=== PATIENT | male | born 1955 | race Two or more races ===

== ENCOUNTER 2024-07-30 14:09 | Inpatient (IN) | payer OTHER ==
[~2024-07-30] VITALS: Ht 165.1 cm; Wt 106.9 kg
[2024-07-30] VITALS (8 sets, daily range): BP systolic 112–125; BP diastolic 34–103; PULSE 85–127; RESP 18–21; TEMP 98.7; O2SAT 90–100
--- NOTE | 2024-07-30 14:15 | ECG ---
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
--- NOTE | 2024-07-30 14:21 | ED.PDOC ---
SOB-HPI HPI Comments 69-year-old male brought in by EMS from home for evaluation of shortness of breath since around 4:30 a.m. and hypoxia. Per EMS, patient stated to them that he most recently moved his position from a wheeled chair to a recliner. He was unable to reach his home nebulizer after moving. He denied any chest pain or fever, however was saturating 75% on 3 L nasal cannula which he uses at home. EMS administered 2 albuterol treatments and 1 Atrovent treatment, which improved the patient's oxygen saturation to 97% on 8L nasal cannula. Time Seen by MD: 14:19 Reviewed notes: Nurses Notes, Boiler Tenders Supervisor Notes, Medications, Allergies Information Source: Emergency Med Personnel Mode of Arrival: EMS Severity: Moderate Timing: Hours Duration: Since onset Context: At Rest PE Risk Factors: None History of: COPD, CHF Prehospital treatment: None Modifying Factors: Nothing Associated Signs and Symptoms: None Past Medical History PAST MEDICAL HISTORY: CHF, COPD, DM Surgical History: Unobtainable Family History Family History: Unobtainable Social History Smoker: Non-Smoker Alcohol: Denies ETOH Use Drugs: Denies Drug Use Lives In: Home Constitutional: denies: chills, diaphoresis, fatigue, fever, malaise, sweats, weakness, others EENTM: denies: blurred vision, double vision, ear bleeding, ear discharge, ear drainage, ear pain, ear ringing, eye pain, eye redness, hearing loss, mouth pain, mouth swelling, nasal discharge, nose bleeding, nose congestion, nose pain, photophobia, tearing, throat pain, throat swelling, voice changes, others Respiratory: reports: shortness of breath; denies: cough, hemoptysis, orthopnea, SOB at rest, SOB with excertion, stridor, wheezing, others Cardiovascular: denies: chest pain, dizzy spells, diaphoresis, Dyspnea on exertion, edema, irregular heart beat, left arm pain, lightheadedness, palpitations, PND, syncope, others Gastrointestinal: denies: abdomen distended, abdominal pain, blood streaked bowels, constipated, diarrhea, dysphagia, difficulty swallowing, hematemesis, melena, nausea, poor appetite, poor fluid intake, rectal bleeding, rectal pain, vomiting, others Genitourinary: denies: burning, dysuria, flank pain, frequency, hematuria, incontinence, penile discharge, penile sore, pain, testicle pain, testicle swelling, urgency, others Neurological: denies: dizziness, fainting, headache, left sided numbness, left sided weakness, numbness, paresthesia, pre-existing deficit, right sided numbness, right sided weakness, seizure, speech problems, tingling, tremors, weakness, others Musculoskeletal: denies: back pain, gout, joint pain, joint swelling, muscle pain, muscle stiffness, neck pain, others Integumetry: denies: bruises, change in color, change in hair/nails, dryness, laceration, lesions, lumps, rash, wounds, others Allergic/Immunocompromised: denies: Difficulty Healing, Frequent Infections, Hives, Itching, others Hematologic/Lymphatic: denies: anemia, blood clots, easy bleeding, easy bruising, swollen glands, others Endocrine: denies: excessive hunger, excessive sweating, excessive thirst, excessive urination, flushing, intolerance to cold, intolerance to heat, unexplained weight gain, unexplained weight loss, others Psychiatric: denies: anxiety, bipolar disorder, depression, hopeless, panic disorder, schizophrenia, sleepless, suicidal, others Unable to Obtain due to: Medical Urgency (Comprehensive systems review unobtainable due to severity of symptoms) Physical Exam General Appearance: Moderate Distress, Obese HEENT: Other (Pupils and face symmetric. Dry mucous membranes.) Neck: Full Range of Motion, Normal Inspection Respiratory: Accessory Muscle Use, Decreased Breath Sounds, Respiratory Distress Cardiovascular: Irregular, No JVD, Tachycardia Breast Exam: Deferred Gastrointestinal: Non Tender, Soft Genitalia: Deferred Pelvic: Deferred Rectal: Deferred Extremities: Leg edema, Normal range of motion, Pedal edema Neurologic: Alert (Oriented x4), Normal Affect, Normal Mood, Other (Moves all extremities) Cerebellar Function: NOT DONE Reflexes: NOT DONE Skin: Dry, Warm, Other (Bilateral legs wrapped with compression bandages.) Lymphatic: NOT DONE EKG EKG : Comments AFib with RVR, rate 135, normal QRS interval, QTC 467, right axis deviation, normal QRS, nonspecific T change, multiple PVCs Was a procedure done? Was a procedure done?: No Differential Dx Differential Diagnosis: Asthma, Bronchitis, CHF, COPD, Dysrhythmia, Hyperventilation, Myocardial infarction, Pneumonia, Pulmonary Embolism, Respiratory Distress, URI X-Ray, Labs, Meds, VS Vital Signs Date Time Temp Pulse Resp B/P (MAP) Pulse Ox O2 Delivery O2 Flow Rate FiO2 07/30/24 20:30 104 18 97 Bi-Pap+ 40 40 07/30/24 20:00 98.0 111 15 107/64 (78) 91 98.0 07/30/24 19:31 117 125/103 95 Facial BiPAP Mask 40 07/30/24 18:12 111 125/103 90 Facial BiPAP Mask 30 07/30/24 18:00 99.3 114 19 125/103 (110) 99 99.3 07/30/24 16:43 98.7 121 21 113/34 99 30 98.7 07/30/24 16:00 121 21 113/34 (60) 100 07/30/24 16:00 122 07/30/24 15:17 24 99 Bi-Pap+ 50 50 07/30/24 15:04 130 138/72 Nasal BiPAP Mask 50 07/30/24 14:56 127 19 100 Bi-Pap+ 50 50 07/30/24 14:47 98.7 137 25 138/72 (94) 98 98.7 07/30/24 14:45 138/72 07/30/24 14:40 133 07/30/24 14:20 98.6 114 38 112/79 (90) 97 98.6 07/30/24 14:11 135 Lab Test 07/30/24 18:55 07/30/24 16:10 07/30/24 16:08 07/30/24 15:47 Range/Units Blood Gas Specimen Type Arterial Arterial Blood Gas Sample Site Right radial Left radial Blood Gas Patient Temperature 37.0 37.0 Arterial Blood Date Drawn [id number] Arterial Blood pH 7.377 7.304 L 7.350-7.450 Arterial Blood Partial Pressure CO2 92.3 *H 104.3 *H 35.0-48.0 mmHg Arterial Blood Partial Pressure O2 65.5 L 100.9 83.0-108.0 mmHg Arterial Blood HCO3 53.0 H 50.6 H 21.0-28.0 mmol/L Arterial Blood Oxygen Saturation 92.5 L 97.6 94.0-98.0 % Arterial Blood Base Excess 23.6 H 20.1 H -2.0-3.0 mmol/L Arterial Blood Oxyhemoglobin 91.3 L 96.1 94.0-98.0 % Arterial Blood Carboxyhemoglobin 0.9 1.2 0.5-1.5 % Arterial Blood Methemoglobin 0.4 0.3 0.0-1.5 % Kailash Test Yes Yes Blood Gas Total Hemoglobin 10.60 L 10.70 L 13.5-17.5 g/dL Blood Gas Set Respiration Rate 14.0 Blood Gas Modality Mask - bipap Mask - bipap FiO2 % 40.0 50.0 Blood Gas EPAP 5 6 Blood Gas IPAP 22 22 Blood Gas Critical Value Read Back yes Yes Blood Gas Notified Whom susan Daigle md, Dr. Blood Gas Notified Time [id number] Blood Gas Notified By sherif sweet, Rt b annelise Influenza Type A Antigen Negative Negative Influenza Type B Antigen Negative Negative SARS-CoV-2 Antigen (Rapid) Negative NEGATIVE Blood Gas Spontaneous Rate 26 Magnesium Level 1.9 1.6-2.6 mg/dL Troponin I High Sensitivity 18 </=54 ng/L Test 07/30/24 15:37 07/30/24 14:55 07/30/24 14:47 Range/Units Urine Color Light-yellow Yellow Urine Clarity Clear Clear Urine pH 5.0 5.0-9.0 Urine Specific [place] 1.010 1.001-1.035 Urine Protein Trace H Negative Urine Ketones Negative Negative Urine Blood Negative Negative /uL Urine Nitrite Negative Negative Urine Bilirubin Negative Negative Urine Urobilinogen Normal Negative mg/dL Urine Leukocyte Esterase Negative Negative /uL Urine RBC <1 0 - 3 /hpf Urine Microscopic WBC 4 H 0-3 /HPF Urine Squamous Epithelial Cells None seen <5 /hpf Urine Bacteria Few H None Seen /hpf Urine Hyaline Casts Few 0 - 2 /lpf Urine Mucus Few None Seen Urine Glucose 4+ H Normal mg/dL POC Glucose 338 H 70-106 mg/dl White Blood Count 12.1 H 4.4-10.8 10^3/uL Red Blood Count 3.75 L 4.5-5.90 10^6/uL Hemoglobin 10.9 L 13.5-17.5 g/dL Hematocrit 35.0 L 41.0-53.0 % Mean Corpuscular Volume 93.3 80.0-100.0 fL Mean Corpuscular Hemoglobin 29.1 28.0-32.0 pg Mean Corpuscular Hemoglobin Concent 31.2 L 32.0-36.0 g/dL Red Cell Distribution Width 15.6 H 11.8-14.3 % Platelet Count 251 140-450 10^3/uL Mean Platelet Volume 8.4 6.9-10.8 fL Neutrophils (%) (Auto) 80.6 H 37.0-80.0 % Lymphocytes (%) (Auto) 9.2 L 10.0-50.0 % Monocytes (%) (Auto) 9.3 0.0-12.0 % Eosinophils (%) (Auto) 0.6 0.0-7.0 % Basophils (%) (Auto) 0.3 0.0-2.0 % Neutrophils # (Auto) 9.7 H 1.6-8.6 10 ^3/uL Lymphocytes # (Auto) 1.1 0.4-5.4 10 ^3/uL Monocytes # (Auto) 1.1 0-1.3 10 ^3/uL Eosinophils # (Auto) 0.1 0-0.8 10 ^3/uL Basophils # (Auto) 0 0-0.2 10 ^3/uL Nucleated Red Blood Cells 0.1 % Sodium Level 136 136-145 mmol/L Potassium Level 4.9 3.5-5.1 mmol/L Chloride Level 88 L 98-107 mmol/L Carbon Dioxide Level > 40 *H 20-31 mmol/L Anion Gap 7.24228 5-15 Blood Urea Nitrogen 41 H 9-23 mg/dL Creatinine 0.89 0.700-1.30 mg/dL Glomerular Filtration Rate Calc 92 >90 mL/min BUN/Creatinine Ratio 46.1 H 10.0-20.0 Serum Glucose 382 H 74-106 mg/dL Hemoglobin A1c 9.2 H <5.7 % A1C Lactic Acid Level 1.3 0.4-2.0 mmol/L Calcium Level 10.5 H 8.7-10.4 mg/dL Total Bilirubin 0.3 0.2-1.0 mg/dL Aspartate Amino Transferase (AST) 22 13-40 U/L Alanine Aminotransferase (ALT) 26 7-40 U/L Alkaline Phosphatase 126 H 46-116 U/L Troponin I High Sensitivity 16 </=54 ng/L B-Type Natriuretic Peptide 228.44 0-100 pg/mL Total Protein 7.5 5.7-8.2 g/dL Albumin 4.0 3.2-4.8 g/dL Current Medications Medications (Trade) Dose Ordered Sig/Artie Route Start Time Stop Time Status Last Admin Albuterol (Ventolin Medneb) 5 mg ONCE ONCE NEB 07/30/24 14:30 07/30/24 14:31 DC 07/30/24 15:17 Ipratropium [place] (Atrovent Medneb) 0.5 mg ONCE ONCE NEB 07/30/24 14:30 07/30/24 14:31 DC 07/30/24 15:17 Furosemide (Lasix Injection) 40 mg ONCE ONCE IV 07/30/24 14:30 07/30/24 14:31 DC 07/30/24 14:45 Dexamethasone Sodium Phosphate (Decadron Injection) 10 mg ONCE ONCE IV 07/30/24 14:45 07/30/24 14:47 DC 07/30/24 14:45 Insulin Human Regular (InsuLIN R) 6 units ONCE ONCE IV 07/30/24 15:00 07/30/24 15:03 DC 07/30/24 15:01 Amiodarone HCl 100 ml @ 600 mls/hr ONCE ONCE IV 07/30/24 15:00 07/30/24 15:09 DC 07/30/24 15:11 [place] [address] Ph: [phone] DIAGNOSTIC IMAGING Diagnostic Imaging Report : [id number] Signed PATIENT: Bryan Reynolds ACCT: [id number] UNIT: [id number] : 1955 LOC: ER ROOM / BED: / AGE / SEX: 69 / M ADM STATUS: REG ER SERVICE 1419 ORDERING PHYSICIAN: DAPHNEY DAIGLE MD PROCEDURE(s): CXRP - CHEST PORTABLE REASON: sob ORDER NUMBER(s): [id number], ACCESSION NUMBER(s): [id number] EXAM: XY CHEST PORTABLE Indication: sob Technique: Single frontal view of the chest was obtained Comparison: None FINDINGS: Lines and Tubes: None Lungs: No focal consolidation. Pleura: No effusion. No pneumothorax. Cardiomediastinal contours: Cardiomegaly. Bones: No acute osseous abnormality. IMPRESSION: Cardiomegaly. No acute cardiopulmonary disease. ATED BY: MARIA VICTORIA GOMEZ MD DICTATED DATE/TIME: 07/30/241454 SIGNED BY: MARIA VICTORIA GOMEZ MD SIGNED DATE/TIME: 07/30/241454 CC: X-Ray, Labs, Meds, VS Comment 69-year-old male with a history of COPD, diabetes and CHF brought in by EMS from home for evaluation of shortness of breath and hypoxia on baseline home oxygen. Initial vitals remarkable for heart rate 137 Exam remarkable for diminished breath sounds, accessory muscle use, severe respiratory distress Rhythm strip independently interpreted by me: AFib with RVR, rate 135, multiple PVCs EKG: AFib with RVR, rate 135, normal QRS interval, QTC 467, right axis deviation, multiple PVCs, nonspecific T change. Chest x-ray IMPRESSION: Cardiomegaly. No acute cardiopulmonary disease. CBC remarkable for WBC 12.1, CMP remarkable for chloride 80, CO2 greater than 40, glucose 382, BNP 228.44, troponin negative, lactic normal, influenza and COVID pending Patient treated with the following in the ED: Placed on BiPAP. Albuterol 5 mg/Atrovent 0.5 mg nebulized, dexamethasone 10 mg IV, amiodarone 150 mg IV bolus followed by amiodarone infusion, regular insulin 6 units IV On re-evaluation, heart rate was 118-130, AFib. Patient was alert and appeared more comfortable on BiPAP. Plan is to admit the patient for heart rate control, respiratory support, pulmonology and Cardiology evaluation. Time of 1ST Reevaluation: 14:49 Reevaluation 1ST: Unchanged Patient Education/Counseling: Diagnosis, Treatment Family Education/Counseling: No Family Present Departure 1 Departure Time of Disposition: 16:31 Impression: Primary Impression: Acute on chronic respiratory failure with hypoxia and hypercapnia Additional Impressions: COPD with exacerbation CHF exacerbation Qualified Codes: I50.9 - Heart failure, unspecified New onset a-fib Atrial fibrillation with RVR Hyperglycemia Disposition: ADMITTED INPATIENT Admit to: [facility] Condition: Guarded Critical Care Note Critical Care Time?: Yes (55 min-critical care time only) Critical care comment: Critical care time including multiple bedside re-evaluations, review of lab and imaging studies, and discussion of the case with the admitting provider. Patient is high risk for hemodynamic and/or respiratory decompensation. Stability Stability form required: No Heart Score Heart Score: Heart Score Response (Comments) Value History N/A 0 EKG N/A 0 Age N/A 0 Risk Factors N/A 0 Troponin N/A 0 Total 0 I personally scribed for DAPHNEY DAIGLE MD ([email or web address]) on 07/30/24 at 14:21. Electronically submitted by Makayla Murillo ([email or web address]). I personally scribed for DAPHNEY DAIGLE MD ([email or web address]) on 07/30/24 at 14:22. Electronically submitted by Makayla Murillo ([employer]). I personally scribed for DAPHNEY DAIGLE MD ([email or web address]) on 07/30/24 at 15:05. Electronically submitted by Makayla Murillo ([employer]). DAPHNEY DAIGLE MD Jul 30, 2024 14:21
[2024-07-30] MEDS ORDERED: methylPREDNISolone SOD SUCC 125 MG/2 ML VL IV ONE (14:30)
[2024-07-30] MEDS: FUROSEMIDE 40 MG/4 ML VIAL IV ONE (14:45)
[2024-07-30] MEDS ORDERED: AMIODARONE HCL 150 MG in D5W 5% 100 ML IV PRN (14:45)
[2024-07-30] MEDS: DexAMETHasone SOD PHOS 10MG/1ML VIAL INJ IV ONE (14:45)
--- NOTE | 2024-07-30 14:57 | DVH ---
EXAM: XY CHEST PORTABLE Indication: sob Technique: Single frontal view of the chest was obtained Comparison: None FINDINGS: Lines and Tubes: None Lungs: No focal consolidation. Pleura: No effusion. No pneumothorax. Cardiomediastinal contours: Cardiomegaly. Bones: No acute osseous abnormality. IMPRESSION: Cardiomegaly. No acute cardiopulmonary disease.
[2024-07-30] MEDS: InsuLIN REG 1unit/0.01ml Soln (100units/ml) IV ONE (15:01)
[2024-07-30] MEDS: AMIODARONE BOLUS KIT 100 ML IV ONE (15:11)
[2024-07-30 15:12] LABS: Basophils # (auto) 0 10 ^3/uL (0-0.2); Basophils % (auto) 0.3 % (0.0-2.0); Eosinophils # (auto) 0.1 10 ^3/uL (0-0.8); Eosinophils % (auto) 0.6 % (0.0-7.0); Hemoglobin 10.9 g/dL (13.5-17.5); Lymphocytes # (auto) 1.1 10 ^3/uL (0.4-5.4); Lymphocytes % (auto) 9.2 % (10.0-50.0); Mean Corpuscular Hemoglobin 29.1 pg (28.0-32.0); Mean Corpuscular Hgb Conc. 31.2 g/dL (32.0-36.0); Mean Corpuscular Volume 93.3 fL (80.0-100.0); Monocytes # (auto) 1.1 10 ^3/uL (0-1.3); Monocytes % (auto) 9.3 % (0.0-12.0); Neutrophils # (auto) 9.7 10 ^3/uL (1.6-8.6); Neutrophils % (auto) 80.6 % (37.0-80.0); Nucleated Red Blood Cells % 0.1 %; Platelet Count (auto) 251 10^3/uL (140-450); Red Blood Cells 3.75 10^6/uL (4.5-5.90); Red Cell Distribution Width 15.6 % (11.8-14.3); White Blood Cell 12.1 10^3/uL (4.4-10.8)
[2024-07-30] MEDS: IPRATROPIUM BROM 0.5 MG/2.5ML INH SOL NEB ONE (15:17)
[2024-07-30] MEDS: ALBUTEROL SULF 2.5 MG/0.5ML(0.5%) NEB SOLN NEB ONE (15:17)
[2024-07-30 15:29] LABS: Alanine Aminotransferase 26 U/L (7-40); Aspartate Aminotransferase 22 U/L (13-40); BUN/Creatinine Ratio 46.1 (10.0-20.0); Potassium 4.9 mmol/L (3.5-5.1); Total Protein 7.5 g/dL (5.7-8.2)
[2024-07-30 15:30] LABS: Bilirubin, Total 0.3 mg/dL (0.2-1.0)
[2024-07-30 15:32] LABS: Alkaline Phosphatase 126 U/L (46-116); Anion Gap 7.99999 (5-15); Blood Urea Nitrogen 41 mg/dL (9-23); Calcium 10.5 mg/dL (8.7-10.4); Chloride 88 mmol/L (98-107); Glucose 382 mg/dL (74-106); Sodium 136 mmol/L (136-145)
[2024-07-30 15:34] LABS: Carbon Dioxide > 40 mmol/L (20-31)
[2024-07-30 16:01] LABS: Urine Bacteria FEW /hpf (None Seen); Urine Blood Negative /uL (Negative); Urine Clarity Clear (Clear); Urine Color Light-Yellow (Yellow); Urine Hyaline Cast FEW /lpf (0 - 2); Urine Mucus FEW (None Seen); Urine Protein, UAD TRACE (Negative); Urine Squamous Epithelial Cell None Seen /hpf (<5); Urine Urobilinogen Normal (Negative); Urine WBC 4 /HPF (0-3)
[2024-07-30 16:18] LABS: Base Excess 20.1 mmol/L (-2.0-3.0)
[2024-07-30] MEDS: AMIODARONE 360mg/200mL PREMIX 200 ML IV ONE (17:04)
[2024-07-30 18:11] LABS: Rapid Influenza A Negative (Negative); Rapid Influenza B Negative (Negative)
[2024-07-30 18:12] LABS: COVID19 ANTIGEN SOFIA FIA NEGATIVE (NEGATIVE)
[2024-07-30 19:20] LABS: Base Excess 23.6 mmol/L (-2.0-3.0)
--- NOTE | 2024-07-30 21:42 | DVHHPRES ---
History of Present Illness Resident Creating Document: TANNER SALGADO RESIDENT History of Present Illness Patient is a 69-year-old male with past medical history of CHF, COPD, type 2 diabetes, atrial fibrillation, who comes in due to respiratory distress. Per patient's brother who is also his caregiver, patient's home wound care nurse checked his vitals and his SpO2 was noted to be 68% with a pulse of 130, he also appeared disoriented and had labored breathing. According to the brother, patient's mobility has been progressively decreasing over the last 3 months and he has been limited to a recliner/office chair for the last 1 month and refuses to lie flat in his bed. Patient has been having increasing leg swelling during this time with the appearance of fluid-filled blisters which eventually started draining an ulcerated. Brother says he has been using antibiotic dressing on open sores with the help of wound nurse however the dressings continued to get drenched in the discharge and this is what prompted this visit to the hospital. Arrival to the ED patient was noted to be tachycardic and tachypneic and was placed on BiPAP. Note, patient is on home oxygen 2-3 L. Past Medical History CHF, COPD, type 2 diabetes, atrial fibrillation Past Surgical History Left heart catheterization 8 years ago, brother unsure of results. Past Social History Smoking: Quit, prior to that was smoking 1 pack per day for 10 years Alcohol: Denies Drugs: Denies Allergy: Shellfish Home medications: Unable to obtain Review of Systems Review of Systems Unable to complete review of systems as patient confused and on BiPAP. Allergies: Coded Allergies: NO KNOWN ALLERGIES (Unverified , 07/30/24) Medications Current Medications Medications Dose Ordered Sig/Artie Route Start Time Stop Time Status Last Admin Dose Admin Acetaminophen 325 mg Q4HP PRN PO 07/30/24 21:45 UNV Vancomycin HCl 0 ml @ 0 mls/hr UD IV 07/30/24 21:45 UNV Cefepime HCl 50 ml @ 12.5 mls/hr Q8HR IV 07/30/24 22:00 UNV Enoxaparin Sodium 140 mg Q12HR SC 07/30/24 22:00 UNV Ipratropium [place] 0.5 mg Q4HR NEB 07/30/24 22:00 UNV Levalbuterol HCl 1.25 mg Q4HR NEB 07/30/24 22:00 UNV Insulin Glargine 20 units HS SC 07/30/24 22:00 UNV Diagnostic Test (Pha) 1 strip IQ4HR 07/31/24 00:00 UNV Insulin Human Regular IQ4HR SC 07/31/24 00:00 UNV Dextrose 50 ml UD PRN IV 07/30/24 21:45 UNV Exam Vital Signs Vital Signs Date Time Temp Pulse Resp B/P (MAP) Pulse Ox O2 Delivery O2 Flow Rate FiO2 07/30/24 20:30 104 18 97 Bi-Pap+ 40 40 07/30/24 20:00 98.0 107/64 (78) 98.0 General Appearance: Alert, Cooperative, moderate distress HEENT: Atraumatic, PERRLA, EOMI, Other (Dry mucous membranes) Respiratory: Normal air movement Cardiovascular: Other (Tachycardic) Abdominal: Normal bowel sounds, Soft, No tenderness Extremities: Other (Bilateral lower extremity erythema and swelling, wounds covered with dressing.) Neuro: Normal speech, Sensation intact Psych/Mental Status: Mood NL Labs/Xrays Labs Test 07/30/24 18:55 07/30/24 16:10 07/30/24 16:08 07/30/24 15:47 Range/Units Blood Gas Specimen Type Arterial Blood Gas Sample Site Right radial Blood Gas Patient Temperature 37.0 Arterial Blood Date Drawn [id number] Arterial Blood pH 7.377 7.350-7.450 Arterial Blood Partial Pressure CO2 92.3 *H 35.0-48.0 mmHg Arterial Blood Partial Pressure O2 65.5 L 83.0-108.0 mmHg Arterial Blood HCO3 53.0 H 21.0-28.0 mmol/L Arterial Blood Oxygen Saturation 92.5 L 94.0-98.0 % Arterial Blood Base Excess 23.6 H -2.0-3.0 mmol/L Arterial Blood Oxyhemoglobin 91.3 L 94.0-98.0 % Arterial Blood Carboxyhemoglobin 0.9 0.5-1.5 % Arterial Blood Methemoglobin 0.4 0.0-1.5 % Kailash Test Yes Blood Gas Total Hemoglobin 10.60 L 13.5-17.5 g/dL Blood Gas Set Respiration Rate 14.0 Blood Gas Modality Mask - bipap FiO2 % 40.0 Blood Gas EPAP 5 Blood Gas IPAP 22 Blood Gas Critical Value Read Back yes Blood Gas Notified Whom susan Daigle md Blood Gas Notified Time [id number] Blood Gas Notified By rt byron Influenza Type A Antigen Negative Negative Influenza Type B Antigen Negative Negative SARS-CoV-2 Antigen (Rapid) Negative NEGATIVE Blood Gas Spontaneous Rate 26 Troponin I High Sensitivity 18 </=54 ng/L Test 07/30/24 15:37 07/30/24 14:55 07/30/24 14:47 Range/Units Urine Color Light-yellow Yellow Urine Clarity Clear Clear Urine pH 5.0 5.0-9.0 Urine Specific [place] 1.010 1.001-1.035 Urine Protein Trace H Negative Urine Ketones Negative Negative Urine Blood Negative Negative /uL Urine Nitrite Negative Negative Urine Bilirubin Negative Negative Urine Urobilinogen Normal Negative mg/dL Urine Leukocyte Esterase Negative Negative /uL Urine RBC <1 0 - 3 /hpf Urine Microscopic WBC 4 H 0-3 /HPF Urine Squamous Epithelial Cells None seen <5 /hpf Urine Bacteria Few H None Seen /hpf Urine Hyaline Casts Few 0 - 2 /lpf Urine Mucus Few None Seen Urine Glucose 4+ H Normal mg/dL POC Glucose 338 H 70-106 mg/dl White Blood Count 12.1 H 4.4-10.8 10^3/uL Red Blood Count 3.75 L 4.5-5.90 10^6/uL Hemoglobin 10.9 L 13.5-17.5 g/dL Hematocrit 35.0 L 41.0-53.0 % Mean Corpuscular Volume 93.3 80.0-100.0 fL Mean Corpuscular Hemoglobin 29.1 28.0-32.0 pg Mean Corpuscular Hemoglobin Concent 31.2 L 32.0-36.0 g/dL Red Cell Distribution Width 15.6 H 11.8-14.3 % Platelet Count 251 140-450 10^3/uL Mean Platelet Volume 8.4 6.9-10.8 fL Neutrophils (%) (Auto) 80.6 H 37.0-80.0 % Lymphocytes (%) (Auto) 9.2 L 10.0-50.0 % Monocytes (%) (Auto) 9.3 0.0-12.0 % Eosinophils (%) (Auto) 0.6 0.0-7.0 % Basophils (%) (Auto) 0.3 0.0-2.0 % Neutrophils # (Auto) 9.7 H 1.6-8.6 10 ^3/uL Lymphocytes # (Auto) 1.1 0.4-5.4 10 ^3/uL Monocytes # (Auto) 1.1 0-1.3 10 ^3/uL Eosinophils # (Auto) 0.1 0-0.8 10 ^3/uL Basophils # (Auto) 0 0-0.2 10 ^3/uL Nucleated Red Blood Cells 0.1 % Sodium Level 136 136-145 mmol/L Potassium Level 4.9 3.5-5.1 mmol/L Chloride Level 88 L 98-107 mmol/L Carbon Dioxide Level > 40 *H 20-31 mmol/L Anion Gap 7.18463 5-15 Blood Urea Nitrogen 41 H 9-23 mg/dL Creatinine 0.89 0.700-1.30 mg/dL Glomerular Filtration Rate Calc 92 >90 mL/min BUN/Creatinine Ratio 46.1 H 10.0-20.0 Serum Glucose 382 H 74-106 mg/dL Lactic Acid Level 1.3 0.4-2.0 mmol/L Calcium Level 10.5 H 8.7-10.4 mg/dL Total Bilirubin 0.3 0.2-1.0 mg/dL Aspartate Amino Transferase (AST) 22 13-40 U/L Alanine Aminotransferase (ALT) 26 7-40 U/L Alkaline Phosphatase 126 H 46-116 U/L B-Type Natriuretic Peptide 228.44 0-100 pg/mL Total Protein 7.5 5.7-8.2 g/dL Albumin 4.0 3.2-4.8 g/dL Assessment/Plan Assessment/Plan Acute on chronic hypoxic/hypercarbic respiratory failure, on 4 L O2 via NC Acute metabolic encephalopathy possibly due to above, improving COPD exacerbation Rule out pulmonary embolism - CXR: Cardiomegaly. No acute cardiopulmonary disease - ordered CT pulmonary angiography - IV vancomycin per pharmacy, IV cefepime - IV methylprednisolone - therapeutic Lovenox - ipratropium and levalbuterol med nebs Bilateral lower extremity cellulitis Possible sepsis due to above - IV vancomycin, IV cefepime - wound consult - wound culture, blood culture, respiratory culture - IV ketorolac as needed for pain Acute on chronic CHF exacerbation, systolic versus diastolic History of atrial fibrillation Hypercoagulable state secondary to above - aspirin 81 mg - IV furosemide 40 mg b.i.d. - ordered echocardiogram Type 2 diabetes, uncontrolled, A1c 9.2 - insulin Lantus 20 units q.p.m. - aggressive sliding scale insulin Obesity, class 3 - unable to deputy general counsel as patient in distress PUD prophylaxis: protonix 40mg Goals of care: Full code, discussed for >16 minutes on 07/30/24 Plan discussed with patient Plan discussed with Dr. Polk Plan discussed with: Patient, Other (Brother MARLYS Carey) My Orders Orders - TANNER SALGADO RESIDENT Procedure Category Date Status Time Admit ADMIT 07/30/24 Transmitted 21:31 Allergies BRENT 07/30/24 In Process 21:31 Code Status CODE 07/30/24 Transmitted 21:31 Acetaminophen Tablet PHA 07/30/24 Logged (Tylenol Tablet) 21:45 Complete Blood Count LAB 07/31/24 Verified 04:00 Comprehensive LAB 07/31/24 Verified Metabolic Panel 04:00 Npo (Nothing By DIET 07/31/24 Transmitted Mouth) Diet Breakfast Echo 2d Mode Cardiac US 07/30/24 Logged DOP 21:31 Condition: Unstable BRENT 07/30/24 In Process 21:31 Notify Md Of Changes BRENT 07/30/24 In Process From Base 21:31 Vancomycin Per PHA 07/30/24 Logged Pharmacy 21:45 Cefepime 2gm/50ml Ns PHA 07/30/24 Logged (Maxipime 2gm/50ml) 22:00 Enoxaparin Sodium PHA 07/30/24 Logged (Lovenox) 22:[address] 07/30/24 Logged Contrast 21:31 Communication Order ORDERS 07/30/24 Transmitted 21:31 Ipratropium Medneb PHA 07/30/24 Logged (Atrovent Medneb) 22:00 Levalbuterol Hcl PHA 07/30/24 Logged (Xopenex Medneb) 22:00 Blood Culture KALEN 07/30/24 Logged 21:31 Respiratory Culture KALEN 07/30/24 Logged W/ Gs 21:31 Insulin Lantus PHA 07/30/24 Logged (Glargine) (Lantus) 22:00 Glucose Blood PHA 07/31/24 Logged (Accu-Chek Comfort 00:00 Insulin R (Human) PHA 07/31/24 Logged (Insulin R) 00:00 Dextrose 50% Syringe PHA 07/30/24 Logged 21:45 Rapid Influenza A&B LAB 07/30/24 Logged 21:31 Magnesium LAB 07/30/24 Logged 21:41 Hemoglobin A1c LAB 07/30/24 Verified 21:41 Date of Service: Jul 30, 2024 Billing Provider: NARENDRA POLK MD Common Visit Codes: [id number] INP/OBS CARE (HIGH) TANNER SALGADO RESIDENT Jul 30, 2024 21:42
[2024-07-30] MEDS: IOHEXOL 350 MG/ML 100ML IJ ONE (21:43)
[2024-07-30] MEDS ORDERED: VANCOMYCIN PER PHARMACY 0 MG IV SCH (21:45)
[2024-07-30] MEDS ORDERED: ACETAMINOPHEN 325 MG TAB PO PRN (21:45)
[2024-07-30] MEDS ORDERED: DEXTROSE (50%) 50ML SYRG IV PRN (21:45)
[2024-07-30] MEDS: IPRATROPIUM BROM 0.5 MG/2.5ML INH SOL NEB SCH (22:20)
[2024-07-30] MEDS: LEVALBUTEROL HCL 1.25 MG/3 ML NEB NEB SCH (22:20)
[2024-07-30] MEDS: INSULIN LANTUS (GLARGINE) 1 /0.01ml (100units/ml) SC SCH (22:28)
[2024-07-30] MEDS: ENOXAPARIN SOD 100 MG/1 ML SYRINGE SC SCH (22:28)
[2024-07-30] MEDS: CEFEPIME 2GM/50ML NS 50 ML IV SCH (22:28)
[2024-07-30] MEDS ORDERED: VANCOMYCIN 1GM/200ML PM 200 ML IV SCH (22:30)
[2024-07-30] MEDS: AMIODARONE 360mg/200mL PREMIX 200 ML IV SCH (23:14)
[2024-07-30] MEDS: InsuLIN REG 1unit/0.01ml Soln (100units/ml) SC SCH (23:59)
[2024-07-31] VITALS (23 sets, daily range): BP systolic 96–121; BP diastolic 50–55; PULSE 64–126; RESP 15–22; TEMP 97.7–98.9; O2SAT 93–100
[2024-07-31] MEDS: ACCU-CHEK COMFORT CURVE STRIP VI SCH (00:02)
[2024-07-31] MEDS ORDERED: METF-370 PO (00:03)
[2024-07-31] MEDS ORDERED: FURO40TA4 PO (00:15)
[2024-07-31] MEDS ORDERED: ALBU108A5 INH (00:15)
[2024-07-31] MEDS ORDERED: ASPI-543 PO (00:15)
[2024-07-31] MEDS ORDERED: POM (00:26)
[2024-07-31] MEDS: VANCOMYCIN 1GM/200ML PM 200 ML IV SCH (00:50)
[2024-07-31] MEDS: PANTOPRAZOLE 40 MG/10 ML VIAL INJ IV ONE (02:00)
[2024-07-31 02:09] LABS: Base Excess 22.3 mmol/L (-2.0-3.0)
[2024-07-31] MEDS: FUROSEMIDE 40 MG/4 ML VIAL IV SCH (06:00)
[2024-07-31 07:09] LABS: Base Excess 22.1 mmol/L (-2.0-3.0)
[2024-07-31 07:41] LABS: Basophils # (auto) 0 10 ^3/uL (0-0.2); Eosinophils # (auto) 0 10 ^3/uL (0-0.8); Hemoglobin 9.4 g/dL (13.5-17.5); Lymphocytes # (auto) 0.4 10 ^3/uL (0.4-5.4); Lymphocytes % (auto) 5.2 % (10.0-50.0); Mean Corpuscular Hemoglobin 29.5 pg (28.0-32.0); Mean Corpuscular Hgb Conc. 32.6 g/dL (32.0-36.0); Mean Corpuscular Volume 90.5 fL (80.0-100.0); Monocytes # (auto) 0.6 10 ^3/uL (0-1.3); Neutrophils % (auto) 86.8 % (37.0-80.0); Platelet Count (auto) 205 10^3/uL (140-450); Red Cell Distribution Width 15.1 % (11.8-14.3); White Blood Cell 8.1 10^3/uL (4.4-10.8)
[2024-07-31 07:46] LABS: Alanine Aminotransferase 24 U/L (7-40); Albumin 3.7 g/dL (3.2-4.8); Alkaline Phosphatase 107 U/L (46-116); Aspartate Aminotransferase 18 U/L (13-40); BUN/Creatinine Ratio 50.6 (10.0-20.0); Potassium 4.6 mmol/L (3.5-5.1); Sodium 142 mmol/L (136-145); Total Protein 6.9 g/dL (5.7-8.2)
[2024-07-31 07:52] LABS: Chloride 90 mmol/L (98-107)
[2024-07-31 07:53] LABS: Anion Gap 11.99999 (5-15); Bilirubin, Total 0.2 mg/dL (0.2-1.0); Blood Urea Nitrogen 40 mg/dL (9-23); Calcium 10.8 mg/dL (8.7-10.4); Glucose 72 mg/dL (74-106)
[2024-07-31 07:54] LABS: Carbon Dioxide > 40 mmol/L (20-31)
[2024-07-31 08:28] LABS: Folate (Folic Acid) 32.36 ng/mL (>5.38)
[2024-07-31 08:56] LABS: Base Excess 22.6 mmol/L (-2.0-3.0)
[2024-07-31] MEDS: ASPirin-EC 81 mg tab PO SCH (10:00)
[2024-07-31] MEDS: methylPREDNISolone SOD SUCC 40 MG/ML VL IV SCH (11:33)
[2024-07-31] MEDS: diphenhdrAMINE HCL 50 MG/1 ML VL IV ONE (11:38)
[2024-07-31] MEDS: KETOROLAC TROMETH 30 MG/ML 1ML VIAL IV PRN (12:28)
[2024-07-31] MEDS: AMIODARONE 360mg/200mL PREMIX 200 ML IV SCH (12:33)
--- NOTE | 2024-07-31 12:40 | DVH ---
Procedure: CT CT ANGIO CHEST CONTRAST Reason for study/Clinical History: r/o PE Comparison Study: None available at time of dictation. Exam Date: 07/31/2024 12:02 PM Radiation Dose Information: CT Dose: CTDI volume is 28.85 mGy. Dose-length product is 1073.19 mGy*cm TECHNIQUE: After the uneventful administration of intravenous contrast intravenously, CT imaging was performed through the chest. Coronal and sagittal reformations were performed by the technologist. FINDINGS: Lower Neck: Visualized portions of the thyroid gland are unremarkable. Aorta and Vasculature: Normal caliber of thoracic aorta. Lymph Nodes: No enlarged intrathoracic lymph nodes. Mediastinum: Heart size is normal. There is no pericardial effusion. The esophagus is unremarkable. Lungs: 2cm Nodular opacities right lung apex. Follow-up CT in 6 weeks to see if there is resolution. Musculoskeletal: No acute osseous abnormality. Upper abdomen: Limited portions of the upper abdomen are unremarkable. IMPRESSION: No evidence of acute intrathoracic abnormality identified. 2cm Nodular opacities right lung apex. Follow-up CT in 6 weeks to see if there is resolution. All CT scans at this medical facility are performed using dose modulation techniques as appropriate t o a performed exam including the following: Automated exposure control was utilized; adjustment of th e MA and/or KV according to patient size; and use of iterative reconstruction technique.
[2024-07-31] MEDS ORDERED: HYDROcodone-ACET 10/325MG TAB PO PRN (15:15)
--- NOTE | 2024-07-31 15:43 | DVH ---
CLINICAL INDICATION: right hip pain TECHNIQUE: 1 radiographic views of the right hip were obtained. Comparison: None FINDINGS/IMPRESSION: There is no evidence of acute fracture or dislocation. Suboptimal study since the omental Alcira is superimposed over the right hip. This is not improved wi th altering study windows. The visualized joint space is well maintained. The alignment is anatomical. There is no radiopaque foreign body.
--- NOTE | 2024-07-31 15:54 | DVHPNRES ---
Progress Note Date Seen: Jul 31, 2024 Resident Creating Document: GINETTE TRIVEDI RESIDENT Medical Necessity Reason Pt with a Central, PICC or Fol: No Subjective Review of Systems Patient is a 69-year-old male with past medical history of CHF, COPD, type 2 diabetes, atrial fibrillation, who comes in due to respiratory distress. Per patient's brother who is also his caregiver, patient's home wound care nurse checked his vitals and his SpO2 was noted to be 68% with a pulse of 130, he also appeared disoriented and had labored breathing. According to the brother, patient's mobility has been progressively decreasing over the last 3 months and he has been limited to a recliner/office chair for the last 1 month and refuses to lie flat in his bed. Patient has been having increasing leg swelling during this time with the appearance of fluid-filled blisters which eventually started draining an ulcerated. Brother says he has been using antibiotic dressing on open sores with the help of wound nurse however the dressings continued to get drenched in the discharge and this is what prompted this visit to the hospital. Arrival to the ED patient was noted to be tachycardic and tachypneic and was placed on BiPAP. Note, patient is on home oxygen 2-3 L. Patient was seen and examined on the bedside. He is alert oriented x3. Complaint of shortness of breath, hip pain and bilateral leg pain. No other active complaint this time. Constitutional: No: Fever, Chills, Sweats, Weakness, Malaise, Other Eyes: No: Pain, Vision change, Conjunctivae inflammation, Eyelid inflammation, Other, Redness ENT: No: Ear pain, Ear discharge, Nose pain, Nose discharge, Nose congestion, Mouth pain, Mouth swelling, Throat pain, Throat swelling, Other Respiratory: Shortness of breath, improving No: Cough, Dry,Wheezing, Hemoptysis, Pleuritic Pain, Sputum, Wheezing, Other Cardiovascular: Chest Pain, Palpitations, No Orthopnea, Paroxysmal Noc. Dyspnea, Edema, Lt Headedness, Other Gastrointestinal: No: Nausea, Vomiting, Abdominal Pain, Diarrhea, Constipation, Melena, Hematochezia, Other Musculoskeletal: Hip pain and leg pain No: other, neck pain, shoulder pain, arm pain, back pain, hand pain, foot pain Neurological:; No: Weakness, Numbness, Incoordination, Change in speech, Confusion, Seizures Objective vital signs Vital Sign Date Time Temp Pulse Resp B/P (MAP) Pulse Ox O2 Delivery O2 Flow Rate FiO2 07/31/24 14:42 110 20 97 07/31/24 14:35 Nasal Cannula* 3 32 07/31/24 13:26 98.5 121/54 (76) 98.5 Total Intake and Output 07/30/24 07/30/24 07/31/24 15:00 23:00 07:00 Intake Total 600 ml 50 ml Output Total 1100 ml Balance 600 ml -1050 ml medications Current Medications Medications Dose Ordered Sig/Artie Route Start Time Stop Time Status Last Admin Dose Admin Acetaminophen 325 mg Q4HP PRN PO 07/30/24 21:45 Vancomycin HCl 0 ml @ 0 mls/hr UD IV 07/30/24 21:45 Cefepime HCl 50 ml @ 12.5 mls/hr Q8HR IV 07/30/24 22:00 07/31/24 15:02 12.5 MLS/HR Enoxaparin Sodium 140 mg Q12HR SC 07/30/24 22:00 07/31/24 11:33 140 MG Ipratropium [place] 0.5 mg Q4HR NEB 07/30/24 22:00 07/31/24 14:32 0.5 MG Levalbuterol HCl 1.25 mg Q4HR NEB 07/30/24 22:00 07/31/24 14:32 1.25 MG Insulin Glargine 20 units HS SC 07/30/24 22:00 07/30/24 22:28 20 UNITS Diagnostic Test (Pha) 1 strip IQ4HR 07/31/24 00:00 07/31/24 12:00 1 STRIP Insulin Human Regular IQ4HR SC 07/31/24 00:00 07/31/24 03:46 4 UNITS Dextrose 50 ml UD PRN IV 07/30/24 21:45 Methylprednisolone Sodium Succinate 40 mg DAILY IV 07/31/24 10:00 07/31/24 11:33 40 MG Aspirin 81 mg DAILY PO 07/31/24 10:00 Pantoprazole Sodium 40 mg DAILY IV 08/01/24 10:00 Furosemide 40 mg BIDD IV 07/31/24 06:00 Acetaminophen/ Hydrocodone Bitart 1 tab Q6HP PRN PO 07/31/24 15:15 Morphine Sulfate 2 mg Q4HPRN PRN IV 07/31/24 15:15 Examination Physical examination: General Appearance: Alert, Oriented X3, Cooperative, mild distress; morbidly obese HEENT: Atraumatic, PERRLA, EOMI, Mucous membrane moist/pink Respiratory: Bilateral wheezing and crackles. Cardiovascular: Irregular rhythm with rate from 90 to 110, Normal S1, Normal S2, No murmurs, no chest wall tenderness Abdominal: Normal bowel sounds, Soft, No tenderness, No hepatospenomegaly, No masses Extremities: No clubbing, No cyanosis, No edema, Normal pulses, No tenderness/swelling Skin: Bilateral macerated wounds in legs, No rashes, No significant lesion Neuro: Normal speech, Strength at 5/5 X4 ext, Normal tone, Sensation intact, Cranial nerves 3-12 NL, Reflexes 2+ Psych/Mental Status: Mental status NL, Mood NL laboratory and microbiology Laboratory Tests 07/31/24 06:53 Test 07/31/24 06:53 Range/Units Serum Glucose 72 #L 74-106 mg/dL Microbiology Date/Time Source Procedure Growth Status 07/30/24 14:47 Blood Blood Culture - Preliminary NO GROWTH AFTER 24 HOURS OF INCUBATION. Resulted Labs and/or images reviewed: Labs reviewed by me, Image(s) reviewed by me Problem List/Assessment/Plan Problem List/Assessment/Plan Assessment/Plan: # Acute on chronic hypoxic/hypercarbic respiratory failure, on 4 L O2 via NC # Acute metabolic encephalopathy possibly due to above, improving # Acute exacerbation of chronic COPD # Ruled out pulmonary embolism # Pulmonary nodule, rule out malignancy- # Possible pulmonary hypertension - CXR: Cardiomegaly. No acute cardiopulmonary disease - CT angiography demonstrated 2 cm nodular opacities right lung apex, ruled out PE and follow up CT scan in 6 weeks to see if there is resolution. - Med neb with levalbuterol and ipratropium q.4 hours - IV vancomycin per pharmacy, IV cefepime 2gm Q 8 hours - IV methylprednisolone 40 mg daily - BiPAP at night time # Bilateral lower extremity cellulitis # Possible sepsis due to above - IV vancomycin, IV cefepime - wound consult - Pending wound culture, blood culture, respiratory culture - IV morphine 2 mg q.4 PRN - [place] 10/325 mg q.6 p.r.n. # Acute on chronic CHF exacerbation, systolic versus diastolic # paroxysmal atrial fibrillation with RVR # Hypercoagulable state secondary to above - EKG showed irregular rhythm, borderline T abnormalities and troponins were unremarkable - IV amiodarone as per protocol 12 hourly - Therapeutic Lovenox 1 milligram/kg b.i.d. - Aspirin 81 mg daily and atorvastatin 20 mg at HS - IV furosemide 40 mg b.i.d. - Pending echo - Consulted Cardiology # Type 2 diabetes, uncontrolled, A1c 9.2 - insulin Lantus 20 units q.p.m. - aggressive sliding scale insulin # Obesity, class 3 , BMI 50.1 kg/m2 - counseled patient regarding weight loss, diet, moderate intensity physical exercise at least 35 minutes for 5 times a week and lifestyle modification # PUD prophylaxis - Protonix 40mg daily # DVT prophylaxis - patient is on Lovenox Goal of care discussed with the patient and his sisters for 20 minutes full code Plan discussed with Dr. Dobson Plan discussed with: Patient, Other (Sisters; nurse) My Orders My Orders Orders - GINETTE TRIVEDI RESIDENT Procedure Category Date Status Time Amiodarone PHA 07/31/24 In Process 360mg/200ml Premix 11:46 Wound Culture W/ Gs KALEN 07/31/24 In Process 11:42 Wound Culture W/ Gs KALEN 07/31/24 In Process 11:42 Cleanse Wound With BRENT 07/31/24 In Process Wound Clean 10:34 * Dietary Consult CONS 07/31/24 Transmitted 13:39 Cleanse Wound With BRENT 07/31/24 In Process Mild Soap A 10:34 Cardiac DIET 07/31/24 Transmitted Diet-2gna,Lofat,Lochol Dinner BIPAP RT 07/31/24 Logged 15:40 Addendum Addendum Addendum I was physically present for the galeas portions of the service provided to patient by THE RESIDENT. I have reviewed the documentation, discussed the case with resident and agree with the resident's documentation except as noted. Also the patient's clinical case was discussed with the patient's nurse. This medical document was created using an electronic medical record system with computerized dictation system. Although this document has been carefully reviewed, there might still be some phonetic and typographical errors. These areas are purely typographical due to imperfections of the software programs, and do not reflect any compromise in the patient's medical care. Late signature. Date of Service: Jul 31, 2024 Billing Provider: MARISOL DOBSON MD Common Visit Codes: 59023-[id number] INP/OBS CARE(HIGH) Secondary Visit Codes: 35302-[id number] CARE PLAN 30 MINUTES (20 minutes) GINETTE TRIVEDI RESIDENT Jul 31, 2024 15:54 MARISOL DOBSON MD August 01, 2024 07:04
[2024-07-31] MEDS: MORPHINE SULFATE INJ 2 MG/ml SYRG IV PRN (18:53)
[2024-07-31] MEDS: SODIUM CHLORIDE 0.9% 250 ML IV ONE (20:44)
[2024-07-31] MEDS: ATORVASTATIN 20 MG TAB PO SCH (21:36)
[2024-07-31 22:52] LABS: Base Excess 19.7 mmol/L (-2.0-3.0)
[2024-07-31] MEDS: ETOMIDATE (2MG/ML) 20ML VIAL IV ONE ×2 (23:39→23:41)
[2024-07-31] MEDS: MIDAZOLAM DRIP 50 mg/50mL 50 ML IV ONE (23:41)
[2024-07-31] MEDS: fentaNYL Drip 2500mCg/250mlNS 250 ML IV ONE (23:41)
[2024-07-31] MEDS: ROCURONIUM 10MG/ML 10ML VIAL IV ONE (23:42)
--- NOTE | 2024-07-31 23:58 | ED.PDOC ---
Was a procedure done? Was a procedure done?: Yes Sedation Sedation?: No Intubation Indication: Respiratory Insufficiency, Altered Mental Status Prep: Preoxygenation Pretreated with: Other (Etomidate) Medicated with: Other (Rocuronium) Intubation Approach: Orotracheal Intubation size: cm (8) Informed consent obtained: No Risks/benefits/alt described: No Notes I was assisted by residents Dr. Dai and MISHA Casper MD Jul 31, 2024 23:58
[2024-08-01] VITALS (105 sets, daily range): BP systolic 78–154; BP diastolic 45–82; PULSE 83–132; RESP 14–23; TEMP 97.1–99.2; O2SAT 86–100
[2024-08-01] MEDS: NOREPINEPHRINE 8 MG/250ML KIT 250 ML IV ONE (00:46)
[2024-08-01] MEDS: IOHEXOL 350 MG/ML 100ML IJ ONE (00:55)
[2024-08-01] MEDS: MIDAZOLAM DRIP 50 mg/50mL 50 ML IV SCH (01:15)
[2024-08-01] MEDS: fentaNYL Drip 2500mCg/250mlNS 250 ML IV SCH (01:15)
[2024-08-01] MEDS: ROCURONIUM 10MG/ML 10ML VIAL IV ONE (02:33)
[2024-08-01] MEDS: ETOMIDATE (2MG/ML) 20ML VIAL IV ONE (02:33)
[2024-08-01 02:50] LABS: Base Excess 22.6 mmol/L (-2.0-3.0)
[2024-08-01] MEDS: NOREPINEPHRINE 8 MG/250ML KIT 250 ML IV SCH (03:15)
--- NOTE | 2024-08-01 03:20 | ED.PDOC ---
Was a procedure done? 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 Dr Wright) Indication: Hypotension Room prepared for procedure: Yes Design Supervisor performed hand hygien: Yes Maximal sterile barrier precau: Mask/Eye shield, Sterile gown, Cap, Sterlie gloves, Large sterlie drape Skin Preparation: Chlorhexidine gluconate Skin preparation completely dr: Yes Insertion site: Right, Internal jugular Central line catheter type: [id number] dialysis Number of lumens: 3 Central line exchanged over a: Yes Antiseptic ointment applied to: Yes Post Assessment: Chest X-Ray, Proper placement, No Pneumothorax Informed consent obtained: No Risks/benefits/alt described: No MISHA SALDANA MD August 01, 2024 03:20
[2024-08-01 04:25] LABS: Basophils # (auto) 0 10 ^3/uL (0-0.2); Basophils % (auto) 0.3 % (0.0-2.0); Eosinophils # (auto) 0 10 ^3/uL (0-0.8); Hematocrit 29.5 % (41.0-53.0); Hemoglobin 9.4 g/dL (13.5-17.5); Lymphocytes # (auto) 0.5 10 ^3/uL (0.4-5.4); Lymphocytes % (auto) 9.4 % (10.0-50.0); Mean Corpuscular Hemoglobin 29.1 pg (28.0-32.0); Mean Corpuscular Hgb Conc. 31.8 g/dL (32.0-36.0); Mean Corpuscular Volume 91.3 fL (80.0-100.0); Monocytes # (auto) 0.7 10 ^3/uL (0-1.3); Monocytes % (auto) 11.9 % (0.0-12.0); Neutrophils # (auto) 4.3 10 ^3/uL (1.6-8.6); Neutrophils % (auto) 78.4 % (37.0-80.0); Nucleated Red Blood Cells % 0.2 %; Platelet Count (auto) 183 10^3/uL (140-450); Red Blood Cells 3.23 10^6/uL (4.5-5.90); White Blood Cell 5.5 10^3/uL (4.4-10.8)
[2024-08-01 04:28] LABS: Calcium 10.2 mg/dL (8.7-10.4); Potassium 4.3 mmol/L (3.5-5.1); Sodium 139 mmol/L (136-145)
[2024-08-01 04:51] LABS: Anion Gap 7.99999 (5-15); Blood Urea Nitrogen 50 mg/dL (9-23); Chloride 91 mmol/L (98-107); Glucose 198 mg/dL (74-106)
[2024-08-01 04:52] LABS: Carbon Dioxide > 40 mmol/L (20-31)
--- NOTE | 2024-08-01 05:30 | DVH ---
EXAM: XR Chest, 1 View CLINICAL INDICATION: central line/ et tube placement/ ogt placement TECHNIQUE: Frontal view of the chest. COMPARISON: XY CHEST PORTABLE on DOS: 07/30/24 FINDINGS: LUNGS AND PLEURAL SPACES: See below. HEART: Cardiomegaly with mild congestion. MEDIASTINUM: Unremarkable. Normal mediastinal contour. BONES/JOINTS: Unremarkable. No acute fracture. TUBES, LINES AND DEVICES: Right internal jugular central venous catheter tip in the superior vena c gustavo. The endotracheal tube (ETT) is in satisfactory position. Enteric tube tip in the stomach. OTHER FINDINGS: . . . IMPRESSION: Cardiomegaly with mild congestion.
[2024-08-01 06:48] LABS: Base Excess 24.1 mmol/L (-2.0-3.0)
[2024-08-01] MEDS: PANTOPRAZOLE 40 MG/10 ML VIAL INJ IV SCH (09:27)
[2024-08-01] MEDS: VANCOMYCIN 1GM/200ML PM 200 ML IV SCH (09:27)
--- NOTE | 2024-08-01 09:31 | DVHINCON2 ---
Date Seen: August 01, 2024 Referring Physician MD Cheri Reason for Consultation CHF, AFIB History of Present Illness This is a 69-year-old male patient who presents to emergency room with chief complaint of ALOC and worsening shortness of breath. At the time of assessment, the patient is chemically sedated and mechanically ventilated. No family at bedside. Called patients brother, Aurelio, who was able to provide patients history. According to the patient's brother Aurelio, the patient was at home being evaluated with his wound care nurses. The patient was noticeably confused at that time. The wound care nurses decided to check the patient's oxygen level and found his SpO2 level to be at 68% with a heart rate in the 130s. The patient's brother decided to call EMS and the patient was brought to the emergency room for further evaluation. The patient was initially admitted to the telemetry floor and was subsequently intubated due to respiratory decline. Initial twelve lead electrocardiogram reveals atrial fibrillation with PVCs. Initial troponin level of 16ng/L. Initial BNP level of 228.44pg/mL. Significant past medical history includes congestive heart failure, atrial fibrillation (not on NOAC), COPD with home O2, asthma, type 2 diabetes mellitus, and obesity. The patient's brother reports that the patient sees postdoctoral fellow in the outpatient setting. He also mentions that the patient underwent a coronary angiogram approximately 10 years ago in which no catheter based intervention was necessary. Past Medical History Past medical history reviewed. No other significant than mentioned above. Past Surgical History Denies all previous surgeries Family History: Patient reports no known family medical history. Family History Family history reviewed. Social History Patient has a 10 pack-year history, quit smoking approximately 50 years ago No illicit drug use No alcohol use Allergies: Coded Allergies: Shellfish Allergy (Verified Allergy, Unknown, 07/31/24) Home Meds Reported Medications Patients Own Medication (PATIENTS OWN MEDICATION) . PTS OWN MED-OBTAIN FROM PT AND SEND TO RX DRUG: FREQ: RX# EXP: DATE DISP: TECH: RPH: 07/31/24 Patients Own Medication (PATIENTS OWN MEDICATION) . PTS OWN MED-OBTAIN FROM PT AND SEND TO RX DRUG: FREQ: RX# EXP: DATE DISP: TECH: RPH: 07/31/24 Aspirin (Aspir-Low) 81 Mg Tab, 81 MG PO DAILY for 30 Days, MG 07/31/24 Furosemide (Furosemide) 40 Mg Tab, 1 TAB PO DAILY 07/31/24 Albuterol Sulfate (Albuterol Sulfate Hfa) 108 Mcg/Act Aer, INH 07/31/24 Metformin Hydrochloride (Metformin Hcl) 500 Mg Tab, 1 TAB PO DAILY 07/31/24 Home Meds Home medications reviewed. Current Medications Current Medications Medications (Trade) Dose Ordered Sig/Artie Route PRN Reason Start Time Stop Time Status Last Admin Methylprednisolone Sodium Succinate (Solu Medrol) 40 mg DAILY IV 07/31/24 10:00 07/31/24 11:33 Aspirin (Ecotrin Enteric Coated Tablet) 81 mg DAILY PO 07/31/24 10:00 Pantoprazole Sodium (Protonix) 40 mg DAILY IV 08/01/24 10:00 Acetaminophen/ Hydrocodone Bitart ([place] 10/325MG Tab) 1 tab Q6HP PRN PO MODERATE PAIN (4-6 PAIN SCALE) 07/31/24 15:15 Morphine Sulfate 2 mg Q4HPRN PRN IV SEVERE PAIN (7-10 PAIN SCALE) 07/31/24 15:15 Hold 07/31/24 18:53 Atorvastatin Calcium (Lipitor) 20 mg HS PO 07/31/24 22:00 Midazolam HCl 50 ml @ 1 mls/hr Q24H IV 08/01/24 01:15 08/01/24 08:51 Fentanyl Citrate 250 ml @ 2.5 mls/hr Q24H IV 08/01/24 01:15 Norepinephrine Bitartrate 250 ml @ 3.75 mls/hr Q24H IV 08/01/24 03:15 08/01/24 08:05 Review of Systems Constitutional: No symptom reported Ears, Nose, & Throat: No symptom reported Eyes: No symptom reported Neurological: Altered level of consciousness Pulmonary/Respiratory: Shortness of breath Cardiovascular: No symptom reported Gastrointestinal: No symptom reported Genitourinary: No symptom reported Musculoskeletal: No symptom reported Skin: No symptom reported Psychiatric: No symptom reported Endocrine: No symptom reported Hematologic/Lymphatic: No symptom reported Vital Signs Vital Signs Date Time Temp Pulse Resp B/P (MAP) Pulse Ox O2 Delivery O2 Flow Rate FiO2 08/01/24 08:32 86 18 110/71 (84) 92 28 08/01/24 08:00 97.1 97.1 08/01/24 06:00 Mechanical Ventilator+ 07/31/24 22:20 3.0 Physical Exam General Appearance: Morbidly obese. Calm, relaxed Pulmonary/Respiratory: Clear, bilateral breaths sounds. Cardiovascular/Chest: Regular rate and rhythm. Peripheral Pulses: 2+ Radial (R). 2+ Radial (L). 2+ Pedal (R). 2+ Pedal (L) Abdominal Exam: Normal bowel sounds. Ankle Exam: 2+ pitting edema Lower extremities: 2+ pitting edema Neuro/Mental Status: Chemically sedated Thoughts/Psych: Deferred Appearance: No acute distress. Skin Exam: Bilateral lower extremity wounds, wrapped. Labs/Diagnostic Data Labs Test 08/01/24 07:35 08/01/24 06:39 08/01/24 03:52 07/31/24 22:45 Range/Units POC Glucose 127 H 70-106 mg/dl Blood Gas Specimen Type Arterial Blood Gas Sample Site Right radial Blood Gas Patient Temperature 37.0 Arterial Blood Date Drawn [id number] Arterial Blood pH 7.567 *H 7.350-7.450 Arterial Blood Partial Pressure CO2 55.0 H 35.0-48.0 mmHg Arterial Blood Partial Pressure O2 65.6 L 83.0-108.0 mmHg Arterial Blood HCO3 48.9 H 21.0-28.0 mmol/L Arterial Blood Oxygen Saturation 94.2 94.0-98.0 % Arterial Blood Base Excess 24.1 H -2.0-3.0 mmol/L Arterial Blood Oxyhemoglobin 93.4 L 94.0-98.0 % Arterial Blood Carboxyhemoglobin 0.5 0.5-1.5 % Arterial Blood Methemoglobin 0.3 0.0-1.5 % Kailash Test Modified Blood Gas Total Hemoglobin 9.10 L 13.5-17.5 g/dL Blood Gas Set Respiration Rate 18.0 Blood Gas Modality Vent - ac FiO2 % 40.0 Blood Gas Tidal Volume 450.0 Blood Gas PEEP or CPAP 5.0 Blood Gas Critical Value Read Back Yes Blood Gas Notified Whom Blood Gas Notified Time [id number] Blood Gas Notified By Feli bliss rt White Blood Count 5.5 # 4.4-10.8 10^3/uL Red Blood Count 3.23 L 4.5-5.90 10^6/uL Hemoglobin 9.4 L 13.5-17.5 g/dL Hematocrit 29.5 L 41.0-53.0 % Mean Corpuscular Volume 91.3 80.0-100.0 fL Mean Corpuscular Hemoglobin 29.1 28.0-32.0 pg Mean Corpuscular Hemoglobin Concent 31.8 L 32.0-36.0 g/dL Red Cell Distribution Width 15.0 H 11.8-14.3 % Platelet Count 183 140-450 10^3/uL Mean Platelet Volume 8.2 6.9-10.8 fL Neutrophils (%) (Auto) 78.4 37.0-80.0 % Lymphocytes (%) (Auto) 9.4 L 10.0-50.0 % Monocytes (%) (Auto) 11.9 0.0-12.0 % Eosinophils (%) (Auto) 0.0 0.0-7.0 % Basophils (%) (Auto) 0.3 0.0-2.0 % Neutrophils # (Auto) 4.3 1.6-8.6 10 ^3/uL Lymphocytes # (Auto) 0.5 0.4-5.4 10 ^3/uL Monocytes # (Auto) 0.7 0-1.3 10 ^3/uL Eosinophils # (Auto) 0 0-0.8 10 ^3/uL Basophils # (Auto) 0 0-0.2 10 ^3/uL Nucleated Red Blood Cells 0.2 % Sodium Level 139 136-145 mmol/L Potassium Level 4.3 3.5-5.1 mmol/L Chloride Level 91 L 98-107 mmol/L Carbon Dioxide Level > 40 *H 20-31 mmol/L Anion Gap 7.83448 5-15 Blood Urea Nitrogen 50 #H 9-23 mg/dL Creatinine 0.98 0.700-1.30 mg/dL Glomerular Filtration Rate Calc 83 >90 mL/min BUN/Creatinine Ratio 51.0 H 10.0-20.0 Serum Glucose 198 #H 74-106 mg/dL Calcium Level 10.2 8.7-10.4 mg/dL Random Vancomycin Level 7.3 5-10 ug/mL Blood Gas Liter Flow 3.00 Test 07/31/24 07:02 07/31/24 06:53 07/31/24 01:59 07/30/24 16:10 Range/Units Blood Gas Spontaneous Rate 16 Total Bilirubin 0.2 0.2-1.0 mg/dL Aspartate Amino Transferase (AST) 18 13-40 U/L Alanine Aminotransferase (ALT) 24 7-40 U/L Alkaline Phosphatase 107 46-116 U/L Total Protein 6.9 5.7-8.2 g/dL Albumin 3.7 3.2-4.8 g/dL Vitamin B12 Level 1350 H 211-911 pg/mL Vitamin D 25-Hydroxy 32.3 30.0-100 ng/mL Folic Acid 32.36 >5.38 ng/mL Thyroid Stimulating Hormone (TSH) 0.60 0.55-4.78 uIU/mL Blood Gas EPAP 5 Blood Gas IPAP 22 Influenza Type A Antigen Negative Negative Influenza Type B Antigen Negative Negative SARS-CoV-2 Antigen (Rapid) Negative NEGATIVE Test 07/30/24 15:47 07/30/24 15:37 07/30/24 14:47 Range/Units Magnesium Level 1.9 1.6-2.6 mg/dL Troponin I High Sensitivity 18 </=54 ng/L Urine Color Light-yellow Yellow Urine Clarity Clear Clear Urine pH 5.0 5.0-9.0 Urine Specific [place] 1.010 1.001-1.035 Urine Protein Trace H Negative Urine Ketones Negative Negative Urine Blood Negative Negative /uL Urine Nitrite Negative Negative Urine Bilirubin Negative Negative Urine Urobilinogen Normal Negative mg/dL Urine Leukocyte Esterase Negative Negative /uL Urine RBC <1 0 - 3 /hpf Urine Microscopic WBC 4 H 0-3 /HPF Urine Squamous Epithelial Cells None seen <5 /hpf Urine Bacteria Few H None Seen /hpf Urine Hyaline Casts Few 0 - 2 /lpf Urine Mucus Few None Seen Urine Glucose 4+ H Normal mg/dL Hemoglobin A1c 9.2 H <5.7 % A1C Lactic Acid Level 1.3 0.4-2.0 mmol/L B-Type Natriuretic Peptide 228.44 0-100 pg/mL Microbiology Date/Time Source Procedure Growth Status 07/31/24 12:23 Leg Right Gram Stain Pending Resulted 07/31/24 12:23 Leg Right Wound Culture - Preliminary Resulted 07/30/24 14:47 Blood Blood Culture - Preliminary NO GROWTH AFTER 24 HOURS OF INCUBATION. Resulted Assessment Unspecified congestive heart failure Atrial fibrillation, likely persistent (not on NOAC) Acute hypoxic respiratory failure COPD with home O2 Pulmonary hypertension Asthma Type 2 diabetes mellitus, uncontrolled (Hgb A1c 9.2%) Morbid obesity Plan/Recommendation We will continue with the following plan/recommendations (): * Transthoracic echocardiogram to evaluate cardiac function * Strict intake and output, daily weights, maintain fluid restriction * Continue vasopressor therapy for hemodynamic support * [id number] score: 3 points, HAS-BLED: 2 points * Therapeutic Lovenox while inpatient, transition to NOAC prior to discharge * Hold beta-blockers given vasopressor therapy. Rate is currently controlled * Hold antiarrhythmic agents given unknown duration of AFib * Monitor and replete electrolytes as needed. Keep potassium greater than 4 and magnesium greater than 2 * Close Cardiac surveillance Thank you for allowing us to care for this patient. Please call with any questions or concerns. Critical care time spent: 44 minutes This medical document was created using an electronic medical record system with voice recognition software and computerized dictation system. Although this document has been carefully reviewed, there might still be some phonetic and typographical errors. Occasional wrong-word or ``sound-alike substitutions may have occurred due to the inherent limitations of voice recognition software. These areas are purely typographical due to imperfections of the software programs and do not reflect any compromise in the patient's medical care. Please read the chart carefully and recognize, using context, where these substitutions have occurred. Plan discussed with: Other (Patient's brother, Aurelio) NYHA Physical activity limitations: Class3(Marked) ordinary (activity causes symtoms) Date of Service: August 01, 2024 Billing Provider: BENITEZ ROWAN Cardiology Common Codes: 76889-[id number] INP/OBS CARE (High) Cardiology Consultation Codes: 56056-[id number] CONSULT <45MIN BENITEZ ROWAN August 01, 2024 09:31
[2024-08-01 12:07] LABS: Base Excess 20.8 mmol/L (-2.0-3.0)
[2024-08-01 15:51] LABS: Base Excess 17.5 mmol/L (-2.0-3.0)
--- NOTE | 2024-08-01 16:21 | DVHSR ---
APPROVED REPORT EXAM: Two-dimensional and M-mode echocardiogram with Doppler and color Doppler. Blood Pressure: 113/54 mmHg INDICATION PE RISK FACTORS Obesity: Height: 5'5", Weight: 301 DIMENSIONS LVDd5.9 (3.8-5.7cm)LA (2D)5.9 (1.9-4.0cm)Aortic Root3.5 (2.0-3.7cm) LVDs4.3 (2.5-4.0cm)LA (MM) (1.9-4.0cm)Aortic Cusp Exc0.8 (1.5-2.0cm) EF (%) 52.0 (55-70%)Rt. Atrium5.7 (1.9-4.0cm)Asc. Aorta cm IVSd0.9 (0.7-1.1cm)RV (D) (1.8-2.4cm) PWd0.9 (0.7-1.1cm) Mitral Valve MitralMitral Stenosis E wave1.17m/sMV Mean GR.mmHg E/A ratio0.02D MVAcm2 Aortic Valve Aortic ValveAortic Stenosis V10.95m/[place] Mean GR.15mmHg V22.44m/[place] Peak GR.24mmHg LVOT Diameter2.5 (1.8-2.4cm)Doppler AVA1.91cm2 Tricuspid Valve TR Velocity3.42m/s [id number] Other Information Quality : Technically LimitedRhythm : Technically limited study due to body habitus. Conclusion Technically good study. Atrial fibrillation. Biatrial enlargement. Mild LV enlargement. Aortic root enlargement. Moderate mitral annular calcification with the patient of the posterior mitral leaflet. Moderate aor tic sclerosis with diminished excursion of the right coronary cusp. Calcification of the non and lef t coronary cusps as well. There appears to be a certain degree of aortic sclerosis present. Mild gr adient of15 mmHg suggestive aortic sclerosis without stenosis. The tricuspid appears to be structura lly normal. Left ventricular function is diminished. EF is approximately 40% with global hypokinesis. Irregular contractility. Moderate tricuspid regurgitation. Mild mitral insufficiency. No pericardial effusion masses or vegetations.
[2024-08-01] MEDS: DIGOXIN (250MCG/ML) 2 ML AMPULE IV ONE ×2 (16:35→22:57)
--- NOTE | 2024-08-01 18:08 | DVHPNRES ---
Progress Note Date Seen: August 01, 2024 Resident Creating Document: GINETTE TRIVEDI RESIDENT Medical Necessity Reason Pt with a Central, PICC or Fol: No Subjective Review of Systems Patient was seen and examined on the bedside. He is on mechanical ventilation with tidal volume 450 mL, FiO2 30%, PEEP 5, respiratory rate 16. Recent ABGs revealed compensated metabolic alkalosis with respiratory acidosis. Objective vital signs Vital Sign Date Time Temp Pulse Resp B/P (MAP) Pulse Ox O2 Delivery O2 Flow Rate FiO2 08/01/24 17:48 105/54 08/01/24 17:30 105 16 92 08/01/24 16:14 30 08/01/24 16:00 Mechanical Ventilator+ 08/01/24 12:00 98.7 98.7 07/31/24 22:20 3.0 Total Intake and Output 07/31/24 07/31/24 08/01/24 15:00 23:00 07:00 Intake Total 216.58 ml 150 ml 212.5 ml Output Total 900 ml 650 ml Balance 216.58 ml -750 ml -437.5 ml medications Current Medications Medications Dose Ordered Sig/Artie Route Start Time Stop Time Status Last Admin Dose Admin Acetaminophen 325 mg Q4HP PRN PO 07/30/24 21:45 Vancomycin HCl 0 ml @ 0 mls/hr UD IV 07/30/24 21:45 Cefepime HCl 50 ml @ 12.5 mls/hr Q8HR IV 07/30/24 22:00 08/01/24 13:55 12.5 MLS/HR Ipratropium [place] 0.5 mg Q4HR NEB 07/30/24 22:00 08/01/24 13:46 0.5 MG Levalbuterol HCl 1.25 mg Q4HR NEB 07/30/24 22:00 08/01/24 13:46 1.25 MG Insulin Glargine 20 units HS SC 07/30/24 22:00 07/30/24 22:28 20 UNITS Diagnostic Test (Pha) 1 strip IQ4HR 07/31/24 00:00 08/01/24 16:24 1 STRIP Insulin Human Regular IQ4HR SC 07/31/24 00:00 08/01/24 16:35 12 UNITS Dextrose 50 ml UD PRN IV 07/30/24 21:45 Methylprednisolone Sodium Succinate 40 mg DAILY IV 07/31/24 10:00 5/1/25 09:28 40 MG Aspirin 81 mg DAILY PO 07/31/24 10:00 08/01/24 09:28 81 MG Pantoprazole Sodium 40 mg DAILY IV 08/01/24 10:00 08/01/24 09:27 40 MG Furosemide 40 mg BIDD IV 07/31/24 06:00 08/01/24 17:48 40 MG Acetaminophen/ Hydrocodone Bitart 1 tab Q6HP PRN PO 07/31/24 15:15 Morphine Sulfate 2 mg Q4HPRN PRN IV 07/31/24 15:15 Hold 07/31/24 18:53 2 MG Atorvastatin Calcium 20 mg HS PO 07/31/24 22:00 Midazolam HCl 50 ml @ 1 mls/hr Q24H IV 08/01/24 01:15 08/01/24 12:51 9 MLS/HR Fentanyl Citrate 250 ml @ 2.5 mls/hr Q24H IV 08/01/24 01:15 08/01/24 15:15 15 MLS/HR Norepinephrine Bitartrate 250 ml @ 3.75 mls/hr Q24H IV 08/01/24 03:15 08/01/24 08:05 3.75 MLS/HR Vancomycin HCl 200 ml @ 200 mls/hr Q12H IV 08/01/24 09:00 08/01/24 09:27 200 MLS/HR Enoxaparin Sodium 120 mg Q12HR SC 08/01/24 22:00 Examination Physical examination: General Appearance: On mechanical ventilation; morbidly obese HEENT: Atraumatic, PERRLA, EOMI, Mucous membrane moist/pink Respiratory: Bilateral disease wheezing and crackles Cardiovascular: Regular rate, Normal S1, Normal S2, No murmurs, no chest wall tenderness Abdominal: Normal bowel sounds, Soft, No tenderness, No hepatosplenomegaly, No masses Extremities: Bilateral macerated wound below-knee on both limbs, No clubbing, No cyanosis, No edema, Normal pulses. Skin: No rashes, No breakdown, No significant lesion laboratory and microbiology Laboratory Tests 08/01/24 03:52 Test 08/01/24 03:52 Range/Units Serum Glucose 198 #H 74-106 mg/dL Microbiology Date/Time Source Procedure Growth Status 08/01/24 00:30 Nose MRSA Screen - Final Complete 07/30/24 14:47 Blood Blood Culture - Preliminary NO GROWTH AFTER 48 HOURS OF INCUBATION. Resulted Labs and/or images reviewed: Labs reviewed by me, Image(s) reviewed by me Problem List/Assessment/Plan Problem List/Assessment/Plan Assessment/Plan: # Acute on chronic hypoxic/hypercarbic respiratory failure, on mechanical ventilation # Acute metabolic encephalopathy possibly due to above # Acute exacerbation of chronic COPD # Ruled out pulmonary embolism # Pulmonary nodule, rule out malignancy- # Possible pulmonary hypertension - CXR: Cardiomegaly. No acute cardiopulmonary disease - CT angiography demonstrated 2 cm nodular opacities right lung apex, ruled out PE and follow up CT scan in 6 weeks to see if there is resolution. - Med neb with levalbuterol and ipratropium q.4 hours - IV vancomycin per pharmacy, IV cefepime 2gm Q 8 hours - IV methylprednisolone 40 mg daily - patient is on mechanical ventilation with tidal volume 450 mL, FiO2 30%, PEEP 5, RR 16 - Patient is on IV Versed, fentanyl and Levophed drip - ICU level of care - Telemetry - Continue close monitoring # Bilateral lower extremity cellulitis # Possible sepsis due to above - IV vancomycin, IV cefepime - wound consult - Pending wound culture, blood culture, respiratory culture - IV morphine 2 mg q.4 PRN - Walker 10/325 mg q.6 p.r.n. # Acute on chronic CHF exacerbation, systolic versus diastolic # paroxysmal atrial fibrillation with RVR # Hypercoagulable state secondary to above - EKG showed irregular rhythm, borderline T abnormalities and troponins were unremarkable - IV amiodarone as per protocol 12 hourly - Therapeutic Lovenox 1 milligram/kg b.i.d. - Aspirin 81 mg daily and atorvastatin 20 mg at HS - IV furosemide 40 mg b.i.d. - Reviewed echo: Technically good study. Atrial fibrillation. Biatrial enlargement. Mild LV enlargement. Aortic root enlargement. Moderate mitral annular calcification with the patient of the posterior mitral leaflet. Moderate aortic sclerosis with diminished excursion of the right coronary cusp. Calcification of the non and left coronary cusps as well. There appears to be a certain degree of aortic sclerosis present. Mild gradient of15 mmHg suggestive aortic sclerosis without stenosis. The tricuspid appears to be structurally normal. Left ventricular function is diminished. EF is approximately 40% with global hypokinesis. Irregular contractility. Moderate tricuspid regurgitation. Mild mitral insufficiency. No pericardial effusion masses or vegetations. - Cardiology is following # Type 2 diabetes, uncontrolled, A1c 9.2 - insulin Lantus 20 units q.p.m. - aggressive sliding scale insulin # Obesity, class 3 , BMI 50.1 kg/m2 - counseled patient regarding weight loss, diet, moderate intensity physical exercise at least 35 minutes for 5 times a week and lifestyle modification # PUD prophylaxis - Protonix 40mg daily # DVT prophylaxis - patient is on Lovenox Goal of care discussed with the patient's sisters for 20 minutes; full code 120 minutes of critical care time Plan discussed with Dr. Dobson Plan discussed with: Other (Sisters; nurse) My Orders My Orders Orders - GINETTE TRIVEDI RESIDENT Procedure Category Date Status Time Abg W/ Co-Ox RT 08/01/24 Logged 04:00 Ok To Use Central Line ORDERS 08/01/24 Transmitted 06:43 Abg W/ Co-Ox RT 08/01/24 Logged 11:00 Abg W/ Co-Ox RT 08/01/24 Logged 12:00 Electrocardigram EKG 08/01/24 Logged 15:17 Abg W/ Co-Ox RT 08/01/24 Logged 15:18 Ventilator Orders RT 08/01/24 Transmitted 16:55 Dietary Evaluation Review Comments: 1. Suggest TF w/ formula Pivot 1.5 @ 40 ml/hr (GOAL). Begin @ 10 ml/hr; advance by 10 ml Q4 hrs or as tolerated to 40 ml/hr x 24 hrs 2. Provide free water flushes of 30 ml Q6 hrs (120 ml total); adjust PRN 3. Monitor BMP/lytes and replete to WNL/PRN 4. Lantus, ss insulin for correction; adjust PRN to maintain BG <180 mg/dl TF Provision: TF at goal to provide 960 ml total volume, 1440 kcal, 90 gm pro, 7 gm fiber, 165 gm CHO, 729 ml H20 (meets 100% est. kcal needs, 100% est. pro needs) Expected Outcomes/Goals: Improved nutritional status, TF initiation within 24-48 hrs of intubation. Critical Care Time (mins): 120 Addendum Addendum Addendum I was physically present for the [place]aleas portions of the service provided to patient by THE RESIDENT. I have reviewed the documentation, discussed the case with resident and agree with the resident's documentation except as noted. Also the patient's clinical case was discussed with the patient's nurse. This medical document was created using an electronic medical record system with computerized dictation system. Although this document has been carefully reviewed, there might still be some phonetic and typographical errors. These areas are purely typographical due to imperfections of the software programs, and do not reflect any compromise in the patient's medical care. Late signature. Date of Service: August 01, 2024 Billing Provider: MARISOL DOBSON MD Common Visit Codes: 05908-SJRVHIVS CARE 30-74 MIN (120 minutes), 98705-[id number] CARE-EACH +30MIN Secondary Visit Codes: 44895-MEUBGSSS CARE PLAN 30 MINUTES (20 minutes) GINETTE TRIVEDI RESIDENT August 01, 2024 18:08 MARISOL DOBSON MD August 02, 2024 10:04
[2024-08-01] MEDS: ENOXAPARIN SOD 120 MG/0.8 ML SYRINGE SC SCH (22:23)
[2024-08-02] VITALS (109 sets, daily range): BP systolic 79–141; BP diastolic 33–66; PULSE 79–117; RESP 13–23; TEMP 97.1–99.1; O2SAT 90–100
[2024-08-02 05:13] LABS: Basophils # (auto) 0 10 ^3/uL (0-0.2); Basophils % (auto) 0.1 % (0.0-2.0); Eosinophils # (auto) 0 10 ^3/uL (0-0.8); Hematocrit 29.5 % (41.0-53.0); Hemoglobin 9.3 g/dL (13.5-17.5); Lymphocytes # (auto) 0.3 10 ^3/uL (0.4-5.4); Lymphocytes % (auto) 6.7 % (10.0-50.0); Mean Corpuscular Hemoglobin 28.7 pg (28.0-32.0); Mean Corpuscular Hgb Conc. 31.7 g/dL (32.0-36.0); Mean Corpuscular Volume 90.6 fL (80.0-100.0); Monocytes # (auto) 0.5 10 ^3/uL (0-1.3); Monocytes % (auto) 10.6 % (0.0-12.0); Neutrophils # (auto) 4.3 10 ^3/uL (1.6-8.6); Neutrophils % (auto) 82.6 % (37.0-80.0); Platelet Count (auto) 190 10^3/uL (140-450); Red Blood Cells 3.25 10^6/uL (4.5-5.90); Red Cell Distribution Width 15.9 % (11.8-14.3); White Blood Cell 5.1 10^3/uL (4.4-10.8)
--- NOTE | 2024-08-02 05:13 | DVH ---
EXAM: XR Chest, 1 View CLINICAL INDICATION: mechanical ventilation TECHNIQUE: Frontal view of the chest. COMPARISON: XY CHEST PORTABLE on DOS: 08/01/24, XY CHEST PORTABLE on DOS: 07/30/24 FINDINGS: LUNGS AND PLEURAL SPACES: See below. HEART: Cardiomegaly with mild congestion. MEDIASTINUM: Unremarkable. Normal mediastinal contour. BONES/JOINTS: Unremarkable. No acute fracture. TUBES, LINES AND DEVICES: Right internal jugular central venous catheter tip in the superior vena c gustavo. The endotracheal tube (ETT) is in satisfactory position. Enteric tube tip in the stomach. OTHER FINDINGS: . . . . IMPRESSION: Cardiomegaly with mild congestion.
[2024-08-02 05:33] LABS: Potassium 3.8 mmol/L (3.5-5.1); Sodium 142 mmol/L (136-145)
[2024-08-02 05:42] LABS: Anion Gap 7.99999 (5-15); Blood Urea Nitrogen 39 mg/dL (9-23); Chloride 94 mmol/L (98-107); Glucose 165 mg/dL (74-106)
[2024-08-02 05:44] LABS: Carbon Dioxide > 40 mmol/L (20-31)
[2024-08-02 06:56] LABS: Base Excess 22.7 mmol/L (-2.0-3.0)
[2024-08-02] MEDS ORDERED: POTASSIUM CHL 20MEQ/100ML 100 ML IV ONE (08:45)
[2024-08-02] MEDS: DIGOXIN (250MCG/ML) 2 ML AMPULE IV SCH (09:49)
[2024-08-02] MEDS: MAGNESIUM SULFATE 1GM/100ML 100 ML IV ONE (09:50)
--- NOTE | 2024-08-02 09:50 | ECG ---
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
[2024-08-02] MEDS: POTASSIUM CHL 20MEQ/50ML 50 ML IV ONE (10:43)
--- NOTE | 2024-08-02 13:02 | DVHPN2 ---
Consult Progress Note Date Seen: August 02, 2024 Subjective Other Systems: Notified of intermittent RVR Objective vital signs Vital Sign Date Time Temp Pulse Resp B/P (MAP) Pulse Ox O2 Delivery O2 Flow Rate FiO2 08/02/24 12:15 96 16 84/44 (57) 92 08/02/24 12:00 98.8 98.8 08/02/24 11:53 30 08/02/24 11:47 Mechanical Ventilator+ 07/31/24 22:20 3.0 Total Intake and Output 08/01/24 08/01/24 08/02/24 15:00 23:00 07:00 Intake Total 475.75 ml 513.5 ml 141.75 ml Output Total 1300 ml 1300 ml Balance 475.75 ml -786.5 ml -1158.25 ml medications Current Medications Medications Dose Ordered Sig/Artie Route Start Time Stop Time Status Last Admin Dose Admin Acetaminophen 325 mg Q4HP PRN PO 07/30/24 21:45 Vancomycin HCl 0 ml @ 0 mls/hr UD IV 07/30/24 21:45 Cefepime HCl 50 ml @ 12.5 mls/hr Q8HR IV 07/30/24 22:00 08/02/24 05:34 12.5 MLS/HR Ipratropium [place] 0.5 mg Q4HR NEB 07/30/24 22:00 08/02/24 10:24 0.5 MG Levalbuterol HCl 1.25 mg Q4HR NEB 07/30/24 22:00 08/02/24 10:24 1.25 MG Insulin Glargine 20 units HS SC 07/30/24 22:00 08/01/24 22:00 20 UNITS Diagnostic Test (Pha) 1 strip IQ4HR 07/31/24 00:00 08/02/24 11:44 1 STRIP Insulin Human Regular IQ4HR SC 07/31/24 00:00 08/02/24 12:07 4 UNITS Dextrose 50 ml UD PRN IV 07/30/24 21:45 Methylprednisolone Sodium Succinate 40 mg DAILY IV 07/31/24 10:00 08/02/24 08:31 40 MG Aspirin 81 mg DAILY PO 07/31/24 10:00 08/02/24 08:31 81 MG Pantoprazole Sodium 40 mg DAILY IV 08/01/24 10:00 08/02/24 08:31 40 MG Furosemide 40 mg BIDD IV 07/31/24 06:00 08/02/24 05:35 40 MG Acetaminophen/ Hydrocodone Bitart 1 tab Q6HP PRN PO 07/31/24 15:15 Morphine Sulfate 2 mg Q4HPRN PRN IV 07/31/24 15:15 Hold 07/31/24 18:53 2 MG Atorvastatin Calcium 20 mg HS PO 07/31/24 22:00 08/01/24 22:25 20 MG Midazolam HCl 50 ml @ 1 mls/hr Q24H IV 08/01/24 01:15 08/02/24 12:02 9 MLS/HR Fentanyl Citrate 250 ml @ 2.5 mls/hr Q24H IV 08/01/24 01:15 08/02/24 04:54 17.5 MLS/HR Norepinephrine Bitartrate 250 ml @ 3.75 mls/hr Q24H IV 08/01/24 03:15 08/01/24 08:05 3.75 MLS/HR Vancomycin HCl 200 ml @ 200 mls/hr Q12H IV 08/01/24 09:00 08/02/24 10:43 200 MLS/HR Enoxaparin Sodium 120 mg Q12HR SC 08/01/24 22:00 08/02/24 08:34 120 MG Digoxin 125 mcg EOD IV 08/02/24 10:00 08/02/24 09:49 125 MCG Examination: GENERAL:Abnormal, LUNGS:Abnormal, CVS:Abnormal, NEURO:Abnormal laboratory and microbiology Laboratory Tests 08/02/24 04:42 Test 08/02/24 04:42 Range/Units Serum Glucose 165 H 74-106 mg/dL Problem List/Assessment/Plan Problem List/Assessment/Plan Unspecified congestive heart failure Atrial fibrillation, likely persistent (not on NOAC) Acute hypoxic respiratory failure COPD with home O2 Pulmonary hypertension Asthma Type 2 diabetes mellitus, uncontrolled (Hgb A1c 9.2%) Morbid obesity Plan/Recommendation () * Transthoracic echocardiogram revealed LVEF 40% with global hypokinesis * Moderate mitral annular calcification with the patient of the posterior mitral leaflet. Moderate aortic sclerosis with diminished excursion of the right coronary cusp. Calcification of the non and left coronary cusps as well. There appears to be a certain degree of aortic sclerosis present. Mild gradient of15 mmHg suggestive aortic sclerosis without stenosis. * Strict intake and output, daily weights, maintain fluid restriction * Continue vasopressor therapy for hemodynamic support to maintain a MAP of 65 or above * Rate control, digoxin therapy EOD. Hold BB currently on vasopressor * Therapeutic Lovenox while inpatient, transition to NOAC prior to discharge * [id number] score: 3 points, HAS-BLED: 2 points * Monitor H&H closely * Antiarrhythmic agents, hold given unknown duration of AFib * Monitor and replete electrolytes as needed. Keep potassium greater than 4 and magnesium greater than 2 * Close Cardiac surveillance Thank you for allowing us to care for this patient. Please call with any questions or concerns. Critical care time spent: 44 minutes Critical care time: 30 min. This medical document was created using an electronic medical record system with voice recognition software and computerized dictation system. Although this document has been carefully reviewed, there might still be some phonetic and typographical errors. Occasional wrong-word or ``sound-alike substitutions may have occurred due to the inherent limitations of voice recognition software. These areas are purely typographical due to imperfections of the software programs and do not reflect any compromise in the patient's medical care. Please read the chart carefully and recognize, using context, where these substitutions have occurred. Plan discussed with: Other Dietary Evaluation Review Comments: 1. Suggest TF w/ formula Pivot 1.5 @ 40 ml/hr (GOAL). Begin @ 10 ml/hr; advance by 10 ml Q4 hrs or as tolerated to 40 ml/hr x 24 hrs 2. Provide free water flushes of 30 ml Q6 hrs (120 ml total); adjust PRN 3. Monitor BMP/lytes and replete to WNL/PRN 4. Lantus, ss insulin for correction; adjust PRN to maintain BG <180 mg/dl TF Provision: TF at goal to provide 960 ml total volume, 1440 kcal, 90 gm pro, 7 gm fiber, 165 gm CHO, 729 ml H20 (meets 100% est. kcal needs, 100% est. pro needs) Expected Outcomes/Goals: Improved nutritional status, TF initiation within 24-48 hrs of intubation. Date of Service: August 02, 2024 Billing Provider: ANGIE CORTES Cardiology Common Codes: 71814-[id number] CARE 30-74 MIN ANGIE CORTES August 02, 2024 13:02
--- NOTE | 2024-08-02 13:52 | ECG ---
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
--- NOTE | 2024-08-02 13:52 | ECG ---
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
[2024-08-02] MEDS: NOREPINEPHRINE 8 MG/250ML KIT 250 ML IV SCH (16:15)
[2024-08-02 16:51] LABS: Base Excess 18.3 mmol/L (-2.0-3.0)
--- NOTE | 2024-08-02 17:08 | DVHPNRES ---
Progress Note Date Seen: August 02, 2024 Resident Creating Document: GINETTE TRIVEDI RESIDENT Medical Necessity Reason Pt with a Central, PICC or Fol: Yes The following are medically ne: Central Line, [place] Catheter Reason for [place] catheter: Strict I&O Subjective Review of Systems Patient was seen and examined on the bedside. He is on mechanical ventilation with tidal volume 450 mL, PEEP 5, respiratory rate 16, FiO2 30%. Had an episode of AFib with RVR yesterday and Cardiology started digoxin 125 mcg IV daily and continued therapeutic Lovenox for prevention of hypercoagulable state. Objective vital signs Vital Sign Date Time Temp Pulse Resp B/P (MAP) Pulse Ox O2 Delivery O2 Flow Rate FiO2 08/02/24 16:05 91 22 133/60 (84) 91 30 08/02/24 15:37 Mechanical Ventilator+ 08/02/24 12:00 98.8 98.8 07/31/24 22:20 3.0 Total Intake and Output 08/01/24 08/01/24 08/02/24 15:00 23:00 07:00 Intake Total 475.75 ml 513.5 ml 141.75 ml Output Total 1300 ml 1300 ml Balance 475.75 ml -786.5 ml -1158.25 ml medications Current Medications Medications Dose Ordered Sig/Artie Route Start Time Stop Time Status Last Admin Dose Admin Acetaminophen 325 mg Q4HP PRN PO 07/30/24 21:45 Vancomycin HCl 0 ml @ 0 mls/hr UD IV 07/30/24 21:45 Cefepime HCl 50 ml @ 12.5 mls/hr Q8HR IV 07/30/24 22:00 08/02/24 13:51 12.5 MLS/HR Ipratropium [place] 0.5 mg Q4HR NEB 07/30/24 22:00 08/02/24 14:08 0.5 MG Levalbuterol HCl 1.25 mg Q4HR NEB 07/30/24 22:00 08/02/24 14:08 1.25 MG Insulin Glargine 20 units HS SC 07/30/24 22:00 08/01/24 22:00 20 UNITS Diagnostic Test (Pha) 1 strip IQ4HR 07/31/24 00:00 08/02/24 16:55 1 STRIP Insulin Human Regular IQ4HR SC 07/31/24 00:00 08/02/24 17:03 8 UNITS Dextrose 50 ml UD PRN IV 07/30/24 21:45 Methylprednisolone Sodium Succinate 40 mg DAILY IV 07/31/24 10:00 08/02/24 08:31 40 MG Aspirin 81 mg DAILY PO 07/31/24 10:00 08/02/24 08:31 81 MG Pantoprazole Sodium 40 mg DAILY IV 08/01/24 10:00 08/02/24 08:31 40 MG Furosemide 40 mg BIDD IV 07/31/24 06:00 08/02/24 05:35 40 MG Acetaminophen/ Hydrocodone Bitart 1 tab Q6HP PRN PO 07/31/24 15:15 Morphine Sulfate 2 mg Q4HPRN PRN IV 07/31/24 15:15 Hold 07/31/24 18:53 2 MG Atorvastatin Calcium 20 mg HS PO 07/31/24 22:00 08/01/24 22:25 20 MG Midazolam HCl 50 ml @ 1 mls/hr Q24H IV 08/01/24 01:15 08/02/24 12:02 9 MLS/HR Fentanyl Citrate 250 ml @ 2.5 mls/hr Q24H IV 08/01/24 01:15 08/02/24 04:54 17.5 MLS/HR Norepinephrine Bitartrate 250 ml @ 3.75 mls/hr Q24H IV 08/01/24 03:15 08/01/24 08:05 3.75 MLS/HR Vancomycin HCl 200 ml @ 200 mls/hr Q12H IV 08/01/24 09:00 08/02/24 10:43 200 MLS/HR Enoxaparin Sodium 120 mg Q12HR SC 08/01/24 22:00 08/02/24 08:34 120 MG Digoxin 125 mcg EOD IV 08/02/24 10:00 08/02/24 09:49 125 MCG Examination Physical examination: General Appearance: on mechanical ventilation. Morbidly obese HEENT: Atraumatic, PERRLA, EOMI, Mucous membrane moist/pink Respiratory: Decreased breath sound bilaterally. Cardiovascular: Irregular rate, Normal S1, Normal S2, No murmurs, no chest wall tenderness Abdominal: Normal bowel sounds, Soft, No tenderness, No hepatosplenomegaly, No masses Extremities: Bilateral macerated wound below the knee in limbs, edema +, No clubbing, No cyanosis, Normal pulses, No tenderness/swelling Skin: Macerated wouds in the legs, No rashes, No significant lesion laboratory and microbiology Laboratory Tests 08/02/24 04:42 Test 08/02/24 04:42 Range/Units Serum Glucose 165 H 74-106 mg/dL Microbiology Date/Time Source Procedure Growth Status 08/01/24 00:30 Nose MRSA Screen - Final Complete 08/01/24 00:00 Sputum Gram Stain - Final Resulted 08/01/24 00:00 Sputum Respiratory Culture - Preliminary Resulted 07/30/24 14:47 Blood Blood Culture - Preliminary NO GROWTH AFTER 72 HOURS OF INCUBATION. Resulted Labs and/or images reviewed: Labs reviewed by me, Image(s) reviewed by me Problem List/Assessment/Plan Problem List/Assessment/Plan Assessment/Plan: # Acute on chronic hypoxic/hypercarbic respiratory failure, on mechanical ventilation # Acute metabolic encephalopathy possibly due to above # Acute exacerbation of chronic COPD # Ruled out pulmonary embolism # Pulmonary nodule, rule out malignancy- # Possible pulmonary hypertension # Septic shock due to suspected Gram-negative pneumonia - CXR: Cardiomegaly. No acute cardiopulmonary disease - CT angiography demonstrated 2 cm nodular opacities right lung apex, ruled out PE and follow up CT scan in 6 weeks to see if there is resolution. - Med neb with levalbuterol and ipratropium q.4 hours - IV vancomycin per pharmacy, IV cefepime 2gm Q 8 hours - IV methylprednisolone 40 mg daily - patient is on mechanical ventilation with tidal volume 450 mL, FiO2 30%, PEEP 5, RR 16 - Patient is on IV Versed, fentanyl and Levophed drip # Bilateral lower extremity cellulitis # Possible sepsis due to above - IV vancomycin, IV cefepime - wound consult - Pending wound culture, blood culture, respiratory culture - IV morphine 2 mg q.4 PRN - [place] 10/325 mg q.6 p.r.n. # Acute on chronic systolic CHF exacerbation, EF 40% # paroxysmal atrial fibrillation with RVR # Hypercoagulable state secondary to above - EKG showed irregular rhythm, borderline T abnormalities and troponins were unremarkable - IV amiodarone as per protocol 12 hourly - Therapeutic Lovenox 1 milligram/kg b.i.d. - Aspirin 81 mg daily and atorvastatin 20 mg at HS - IV furosemide 40 mg b.i.d. - Echo showed EF is approximately 40% with global hypokinesis and Irregular contractility. - Cardiology on board - IV digoxin 125 mcg daily # Type 2 diabetes, uncontrolled, A1c 9.2 - insulin Lantus 20 units q.p.m. - aggressive sliding scale insulin # Obesity, class 3 , BMI 50.1 kg/m2 - counseled patient regarding weight loss, diet, moderate intensity physical exercise at least 35 minutes for 5 times a week and lifestyle modification # PUD prophylaxis - Protonix 40mg daily # DVT prophylaxis - patient is on therapeutic Lovenox Goal of care and plan of treatment discussed with the brother and the sisters for 22 minutes; continues to be full code. Critical care time of 60 minutes Plan discussed with Dr. Dobson Plan discussed with: Other (RN; brother and sisters) My Orders My Orders Orders - GINETTE TRIVEDI RESIDENT Procedure Category Date Status Time Chest Xray 1 View XY 08/02/24 Resulted 04:00 Abg W/ Co-Ox RT 08/02/24 Logged 04:00 Abg W/ Co-Ox RT 08/02/24 Logged 15:02 Dietary Evaluation Review Comments: 1. Suggest TF w/ formula Pivot 1.5 @ 40 ml/hr (GOAL). Begin @ 10 ml/hr; advance by 10 ml Q4 hrs or as tolerated to 40 ml/hr x 24 hrs 2. Provide free water flushes of 30 ml Q6 hrs (120 ml total); adjust PRN 3. Monitor BMP/lytes and replete to WNL/PRN 4. Lantus, ss insulin for correction; adjust PRN to maintain BG <180 mg/dl TF Provision: TF at goal to provide 960 ml total volume, 1440 kcal, 90 gm pro, 7 gm fiber, 165 gm CHO, 729 ml H20 (meets 100% est. kcal needs, 100% est. pro needs) Expected Outcomes/Goals: Improved nutritional status, TF initiation within 24-48 hrs of intubation. Critical Care Time (mins): 60 Addendum Addendum Addendum I was physically present for the [place] portions of the service provided to patient by THE RESIDENT. I have reviewed the documentation, discussed the case with resident and agree with the resident's documentation except as noted. Also the patient's clinical case was discussed with the patient's nurse. This medical document was created using an electronic medical record system with computerized dictation system. Although this document has been carefully reviewed, there might still be some phonetic and typographical errors. These areas are purely typographical due to imperfections of the software programs, and do not reflect any compromise in the patient's medical care. Late signature. Date of Service: August 02, 2024 Billing Provider: MARISOL DOBSON MD Common Visit Codes: [id number] CARE 30-74 MIN (60 minutes) Secondary Visit Codes: [id number] CARE PLAN 30 MINUTES (22 minutes) GINETTE TRIVEDI RESIDENT August 02, 2024 17:08 MARISOL DOBSON MD August 03, 2024 05:32
[2024-08-03] VITALS (112 sets, daily range): BP systolic 81–136; BP diastolic 44–75; PULSE 65–109; RESP 13–25; TEMP 97–99.1; O2SAT 93–100
[2024-08-03 03:25] LABS: Basophils # (auto) 0 10 ^3/uL (0-0.2); Basophils % (auto) 0.4 % (0.0-2.0); Eosinophils # (auto) 0 10 ^3/uL (0-0.8); Hematocrit 32.4 % (41.0-53.0); Hemoglobin 10.5 g/dL (13.5-17.5); Lymphocytes # (auto) 0.4 10 ^3/uL (0.4-5.4); Lymphocytes % (auto) 3.7 % (10.0-50.0); Mean Corpuscular Hgb Conc. 32.3 g/dL (32.0-36.0); Mean Corpuscular Volume 89.9 fL (80.0-100.0); Monocytes # (auto) 0.9 10 ^3/uL (0-1.3); Monocytes % (auto) 8.3 % (0.0-12.0); Neutrophils # (auto) 9.5 10 ^3/uL (1.6-8.6); Neutrophils % (auto) 87.6 % (37.0-80.0); Platelet Count (auto) 259 10^3/uL (140-450); Red Blood Cells 3.61 10^6/uL (4.5-5.90); Red Cell Distribution Width 15.4 % (11.8-14.3); White Blood Cell 10.8 10^3/uL (4.4-10.8)
[2024-08-03 04:09] LABS: Potassium 3.7 mmol/L (3.5-5.1); Sodium 142 mmol/L (136-145)
[2024-08-03 04:10] LABS: Calcium 9.8 mg/dL (8.7-10.4)
[2024-08-03 04:15] LABS: BUN/Creatinine Ratio 41.7 (10.0-20.0)
[2024-08-03 04:16] LABS: Anion Gap 5.99999 (5-15); Blood Urea Nitrogen 35 mg/dL (9-23); Chloride 96 mmol/L (98-107); Glucose 145 mg/dL (74-106)
[2024-08-03 04:18] LABS: Carbon Dioxide > 40 mmol/L (20-31)
[2024-08-03] MEDS: MAGNESIUM SULFATE 1GM/100ML 100 ML IV ONE (05:35)
[2024-08-03 06:15] LABS: Amphetamine Screen, Urine Neg (NEGATIVE); Barbiturate Scree,Urine Neg (NEGATIVE); Benzodiazephine Screen, Urine Pos (NEGATIVE); Cannabinoid Screen, Urine Neg (NEGATIVE); Cocaine Screen, Urine Neg (NEGATIVE); Opiate Scree,Urine Neg (NEGATIVE); Phencyclidine Screen, Urine Neg (NEGATIVE)
--- NOTE | 2024-08-03 06:20 | DVH ---
CHEST RADIOGRAPH Indication: The patient is on mechanical ventilation Technique: Single frontal view of the chest was obtained COMPARISON: XY CHEST XRAY 1 VIEW on DOS: 08/02/24, XY CHEST PORTABLE on DOS: 08/01/24, XY CHEST PORTABLE on DOS: 07/30/24 FINDINGS: Lines and Tubes: Endotracheal tube, enteric catheter and right central venous catheter in satisfactor y position. Lungs: Congestion Pleura: No effusion. No pneumothorax. Cardiomediastinal contours: Cardiomegaly Bones: Unremarkable IMPRESSION: Lines and tubes in satisfactory position. No significant interval change.
[2024-08-03 07:03] LABS: Base Excess 19.1 mmol/L (-2.0-3.0)
[2024-08-03] MEDS: DEXMEDETOMIDINE HCL IN D5W 100 ML IV SCH (11:38)
[2024-08-03] MEDS: acetaZOLAMIDE SODIUM 500 MG VL IV SCH (11:57)
--- NOTE | 2024-08-03 13:50 | DVHPN2 ---
Progress Note - Dictate Date Seen: August 03, 2024 Medical Necessity Reason Pt with a Central, PICC or Fol: Yes The following are medically ne: Central Line, [place] Catheter Reason for [place] catheter: Strict I&O vital signs Vital Sign Date Time Temp Pulse Resp B/P (MAP) Pulse Ox O2 Delivery O2 Flow Rate FiO2 08/03/24 12:15 97.5 94 14 91/44 (60) 96 207.5 08/03/24 12:00 30 08/03/24 12:00 Mechanical Ventilator+ Total Intake and Output 08/02/24 08/02/24 08/03/24 15:00 23:00 07:00 Intake Total 609.75 ml 332.188 ml 482.440 ml Output Total 1050 ml 1200 ml Balance 609.75 ml -717.812 ml -717.560 ml medications Current Medications Medications Dose Ordered Sig/Artie Route Start Time Stop Time Status Last Admin Dose Admin Acetaminophen 325 mg Q4HP PRN PO 07/30/24 21:45 Vancomycin HCl 0 ml @ 0 mls/hr UD IV 07/30/24 21:45 Cefepime HCl 50 ml @ 12.5 mls/hr Q8HR IV 07/30/24 22:00 08/03/24 05:15 12.5 MLS/HR Ipratropium [place] 0.5 mg Q4HR NEB 07/30/24 22:00 08/03/24 10:10 0.5 MG Levalbuterol HCl 1.25 mg Q4HR NEB 07/30/24 22:00 08/03/24 10:10 1.25 MG Insulin Glargine 20 units HS SC 07/30/24 22:00 08/02/24 21:18 20 UNITS Diagnostic Test (Pha) 1 strip IQ4HR 07/31/24 00:00 08/03/24 11:43 1 STRIP Insulin Human Regular IQ4HR SC 07/31/24 00:00 08/03/24 11:49 4 UNITS Dextrose 50 ml UD PRN IV 07/30/24 21:45 Methylprednisolone Sodium Succinate 40 mg DAILY IV 07/31/24 10:00 08/03/24 08:36 40 MG Aspirin 81 mg DAILY PO 07/31/24 10:00 08/03/24 08:36 81 MG Pantoprazole Sodium 40 mg DAILY IV 08/01/24 10:00 08/03/24 08:36 40 MG Acetaminophen/ Hydrocodone Bitart 1 tab Q6HP PRN PO 07/31/24 15:15 Morphine Sulfate 2 mg Q4HPRN PRN IV 07/31/24 15:15 Hold 07/31/24 18:53 2 MG Atorvastatin Calcium 20 mg HS PO 07/31/24 22:00 08/02/24 21:16 20 MG Midazolam HCl 50 ml @ 1 mls/hr Q24H IV 08/01/24 01:15 08/03/24 10:25 10 MLS/HR Fentanyl Citrate 250 ml @ 2.5 mls/hr Q24H IV 08/01/24 01:15 08/03/24 03:21 20 MLS/HR Vancomycin HCl 200 ml @ 200 mls/hr Q12H IV 08/01/24 09:00 Hold 08/02/24 10:43 200 MLS/HR Enoxaparin Sodium 120 mg Q12HR SC 08/01/24 22:00 08/03/24 08:37 120 MG Digoxin 125 mcg EOD IV 08/02/24 10:00 08/02/24 09:49 125 MCG Norepinephrine Bitartrate 250 ml @ 3.75 mls/hr Q24H IV 08/02/24 17:15 08/03/24 03:22 2.813 MLS/HR Furosemide 40 mg DAILY IV 08/04/24 06:00 Acetazolamide Sodium 250 mg BID IV 08/03/24 10:15 08/03/24 11:57 250 MG laboratory and microbiology Laboratory Tests 08/03/24 03:04 Test 08/03/24 03:04 Range/Units Serum Glucose 145 H 74-106 mg/dL Assessment/Plan Distance Education Director rounds Impression Acute hypoxemic respiratory failure Pulmonary edema COPD CHF Patient seen and examined in ICU Events On mechanical ventilation S/p intubation PEEP 5, FiO2 30% Labs and imaging reviewed Chest x-ray unchanged ABG reviewed Consistent with metabolic alkalosis Management Vent support Titrate to maintain sats 90% or above Sedation holiday If patient follows commands, proceed to weaning trial Pressure support 10/05, extubate when ready Antibiotics Bronchodilators Monitor renal function Monitor electrolytes Supplement as needed Pressors as needed for hemodynamic support To maintain a mean arterial pressure of 65 mmHg Add Diamox 250mg IV BID DVT prophylaxis Critical care time 35 minutes Dietary Evaluation Review Comments: 1. Suggest TF w/ formula Pivot 1.5 @ 40 ml/hr (GOAL). Begin @ 10 ml/hr; advance by 10 ml Q4 hrs or as tolerated to 40 ml/hr x 24 hrs 2. Provide free water flushes of 30 ml Q6 hrs (120 ml total); adjust PRN 3. Monitor BMP/lytes and replete to WNL/PRN 4. Lantus, ss insulin for correction; adjust PRN to maintain BG <180 mg/dl TF Provision: TF at goal to provide 960 ml total volume, 1440 kcal, 90 gm pro, 7 gm fiber, 165 gm CHO, 729 ml H20 (meets 100% est. kcal needs, 100% est. pro needs) Expected Outcomes/Goals: Improved nutritional status, TF initiation within 24-48 hrs of intubation. Plan discussed with: Other (Rn) AKIKO CABRERA MD August 03, 2024 13:50
--- NOTE | 2024-08-03 15:30 | DVHPN2 ---
Subjective The patient is seen and examined at bedside. Remained intubated Reviewed: Care Plan, H&P, Labs, Medications, Previous Orders, Radiology Changes from previous H/P or p: No Changes Objective Vitals Vital Signs Date Time Temp Pulse Resp B/P (MAP) Pulse Ox O2 Delivery O2 Flow Rate FiO2 08/03/24 14:14 76 14 132/74 (93) 97 30 08/03/24 12:15 97.5 207.5 08/03/24 12:00 Mechanical Ventilator+ Intake/Output Intake and Output 08/03/24 07:00 Intake Total 1424.378 ml Output Total 2250 ml Balance -825.622 ml Intake Oral 100 ml IV Total 1324.378 ml Output Urine Total 2250 ml General Appearance: Other (Intubated, on vent, unable to exam) HEENT: Atraumatic, Mucous membr. moist/pink Neck: Supple Lungs: Clear to auscultation, Normal air movement Cardiovascular: Regular rate, Normal S1, Normal S2, No murmurs, Gallops, Rubs Abdomen: Normal bowel sounds, Soft, No tenderness Medications Current Medications Medications Dose Ordered Sig/Artie Route Start Time Stop Time Status Last Admin Dose Admin Acetaminophen 325 mg Q4HP PRN PO 07/30/24 21:45 Vancomycin HCl 0 ml @ 0 mls/hr UD IV 07/30/24 21:45 Cefepime HCl 50 ml @ 12.5 mls/hr Q8HR IV 07/30/24 22:00 08/03/24 14:50 12.5 MLS/HR Ipratropium [place] 0.5 mg Q4HR NEB 07/30/24 22:00 08/03/24 14:14 0.5 MG Levalbuterol HCl 1.25 mg Q4HR NEB 07/30/24 22:00 08/03/24 14:14 1.25 MG Insulin Glargine 20 units HS SC 07/30/24 22:00 08/02/24 21:18 20 UNITS Diagnostic Test (Pha) 1 strip IQ4HR 07/31/24 00:00 08/03/24 11:43 1 STRIP Insulin Human Regular IQ4HR SC 07/31/24 00:00 08/03/24 11:49 4 UNITS Dextrose 50 ml UD PRN IV 07/30/24 21:45 Methylprednisolone Sodium Succinate 40 mg DAILY IV 07/31/24 10:00 08/03/24 08:36 40 MG Aspirin 81 mg DAILY PO 07/31/24 10:00 08/03/24 08:36 81 MG Pantoprazole Sodium 40 mg DAILY IV 08/01/24 10:00 08/03/24 08:36 40 MG Acetaminophen/ Hydrocodone Bitart 1 tab Q6HP PRN PO 07/31/24 15:15 Morphine Sulfate 2 mg Q4HPRN PRN IV 07/31/24 15:15 Hold 07/31/24 18:53 2 MG Atorvastatin Calcium 20 mg HS PO 07/31/24 22:00 08/02/24 21:16 20 MG Midazolam HCl 50 ml @ 1 mls/hr Q24H IV 08/01/24 01:15 08/03/24 10:25 10 MLS/HR Fentanyl Citrate 250 ml @ 2.5 mls/hr Q24H IV 08/01/24 01:15 08/03/24 03:21 20 MLS/HR Enoxaparin Sodium 120 mg Q12HR SC 08/01/24 22:00 08/03/24 08:37 120 MG Digoxin 125 mcg EOD IV 08/02/24 10:00 08/02/24 09:49 125 MCG Norepinephrine Bitartrate 250 ml @ 3.75 mls/hr Q24H IV 08/02/24 17:15 08/03/24 03:22 2.813 MLS/HR Furosemide 40 mg DAILY IV 08/04/24 06:00 Acetazolamide Sodium 250 mg BID IV 08/03/24 10:15 08/03/24 11:57 250 MG Vancomycin HCl 100 ml @ 100 mls/hr Q12H IV 08/03/24 17:00 Laboratory Results Laboratory Tests 08/03/24 03:04 Chemistry Test 08/03/24 03:04 Calcium Level 9.8 mg/dL (8.7-10.4) Magnesium Level 1.9 mg/dL (1.6-2.6) Urinalysis Test 07/30/24 15:37 Urine Color Light-yellow (Yellow) Urine Clarity Clear (Clear) Urine pH 5.0 (5.0-9.0) Urine Specific [place] 1.010 (1.001-1.035) Urine Protein Trace (Negative) H Urine Ketones Negative (Negative) Urine Blood Negative /uL (Negative) Urine Nitrite Negative (Negative) Urine Bilirubin Negative (Negative) Urine Urobilinogen Normal mg/dL (Negative) Urine Leukocyte Esterase Negative /uL (Negative) Urine RBC <1 /hpf (0 - 3) Urine Microscopic WBC 4 /HPF (0-3) H Urine Squamous Epithelial Cells None seen /hpf (<5) Urine Bacteria Few /hpf (None Seen) H Urine Hyaline Casts Few /lpf (0 - 2) Urine Mucus Few (None Seen) Urine Glucose 4+ mg/dL (Normal) H Blood Gas Results Test 08/02/24 16:02 08/03/24 06:56 Arterial Blood pH 7.557 (7.350-7.450) 7.610 (7.350-7.450) FiO2 % 30.0 30.0 Microbiology Microbiology Date/Time Source Procedure Growth Status 08/01/24 00:30 Nose MRSA Screen - Final Complete 08/01/24 00:00 Sputum Gram Stain - Final Complete 08/01/24 00:00 Sputum Respiratory Culture - Final Complete 07/30/24 14:47 Blood Blood Culture - Preliminary NO GROWTH AFTER 72 HOURS OF INCUBATION. Resulted Labs and/or images reviewed: Labs reviewed by me Assessment/Plan Assessment/Plan # Acute on chronic hypoxic/hypercarbic respiratory failure, on mechanical ventilation # Acute metabolic encephalopathy possibly due to above # Acute exacerbation of chronic COPD # Ruled out pulmonary embolism # Pulmonary nodule, rule out malignancy- # Possible pulmonary hypertension # Septic shock due to suspected Gram-negative pneumonia - CXR: Cardiomegaly. No acute cardiopulmonary disease - CT angiography demonstrated 2 cm nodular opacities right lung apex, ruled out PE and follow up CT scan in 6 weeks to see if there is resolution. - Med neb with levalbuterol and ipratropium q.4 hours - IV vancomycin per pharmacy, IV cefepime 2gm Q 8 hours - IV methylprednisolone 40 mg daily - patient is on mechanical ventilation with tidal volume 450 mL, FiO2 30%, PEEP 5, RR 16 - Patient is on IV Versed, fentanyl and Levophed drip # Bilateral lower extremity cellulitis # Possible sepsis due to above - IV vancomycin, IV cefepime - wound consult - Pending wound culture, blood culture, respiratory culture - IV morphine 2 mg q.4 PRN - [place] 10/325 mg q.6 p.r.n. # Acute on chronic systolic CHF exacerbation, EF 40% # paroxysmal atrial fibrillation with RVR # Hypercoagulable state secondary to above - EKG showed irregular rhythm, borderline T abnormalities and troponins were unremarkable - IV amiodarone as per protocol 12 hourly - Therapeutic Lovenox 1 milligram/kg b.i.d. - Aspirin 81 mg daily and atorvastatin 20 mg at HS - IV furosemide 40 mg b.i.d. - Echo showed EF is approximately 40% with global hypokinesis and Irregular contractility. - Cardiology on board - IV digoxin 125 mcg daily # Type 2 diabetes, uncontrolled, A1c 9.2 - insulin Lantus 20 units q.p.m. - aggressive sliding scale insulin # Obesity, class 3 , BMI 50.1 kg/m2 - counseled patient regarding weight loss, diet, moderate intensity physical exercise at least 35 minutes for 5 times a week and lifestyle modification # PUD prophylaxis - Protonix 40mg daily # DVT prophylaxis - patient is on therapeutic Lovenox Plan discussed with: Other (RN) Date of Service: August 03, 2024 Billing Provider: LORNA HANDLEY MD Common Visit Codes: [id number] INP/OBS CARE(HIGH) LORNA HANDLEY MD August 03, 2024 15:30
[2024-08-03] MEDS: VANCOMYCIN 750MG KIT 100 ML IV SCH (16:49)
[2024-08-04] VITALS (111 sets, daily range): BP systolic 92–141; BP diastolic 48–88; PULSE 63–119; RESP 13–22; TEMP 96.6–99.5; O2SAT 93–100
[2024-08-04 05:52] LABS: Basophils # (auto) 0.1 10 ^3/uL (0-0.2); Basophils % (auto) 0.4 % (0.0-2.0); Eosinophils # (auto) 0 10 ^3/uL (0-0.8); Hematocrit 32.9 % (41.0-53.0); Hemoglobin 10.6 g/dL (13.5-17.5); Lymphocytes # (auto) 0.5 10 ^3/uL (0.4-5.4); Mean Corpuscular Hgb Conc. 32.1 g/dL (32.0-36.0); Mean Corpuscular Volume 90.4 fL (80.0-100.0); Monocytes % (auto) 8.4 % (0.0-12.0); Neutrophils # (auto) 10.8 10 ^3/uL (1.6-8.6); Neutrophils % (auto) 87.2 % (37.0-80.0); Platelet Count (auto) 284 10^3/uL (140-450); Red Blood Cells 3.64 10^6/uL (4.5-5.90); Red Cell Distribution Width 15.8 % (11.8-14.3); White Blood Cell 12.3 10^3/uL (4.4-10.8)
[2024-08-04] MEDS: FUROSEMIDE 40 MG/4 ML VIAL IV SCH (06:00)
[2024-08-04 06:10] LABS: Alanine Aminotransferase 16 U/L (7-40); Albumin 3.2 g/dL (3.2-4.8); Alkaline Phosphatase 90 U/L (46-116); Aspartate Aminotransferase 27 U/L (13-40); BUN/Creatinine Ratio 42.3 (10.0-20.0); Bilirubin, Total 0.4 mg/dL (0.2-1.0); Calcium 10.3 mg/dL (8.7-10.4); Potassium 3.8 mmol/L (3.5-5.1); Sodium 142 mmol/L (136-145); Total Protein 6.1 g/dL (5.7-8.2)
[2024-08-04 06:12] LABS: INR 1.11 (0.9-1.15); Partial Thromboplastin Time 32.2 SEC (24.5-34.5); Prothrombin Time 11.6 sec (9.3-11.8)
[2024-08-04 06:21] LABS: Anion Gap 4.99999 (5-15); Blood Urea Nitrogen 33 mg/dL (9-23); Carbon Dioxide > 40 mmol/L (20-31); Chloride 97 mmol/L (98-107); Glucose 157 mg/dL (74-106)
[2024-08-04 07:27] LABS: Base Excess 13.5 mmol/L (-2.0-3.0)
--- NOTE | 2024-08-04 14:11 | DVHPN2 ---
Progress Note - Dictate Date Seen: August 04, 2024 Medical Necessity Reason Pt with a Central, PICC or Fol: Yes The following are medically ne: Central Line, [place] Catheter Reason for [place] catheter: Strict I&O vital signs Vital Sign Date Time Temp Pulse Resp B/P (MAP) Pulse Ox O2 Delivery O2 Flow Rate FiO2 08/04/24 12:45 98.2 75 15 109/54 (72) 95 208.8 08/04/24 12:00 30 08/04/24 12:00 Mechanical Ventilator+ Total Intake and Output 08/03/24 08/03/24 08/04/24 15:00 23:00 07:00 Intake Total 204.338 ml 297.191 ml 294.704 ml Output Total 2125 ml 550 ml Balance 204.338 ml -1827.809 ml -255.296 ml medications Current Medications Medications Dose Ordered Sig/Artie Route Start Time Stop Time Status Last Admin Dose Admin Acetaminophen 325 mg Q4HP PRN PO 07/30/24 21:45 Vancomycin HCl 0 ml @ 0 mls/hr UD IV 07/30/24 21:45 Cefepime HCl 50 ml @ 12.5 mls/hr Q8HR IV 07/30/24 22:00 08/04/24 13:17 12.5 MLS/HR Ipratropium [place] 0.5 mg Q4HR NEB 07/30/24 22:00 08/04/24 09:54 0.5 MG Levalbuterol HCl 1.25 mg Q4HR NEB 07/30/24 22:00 08/04/24 09:53 1.25 MG Insulin Glargine 20 units HS SC 07/30/24 22:00 08/03/24 21:52 20 UNITS Diagnostic Test (Pha) 1 strip IQ4HR 07/31/24 00:00 08/04/24 11:38 1 STRIP Insulin Human Regular IQ4HR SC 07/31/24 00:00 08/04/24 04:00 4 UNITS Dextrose 50 ml UD PRN IV 07/30/24 21:45 Methylprednisolone Sodium Succinate 40 mg DAILY IV 07/31/24 10:00 08/04/24 09:25 40 MG Aspirin 81 mg DAILY PO 07/31/24 10:00 08/04/24 09:25 81 MG Pantoprazole Sodium 40 mg DAILY IV 08/01/24 10:00 08/04/24 09:23 40 MG Acetaminophen/ Hydrocodone Bitart 1 tab Q6HP PRN PO 07/31/24 15:15 Morphine Sulfate 2 mg Q4HPRN PRN IV 07/31/24 15:15 Hold 07/31/24 18:53 2 MG Atorvastatin Calcium 20 mg HS PO 07/31/24 22:00 08/03/24 22:00 20 MG Midazolam HCl 50 ml @ 1 mls/hr Q24H IV 08/01/24 01:15 08/04/24 06:41 3 MLS/HR Fentanyl Citrate 250 ml @ 2.5 mls/hr Q24H IV 08/01/24 01:15 08/04/24 06:36 15 MLS/HR Enoxaparin Sodium 120 mg Q12HR SC 08/01/24 22:00 08/04/24 09:24 120 MG Digoxin 125 mcg EOD IV 08/02/24 10:00 08/04/24 09:24 125 MCG Norepinephrine Bitartrate 250 ml @ 3.75 mls/hr Q24H IV 08/02/24 17:15 08/03/24 03:22 2.813 MLS/HR Furosemide 40 mg DAILY IV 08/04/24 06:00 08/04/24 09:25 40 MG Acetazolamide Sodium 250 mg BID IV 08/03/24 10:15 08/04/24 11:12 250 MG Vancomycin HCl 100 ml @ 100 mls/hr Q12H IV 08/03/24 17:00 08/04/24 04:51 100 MLS/HR laboratory and microbiology Laboratory Tests 08/04/24 05:30 Test 08/04/24 05:30 Range/Units Serum Glucose 157 H 74-106 mg/dL Assessment/Plan Snack Stewardess rounds Impression Acute hypoxemic respiratory failure Pulmonary edema COPD CHF Patient seen and examined in ICU Events On mechanical ventilation S/p intubation PEEP 5, FiO2 30% Labs and imaging reviewed ABG reviewed pH 7.40, pCO2 97, pO2 77 Management Vent support Titrate to maintain sats 90% or above Sedation holiday If patient follows commands, proceed to weaning trial Pressure support 10/05, extubate when ready Antibiotics Bronchodilators Monitor renal function Monitor electrolytes Supplement as needed Pressors as needed for hemodynamic support To maintain a mean arterial pressure of 65 mmHg Diamox 250mg IV BID DVT prophylaxis Critical care time 35 minutes Dietary Evaluation Review Comments: 1. Suggest TF w/ formula Pivot 1.5 @ 40 ml/hr (GOAL). Begin @ 10 ml/hr; advance by 10 ml Q4 hrs or as tolerated to 40 ml/hr x 24 hrs 2. Provide free water flushes of 30 ml Q6 hrs (120 ml total); adjust PRN 3. Monitor BMP/lytes and replete to WNL/PRN 4. Lantus, ss insulin for correction; adjust PRN to maintain BG <180 mg/dl TF Provision: TF at goal to provide 960 ml total volume, 1440 kcal, 90 gm pro, 7 gm fiber, 165 gm CHO, 729 ml H20 (meets 100% est. kcal needs, 100% est. pro needs) Expected Outcomes/Goals: Improved nutritional status, TF initiation within 24-48 hrs of intubation. Plan discussed with: Other (Rn) AKIKO CABRERA MD August 04, 2024 14:11
--- NOTE | 2024-08-04 22:20 | DVHPN2 ---
Subjective The patient is seen and examined at bedside. No change overnight. The patient remained intubated on vent. Reviewed: Care Plan, H&P, Labs, Medications, Previous Orders, Radiology Changes from previous H/P or p: No Changes Objective Vitals Vital Signs Date Time Temp Pulse Resp B/P (MAP) Pulse Ox O2 Delivery O2 Flow Rate FiO2 08/04/24 22:12 109/56 08/04/24 21:52 92 14 96 30 08/04/24 20:00 98.8 209.8 08/04/24 18:00 Mechanical Ventilator+ Intake/Output Intake and Output 08/04/24 07:00 Intake Total 796.233 ml Output Total 2675 ml Balance -1878.767 ml Intake Oral 150 ml IV Total 646.233 ml Output Urine Total 2675 ml General Appearance: Other (Intubated, on vent, unable to exam) HEENT: Atraumatic, PERRLA, EOMI, Mucous membr. moist/pink Neck: Supple Lungs: Clear to auscultation, Normal air movement Cardiovascular: Regular rate, Normal S1, Normal S2, No murmurs, Gallops, Rubs Abdomen: Normal bowel sounds, Soft, No tenderness Neuro: Cranial nerves 3-12 NL Psych/Mental Status: Mental status NL Medications Current Medications Medications Dose Ordered Sig/Artie Route Start Time Stop Time Status Last Admin Dose Admin Acetaminophen 325 mg Q4HP PRN PO 07/30/24 21:45 Vancomycin HCl 0 ml @ 0 mls/hr UD IV 07/30/24 21:45 Cefepime HCl 50 ml @ 12.5 mls/hr Q8HR IV 07/30/24 22:00 08/04/24 21:48 12.5 MLS/HR Ipratropium [place] 0.5 mg Q4HR NEB 07/30/24 22:00 08/04/24 21:52 0.5 MG Levalbuterol HCl 1.25 mg Q4HR NEB 07/30/24 22:00 08/04/24 21:52 1.25 MG Insulin Glargine 20 units HS SC 07/30/24 22:00 08/04/24 22:05 20 UNITS Diagnostic Test (Pha) 1 strip IQ4HR 07/31/24 00:00 08/04/24 20:01 1 STRIP Insulin Human Regular IQ4HR SC 07/31/24 00:00 08/04/24 20:02 198 UNITS Dextrose 50 ml UD PRN IV 07/30/24 21:45 Methylprednisolone Sodium Succinate 40 mg DAILY IV 07/31/24 10:00 08/04/24 09:25 40 MG Aspirin 81 mg DAILY PO 07/31/24 10:00 08/04/24 09:25 81 MG Pantoprazole Sodium 40 mg DAILY IV 08/01/24 10:00 08/04/24 09:23 40 MG Acetaminophen/ Hydrocodone Bitart 1 tab Q6HP PRN PO 07/31/24 15:15 Morphine Sulfate 2 mg Q4HPRN PRN IV 07/31/24 15:15 Hold 07/31/24 18:53 2 MG Atorvastatin Calcium 20 mg HS PO 07/31/24 22:00 08/04/24 21:48 20 MG Midazolam HCl 50 ml @ 1 mls/hr Q24H IV 08/01/24 01:15 08/04/24 21:46 6 MLS/HR Fentanyl Citrate 250 ml @ 2.5 mls/hr Q24H IV 08/01/24 01:15 08/04/24 06:36 15 MLS/HR Enoxaparin Sodium 120 mg Q12HR SC 08/01/24 22:00 08/04/24 21:48 120 MG Digoxin 125 mcg EOD IV 08/02/24 10:00 08/04/24 09:24 125 MCG Norepinephrine Bitartrate 250 ml @ 3.75 mls/hr Q24H IV 08/02/24 17:15 08/03/24 03:22 2.813 MLS/HR Furosemide 40 mg DAILY IV 08/04/24 06:00 08/04/24 09:25 40 MG Acetazolamide Sodium 250 mg BID IV 08/03/24 10:15 08/04/24 22:12 250 MG Vancomycin HCl 100 ml @ 100 mls/hr Q12H IV 08/03/24 17:00 08/04/24 16:51 100 MLS/HR Laboratory Results Laboratory Tests 08/04/24 05:30 Chemistry Test 08/04/24 05:30 Albumin 3.2 g/dL (3.2-4.8) Calcium Level 10.3 mg/dL (8.7-10.4) Magnesium Level 2.0 mg/dL (1.6-2.6) Total Protein 6.1 g/dL (5.7-8.2) Coagulation Test 08/04/24 05:30 Prothrombin Time 11.6 sec (9.3-11.8) Prothrombin Time INR 1.11 (0.9-1.15) Activated Partial Thromboplast Time 32.2 SEC (24.5-34.5) LFT Test 08/04/24 05:30 Alanine Aminotransferase (ALT) 16 U/L (7-40) Alkaline Phosphatase 90 U/L (46-116) Aspartate Amino Transferase (AST) 27 U/L (13-40) Total Bilirubin 0.4 mg/dL (0.2-1.0) Urinalysis Test 07/30/24 15:37 Urine Color Light-yellow (Yellow) Urine Clarity Clear (Clear) Urine pH 5.0 (5.0-9.0) Urine Specific [place] 1.010 (1.001-1.035) Urine Protein Trace (Negative) H Urine Ketones Negative (Negative) Urine Blood Negative /uL (Negative) Urine Nitrite Negative (Negative) Urine Bilirubin Negative (Negative) Urine Urobilinogen Normal mg/dL (Negative) Urine Leukocyte Esterase Negative /uL (Negative) Urine RBC <1 /hpf (0 - 3) Urine Microscopic WBC 4 /HPF (0-3) H Urine Squamous Epithelial Cells None seen /hpf (<5) Urine Bacteria Few /hpf (None Seen) H Urine Hyaline Casts Few /lpf (0 - 2) Urine Mucus Few (None Seen) Urine Glucose 4+ mg/dL (Normal) H Blood Gas Results Test 08/04/24 07:16 Arterial Blood pH 7.408 (7.350-7.450) FiO2 % 30.0 Microbiology Microbiology Date/Time Source Procedure Growth Status 08/01/24 00:30 Nose MRSA Screen - Final Complete 08/01/24 00:00 Sputum Gram Stain - Final Complete 08/01/24 00:00 Sputum Respiratory Culture - Final Complete 07/30/24 14:47 Blood Blood Culture - Final NO GROWTH AFTER 5 DAYS OF INCUBATION. Complete Labs and/or images reviewed: Labs reviewed by me Assessment/Plan Assessment/Plan # Acute on chronic hypoxic/hypercarbic respiratory failure, on mechanical ventilation # Acute metabolic encephalopathy possibly due to above # Acute exacerbation of chronic COPD # Ruled out pulmonary embolism # Pulmonary nodule, rule out malignancy- # Possible pulmonary hypertension # Septic shock due to suspected Gram-negative pneumonia - CXR: Cardiomegaly. No acute cardiopulmonary disease - CT angiography demonstrated 2 cm nodular opacities right lung apex, ruled out PE and follow up CT scan in 6 weeks to see if there is resolution. - Med neb with levalbuterol and ipratropium q.4 hours - IV vancomycin per pharmacy, IV cefepime 2gm Q 8 hours - IV methylprednisolone 40 mg daily - patient is on mechanical ventilation with tidal volume 450 mL, FiO2 30%, PEEP 5, RR 16 - Patient is on IV Versed, fentanyl and Levophed drip # Bilateral lower extremity cellulitis # Possible sepsis due to above - IV vancomycin, IV cefepime - wound consult - Pending wound culture, blood culture, respiratory culture - IV morphine 2 mg q.4 PRN - [place] 10/325 mg q.6 p.r.n. # Acute on chronic systolic CHF exacerbation, EF 40% # paroxysmal atrial fibrillation with RVR # Hypercoagulable state secondary to above - EKG showed irregular rhythm, borderline T abnormalities and troponins were unremarkable - IV amiodarone as per protocol 12 hourly - Therapeutic Lovenox 1 milligram/kg b.i.d. - Aspirin 81 mg daily and atorvastatin 20 mg at HS - IV furosemide 40 mg b.i.d. - Echo showed EF is approximately 40% with global hypokinesis and Irregular contractility. - Cardiology on board - IV digoxin 125 mcg daily # Type 2 diabetes, uncontrolled, A1c 9.2 - insulin Lantus 20 units q.p.m. - aggressive sliding scale insulin # Obesity, class 3 , BMI 50.1 kg/m2 # PUD prophylaxis - Protonix 40mg daily # DVT prophylaxis - patient is on therapeutic Lovenox Continuing current management. We will order lab in a.m. and chest x-ray. This medical document was created using an electronic medical record system with [employer] direct computerized dictation system. Although this document has been carefully reviewed, there may still be some phonetic and typographical errors. These areas are purely typographical due to imperfections of the software programs, and do not reflect any compromise in the patient's medical care. Plan discussed with: Other (RN) My Orders Orders - LORNA HANDLEY MD Procedure Category Date Status Time Comprehensive LAB 5/5/25 Verified Metabolic Panel 04:00 Chest Portable XY 08/05/24 Logged 04:00 Date of Service: August 04, 2024 Billing Provider: LORNA HANDLEY MD Common Visit Codes: [id number] INP/OBS CARE(HIGH) LORNA HANDLEY MD August 04, 2024 22:20
[2024-08-05] VITALS (94 sets, daily range): BP systolic 79–146; BP diastolic 42–86; PULSE 72–139; RESP 11–26; TEMP 97.7–100.2; O2SAT 94–100
--- NOTE | 2024-08-05 05:26 | DVH ---
EXAM: XR Chest, 1 View CLINICAL INDICATION: RESPIRATORY FAILURE TECHNIQUE: Frontal view of the chest. COMPARISON: XY CHEST XRAY 1 VIEW on DOS: 08/03/24, XY CHEST XRAY 1 VIEW on DOS: 08/02/24, XY CHEST PORT ABLE on DOS: 08/01/24, XY CHEST PORTABLE on DOS: 07/30/24 FINDINGS: LUNGS AND PLEURAL SPACES: Mild congestive heart failure. No consolidation. No pneumothorax. HEART: Unremarkable. No cardiomegaly. MEDIASTINUM: Unremarkable. Normal mediastinal contour. BONES/JOINTS: Unremarkable. No acute fracture. TUBES, LINES AND DEVICES: Right internal jugular central venous catheter tip in the superior vena c gustavo. The endotracheal tube (ETT) is in satisfactory position. Enteric tube tip cannot be seen but i s below the diaphragm. OTHER FINDINGS: . IMPRESSION: Mild congestive heart failure.
[2024-08-05 05:36] LABS: Basophils # (auto) 0 10 ^3/uL (0-0.2); Eosinophils # (auto) 0 10 ^3/uL (0-0.8); Eosinophils % (auto) 0.1 % (0.0-7.0); Hematocrit 34.5 % (41.0-53.0); Lymphocytes # (auto) 0.9 10 ^3/uL (0.4-5.4); Lymphocytes % (auto) 7.4 % (10.0-50.0); Mean Corpuscular Hemoglobin 28.9 pg (28.0-32.0); Mean Corpuscular Hgb Conc. 31.9 g/dL (32.0-36.0); Mean Corpuscular Volume 90.5 fL (80.0-100.0); Monocytes % (auto) 8.5 % (0.0-12.0); Platelet Count (auto) 277 10^3/uL (140-450); Red Blood Cells 3.81 10^6/uL (4.5-5.90); Red Cell Distribution Width 15.7 % (11.8-14.3); White Blood Cell 11.9 10^3/uL (4.4-10.8)
[2024-08-05 05:54] LABS: Alanine Aminotransferase 23 U/L (7-40); Albumin 3.2 g/dL (3.2-4.8); Alkaline Phosphatase 85 U/L (46-116); Anion Gap 4 (5-15); Aspartate Aminotransferase 27 U/L (13-40); BUN/Creatinine Ratio 41.7 (10.0-20.0); Calcium 10.1 mg/dL (8.7-10.4); Chloride 100 mmol/L (98-107); Potassium 3.7 mmol/L (3.5-5.1); Sodium 141 mmol/L (136-145); Total Protein 6.1 g/dL (5.7-8.2)
[2024-08-05 05:55] LABS: Bilirubin, Total 0.4 mg/dL (0.2-1.0)
[2024-08-05 06:02] LABS: Blood Urea Nitrogen 35 mg/dL (9-23); Carbon Dioxide 37 mmol/L (20-31); Glucose 144 mg/dL (74-106)
--- NOTE | 2024-08-05 08:33 | DVHPN2 ---
Consult Progress Note Date Seen: August 05, 2024 Subjective Other Systems: No overnight cardiac events reported Objective vital signs Vital Sign Date Time Temp Pulse Resp B/P (MAP) Pulse Ox O2 Delivery O2 Flow Rate FiO2 08/05/24 08:00 86 14 146/71 (96) 100 30 08/05/24 05:47 Mechanical Ventilator+ 08/05/24 04:15 97.7 207.9 Total Intake and Output 08/04/24 08/04/24 08/05/24 15:00 23:00 07:00 Intake Total 285.164 ml 343.879 ml 211.485 ml Output Total 1975 ml 750 ml Balance 285.164 ml -1631.121 ml -538.515 ml medications Current Medications Medications Dose Ordered Sig/Artie Route Start Time Stop Time Status Last Admin Dose Admin Acetaminophen 325 mg Q4HP PRN PO 07/30/24 21:45 Vancomycin HCl 0 ml @ 0 mls/hr UD IV 07/30/24 21:45 Cefepime HCl 50 ml @ 12.5 mls/hr Q8HR IV 07/30/24 22:00 08/05/24 05:34 12.5 MLS/HR Ipratropium [place] 0.5 mg Q4HR NEB 07/30/24 22:00 08/05/24 05:58 0.5 MG Levalbuterol HCl 1.25 mg Q4HR NEB 07/30/24 22:00 08/05/24 05:58 1.25 MG Insulin Glargine 20 units HS SC 07/30/24 22:00 08/04/24 22:05 20 UNITS Diagnostic Test (Pha) 1 strip IQ4HR 07/31/24 00:00 08/05/24 08:09 1 STRIP Insulin Human Regular IQ4HR SC 07/31/24 00:00 08/05/24 04:19 2 UNITS Dextrose 50 ml UD PRN IV 07/30/24 21:45 Methylprednisolone Sodium Succinate 40 mg DAILY IV 07/31/24 10:00 08/04/24 09:25 40 MG Aspirin 81 mg DAILY PO 07/31/24 10:00 08/04/24 09:25 81 MG Pantoprazole Sodium 40 mg DAILY IV 08/01/24 10:00 08/04/24 09:23 40 MG Acetaminophen/ Hydrocodone Bitart 1 tab Q6HP PRN PO 07/31/24 15:15 Morphine Sulfate 2 mg Q4HPRN PRN IV 07/31/24 15:15 Hold 07/31/24 18:53 2 MG Atorvastatin Calcium 20 mg HS PO 07/31/24 22:00 08/04/24 21:48 20 MG Midazolam HCl 50 ml @ 1 mls/hr Q24H IV 08/01/24 01:15 08/04/24 21:46 6 MLS/HR Fentanyl Citrate 250 ml @ 2.5 mls/hr Q24H IV 08/01/24 01:15 08/05/24 00:11 20 MLS/HR Enoxaparin Sodium 120 mg Q12HR SC 08/01/24 22:00 08/04/24 21:48 120 MG Digoxin 125 mcg EOD IV 08/02/24 10:00 08/04/24 09:24 125 MCG Norepinephrine Bitartrate 250 ml @ 3.75 mls/hr Q24H IV 08/02/24 17:15 08/03/24 03:22 2.813 MLS/HR Furosemide 40 mg DAILY IV 08/04/24 06:00 08/04/24 09:25 40 MG Acetazolamide Sodium 250 mg BID IV 08/03/24 10:15 08/04/24 22:12 250 MG Vancomycin HCl 100 ml @ 100 mls/hr Q12H IV 08/03/24 17:00 08/04/24 16:51 100 MLS/HR Examination: GENERAL:Abnormal, LUNGS:Abnormal (Mechanically ventilated 30% FiO2), CVS:Abnormal (A-fib with intermittent RVR when stimulated), NEURO:Normal laboratory and microbiology Laboratory Tests 08/05/24 05:00 Test 08/05/24 05:00 Range/Units Serum Glucose 144 H 74-106 mg/dL Problem List/Assessment/Plan Problem List/Assessment/Plan Acute on chronic decompensated HFrEF Atrial fibrillation, likely persistent (not on NOAC) Acute hypoxic respiratory failure COPD with home O2 Pulmonary hypertension Asthma Type 2 diabetes mellitus, uncontrolled (Hgb A1c 9.2%) Morbid obesity Plan/Recommendation (Dr. Vanegas) * Transthoracic echocardiogram revealed LVEF 40% with global hypokinesis * Moderate mitral annular calcification with the patient of the posterior mitral leaflet. Moderate aortic sclerosis with diminished excursion of the right coronary cusp. Calcification of the non and left coronary cusps as well. There appears to be a certain degree of aortic sclerosis present. Mild gradient of15 mmHg suggestive aortic sclerosis without stenosis. * Preload reduction. Strict intake and output, daily weights, maintain fluid restriction * Continue vasopressor therapy for hemodynamic support to maintain a MAP of 65 or above * Rate control, digoxin therapy EOD. Hold BB currently on vasopressor * Therapeutic Lovenox while inpatient, transition to NOAC prior to discharge * [id number] score: 3 points, HAS-BLED: 2 points * Antiarrhythmic agents, hold given unknown duration of AFib * Monitor and replete electrolytes as needed. Keep potassium greater than 4 and magnesium greater than 2 * Close Cardiac surveillance Thank you for allowing us to care for this patient. Please call with any questions or concerns. Critical care time 30 min Critical care time: 30 min. This medical document was created using an electronic medical record system with voice recognition software and computerized dictation system. Although this document has been carefully reviewed, there might still be some phonetic and typographical errors. Occasional wrong-word or ``sound-alike substitutions may have occurred due to the inherent limitations of voice recognition software. These areas are purely typographical due to imperfections of the software programs and do not reflect any compromise in the patient's medical care. Please read the chart carefully and recognize, using context, where these substitutions have occurred. Plan discussed with: Other Dietary Evaluation Review Comments: 1. Suggest TF w/ formula Pivot 1.5 @ 40 ml/hr (GOAL). Begin @ 10 ml/hr; advance by 10 ml Q4 hrs or as tolerated to 40 ml/hr x 24 hrs 2. Provide free water flushes of 30 ml Q6 hrs (120 ml total); adjust PRN 3. Monitor BMP/lytes and replete to WNL/PRN 4. Lantus, ss insulin for correction; adjust PRN to maintain BG <180 mg/dl TF Provision: TF at goal to provide 960 ml total volume, 1440 kcal, 90 gm pro, 7 gm fiber, 165 gm CHO, 729 ml H20 (meets 100% est. kcal needs, 100% est. pro needs) Expected Outcomes/Goals: Improved nutritional status, TF initiation within 24-48 hrs of intubation. Date of Service: August 05, 2024 Billing Provider: ANGIE CORTES Cardiology Common Codes: [id number] CARE 30-[address] [facility] August 05, 2024 08:33
[2024-08-05 08:37] LABS: Base Excess 11.9 mmol/L (-2.0-3.0)
[2024-08-05] MEDS: POTASSIUM CHL 20MEQ/50ML 50 ML IV ONE (08:44)
[2024-08-05] MEDS: methylPREDNISolone SOD SUCC 40 MG/ML VL IV SCH (17:02)
[2024-08-05] MEDS ORDERED: DEXTROSE (50%) 50ML SYRG IV PRN (17:15)
--- NOTE | 2024-08-05 17:41 | DVHPNRES ---
Progress Note Date Seen: August 05, 2024 Resident Creating Document: GINETTE TRIVEDI RESIDENT Medical Necessity Reason Pt with a Central, PICC or Fol: Yes The following are medically ne: Central Line, [place] Catheter Reason for [place] catheter: Strict I&O Subjective Review of Systems Patient is a 69-year-old male with past medical history of CHF, COPD, type 2 diabetes, atrial fibrillation, who comes in due to respiratory distress. Per patient's brother who is also his caregiver, patient's home wound care nurse checked his vitals and his SpO2 was noted to be 68% with a pulse of 130, he also appeared disoriented and had labored breathing. According to the brother, patient's mobility has been progressively decreasing over the last 3 months and he has been limited to a recliner/office chair for the last 1 month and refuses to lie flat in his bed. Patient has been having increasing leg swelling during this time with the appearance of fluid-filled blisters which eventually started draining an ulcerated. Brother says he has been using antibiotic dressing on open sores with the help of wound nurse however the dressings continued to get drenched in the discharge and this is what prompted this visit to the hospital. Arrival to the ED patient was noted to be tachycardic and tachypneic and was placed on BiPAP. Note, patient is on home oxygen 2-3 L. Patient Underwent intubation with mechanical ventilation on 08/01/2024 due to acute metabolic encephalopathy likely due to acute hypoxic / hypercapnic respiratory failure. Patient was seen and examined on the bedside. Patient is intubated and on mechanical ventilation with FiO2 30%, Tidal volume 450 ml, PEEP 5 . Objective vital signs Vital Sign Date Time Temp Pulse Resp B/P (MAP) Pulse Ox O2 Delivery O2 Flow Rate FiO2 08/05/24 16:00 30 08/05/24 16:00 14 99 Mechanical Ventilator+ 08/05/24 16:00 78 08/05/24 15:50 87/58 (68) 08/05/24 12:00 99.0 210.2 Total Intake and Output 08/04/24 08/04/24 08/05/24 15:00 23:00 07:00 Intake Total 285.164 ml 343.879 ml 211.485 ml Output Total 1975 ml 750 ml Balance 285.164 ml -1631.121 ml -538.515 ml medications Current Medications Medications Dose Ordered Sig/Artie Route Start Time Stop Time Status Last Admin Dose Admin Acetaminophen 325 mg Q4HP PRN PO 07/30/24 21:45 Vancomycin HCl 0 ml @ 0 mls/hr UD IV 07/30/24 21:45 Cefepime HCl 50 ml @ 12.5 mls/hr Q8HR IV 07/30/24 22:00 08/05/24 14:24 12.5 MLS/HR Ipratropium [place] 0.5 mg Q4HR NEB 07/30/24 22:00 08/05/24 14:03 0.5 MG Levalbuterol HCl 1.25 mg Q4HR NEB 07/30/24 22:00 08/05/24 14:03 1.25 MG Insulin Glargine 20 units HS SC 07/30/24 22:00 08/04/24 22:05 20 UNITS Aspirin 81 mg DAILY PO 07/31/24 10:00 08/05/24 09:27 81 MG Pantoprazole Sodium 40 mg DAILY IV 08/01/24 10:00 08/05/24 11:45 40 MG Acetaminophen/ Hydrocodone Bitart 1 tab Q6HP PRN PO 07/31/24 15:15 Atorvastatin Calcium 20 mg HS PO 07/31/24 22:00 08/04/24 21:48 20 MG Midazolam HCl 50 ml @ 1 mls/hr Q24H IV 08/01/24 01:15 08/05/24 17:00 4 MLS/HR Fentanyl Citrate 250 ml @ 2.5 mls/hr Q24H IV 08/01/24 01:15 08/05/24 00:11 20 MLS/HR Enoxaparin Sodium 120 mg Q12HR SC 08/01/24 22:00 08/05/24 09:26 120 MG Digoxin 125 mcg EOD IV 08/02/24 10:00 08/04/24 09:24 125 MCG Norepinephrine Bitartrate 250 ml @ 3.75 mls/hr Q24H IV 08/02/24 17:15 08/03/24 03:22 2.813 MLS/HR Methylprednisolone Sodium Succinate 40 mg BIDAC IV 08/05/24 17:00 08/05/24 17:02 40 MG Enteral Nutritional Formula 1,000 ml 50ML/HR GT 08/05/24 17:15 Diagnostic Test (Pha) 1 strip Q6HR 08/06/24 00:00 Insulin Human Regular Q6HR SC 08/06/24 00:00 Dextrose 50 ml UD PRN IV 08/05/24 17:15 Furosemide 40 mg BID IV 08/05/24 17:30 Examination Physical exam: General: RASS -3, febrile (100), mucosae are moist Cardiovascular: Normal S1 and S2. No murmurs, gallops or rubs Respiratory: Mechanically assisted ventilation, equal bilateral airway entree. Bilateral crackles on auscultation Abdomen: Soft, nontender, no organomegaly, normal bowel sounds. MSK/skin: Mobilization of limbs cannot be evaluated. Skin is dry and warm. Bilateral macerated wound [id number] covered with dressing which is dry, bilateral pedal edema +. Neurological: Orientation cannot be assessed. No apparent motor no sensitive deficits. Pupils are isocoric and reactive. laboratory and microbiology Laboratory Tests 08/05/24 05:00 Test 08/05/24 05:00 Range/Units Serum Glucose 144 H 74-106 mg/dL Microbiology Date/Time Source Procedure Growth Status 08/01/24 00:30 Nose MRSA Screen - Final Complete 08/01/24 00:00 Sputum Gram Stain - Final Complete 08/01/24 00:00 Sputum Respiratory Culture - Final Complete 07/30/24 14:47 Blood Blood Culture - Final NO GROWTH AFTER 5 DAYS OF INCUBATION. Complete Labs and/or images reviewed: Labs reviewed by me, Image(s) reviewed by me Problem List/Assessment/Plan Problem List/Assessment/Plan Assessment and plan: NEURO: Acute metabolic encephalopathy secondary to hypoxic/ hypercarbic respiratory failure RASS score: -3 - On mechanical ventilation CARDIOVASCULAR: Acute on chronic exacerbation of decompensated systolic heart failure, NYHA class 3 Chronic permanent atrial fibrillation with secondary hypercoagulable state Severe pulmonary hypertension likely due to COPD /FAWN - [id number] score 3 and HAS BLED score 2 - CXR showed cardiomegaly with mild pulmonary vascular congestion - Echo on 07/31/2024 demonstrated EF 40% with global hypokinesis, irregular contractility, moderate tricuspid regurgitation, moderate aortic sclerosis with diminished excursion of the right coronary cusp and RVSP 56 mm hg - IV Lasix 40 mg b.i.d. - IV digoxin 125 mcg daily - Therapeutic Lovenox 120 mg b.i.d. - Maintain strict I&O - Cardiology on board - Aspirin 81 mg daily and atorvastatin 20 mg at HS PULMONARY: Acute on chronic hypoxic / hypercarbic respiratory failure Acute on chronic exacerbation of COPD Ruled out pulmonary embolism - CT angiography demonstrated 2 cm nodular opacities right lung apex, ruled out PE and follow up CT scan in 6 weeks to see if there is resolution. - Med neb with levalbuterol and ipratropium q.4 hours - IV vancomycin per pharmacy, IV cefepime 2gm Q 8 hours ( Started on 07/30/24) - IV methylprednisolone 40 mg BID - Respiratory culture showed normal oropharyngeal rc ENDOCRINE: Uncontrolled type 2 diabetes mellitus, hemoglobin A1c 9.2 Obesity class 3, BMI 50.1 kg/meter2 - Lantus 20 units at q.p.m. and aggressive sliding scale q.6 hour HEME: Chronic normocytic normochromic anemia likely due to anemia of chronic disease INFECTIOUS DISEASE: Bilateral lower extremity cellulitis - Wound culture on 07/31/24 demonstrated Enterobacter intermedius, Enterococcus faecalis, MRSA which is sensitive to vancomycin and cefepime - IV vancomycin per pharmacy, IV cefepime 2gm Q 8 hours ( Started on 07/30/24) - Blood culture showed no growth after 5 days of incubation DIET: Enteral feeding with Glucerna DVT prophylax: Patient is on therapeutic Lovenox GI prophylaxis: Protonix 40 mg IV daily Bowel regimen: Code status: full code LINES/DRAINS/ACCESS: ETT: Intubated on 08/01/24 IV access: Triple lumen Rt internal jugular line placed on 08/01/24 Drips: on norepinephrine, fentanyl and Precedex drip [place] catheter: on 07/30/24 DISPOSITION: JERRICA Patient's status discussed with Dr. Hernandez, aged or disabled carer time spent more than 81 minutes, including patient care, chart review, and updating the family. Excluding any procedures. Case discussed with Dr. Hernandez Plan discussed with: Patient, Other (Plan discussed with Brother and RN) My Orders My Orders Orders - GINETTE TRIVEDI RESIDENT Procedure Category Date Status Time Furosemide Injection PHA 08/05/24 In Process (Lasix Injection) 17:30 Dietary Evaluation Review Comments: 1. Suggest TF w/ formula Pivot 1.5 @ 40 ml/hr (GOAL). Begin @ 10 ml/hr; advance by 10 ml Q4 hrs or as tolerated to 40 ml/hr x 24 hrs 2. Provide free water flushes of 30 ml Q6 hrs (120 ml total); adjust PRN 3. Monitor BMP/lytes and replete to WNL/PRN 4. Lantus, ss insulin for correction; adjust PRN to maintain BG <180 mg/dl TF Provision: TF at goal to provide 960 ml total volume, 1440 kcal, 90 gm pro, 7 gm fiber, 165 gm CHO, 729 ml H20 (meets 100% est. kcal needs, 100% est. pro needs) Expected Outcomes/Goals: Improved nutritional status, TF initiation within 24-48 hrs of intubation. Date of Service: August 05, 2024 Billing Provider: GERMAN HERNANDEZ MD Common Visit Codes: [id number] CARE 30-74 MIN, [id number] CARE-EACH +30MIN GINETTE TRIVEDI RESIDENT August 05, 2024 17:41 GERMAN HERNANDEZ MD August 06, 2024 15:10
[2024-08-05] MEDS: FUROSEMIDE 40 MG/4 ML VIAL IV SCH (18:37)
--- NOTE | 2024-08-05 21:38 | DVH ---
CHEST RADIOGRAPH Indication: mechanical ventilation Technique: Single frontal view of the chest was obtained Comparison: XY CHEST PORTABLE on DOS: 08/05/24, XY CHEST XRAY 1 VIEW on DOS: 08/03/24, XY CHEST XRAY 1 EW on DOS: 08/02/24 FINDINGS: Lines and Tubes: Endotracheal tube in place 5.6 cm above the mane. Right internal jugular catheter in place at the cavoatrial junction. Distal portion of the enteric tube not well seen Lungs: No focal consolidation. Pleura: No effusion. No pneumothorax. Cardiomediastinal contours: Unremarkable Bones: No acute osseous abnormality. IMPRESSION: 1. Endotracheal tube in place 5.6 cm above the mane. 2. Right and internal jugular catheter in place at the cavoatrial junction. 3. Tip of the enteric tube not well seen.
[2024-08-06] VITALS (108 sets, daily range): BP systolic 84–153; BP diastolic 43–100; PULSE 69–136; RESP 13–20; TEMP 97.2–99; O2SAT 93–100
[2024-08-06] MEDS: ACCU-CHEK COMFORT CURVE STRIP VI SCH (00:07)
[2024-08-06] MEDS: InsuLIN REG 1unit/0.01ml Soln (100units/ml) SC SCH (00:08)
[2024-08-06] MEDS: Glucerna 1.2 Cal 1Liter BOTTLE GT SCH (00:14)
[2024-08-06 05:35] LABS: Basophils # (auto) 0 10 ^3/uL (0-0.2); Basophils % (auto) 0.1 % (0.0-2.0); Eosinophils # (auto) 0 10 ^3/uL (0-0.8); Hematocrit 32.8 % (41.0-53.0); Hemoglobin 10.5 g/dL (13.5-17.5); Lymphocytes # (auto) 0.5 10 ^3/uL (0.4-5.4); Lymphocytes % (auto) 3.7 % (10.0-50.0); Mean Corpuscular Hemoglobin 28.6 pg (28.0-32.0); Mean Corpuscular Volume 89.5 fL (80.0-100.0); Monocytes # (auto) 0.9 10 ^3/uL (0-1.3); Monocytes % (auto) 6.4 % (0.0-12.0); Neutrophils # (auto) 12.4 10 ^3/uL (1.6-8.6); Neutrophils % (auto) 89.8 % (37.0-80.0); Nucleated Red Blood Cells % 0.1 %; Platelet Count (auto) 306 10^3/uL (140-450); Red Blood Cells 3.66 10^6/uL (4.5-5.90); Red Cell Distribution Width 15.1 % (11.8-14.3); White Blood Cell 13.8 10^3/uL (4.4-10.8)
--- NOTE | 2024-08-06 05:35 | DVH ---
EXAM: XR Chest, 1 View CLINICAL INDICATION: RESPIRATORY FAILURE TECHNIQUE: Frontal view of the chest. COMPARISON: None FINDINGS: LUNGS AND PLEURAL SPACES: Pulmonary venous congestion. No consolidation. No pneumothorax. HEART: Unremarkable. No cardiomegaly. MEDIASTINUM: Unremarkable. Normal mediastinal contour. BONES/JOINTS: Unremarkable. No acute fracture. TUBES, LINES AND DEVICES: The endotracheal tube (ETT) is in satisfactory position. Right internal jugular central venous catheter tip in the superior vena cava. Enteric tube tip cannot be seen but i s below the diaphragm. OTHER FINDINGS: . . IMPRESSION: Pulmonary venous congestion.
[2024-08-06 05:53] LABS: Alanine Aminotransferase 25 U/L (7-40); Alkaline Phosphatase 86 U/L (46-116); Anion Gap 6 (5-15); BUN/Creatinine Ratio 45.7 (10.0-20.0); Calcium 10.3 mg/dL (8.7-10.4); Chloride 99 mmol/L (98-107); Potassium 3.7 mmol/L (3.5-5.1); Sodium 141 mmol/L (136-145); Total Protein 6.1 g/dL (5.7-8.2)
[2024-08-06 05:55] LABS: Aspartate Aminotransferase 21 U/L (13-40); Bilirubin, Total 0.4 mg/dL (0.2-1.0)
[2024-08-06 06:05] LABS: Albumin 3.2 g/dL (3.2-4.8); Blood Urea Nitrogen 42 mg/dL (9-23); Carbon Dioxide 36 mmol/L (20-31); Glucose 189 mg/dL (74-106)
[2024-08-06 06:45] LABS: Base Excess 10.3 mmol/L (-2.0-3.0)
[2024-08-06] MEDS: POTASSIUM CHL 20MEQ/50ML 50 ML IV ONE (07:45)
--- NOTE | 2024-08-06 08:27 | DVHPN2 ---
Consult Progress Note Date Seen: August 06, 2024 Subjective Other Systems: No overnight cardiac events reported Objective vital signs Vital Sign Date Time Temp Pulse Resp B/P (MAP) Pulse Ox O2 Delivery O2 Flow Rate FiO2 08/06/24 08:00 99 14 99 Mechanical Ventilator+ 30 30 08/06/24 07:32 148/46 (80) 08/06/24 07:30 98.4 209.1 Total Intake and Output 08/05/24 08/05/24 08/06/24 15:00 23:00 07:00 Intake Total 215.854 ml 174.105 ml 209.252 ml Output Total 1400 ml 1250 ml Balance 215.854 ml -1225.895 ml -1040.748 ml medications Current Medications Medications Dose Ordered Sig/Artie Route Start Time Stop Time Status Last Admin Dose Admin Acetaminophen 325 mg Q4HP PRN PO 07/30/24 21:45 Vancomycin HCl 0 ml @ 0 mls/hr UD IV 07/30/24 21:45 Cefepime HCl 50 ml @ 12.5 mls/hr Q8HR IV 07/30/24 22:00 08/06/24 05:31 12.5 MLS/HR Ipratropium [place] 0.5 mg Q4HR NEB 07/30/24 22:00 08/06/24 05:50 0.5 MG Levalbuterol HCl 1.25 mg Q4HR NEB 07/30/24 22:00 08/06/24 05:50 1.25 MG Insulin Glargine 20 units HS SC 07/30/24 22:00 08/05/24 22:31 20 UNITS Aspirin 81 mg DAILY PO 07/31/24 10:00 08/05/24 09:27 81 MG Pantoprazole Sodium 40 mg DAILY IV 08/01/24 10:00 08/05/24 11:45 40 MG Acetaminophen/ Hydrocodone Bitart 1 tab Q6HP PRN PO 07/31/24 15:15 Atorvastatin Calcium 20 mg HS PO 07/31/24 22:00 08/05/24 22:27 20 MG Midazolam HCl 50 ml @ 1 mls/hr Q24H IV 08/01/24 01:15 08/06/24 08:02 7 MLS/HR Fentanyl Citrate 250 ml @ 2.5 mls/hr Q24H IV 08/01/24 01:15 08/05/24 23:07 15 MLS/HR Enoxaparin Sodium 120 mg Q12HR SC 08/01/24 22:00 08/05/24 09:26 120 MG Digoxin 125 mcg EOD IV 08/02/24 10:00 08/04/24 09:24 125 MCG Norepinephrine Bitartrate 250 ml @ 3.75 mls/hr Q24H IV 08/02/24 17:15 08/05/24 19:33 3.75 MLS/HR Methylprednisolone Sodium Succinate 40 mg BIDAC IV 08/05/24 17:00 08/06/24 07:52 40 MG Enteral Nutritional Formula 1,000 ml 50ML/HR GT 08/05/24 17:15 08/06/24 00:14 1,000 ML Diagnostic Test (Pha) 1 strip Q6HR 08/06/24 00:00 08/06/24 06:26 1 STRIP Insulin Human Regular Q6HR SC 08/06/24 00:00 08/06/24 06:27 8 UNITS Dextrose 50 ml UD PRN IV 08/05/24 17:15 Furosemide 40 mg BID IV 08/05/24 17:30 08/05/24 22:27 40 MG Examination: GENERAL:Abnormal, LUNGS:Abnormal (Mechanically ventilated 30% FiO2), CVS:Abnormal (A-fib controlled rate. On single vasopressor), NEURO:Abnormal (Chemically sedated) laboratory and microbiology Laboratory Tests 08/06/24 04:57 Test 08/06/24 04:57 Range/Units Serum Glucose 189 H 74-106 mg/dL Problem List/Assessment/Plan Problem List/Assessment/Plan Acute on chronic decompensated HFrEF Atrial fibrillation, likely persistent (not on NOAC) Acute hypoxic respiratory failure COPD with home O2 Pulmonary hypertension Asthma Type 2 diabetes mellitus, uncontrolled (Hgb A1c 9.2%) Morbid obesity Plan/Recommendation (Dr. Vanegas) * Transthoracic echocardiogram revealed LVEF 40% with global hypokinesis * Moderate mitral annular calcification with the patient of the posterior mitral leaflet. Moderate aortic sclerosis with diminished excursion of the right coronary cusp. Calcification of the non and left coronary cusps as well. There appears to be a certain degree of aortic sclerosis present. Mild gradient of15 mmHg suggestive aortic sclerosis without stenosis. * Preload reduction. Strict intake and output, daily weights, maintain fluid restriction * Continue vasopressor therapy for hemodynamic support * Rate control, digoxin therapy EOD. Hold BB currently on vasopressor * Therapeutic Lovenox, transition to NOAC prior to discharge * [id number] score: 3 points, HAS-BLED: 2 points * Antiarrhythmic agents, hold given unknown duration of AFib * Monitor and replete electrolytes as needed. Keep potassium greater than 4 and magnesium greater than 2 * Close Cardiac surveillance Thank you for allowing us to care for this patient. Please call with any questions or concerns. Critical care time: 30 min. This medical document was created using an electronic medical record system with voice recognition software and computerized dictation system. Although this document has been carefully reviewed, there might still be some phonetic and typographical errors. Occasional wrong-word or ``sound-alike substitutions may have occurred due to the inherent limitations of voice recognition software. These areas are purely typographical due to imperfections of the software programs and do not reflect any compromise in the patient's medical care. Please read the chart carefully and recognize, using context, where these substitutions have occurred. Plan discussed with: Other Dietary Evaluation Review Comments: 1. Suggest TF w/ formula Pivot 1.5 @ 40 ml/hr (GOAL). Begin @ 10 ml/hr; advance by 10 ml Q4 hrs or as tolerated to 40 ml/hr x 24 hrs 2. Provide free water flushes of 30 ml Q6 hrs (120 ml total); adjust PRN 3. Monitor BMP/lytes and replete to WNL/PRN 4. Lantus, ss insulin for correction; adjust PRN to maintain BG <180 mg/dl TF Provision: TF at goal to provide 960 ml total volume, 1440 kcal, 90 gm pro, 7 gm fiber, 165 gm CHO, 729 ml H20 (meets 100% est. kcal needs, 100% est. pro needs) Expected Outcomes/Goals: Improved nutritional status, TF initiation within 24-48 hrs of intubation. Date of Service: August 06, 2024 Billing Provider: ANGIE CORTES Cardiology Common Codes: [id number] CARE 30-74 MIN ANGIE CORTES August 06, 2024 08:27
--- NOTE | 2024-08-06 16:18 | DVHPNRES ---
Progress Note Date Seen: August 06, 2024 Resident Creating Document: GINETTE TRIVEDI RESIDENT Medical Necessity Reason Pt with a Central, PICC or Fol: Yes The following are medically ne: Central Line, [place] Catheter Reason for [place] catheter: Strict I&O Subjective Review of Systems Patient is a 69-year-old male with past medical history of CHF, COPD, type 2 diabetes, atrial fibrillation, who comes in due to respiratory distress. Per patient's brother who is also his caregiver, patient's home wound care nurse checked his vitals and his SpO2 was noted to be 68% with a pulse of 130, he also appeared disoriented and had labored breathing. Arrival to the ED patient was noted to be tachycardic and tachypneic and was placed on BiPAP. Note, patient is on home oxygen 2-3 L. Patient Underwent intubation with mechanical ventilation on 08/01/2024 due to acute metabolic encephalopathy likely due to acute hypoxic / hypercapnic respiratory failure. Patient was seen and examined on the bedside. Patient is intubated and on mechanical ventilation with FiO2 30%, Tidal volume 450 ml, PEEP 5 . CPAP trial tomorrow Objective vital signs Vital Sign Date Time Temp Pulse Resp B/P (MAP) Pulse Ox O2 Delivery O2 Flow Rate FiO2 08/06/24 16:05 79 14 129/62 (84) 96 30 08/06/24 15:45 98.4 98.4 08/06/24 14:00 Mechanical Ventilator+ Total Intake and Output 08/05/24 08/05/24 08/06/24 15:00 23:00 07:00 Intake Total 215.854 ml 174.105 ml 209.252 ml Output Total 1400 ml 1250 ml Balance 215.854 ml -1225.895 ml -1040.748 ml medications Current Medications Medications Dose Ordered Sig/Artie Route Start Time Stop Time Status Last Admin Dose Admin Acetaminophen 325 mg Q4HP PRN PO 07/30/24 21:45 Vancomycin HCl 0 ml @ 0 mls/hr UD IV 07/30/24 21:45 Cefepime HCl 50 ml @ 12.5 mls/hr Q8HR IV 07/30/24 22:00 08/06/24 13:52 12.5 MLS/HR Ipratropium [place] 0.5 mg Q4HR NEB 07/30/24 22:00 08/06/24 14:20 0.5 MG Levalbuterol HCl 1.25 mg Q4HR NEB 07/30/24 22:00 08/06/24 14:20 1.25 MG Insulin Glargine 20 units HS SC 07/30/24 22:00 08/05/24 22:31 20 UNITS Pantoprazole Sodium 40 mg DAILY IV 08/01/24 10:00 08/06/24 09:37 40 MG Acetaminophen/ Hydrocodone Bitart 1 tab Q6HP PRN PO 07/31/24 15:15 Atorvastatin Calcium 20 mg HS PO 07/31/24 22:00 08/05/24 22:27 20 MG Midazolam HCl 50 ml @ 1 mls/hr Q24H IV 08/01/24 01:15 08/06/24 13:49 11 MLS/HR Fentanyl Citrate 250 ml @ 2.5 mls/hr Q24H IV 08/01/24 01:15 08/06/24 12:08 25 MLS/HR Enoxaparin Sodium 120 mg Q12HR SC 08/01/24 22:00 08/06/24 09:39 120 MG Digoxin 125 mcg EOD IV 08/02/24 10:00 08/06/24 09:43 125 MCG Norepinephrine Bitartrate 250 ml @ 3.75 mls/hr Q24H IV 08/02/24 17:15 08/05/24 19:33 3.75 MLS/HR Methylprednisolone Sodium Succinate 40 mg BIDAC IV 08/05/24 17:00 08/06/24 07:52 40 MG Enteral Nutritional Formula 1,000 ml 50ML/HR GT 08/05/24 17:15 08/06/24 00:14 1,000 ML Diagnostic Test (Pha) 1 strip Q6HR 08/06/24 00:00 08/06/24 12:24 1 STRIP Insulin Human Regular Q6HR SC 08/06/24 00:00 08/06/24 12:24 4 UNITS Dextrose 50 ml UD PRN IV 08/05/24 17:15 Furosemide 40 mg BID IV 08/05/24 17:30 08/06/24 09:38 40 MG Examination Physical exam: General: RASS -3, febrile (100), mucosae are moist Cardiovascular: Normal S1 and S2. No murmurs, gallops or rubs Respiratory: Mechanically assisted ventilation, equal bilateral airway entree. Bilateral crackles on auscultation Abdomen: Soft, nontender, no organomegaly, normal bowel sounds. MSK/skin: Mobilization of limbs cannot be evaluated. Skin is dry and warm. Bilateral macerated wound [id number] covered with dressing which is dry, bilateral pedal edema +. Neurological: Orientation cannot be assessed. No apparent motor no sensitive deficits. Pupils are isocoric and reactive. laboratory and microbiology Laboratory Tests 08/06/24 04:57 Test 08/06/24 04:57 Range/Units Serum Glucose 189 H 74-106 mg/dL Microbiology Date/Time Source Procedure Growth Status 08/01/24 00:30 Nose MRSA Screen - Final Complete 08/01/24 00:00 Sputum Gram Stain - Final Complete 08/01/24 00:00 Sputum Respiratory Culture - Final Complete 07/30/24 14:47 Blood Blood Culture - Final NO GROWTH AFTER 5 DAYS OF INCUBATION. Complete Labs and/or images reviewed: Labs reviewed by me, Image(s) reviewed by me Problem List/Assessment/Plan Problem List/Assessment/Plan Assessment and plan: NEURO: Acute metabolic encephalopathy secondary to hypoxic/ hypercarbic respiratory failure RASS score: -3 - On mechanical ventilation CARDIOVASCULAR: Acute on chronic exacerbation of decompensated systolic heart failure, NYHA class 3 Chronic permanent atrial fibrillation with secondary hypercoagulable state Severe pulmonary hypertension likely due to COPD /FAWN - [id number] score 3 and HAS BLED score 2 - CXR showed cardiomegaly with mild pulmonary vascular congestion - Echo on 07/31/2024 demonstrated EF 40% with global hypokinesis, irregular contractility, moderate tricuspid regurgitation, moderate aortic sclerosis with diminished excursion of the right coronary cusp and RVSP 56 mm hg - IV Lasix 40 mg b.i.d. - IV digoxin 125 mcg daily - Therapeutic Lovenox 120 mg b.i.d. - Maintain strict I&O - Cardiology on board - Atorvastatin 20 mg at HS - Discontinued aspirin due to superficial oozing from the skin PULMONARY: Acute on chronic hypoxic / hypercarbic respiratory failure Acute on chronic exacerbation of COPD Ruled out pulmonary embolism Ruled out gram negative pneumonia - CT angiography demonstrated 2 cm nodular opacities right lung apex, ruled out PE and follow up CT scan in 6 weeks to see if there is resolution. - Med neb with levalbuterol and ipratropium q.4 hours - IV vancomycin per pharmacy, IV cefepime 2gm Q 8 hours ( Started on 07/30/24) - IV methylprednisolone 40 mg BID - Respiratory culture showed normal oropharyngeal rc ENDOCRINE: Uncontrolled type 2 diabetes mellitus, hemoglobin A1c 9.2 Obesity class 3, BMI 50.1 kg/meter2 - Lantus 20 units at q.p.m. and aggressive sliding scale q.6 hour HEME: Chronic normocytic normochromic anemia likely due to anemia of chronic disease INFECTIOUS DISEASE: Bilateral lower extremity cellulitis - Wound culture on 07/31/24 demonstrated Enterobacter intermedius, Enterococcus faecalis, MRSA which is sensitive to vancomycin and cefepime - IV vancomycin per pharmacy, IV cefepime 2gm Q 8 hours ( Started on 07/30/24) - Blood culture showed no growth after 5 days of incubation DIET: Enteral feeding with Glucerna DVT prophylax: Patient is on therapeutic Lovenox GI prophylaxis: Protonix 40 mg IV daily Bowel regimen: Lactulose 30 ml bid Code status: full code LINES/DRAINS/ACCESS: ETT: Intubated on 08/01/24 IV access: Triple lumen Rt internal jugular line placed on 08/01/24 Drips: on norepinephrine, fentanyl and Precedex drip [place] catheter: on 07/30/24 DISPOSITION: JERRICA Patient's status discussed with Sister and RN Mariangel Critical care time spent more than 73 minutes, including patient care, chart review, and updating the family. Excluding any procedures. Case discussed with Dr. Hernandez Plan discussed with: Patient, Other My Orders My Orders Orders - GINETTE TRIVEDI RESIDENT Procedure Category Date Status Time Furosemide Injection PHA 08/05/24 In Process (Lasix Injection) 17:30 Chest Two Views XY 08/06/24 Resulted Routine 04:00 Chest Xray 1 View XY 08/05/24 Resulted 20:08 Abg W/ Co-Ox RT 08/06/24 Logged 04:00 Dietary Evaluation Review Comments: 1. Suggest TF w/ formula Pivot 1.5 @ 40 ml/hr (GOAL). Begin @ 10 ml/hr; advance by 10 ml Q4 hrs or as tolerated to 40 ml/hr x 24 hrs 2. Provide free water flushes of 30 ml Q6 hrs (120 ml total); adjust PRN 3. Monitor BMP/lytes and replete to WNL/PRN 4. Lantus, ss insulin for correction; adjust PRN to maintain BG <180 mg/dl TF Provision: TF at goal to provide 960 ml total volume, 1440 kcal, 90 gm pro, 7 gm fiber, 165 gm CHO, 729 ml H20 (meets 100% est. kcal needs, 100% est. pro needs) Expected Outcomes/Goals: Improved nutritional status, TF initiation within 24-48 hrs of intubation. Date of Service: August 06, 2024 Billing Provider: GERMAN HERNANDEZ MD Common Visit Codes: [id number] CARE 30-74 MIN GINETTE TRIVEDI RESIDENT August 06, 2024 16:18 GERMAN HERNANDEZ MD August 07, 2024 16:21
[2024-08-06] MEDS: VANCOMYCIN 1.75GM/350ML 350 ML IV SCH (20:00)
[2024-08-07] VITALS (111 sets, daily range): BP systolic 68–252; BP diastolic 41–231; PULSE 54–145; RESP 11–26; TEMP 97.7–98.8; O2SAT 95–100
[2024-08-07 05:04] LABS: Basophils # (auto) 0 10 ^3/uL (0-0.2); Basophils % (auto) 0.1 % (0.0-2.0); Eosinophils # (auto) 0 10 ^3/uL (0-0.8); Hematocrit 31.4 % (41.0-53.0); Hemoglobin 10.4 g/dL (13.5-17.5); Lymphocytes # (auto) 0.4 10 ^3/uL (0.4-5.4); Lymphocytes % (auto) 3.3 % (10.0-50.0); Mean Corpuscular Hemoglobin 29.7 pg (28.0-32.0); Mean Corpuscular Hgb Conc. 33.2 g/dL (32.0-36.0); Mean Corpuscular Volume 89.5 fL (80.0-100.0); Monocytes # (auto) 0.6 10 ^3/uL (0-1.3); Monocytes % (auto) 5.9 % (0.0-12.0); Neutrophils # (auto) 9.9 10 ^3/uL (1.6-8.6); Neutrophils % (auto) 90.7 % (37.0-80.0); Platelet Count (auto) 261 10^3/uL (140-450); Red Blood Cells 3.51 10^6/uL (4.5-5.90); Red Cell Distribution Width 15.1 % (11.8-14.3); White Blood Cell 10.9 10^3/uL (4.4-10.8)
--- NOTE | 2024-08-07 05:10 | DVH ---
EXAM: XY CHEST PORTABLE HISTORY: intubation COMPARISON: XY CHEST XRAY 1 VIEW on DOS: 08/05/24, XY CHEST PORTABLE on DOS: 08/05/24, XY CHEST XRAY 1 EW on DOS: 08/03/24, XY CHEST XRAY 1 VIEW on DOS: 08/02/24, XY CHEST PORTABLE on DOS: 08/01/24 TECHNIQUE: Portable upright AP view of the chest was performed. FINDINGS: Endotracheal tube is re-identified with its tip 5.1 cm above the mane. OG tube and right IJ central line are re-identified. No pneumothorax, new infiltrates, or pulmonary edema. The heart is enlarged . IMPRESSION: 1. Mechanical ventilation with tubes and lines as above. 2. Cardiomegaly and clear lungs.
[2024-08-07 05:21] LABS: Alanine Aminotransferase 24 U/L (7-40); Alkaline Phosphatase 78 U/L (46-116); Anion Gap 6 (5-15); Aspartate Aminotransferase 15 U/L (13-40); BUN/Creatinine Ratio 49.5 (10.0-20.0); Calcium 10.2 mg/dL (8.7-10.4); Chloride 100 mmol/L (98-107); Potassium 4.1 mmol/L (3.5-5.1); Sodium 142 mmol/L (136-145); Total Protein 5.9 g/dL (5.7-8.2)
[2024-08-07 05:22] LABS: Bilirubin, Total 0.4 mg/dL (0.2-1.0)
[2024-08-07 05:40] LABS: Albumin 3.1 g/dL (3.2-4.8); Blood Urea Nitrogen 47 mg/dL (9-23); Carbon Dioxide 36 mmol/L (20-31); Glucose 204 mg/dL (74-106)
[2024-08-07 05:58] LABS: Base Excess 10.9 mmol/L (-2.0-3.0)
[2024-08-07] MEDS: LACTULOSE 20Gm/30ML SOLN PO SCH (09:41)
--- NOTE | 2024-08-07 09:59 | DVHPNRES ---
Progress Note Date Seen: August 07, 2024 Resident Creating Document: GINETTE TRIVEDI RESIDENT Medical Necessity Reason Pt with a Central, PICC or Fol: Yes The following are medically ne: Central Line, [place] Catheter Reason for [place] catheter: Strict I&O Subjective Review of Systems Patient is a 69-year-old male with past medical history of CHF, COPD, type 2 diabetes, atrial fibrillation, who comes in due to respiratory distress. Per patient's brother who is also his caregiver, patient's home wound care nurse checked his vitals and his SpO2 was noted to be 68% with a pulse of 130, he also appeared disoriented and had labored breathing. Arrival to the ED patient was noted to be tachycardic and tachypneic and was placed on BiPAP. Note, patient is on home oxygen 2-3 L. Patient Underwent intubation with mechanical ventilation on 08/01/2024 due to acute metabolic encephalopathy likely due to acute hypoxic / hypercapnic respiratory failure. Patient was seen and examined on the bedside. Patient is intubated and on mechanical ventilation with FiO2 30%, Tidal volume 450 ml, PEEP 5 . Patient failed CPAP trial today within 3 minute due to low Tidal volume and scheduled again for tomorrow. Objective vital signs Vital Sign Date Time Temp Pulse Resp B/P (MAP) Pulse Ox O2 Delivery O2 Flow Rate FiO2 08/07/24 09:40 99/51 08/07/24 08:15 97.7 84 14 97 207.9 08/07/24 08:00 Mechanical Ventilator+ 30 30 Total Intake and Output 08/06/24 08/06/24 08/07/24 15:00 23:00 07:00 Intake Total 299.750 ml 474.875 ml 413.835 ml Output Total 1000 ml 1100 ml Balance 299.750 ml -525.125 ml -686.165 ml medications Current Medications Medications Dose Ordered Sig/Artie Route Start Time Stop Time Status Last Admin Dose Admin Acetaminophen 325 mg Q4HP PRN PO 07/30/24 21:45 Vancomycin HCl 0 ml @ 0 mls/hr UD IV 07/30/24 21:45 Cefepime HCl 50 ml @ 12.5 mls/hr Q8HR IV 07/30/24 22:00 08/07/24 05:35 12.5 MLS/HR Ipratropium [place] 0.5 mg Q4HR NEB 07/30/24 22:00 08/07/24 06:22 0.5 MG Levalbuterol HCl 1.25 mg Q4HR NEB 07/30/24 22:00 08/07/24 06:22 1.25 MG Insulin Glargine 20 units HS SC 07/30/24 22:00 08/06/24 22:20 20 UNITS Pantoprazole Sodium 40 mg DAILY IV 08/01/24 10:00 08/07/24 09:41 40 MG Acetaminophen/ Hydrocodone Bitart 1 tab Q6HP PRN PO 07/31/24 15:15 Atorvastatin Calcium 20 mg HS PO 07/31/24 22:00 08/06/24 22:09 20 MG Midazolam HCl 50 ml @ 1 mls/hr Q24H IV 08/01/24 01:15 08/07/24 03:23 6 MLS/HR Fentanyl Citrate 250 ml @ 2.5 mls/hr Q24H IV 08/01/24 01:15 08/06/24 22:18 25 MLS/HR Enoxaparin Sodium 120 mg Q12HR SC 08/01/24 22:00 08/07/24 09:42 120 MG Digoxin 125 mcg EOD IV 08/02/24 10:00 08/06/24 09:43 125 MCG Norepinephrine Bitartrate 250 ml @ 3.75 mls/hr Q24H IV 08/02/24 17:15 08/05/24 19:33 3.75 MLS/HR Methylprednisolone Sodium Succinate 40 mg BIDAC IV 08/05/24 17:00 08/07/24 08:01 40 MG Enteral Nutritional Formula 1,000 ml 50ML/HR GT 08/05/24 17:15 08/06/24 00:14 1,000 ML Diagnostic Test (Pha) 1 strip Q6HR 08/06/24 00:00 08/07/24 05:35 1 STRIP Insulin Human Regular Q6HR SC 08/06/24 00:00 08/07/24 05:37 4 UNITS Dextrose 50 ml UD PRN IV 08/05/24 17:15 Furosemide 40 mg BID IV 08/05/24 17:30 08/06/24 22:10 40 MG Vancomycin HCl 350 ml @ 233.333 mls/hr Q16H IV 08/06/24 20:00 08/06/24 20:00 233.333 MLS/HR Lactulose 30 ml BID PO 08/07/24 10:00 08/07/24 09:41 30 ML Examination Physical exam: General: RASS -3, febrile (100), mucosae are moist Cardiovascular: Normal S1 and S2. No murmurs, gallops or rubs Respiratory: Mechanically assisted ventilation, equal bilateral airway entree. Bilateral crackles on auscultation Abdomen: Soft, nontender, no organomegaly, normal bowel sounds. MSK/skin: Mobilization of limbs cannot be evaluated. Skin is dry and warm. Bilateral macerated wound [id number] covered with dressing which is dry, bilateral pedal edema +. Neurological: Orientation cannot be assessed. No apparent motor no sensitive deficits. Pupils are isocoric and reactive. laboratory and microbiology Laboratory Tests 08/07/24 04:46 Test 08/07/24 04:46 Range/Units Serum Glucose 204 H 74-106 mg/dL Microbiology Date/Time Source Procedure Growth Status 08/01/24 00:30 Nose MRSA Screen - Final Complete 08/01/24 00:00 Sputum Gram Stain - Final Complete 08/01/24 00:00 Sputum Respiratory Culture - Final Complete 07/30/24 14:47 Blood Blood Culture - Final NO GROWTH AFTER 5 DAYS OF INCUBATION. Complete Labs and/or images reviewed: Labs reviewed by me, Image(s) reviewed by me Problem List/Assessment/Plan Problem List/Assessment/Plan Assessment and plan: NEURO: Acute metabolic encephalopathy secondary to hypoxic/ hypercarbic respiratory failure RASS score: -3 - On mechanical ventilation CARDIOVASCULAR: Acute on chronic exacerbation of decompensated systolic heart failure, NYHA class 3 Chronic permanent atrial fibrillation with secondary hypercoagulable state Severe pulmonary hypertension likely due to COPD /FAWN - [id number] score 3 and HAS BLED score 2 - CXR showed cardiomegaly with mild pulmonary vascular congestion - Echo on 07/31/2024 demonstrated EF 40% with global hypokinesis, irregular contractility, moderate tricuspid regurgitation, moderate aortic sclerosis with diminished excursion of the right coronary cusp and RVSP 56 mm hg - IV Lasix 40 mg b.i.d. - IV digoxin 125 mcg daily - Therapeutic Lovenox 120 mg b.i.d. - Maintain strict I&O - Cardiology on board - Atorvastatin 20 mg at HS - Discontinued aspirin due to superficial oozing from the skin PULMONARY: Acute on chronic hypoxic / hypercarbic respiratory failure Acute on chronic exacerbation of COPD Ruled out pulmonary embolism - CT angiography demonstrated 2 cm nodular opacities right lung apex, ruled out PE and follow up CT scan in 6 weeks to see if there is resolution. - Med neb with levalbuterol and ipratropium q.4 hours - IV vancomycin per pharmacy, IV cefepime 2gm Q 8 hours ( Started on 07/30/24) - IV methylprednisolone 40 mg BID - Respiratory culture showed normal oropharyngeal rc ENDOCRINE: Uncontrolled type 2 diabetes mellitus, hemoglobin A1c 9.2 Obesity class 3, BMI 50.1 kg/meter2 - Lantus 25 units at q.p.m. and aggressive sliding scale q.6 hour HEME: Chronic normocytic normochromic anemia likely due to anemia of chronic disease INFECTIOUS DISEASE: Bilateral lower extremity cellulitis - Wound culture on 07/31/24 demonstrated Enterobacter intermedius, Enterococcus faecalis, MRSA which is sensitive to vancomycin and cefepime - IV vancomycin per pharmacy, IV cefepime 2gm Q 8 hours ( Started on 07/30/24) - Blood culture showed no growth after 5 days of incubation DIET: Enteral feeding with Glucerna DVT prophylax: Patient is on therapeutic Lovenox GI prophylaxis: Protonix 40 mg IV daily Bowel regimen: Code status: full code LINES/DRAINS/ACCESS: ETT: Intubated on 08/01/24 IV access: Triple lumen Rt internal jugular line placed on 08/01/24 Drips: on norepinephrine 0.5, fentanyl 50 mg and Precedex 0.3 drips [place] catheter: on 07/30/24 DISPOSITION: JERRICA Patient's status discussed with healthcare administration intern time spent more than 84 minutes, including patient care, chart review, and CPAP trial . Excluding any procedures. Case discussed with Dr. Hernandez Plan discussed with: Other (RN) My Orders My Orders Orders - GINETTE TRIVEDI RESIDENT Procedure Category Date Status Time Abg W/ Co-Ox RT 08/07/24 Verified 04:00 Lactulose Oral PHA 08/07/24 In Process 10:00 Dietary Evaluation Review Comments: 1. Suggest TF w/ formula Pivot 1.5 @ 40 ml/hr (GOAL). Begin @ 10 ml/hr; advance by 10 ml Q4 hrs or as tolerated to 40 ml/hr x 24 hrs 2. Provide free water flushes of 30 ml Q6 hrs (120 ml total); adjust PRN 3. Monitor BMP/lytes and replete to WNL/PRN 4. Lantus, ss insulin for correction; adjust PRN to maintain BG <180 mg/dl TF Provision: TF at goal to provide 960 ml total volume, 1440 kcal, 90 gm pro, 7 gm fiber, 165 gm CHO, 729 ml H20 (meets 100% est. kcal needs, 100% est. pro needs) Expected Outcomes/Goals: Improved nutritional status, TF initiation within 24-48 hrs of intubation. Date of Service: August 07, 2024 Billing Provider: GERMAN HRENANDEZ MD Common Visit Codes: [id number] CARE 30-74 MIN, [id number] CARE-EACH +30MIN GINETTE TRIVEDI RESIDENT August 07, 2024 09:59 GERMAN HERNANDEZ MD August 08, 2024 12:01
--- NOTE | 2024-08-07 10:36 | MEDREC ---
[facility] ASP Intervention Section I [facility] ASP Intervention: Deescalate AB based on CS (9 DAYS ON CEFEPIME - PLEASE CONSIDER DE-ESCALATION ACCORDING CULTURE RESULTS) [place]O KOO PHARMACIST August 07, 2024 10:36
--- NOTE | 2024-08-07 11:17 | DVHPN2 ---
Consult Progress Note Date Seen: August 07, 2024 Subjective Other Systems: No overnight cardiac events Objective vital signs Vital Sign Date Time Temp Pulse Resp B/P (MAP) Pulse Ox O2 Delivery O2 Flow Rate FiO2 08/07/24 10:00 65 08/07/24 10:00 14 98 Mechanical Ventilator+ 30 30 08/07/24 10:00 97.9 108/55 (72) 208.2 Total Intake and Output 08/06/24 08/06/24 08/07/24 15:00 23:00 07:00 Intake Total 299.750 ml 474.875 ml 413.835 ml Output Total 1000 ml 1100 ml Balance 299.750 ml -525.125 ml -686.165 ml medications Current Medications Medications Dose Ordered Sig/Artie Route Start Time Stop Time Status Last Admin Dose Admin Acetaminophen 325 mg Q4HP PRN PO 07/30/24 21:45 Vancomycin HCl 0 ml @ 0 mls/hr UD IV 07/30/24 21:45 Cefepime HCl 50 ml @ 12.5 mls/hr Q8HR IV 07/30/24 22:00 08/07/24 05:35 12.5 MLS/HR Ipratropium [place] 0.5 mg Q4HR NEB 07/30/24 22:00 08/07/24 10:54 0.5 MG Levalbuterol HCl 1.25 mg Q4HR NEB 07/30/24 22:00 08/07/24 10:54 1.25 MG Insulin Glargine 20 units HS SC 07/30/24 22:00 08/06/24 22:20 20 UNITS Pantoprazole Sodium 40 mg DAILY IV 08/01/24 10:00 08/07/24 09:41 40 MG Acetaminophen/ Hydrocodone Bitart 1 tab Q6HP PRN PO 07/31/24 15:15 Atorvastatin Calcium 20 mg HS PO 07/31/24 22:00 08/06/24 22:09 20 MG Midazolam HCl 50 ml @ 1 mls/hr Q24H IV 08/01/24 01:15 08/07/24 03:23 6 MLS/HR Fentanyl Citrate 250 ml @ 2.5 mls/hr Q24H IV 08/01/24 01:15 08/06/24 22:18 25 MLS/HR Enoxaparin Sodium 120 mg Q12HR SC 08/01/24 22:00 08/07/24 09:42 120 MG Digoxin 125 mcg EOD IV 08/02/24 10:00 08/06/24 09:43 125 MCG Norepinephrine Bitartrate 250 ml @ 3.75 mls/hr Q24H IV 08/02/24 17:15 08/05/24 19:33 3.75 MLS/HR Methylprednisolone Sodium Succinate 40 mg BIDAC IV 08/05/24 17:00 08/07/24 08:01 40 MG Enteral Nutritional Formula 1,000 ml 50ML/HR GT 08/05/24 17:15 08/06/24 00:14 1,000 ML Diagnostic Test (Pha) 1 strip Q6HR 08/06/24 00:00 08/07/24 05:35 1 STRIP Insulin Human Regular Q6HR SC 08/06/24 00:00 08/07/24 05:37 4 UNITS Dextrose 50 ml UD PRN IV 08/05/24 17:15 Furosemide 40 mg BID IV 08/05/24 17:30 08/06/24 22:10 40 MG Vancomycin HCl 350 ml @ 233.333 mls/hr Q16H IV 08/06/24 20:00 08/06/24 20:00 233.333 MLS/HR Lactulose 30 ml BID PO 08/07/24 10:00 08/07/24 09:41 30 ML Examination: GENERAL:Abnormal, LUNGS:Abnormal (Mechanically ventilated 30% FiO2), CVS:Abnormal (A-fib with intermittent bradycardia. On low-dose vasopressor. Euvolemic), NEURO:Abnormal (Chemically sedated) laboratory and microbiology Laboratory Tests 08/07/24 04:46 Test 08/07/24 04:46 Range/Units Serum Glucose 204 H 74-106 mg/dL Problem List/Assessment/Plan Problem List/Assessment/Plan Acute on chronic decompensated HFrEF Atrial fibrillation, likely persistent (not on NOAC) Acute hypoxic respiratory failure COPD with home O2 Pulmonary hypertension Asthma Type 2 diabetes mellitus, uncontrolled (Hgb A1c 9.2%) Morbid obesity Plan/Recommendation (Dr. Vanegas) * Transthoracic echocardiogram revealed LVEF 40% with global hypokinesis * Moderate mitral annular calcification with the patient of the posterior mitral leaflet. Moderate aortic sclerosis with diminished excursion of the right coronary cusp. Calcification of the non and left coronary cusps as well. There appears to be a certain degree of aortic sclerosis present. Mild gradient of15 mmHg suggestive aortic sclerosis without stenosis. * Titrate off vasopressor as tolerated * Rate control: discontinue digoxin therapy EOD, now with intermittent bradycardia * Initiate oral beta-estefania when appropriate * Therapeutic Lovenox, transition to NOAC prior to discharge * [id number] score: 3 points, HAS-BLED: 2 points * Antiarrhythmic agents, hold given unknown duration of AFib * Monitor and replete electrolytes as needed. K>4 and Mg>2 * Close Cardiac surveillance Cardiac stable, euvolemic. Kindly call if in need to continue following up. Thank you for allowing us to care for this patient. Critical care time: 30 min. This medical document was created using an electronic medical record system with voice recognition software and computerized dictation system. Although this document has been carefully reviewed, there might still be some phonetic and typographical errors. Occasional wrong-word or ``sound-alike substitutions may have occurred due to the inherent limitations of voice recognition software. These areas are purely typographical due to imperfections of the software programs and do not reflect any compromise in the patient's medical care. Please read the chart carefully and recognize, using context, where these substitutions have occurred. Plan discussed with: Other Dietary Evaluation Review Comments: 1. Suggest TF w/ formula Pivot 1.5 @ 40 ml/hr (GOAL). Begin @ 10 ml/hr; advance by 10 ml Q4 hrs or as tolerated to 40 ml/hr x 24 hrs 2. Provide free water flushes of 30 ml Q6 hrs (120 ml total); adjust PRN 3. Monitor BMP/lytes and replete to WNL/PRN 4. Lantus, ss insulin for correction; adjust PRN to maintain BG <180 mg/dl TF Provision: TF at goal to provide 960 ml total volume, 1440 kcal, 90 gm pro, 7 gm fiber, 165 gm CHO, 729 ml H20 (meets 100% est. kcal needs, 100% est. pro needs) Expected Outcomes/Goals: Improved nutritional status, TF initiation within 24-48 hrs of intubation. Date of Service: August 07, 2024 Billing Provider: ANGIE CORTES Cardiology Common Codes: 85552-[id number] CARE 30-74 MIN ANGIE CORTES August 07, 2024 11:17
[2024-08-07] MEDS: FUROSEMIDE 40 MG/4 ML VIAL IV SCH (16:54)
[2024-08-07] MEDS: INSULIN LANTUS (GLARGINE) 1 /0.01ml (100units/ml) SC SCH (23:29)
[2024-08-07] MEDS: PROPOFOL 100 ML IV SCH (23:33)
[2024-08-08] VITALS (107 sets, daily range): BP systolic 88–164; BP diastolic 25–131; PULSE 59–141; RESP 12–16; TEMP 97.9–98.6; O2SAT 79–100
[2024-08-08 04:06] LABS: Basophils # (auto) 0.1 10 ^3/uL (0-0.2); Basophils % (auto) 0.3 % (0.0-2.0); Eosinophils # (auto) 0 10 ^3/uL (0-0.8); Hematocrit 32.6 % (41.0-53.0); Hemoglobin 10.7 g/dL (13.5-17.5); Lymphocytes # (auto) 0.4 10 ^3/uL (0.4-5.4); Lymphocytes % (auto) 2.4 % (10.0-50.0); Monocytes # (auto) 1.2 10 ^3/uL (0-1.3); Monocytes % (auto) 6.8 % (0.0-12.0); Neutrophils # (auto) 15.5 10 ^3/uL (1.6-8.6); Neutrophils % (auto) 90.5 % (37.0-80.0); Platelet Count (auto) 339 10^3/uL (140-450); Red Blood Cells 3.71 10^6/uL (4.5-5.90); Red Cell Distribution Width 15.2 % (11.8-14.3); White Blood Cell 17.1 10^3/uL (4.4-10.8)
[2024-08-08 04:13] LABS: Chloride 102 mmol/L (98-107); Potassium 3.9 mmol/L (3.5-5.1); Sodium 143 mmol/L (136-145)
[2024-08-08 04:14] LABS: Anion Gap 5 (5-15)
[2024-08-08 04:19] LABS: BUN/Creatinine Ratio 58.2 (10.0-20.0)
[2024-08-08 04:41] LABS: Blood Urea Nitrogen 46 mg/dL (9-23); Calcium 10.7 mg/dL (8.7-10.4); Carbon Dioxide 36 mmol/L (20-31); Glucose 188 mg/dL (74-106)
--- NOTE | 2024-08-08 05:50 | DVH ---
EXAM: XR Chest, 1 View CLINICAL INDICATION: Ventilation TECHNIQUE: Frontal view of the chest. COMPARISON: XY CHEST PORTABLE on DOS: 08/07/24, XY CHEST XRAY 1 VIEW on DOS: 08/05/24, XY CHEST PORTABL E on DOS: 08/05/24, XY CHEST XRAY 1 VIEW on DOS: 08/03/24, XY CHEST XRAY 1 VIEW on DOS: 08/02/24 FINDINGS: LUNGS AND PLEURAL SPACES: See below. HEART: Cardiomegaly with mild congestion. MEDIASTINUM: Unremarkable. Normal mediastinal contour. BONES/JOINTS: Unremarkable. No acute fracture. TUBES, LINES AND DEVICES: Right internal jugular central venous catheter tip in the superior vena c gustavo. The endotracheal tube (ETT) is in satisfactory position. Enteric tube tip cannot be seen but i s below the diaphragm. OTHER FINDINGS: . . . IMPRESSION: Cardiomegaly with mild congestion.
[2024-08-08 06:26] LABS: Base Excess 8.4 mmol/L (-2.0-3.0)
[2024-08-08 09:18] LABS: INR 1.14 (0.9-1.15); Prothrombin Time 11.9 sec (9.3-11.8)
[2024-08-08] MEDS ORDERED: FUROSEMIDE 20 MG/2 ML VIAL IV SCH (10:00)
--- NOTE | 2024-08-08 17:58 | DVHPNRES ---
Progress Note Date Seen: August 08, 2024 Resident Creating Document: GINETTE TRIVEDI RESIDENT Medical Necessity Reason Pt with a Central, PICC or Fol: Yes The following are medically ne: Central Line, [place] Catheter Reason for [place] catheter: Strict I&O Subjective Review of Systems Patient is a 69-year-old male with past medical history of CHF, COPD, type 2 diabetes, atrial fibrillation, who comes in due to respiratory distress. Per patient's brother who is also his caregiver, patient's home wound care nurse checked his vitals and his SpO2 was noted to be 68% with a pulse of 130, he also appeared disoriented and had labored breathing. Arrival to the ED patient was noted to be tachycardic and tachypneic and was placed on BiPAP. Note, patient is on home oxygen 2-3 L. Patient Underwent intubation with mechanical ventilation on 08/01/2024 due to acute metabolic encephalopathy likely due to acute hypoxic / hypercapnic respiratory failure. Patient was seen and examined on the bedside. Patient is intubated and on mechanical ventilation with FiO2 30%, Tidal volume 450 ml, PEEP 5 . Patient was not able to weaned off sedation and no CPAP trial today and scheduled CPAP trial tomorrow. Objective vital signs Vital Sign Date Time Temp Pulse Resp B/P (MAP) Pulse Ox O2 Delivery O2 Flow Rate FiO2 08/08/24 17:45 98.6 91 14 99 209.5 08/08/24 16:10 30 08/08/24 16:00 Mechanical Ventilator+ Total Intake and Output 08/07/24 08/07/24 08/08/24 15:00 23:00 07:00 Intake Total 478.980 ml 252.064 ml 753.520 ml Output Total 750 ml 900 ml Balance 478.980 ml -497.936 ml -146.480 ml medications Current Medications Medications Dose Ordered Sig/Artie Route Start Time Stop Time Status Last Admin Dose Admin Acetaminophen 325 mg Q4HP PRN PO 07/30/24 21:45 Vancomycin HCl 0 ml @ 0 mls/hr UD IV 07/30/24 21:45 Cefepime HCl 50 ml @ 12.5 mls/hr Q8HR IV 07/30/24 22:00 08/08/24 14:00 12.5 MLS/HR Ipratropium [place] 0.5 mg Q4HR NEB 07/30/24 22:00 08/08/24 14:04 0.5 MG Levalbuterol HCl 1.25 mg Q4HR NEB 07/30/24 22:00 08/08/24 14:04 1.25 MG Pantoprazole Sodium 40 mg DAILY IV 08/01/24 10:00 08/08/24 09:53 40 MG Atorvastatin Calcium 20 mg HS PO 07/31/24 22:00 08/07/24 23:19 20 MG Midazolam HCl 50 ml @ 1 mls/hr Q24H IV 08/01/24 01:15 08/07/24 03:23 6 MLS/HR Fentanyl Citrate 250 ml @ 2.5 mls/hr Q24H IV 08/01/24 01:15 08/07/24 20:42 7.5 MLS/HR Norepinephrine Bitartrate 250 ml @ 3.75 mls/hr Q24H IV 08/02/24 17:15 08/07/24 17:45 1.875 MLS/HR Methylprednisolone Sodium Succinate 40 mg BIDAC IV 08/05/24 17:00 08/08/24 05:38 40 MG Enteral Nutritional Formula 1,000 ml 50ML/HR GT 08/05/24 17:15 08/08/24 00:02 1,000 ML Diagnostic Test (Pha) 1 strip Q6HR 08/06/24 00:00 08/08/24 12:00 1 STRIP Insulin Human Regular Q6HR SC 08/06/24 00:00 08/08/24 12:00 12 UNITS Dextrose 50 ml UD PRN IV 08/05/24 17:15 Vancomycin HCl 350 ml @ 233.333 mls/hr Q16H IV 08/06/24 20:00 08/08/24 03:54 233.333 MLS/HR Lactulose 30 ml BID PO 08/07/24 10:00 08/08/24 09:52 30 ML Insulin Glargine 25 units HS SC 08/07/24 22:00 08/07/24 23:29 25 UNITS Furosemide 40 mg BIDD IV 08/07/24 16:44 08/08/24 05:54 40 MG Propofol 100 ml @ 3.459 mls/ hr Q24H IV 08/07/24 23:00 08/07/24 23:33 3.459 MLS/HR Enoxaparin Sodium 110 mg Q12HR SC 08/08/24 22:00 Examination Physical exam: General: RASS -3, febrile (100), mucosae are moist Cardiovascular: Normal S1 and S2. No murmurs, gallops or rubs Respiratory: Mechanically assisted ventilation, equal bilateral airway entree. Bilateral crackles on auscultation Abdomen: Soft, nontender, no organomegaly, normal bowel sounds. MSK/skin: Mobilization of limbs cannot be evaluated. Skin is dry and warm. Bilateral macerated wound [id number] covered with dressing which is dry, bilateral pedal edema +. Neurological: Orientation cannot be assessed. No apparent motor no sensitive deficits. Pupils are isocoric and reactive laboratory and microbiology Laboratory Tests 08/08/24 03:35 Test 08/08/24 03:35 Range/Units Serum Glucose 188 H 74-106 mg/dL Microbiology Date/Time Source Procedure Growth Status 08/01/24 00:30 Nose MRSA Screen - Final Complete 08/01/24 00:00 Sputum Gram Stain - Final Complete 08/01/24 00:00 Sputum Respiratory Culture - Final Complete 07/30/24 14:47 Blood Blood Culture - Final NO GROWTH AFTER 5 DAYS OF INCUBATION. Complete Labs and/or images reviewed: Labs reviewed by me, Image(s) reviewed by me Problem List/Assessment/Plan Problem List/Assessment/Plan Assessment and plan: NEURO: Acute metabolic encephalopathy secondary to hypoxic/ hypercarbic respiratory failure RASS score: -3 - On mechanical ventilation CARDIOVASCULAR: Acute on chronic exacerbation of decompensated systolic heart failure, NYHA class 3 Chronic permanent atrial fibrillation with secondary hypercoagulable state Severe pulmonary hypertension likely due to COPD /FAWN - [id number] score 3 and HAS BLED score 2 - CXR showed cardiomegaly with mild pulmonary vascular congestion - Echo on 07/31/2024 demonstrated EF 40% with global hypokinesis, irregular contractility, moderate tricuspid regurgitation, moderate aortic sclerosis with diminished excursion of the right coronary cusp and RVSP 56 mm hg - IV Lasix 20 mg b.i.d. - Therapeutic Lovenox 110 mg b.i.d. - Maintain strict I&O - Cardiology on board - Atorvastatin 20 mg at HS - Discontinued aspirin due to superficial oozing from the skin PULMONARY: Acute on chronic hypoxic / hypercarbic respiratory failure Acute on chronic exacerbation of COPD Ruled out pulmonary embolism - CT angiography demonstrated 2 cm nodular opacities right lung apex, ruled out PE and follow up CT scan in 6 weeks to see if there is resolution. - Med neb with levalbuterol and ipratropium q.4 hours - IV vancomycin per pharmacy, IV cefepime 2gm Q 8 hours ( Started on 07/30/24) - IV methylprednisolone 20 mg BID - Respiratory culture showed normal oropharyngeal rc ENDOCRINE: Uncontrolled type 2 diabetes mellitus, hemoglobin A1c 9.2 Obesity class 3, BMI 50.1 kg/meter2 - Lantus 25 units at q.p.m. and aggressive sliding scale q.6 hour HEME: Chronic normocytic normochromic anemia likely due to anemia of chronic disease INFECTIOUS DISEASE: Bilateral lower extremity cellulitis - Wound culture on 07/31/24 demonstrated Enterobacter intermedius, Enterococcus faecalis, MRSA which is sensitive to vancomycin and cefepime - IV vancomycin per pharmacy, IV cefepime 2gm Q 8 hours ( Started on 07/30/24) - Blood culture showed no growth after 5 days of incubation DIET: Enteral feeding with Glucerna DVT prophylax: Patient is on therapeutic Lovenox GI prophylaxis: Protonix 40 mg IV daily Bowel regimen: Code status: full code LINES/DRAINS/ACCESS: ETT: Intubated on 08/01/24 IV access: Triple lumen Rt internal jugular line placed on 08/01/24 Drips: on norepinephrine 0.5, fentanyl 50 mg and Precedex 0.3 drips [place] catheter: on 07/30/24 DISPOSITION: JERRICA Patient's status discussed with managed care manager time spent more than 84 minutes, including patient care, chart review, and CPAP trial . Excluding any procedures. Case discussed with Dr. Hernandez Plan discussed with: Other (Sister, RN) My Orders My Orders Orders - GINETTE TRIVEDI RESIDENT Procedure Category Date Status Time Chest Portable XY 08/08/24 Resulted 04:00 Abg W/ Co-Ox RT 08/08/24 Logged 04:34 Dietary Evaluation Review Comments: 1. Suggest TF w/ formula Pivot 1.5 @ 40 ml/hr (GOAL). Begin @ 10 ml/hr; advance by 10 ml Q4 hrs or as tolerated to 40 ml/hr x 24 hrs 2. Provide free water flushes of 30 ml Q6 hrs (120 ml total); adjust PRN 3. Monitor BMP/lytes and replete to WNL/PRN 4. Lantus, ss insulin for correction; adjust PRN to maintain BG <180 mg/dl TF Provision: TF at goal to provide 960 ml total volume, 1440 kcal, 90 gm pro, 7 gm fiber, 165 gm CHO, 729 ml H20 (meets 100% est. kcal needs, 100% est. pro needs) Expected Outcomes/Goals: Improved nutritional status, TF initiation within 24-48 hrs of intubation. Date of Service: August 08, 2024 Billing Provider: GERMAN HERNANDEZ MD Common Visit Codes: [id number] CARE 30-74 MIN, [id number] CARE-EACH +30MIN GINETTE TRIVEDI RESIDENT August 08, 2024 17:58 GERMAN HERNANDEZ MD August 10, 2024 22:11
[2024-08-08] MEDS: LIDOCAINE 1% (LOCAL ANESTH.) PF 5ml SDV ID ONE (19:18)
--- NOTE | 2024-08-08 20:33 | DVH ---
CHEST RADIOGRAPH Indication: PICC LINE PLACEMENT. TO BE ORDERED BY PICC LINE NURSE Technique: Single frontal view of the chest was obtained Comparison: XY CHEST PORTABLE on DOS: 08/08/24, XY CHEST PORTABLE on DOS: 08/07/24, XY CHEST XRAY 1 VIEW on DOS: 08/05/24 FINDINGS: Lines and Tubes: Endotracheal tube 5.9 cm above the mane. Right internal jugular catheter in place at the cavoatrial atrial junction. Enteric NEW noted to the level of the diaphragms. Lungs: Lower lobe airspace disease. Pleura: No effusion. No pneumothorax. Cardiomediastinal contours: Unremarkable Bones: No acute osseous abnormality. IMPRESSION: 1. Endotracheal tube in place 5.9 cm above the mane. 2. Enteric tube noted to the diaphragm. There is no imaging below the diaphragms. 3. PICC line in place in the right arm with the tip in the cavoatrial junction. 4. Airspace disease left lower lobe. HS:Y
[2024-08-08] MEDS: SODIUM CHLOR 0.9% PF (SALINE LOCK) 10ML VIAL/SYR IV SCH (22:02)
[2024-08-08] MEDS: ENOXAPARIN SOD 120 MG/0.8 ML SYRINGE SC SCH (22:04)
[2024-08-09] VITALS (106 sets, daily range): BP systolic 10–187; BP diastolic 38–133; PULSE 83–158; RESP 12–22; TEMP 97.7–99.5; O2SAT 93–100
[2024-08-09 05:03] LABS: Basophils # (auto) 0 10 ^3/uL (0-0.2); Basophils % (auto) 0.1 % (0.0-2.0); Eosinophils # (auto) 0 10 ^3/uL (0-0.8); Hematocrit 34.4 % (41.0-53.0); Hemoglobin 11.2 g/dL (13.5-17.5); Lymphocytes # (auto) 0.4 10 ^3/uL (0.4-5.4); Lymphocytes % (auto) 2.5 % (10.0-50.0); Mean Corpuscular Hemoglobin 28.9 pg (28.0-32.0); Mean Corpuscular Hgb Conc. 32.5 g/dL (32.0-36.0); Mean Corpuscular Volume 88.9 fL (80.0-100.0); Monocytes # (auto) 1.3 10 ^3/uL (0-1.3); Monocytes % (auto) 8.6 % (0.0-12.0); Neutrophils % (auto) 88.8 % (37.0-80.0); Platelet Count (auto) 379 10^3/uL (140-450); Red Blood Cells 3.87 10^6/uL (4.5-5.90); Red Cell Distribution Width 15.1 % (11.8-14.3); White Blood Cell 14.7 10^3/uL (4.4-10.8)
[2024-08-09 05:21] LABS: Alanine Aminotransferase 22 U/L (7-40); Albumin 3.5 g/dL (3.2-4.8); Alkaline Phosphatase 111 U/L (46-116); Anion Gap 6 (5-15); Aspartate Aminotransferase 22 U/L (13-40); BUN/Creatinine Ratio 47.5 (10.0-20.0); Calcium 10.3 mg/dL (8.7-10.4); Chloride 101 mmol/L (98-107); Sodium 142 mmol/L (136-145); Total Protein 6.4 g/dL (5.7-8.2)
[2024-08-09 05:22] LABS: Bilirubin, Total 0.4 mg/dL (0.2-1.0)
[2024-08-09 05:31] LABS: Magnesium 2.1 mg/dL (1.6-2.6)
[2024-08-09 05:51] LABS: Blood Urea Nitrogen 56 mg/dL (9-23); Carbon Dioxide 35 mmol/L (20-31); Glucose 236 mg/dL (74-106)
--- NOTE | 2024-08-09 05:59 | DVH ---
EXAM: XR Chest, 1 View CLINICAL INDICATION: OGT and ET placement verification TECHNIQUE: Frontal view of the chest. COMPARISON: XY CHEST PORTABLE on DOS: 08/08/24, XY CHEST PORTABLE on DOS: 08/08/24, XY CHEST PORTABLE o n DOS: 08/07/24, XY CHEST XRAY 1 VIEW on DOS: 08/05/24, XY CHEST PORTABLE on DOS: 08/05/24 FINDINGS: LUNGS AND PLEURAL SPACES: See below. HEART: Cardiomegaly with mild congestion. MEDIASTINUM: Unremarkable. Normal mediastinal contour. BONES/JOINTS: Unremarkable. No acute fracture. TUBES, LINES AND DEVICES: Right internal jugular central venous catheter tip in the superior vena c gustavo. The endotracheal tube (ETT) is in satisfactory position. Enteric tube tip in the stomach. Rig ht peripherally inserted central catheter (PICC) tip in the superior vena cava. OTHER FINDINGS: . . . IMPRESSION: Cardiomegaly with mild congestion.
[2024-08-09] MEDS: FUROSEMIDE 40 MG/4 ML VIAL IV SCH (06:20)
[2024-08-09] MEDS: methylPREDNISolone SOD SUCC 40 MG/ML VL IV SCH (06:34)
[2024-08-09 06:37] LABS: Base Excess 7.6 mmol/L (-2.0-3.0)
--- NOTE | 2024-08-09 08:54 | DVH ---
Date: 08/09/2024 07:52 AM Examination: XY KUB ABDOMEN SINGLE VIEW History: to rule out ileus Comparison: None TECHNIQUE: Frontal views of the abdomen was obtained. FINDINGS: Prominent small bowel loops measuring up 5 cm . Findings could represent small-bowel obstruction vers us ileus The lung bases are unremarkable. No acute osseous abnormality identified. IMPRESSION: Prominent small bowel loops measuring up 5 cm . Findings could represent small-bowel obstruction vers us ileus
[2024-08-09] MEDS: METOPROLOL TARTRATE 25 MG TAB PO ONE (10:15)
--- NOTE | 2024-08-09 11:17 | ECG ---
[facility] Test Date: 2024-08-09 Test Time: 00:28:54 Pat Name: BRIGHT YOUNG Department: Respiratoy Room: 0262 A Gender: M Porter [place]: : 1955 Requested By: ANGIE CORTES Order Number: [id number] Reading MD: Donte Vanegas Measurements Intervals [place] Rate: 113 P: 0 SC: 0 QRS: 59 QRSD: 88 T: -39 QT: 357 QTc: 490 Interpretive Statements Atrial fibrillation Ventricular bigeminy Low voltage, extremity leads Electronically Signed On 08-14-2024 11:56:22 PDT by Donte Vanegas Please click the below link to view image of tracing.
--- NOTE | 2024-08-09 11:18 | ECG ---
[facility] Test Date: 2024-08-09 Test Time: 00:30:02 Pat Name: BRIGHT YOUNG Department: Respiratoy Room: 0262 A Gender: M [employer]: : 1955 Requested By: ANGIE CORTES Order Number: [id number] Reading MD: Donte Vanegsa Measurements Intervals [place] Rate: 96 P: 0 CT: 0 QRS: 71 QRSD: 90 T: -16 QT: 328 QTc: 415 Interpretive Statements Atrial fibrillation Ventricular bigeminy Borderline low voltage, extremity leads Electronically Signed On 08-14-2024 11:56:27 PDT by Donte Vanegas Please click the below link to view image of tracing.
--- NOTE | 2024-08-09 15:18 | DVHPNRES ---
Progress Note Date Seen: August 09, 2024 Resident Creating Document: GINETTE TRIVEDI RESIDENT Medical Necessity Reason Pt with a Central, PICC or Fol: Yes The following are medically ne: Central Line, [place] Catheter Reason for [place] catheter: Strict I&O Subjective Review of Systems Patient is a 69-year-old male with past medical history of CHF, COPD, type 2 diabetes, atrial fibrillation, who comes in due to respiratory distress. Per patient's brother who is also his caregiver, patient's home wound care nurse checked his vitals and his SpO2 was noted to be 68% with a pulse of 130, he also appeared disoriented and had labored breathing. Arrival to the ED patient was noted to be tachycardic and tachypneic and was placed on BiPAP. Note, patient is on home oxygen 2-3 L. Patient Underwent intubation with mechanical ventilation on 08/01/2024 due to acute metabolic encephalopathy likely due to acute hypoxic / hypercapnic respiratory failure. Patient was seen and examined on the bedside. Patient is intubated and on mechanical ventilation with FiO2 30%, Tidal volume 450 ml, PEEP 5 . Patient failed CPAP trial today because he was extremely tachycardic, hypertensive and scheduled CPAP trial tomorrow. Recommendation as per Dr. Lucio for successful extubation decrease the dose of deprivan, IV Verseed push rather than continous drip and no sedation after 2 to 3 AM in the morning. Objective vital signs Vital Sign Date Time Temp Pulse Resp B/P (MAP) Pulse Ox O2 Delivery O2 Flow Rate FiO2 08/09/24 15:00 113/46 08/09/24 13:39 30 08/09/24 13:39 15 100 Mechanical Ventilator+ 08/09/24 13:39 104 08/09/24 13:30 98.8 209.8 Total Intake and Output 08/08/24 08/08/24 08/09/24 15:00 23:00 07:00 Intake Total 343.098 ml 384.367 ml 528.354 ml Output Total 1250 ml 600 ml Balance 343.098 ml -865.633 ml -71.646 ml medications Current Medications Medications Dose Ordered Sig/Artie Route Start Time Stop Time Status Last Admin Dose Admin Acetaminophen 325 mg Q4HP PRN PO 07/30/24 21:45 Vancomycin HCl 0 ml @ 0 mls/hr UD IV 07/30/24 21:45 Cefepime HCl 50 ml @ 12.5 mls/hr Q8HR IV 07/30/24 22:00 08/09/24 13:41 12.5 MLS/HR Ipratropium [place] 0.5 mg Q4HR NEB 07/30/24 22:00 08/09/24 13:25 0.5 MG Levalbuterol HCl 1.25 mg Q4HR NEB 07/30/24 22:00 08/09/24 13:26 1.25 MG Pantoprazole Sodium 40 mg DAILY IV 08/01/24 10:00 08/09/24 08:08 40 MG Atorvastatin Calcium 20 mg HS PO 07/31/24 22:00 08/08/24 22:03 20 MG Midazolam HCl 50 ml @ 1 mls/hr Q24H IV 08/01/24 01:15 08/07/24 03:23 6 MLS/HR Fentanyl Citrate 250 ml @ 2.5 mls/hr Q24H IV 08/01/24 01:15 08/09/24 02:18 10 MLS/HR Norepinephrine Bitartrate 250 ml @ 3.75 mls/hr Q24H IV 08/02/24 17:15 08/07/24 17:45 1.875 MLS/HR Enteral Nutritional Formula 1,000 ml 50ML/HR GT 08/05/24 17:15 08/08/24 00:02 1,000 ML Diagnostic Test (Pha) 1 strip Q6HR 08/06/24 00:00 08/09/24 11:51 1 STRIP Insulin Human Regular Q6HR SC 08/06/24 00:00 08/09/24 12:04 8 UNITS Dextrose 50 ml UD PRN IV 08/05/24 17:15 Lactulose 30 ml BID PO 08/07/24 10:00 08/09/24 08:07 30 ML Insulin Glargine 25 units HS SC 08/07/24 22:00 08/08/24 22:04 25 UNITS Propofol 100 ml @ 3.459 mls/ hr Q24H IV 08/07/24 23:00 08/09/24 08:08 17.295 MLS/HR Methylprednisolone Sodium Succinate 20 mg BIDAC IV 08/09/24 07:00 08/09/24 06:34 20 MG Furosemide 20 mg BIDD IV 08/09/24 06:00 08/09/24 06:20 20 MG Sodium Chloride 10 ml QSHIFT@10,22 IV 08/08/24 22:00 08/09/24 08:08 10 ML Metoprolol Tartrate 25 mg BID PO 08/09/24 22:00 Examination Physical exam: General: RASS -2, febrile (100), mucosae are moist Cardiovascular: Normal S1 and S2. No murmurs, gallops or rubs Respiratory: Mechanically assisted ventilation, equal bilateral airway entree. Bilateral crackles on auscultation Abdomen: Soft, nontender, no organomegaly, normal bowel sounds. MSK/skin: Mobilization of limbs cannot be evaluated. Skin is dry and warm. Bilateral macerated wound [id number] covered with dressing which is dry, bilateral pedal edema +. Neurological: Orientation cannot be assessed. No apparent motor no sensitive deficits. Pupils are isocoric and reactive laboratory and microbiology Laboratory Tests 08/09/24 04:28 Test 08/09/24 04:28 Range/Units Serum Glucose 236 H 74-106 mg/dL Microbiology Date/Time Source Procedure Growth Status 08/01/24 00:30 Nose MRSA Screen - Final Complete 08/01/24 00:00 Sputum Gram Stain - Final Complete 08/01/24 00:00 Sputum Respiratory Culture - Final Complete 07/30/24 14:47 Blood Blood Culture - Final NO GROWTH AFTER 5 DAYS OF INCUBATION. Complete Labs and/or images reviewed: Labs reviewed by me, Image(s) reviewed by me Problem List/Assessment/Plan Problem List/Assessment/Plan Assessment and plan: NEURO: Acute metabolic encephalopathy secondary to hypoxic/ hypercarbic respiratory failure RASS score: -2 - On mechanical ventilation CARDIOVASCULAR: Acute on chronic exacerbation of decompensated systolic heart failure, NYHA class 3 Chronic permanent atrial fibrillation with secondary hypercoagulable state Severe pulmonary hypertension likely due to COPD /FAWN - [id number] score 3 and HAS BLED score 2 - CXR showed cardiomegaly with mild pulmonary vascular congestion - Echo on 07/31/2024 demonstrated EF 40% with global hypokinesis, irregular contractility, moderate tricuspid regurgitation, moderate aortic sclerosis with diminished excursion of the right coronary cusp and RVSP 56 mm hg - IV Lasix 20 mg b.i.d. - Metoprolol tartrate 25 mg bid - Hold Therapeutic Lovenox because of the superficial skin bleeding. - Maintain strict I&O - Atorvastatin 20 mg at HS - Discontinued aspirin due to superficial oozing from the skin PULMONARY: Acute on chronic hypoxic / hypercarbic respiratory failure Acute on chronic exacerbation of COPD Ruled out pulmonary embolism Gram negative pneumonia ruled out - CT angiography demonstrated 2 cm nodular opacities right lung apex, ruled out PE and follow up CT scan in 6 weeks to see if there is resolution. - Med neb with levalbuterol and ipratropium q.4 hours - IV vancomycin per pharmacy, IV cefepime 2gm Q 8 hours ( Started on 07/30/24) - IV methylprednisolone 20 mg BID - Respiratory culture showed normal oropharyngeal rc ENDOCRINE: Uncontrolled type 2 diabetes mellitus, hemoglobin A1c 9.2 Obesity class 3, BMI 50.1 kg/meter2 - Lantus 25 units at q.p.m. and aggressive sliding scale q.6 hour HEME: Chronic normocytic normochromic anemia likely due to anemia of chronic disease INFECTIOUS DISEASE: Bilateral lower extremity cellulitis Sepsis due to above - Wound culture on 07/31/24 demonstrated Enterobacter intermedius, Enterococcus faecalis, MRSA which is sensitive to vancomycin and cefepime - IV vancomycin per pharmacy, IV cefepime 2gm Q 8 hours ( Started on 07/30/24) - Blood culture showed no growth after 5 days of incubation DIET: Enteral feeding with Glucerna DVT prophylax: Hold due to superficial skin bleeding GI prophylaxis: Protonix 40 mg IV daily Bowel regimen: Lactulose 30 ml bid Code status: full code LINES/DRAINS/ACCESS: ETT: Intubated on 08/01/24 IV access: PICC line placed on 08/08/24 Drips: on norepinephrine, fentanyl and Precedex [place] catheter: on 07/30/24 DISPOSITION: JERRICA Patient's status discussed with prompt care rn time spent more than 84 minutes, including patient care, chart review, and CPAP trial . Excluding any procedures. Case discussed with Dr. Lucio Plan discussed with: Other (Brother, sister, RN) My Orders My Orders Orders - GINETTE TRIVEDI RESIDENT Procedure Category Date Status Time Nursing Protocol Picc BRENT 08/08/24 In Process 19:10 Change Dressing Prn BRENT 08/08/24 In Process 19:10 Sodium Chloride Lock PHA 08/08/24 In Process (Saline Lock Ns) 22:00 Do Not Use Picc For BRENT 08/08/24 In Process Blood Cult 19:10 May Draw Blood From BRENT 08/08/24 In Process Picc 19:10 Ok To Use Picc BRENT 08/08/24 In Process 19:10 Change Picc Dressing BRENT 08/08/24 In Process Q7 Days 19:10 Furosemide Injection PHA 08/09/24 In Process (Lasix Injection) 06:00 Methylprednisolone PHA 08/09/24 In Process Sod Succ (Solu Medrol 07:00 Chest Portable XY 08/08/24 Resulted 19:40 Abg W/ Co-Ox RT 08/09/24 Logged 04:00 Kub Abdomen Single XY 08/09/24 Resulted View 06:51 Cpap Trial For Am ORDERS 08/09/24 Transmitted 09:23 Metoprolol Tartrate PHA 08/09/24 In Process Tablet (Lopressor Ta 22:00 Cpap Trial For Am ORDERS 08/09/24 Transmitted 15:08 Dietary Evaluation Review Comments: 1. Suggest TF w/ formula Pivot 1.5 @ 40 ml/hr (GOAL). Begin @ 10 ml/hr; advance by 10 ml Q4 hrs or as tolerated to 40 ml/hr x 24 hrs 2. Provide free water flushes of 30 ml Q6 hrs (120 ml total); adjust PRN 3. Monitor BMP/lytes and replete to WNL/PRN 4. Lantus, ss insulin for correction; adjust PRN to maintain BG <180 mg/dl TF Provision: TF at goal to provide 960 ml total volume, 1440 kcal, 90 gm pro, 7 gm fiber, 165 gm CHO, 729 ml H20 (meets 100% est. kcal needs, 100% est. pro needs) Expected Outcomes/Goals: Improved nutritional status, TF initiation within 24-48 hrs of intubation. GINETTE TRIVEDI RESIDENT August 09, 2024 15:18
[2024-08-09] MEDS: METOPROLOL TARTRATE 25 MG TAB PO SCH (21:39)
[2024-08-10] VITALS (110 sets, daily range): BP systolic 73–164; BP diastolic 43–107; PULSE 93–159; RESP 10–21; TEMP 98.6–100.4; O2SAT 78–100
[2024-08-10] MEDS: fentaNYL Drip 2500mCg/250mlNS 250 ML IV SCH (04:00)
[2024-08-10 05:25] LABS: Basophils # (auto) 0.1 10 ^3/uL (0-0.2); Basophils % (auto) 0.3 % (0.0-2.0); Eosinophils # (auto) 0 10 ^3/uL (0-0.8); Hematocrit 30.1 % (41.0-53.0); Hemoglobin 9.9 g/dL (13.5-17.5); Lymphocytes # (auto) 0.7 10 ^3/uL (0.4-5.4); Mean Corpuscular Hemoglobin 28.9 pg (28.0-32.0); Mean Corpuscular Hgb Conc. 32.7 g/dL (32.0-36.0); Mean Corpuscular Volume 88.5 fL (80.0-100.0); Monocytes # (auto) 1.7 10 ^3/uL (0-1.3); Neutrophils # (auto) 14.3 10 ^3/uL (1.6-8.6); Neutrophils % (auto) 85.7 % (37.0-80.0); Platelet Count (auto) 283 10^3/uL (140-450); Red Blood Cells 3.41 10^6/uL (4.5-5.90); Red Cell Distribution Width 15.4 % (11.8-14.3); White Blood Cell 16.7 10^3/uL (4.4-10.8)
[2024-08-10 05:41] LABS: Chloride 99 mmol/L (98-107); Potassium 3.8 mmol/L (3.5-5.1); Sodium 141 mmol/L (136-145)
[2024-08-10 05:42] LABS: Anion Gap 8 (5-15); Calcium 9.8 mg/dL (8.7-10.4)
[2024-08-10 05:45] LABS: Carbon Dioxide 34 mmol/L (20-31)
[2024-08-10 05:47] LABS: BUN/Creatinine Ratio 49.7 (10.0-20.0)
[2024-08-10 05:51] LABS: Blood Urea Nitrogen 78 mg/dL (9-23); Glucose 224 mg/dL (74-106)
--- NOTE | 2024-08-10 06:22 | DVH ---
CHEST RADIOGRAPH Indication: Mechanical ventilation Technique: Single frontal view of the chest was obtained COMPARISON: XY CHEST PORTABLE on DOS: 08/09/24, XY CHEST PORTABLE on DOS: 08/08/24, XY CHEST PORTABLE on DOS: 08/08/24, XY CHEST PORTABLE on DOS: 08/07/24, XY CHEST XRAY 1 VIEW on DOS: 08/05/24 FINDINGS: Lines and Tubes: Interval removal of right internal jugular central venous catheter. Remaining lines and tubes unchanged. Lungs: Clear Pleura: No effusion. No pneumothorax. Cardiomediastinal contours: Unremarkable Bones: Unremarkable IMPRESSION: 1. No acute disease. 2. Interval removal of right IJ central catheter. Remaining lines and tubes unchanged.
--- NOTE | 2024-08-10 07:07 | DVH ---
Exam: US US GUIDED VASCULAR ACCESS Date: 08/08/2024 06:29 PM Clinical History: PICC Placement Comparison: None Findings: Targeted sonographic evaluation of the upper arm vein was obtained utilizing grayscale and color Dopp ler imaging. IMPRESSION: Sonographic assistance for central line placement. Please refer to procedural report for detailed fin dings.
[2024-08-10 07:30] LABS: Base Excess 1.9 mmol/L (-2.0-3.0)
[2024-08-10] MEDS: METOPROLOL TARTRATE 25 MG TAB PO ONE (09:45)
[2024-08-10] MEDS: METOPROLOL TARTRATE 1MG/1ML-5ML VIAL IV ONE (10:43)
--- NOTE | 2024-08-10 10:43 | DVHPN2 ---
Subjective Patient is a 69-year-old male with past medical history of CHF, COPD, type 2 diabetes, atrial fibrillation, who comes in due to respiratory distress. Per patient's brother who is also his caregiver, patient's home wound care nurse checked his vitals and his SpO2 was noted to be 68% with a pulse of 130, he also appeared disoriented and had labored breathing. Arrival to the ED patient was noted to be tachycardic and tachypneic and was placed on BiPAP. Note, patient is on home oxygen 2-3 L. Patient Underwent intubation with mechanical ventilation on 08/01/2024 due to acute metabolic encephalopathy likely due to acute hypoxic / hypercapnic respiratory failure. Patient was seen and examined on the bedside. 08/10 weeknd coverage. patient on cpap trial passing parameters with pulm notified. becomes afib rvr with sed vac done. noting cr increase. will stop lasix, give small bolus fluids, give 1x toprol iv 5mg and increase metoprolol. sedatives off (propofol and fent) but we do have some precedex too. plan to extubate today. Reviewed: Care Plan, H&P, Labs, Medications, Previous Orders, Radiology Changes from previous H/P or p: No Changes General: Per HPI Objective Vitals Vital Signs Date Time Temp Pulse Resp B/P (MAP) Pulse Ox O2 Delivery O2 Flow Rate FiO2 08/10/24 09:32 16 100 Mechanical Ventilator+ 30 30 08/10/24 09:32 118 08/10/24 09:30 147/51 08/10/24 09:30 99.1 210.4 Intake/Output Intake and Output 08/10/24 07:00 Intake Total 1203.128 ml Output Total 1250 ml Balance -46.872 ml Intake Oral 120 ml IV Total 945.128 ml Tube Feeding 138 ml Output Urine Total 1250 ml Exam General: RASS 0, , mucosae are moist Cardiovascular: Normal S1 and S2. No murmurs, gallops or rubs Respiratory: Mechanically assisted ventilation, equal bilateral airway entree. Bilateral crackles on auscultation Abdomen: Soft, nontender, no organomegaly, normal bowel sounds. MSK/skin: Mobilization of limbs cannot be evaluated. Skin is dry and warm. Bilateral macerated wound [id number] covered with dressing which is dry, bilateral pedal edema +. Neurological: Orientation cannot be assessed. No apparent motor no sensitive deficits. Pupils are isocoric and reactive General Appearance: Other (Intubated, on vent, unable to exam) HEENT: Atraumatic, PERRLA, EOMI, Mucous membr. moist/pink Neck: Supple Lungs: Clear to auscultation, Normal air movement Cardiovascular: Regular rate, Normal S1, Normal S2, No murmurs, Gallops, Rubs Abdomen: Normal bowel sounds, Soft, No tenderness Neuro: Cranial nerves 3-12 NL Psych/Mental Status: Mental status NL Medications Current Medications Medications Dose Ordered Sig/Artie Route Start Time Stop Time Status Last Admin Dose Admin Acetaminophen 325 mg Q4HP PRN PO 07/30/24 21:45 Vancomycin HCl 0 ml @ 0 mls/hr UD IV 07/30/24 21:45 Ipratropium [place] 0.5 mg Q4HR NEB 07/30/24 22:00 08/10/24 07:04 0.5 MG Levalbuterol HCl 1.25 mg Q4HR NEB 07/30/24 22:00 08/10/24 07:04 1.25 MG Pantoprazole Sodium 40 mg DAILY IV 08/01/24 10:00 08/10/24 08:19 40 MG Atorvastatin Calcium 20 mg HS PO 07/31/24 22:00 08/09/24 21:39 20 MG Midazolam HCl 50 ml @ 1 mls/hr Q24H IV 08/01/24 01:15 08/07/24 03:23 6 MLS/HR Norepinephrine Bitartrate 250 ml @ 3.75 mls/hr Q24H IV 08/02/24 17:15 08/07/24 17:45 1.875 MLS/HR Enteral Nutritional Formula 1,000 ml 50ML/HR GT 08/05/24 17:15 08/09/24 19:44 1,000 ML Diagnostic Test (Pha) 1 strip Q6HR 08/06/24 00:00 08/10/24 05:57 1 STRIP Insulin Human Regular Q6HR SC 08/06/24 00:00 08/10/24 05:58 8 UNITS Dextrose 50 ml UD PRN IV 08/05/24 17:15 Lactulose 30 ml BID PO 08/07/24 10:00 08/10/24 08:19 30 ML Insulin Glargine 25 units HS SC 08/07/24 22:00 08/09/24 21:40 25 UNITS Propofol 100 ml @ 3.459 mls/ hr Q24H IV 08/07/24 23:00 08/10/24 02:31 13.836 MLS/HR Methylprednisolone Sodium Succinate 20 mg BIDAC IV 08/09/24 07:00 08/10/24 06:32 20 MG Sodium Chloride 10 ml QSHIFT@10,22 IV 08/08/24 22:00 08/10/24 08:19 10 ML Fentanyl Citrate 250 ml @ 2.5 mls/hr Q24H IV 08/10/24 04:00 Metoprolol Tartrate 50 mg BID PO 08/10/24 22:00 Cefepime HCl 50 ml @ 12.5 mls/hr Q12H IV 08/10/24 18:00 Laboratory Results Laboratory Tests 08/10/24 04:57 Chemistry Test 08/10/24 04:57 Calcium Level 9.8 mg/dL (8.7-10.4) Magnesium Level 2.0 mg/dL (1.6-2.6) Urinalysis Test 07/30/24 15:37 Urine Color Light-yellow (Yellow) Urine Clarity Clear (Clear) Urine pH 5.0 (5.0-9.0) Urine Specific [place] 1.010 (1.001-1.035) Urine Protein Trace (Negative) H Urine Ketones Negative (Negative) Urine Blood Negative /uL (Negative) Urine Nitrite Negative (Negative) Urine Bilirubin Negative (Negative) Urine Urobilinogen Normal mg/dL (Negative) Urine Leukocyte Esterase Negative /uL (Negative) Urine RBC <1 /hpf (0 - 3) Urine Microscopic WBC 4 /HPF (0-3) H Urine Squamous Epithelial Cells None seen /hpf (<5) Urine Bacteria Few /hpf (None Seen) H Urine Hyaline Casts Few /lpf (0 - 2) Urine Mucus Few (None Seen) Urine Glucose 4+ mg/dL (Normal) H Blood Gas Results Test 08/10/24 07:20 Arterial Blood pH 7.376 (7.350-7.450) FiO2 % 30.0 Microbiology Microbiology Date/Time Source Procedure Growth Status 08/01/24 00:30 Nose MRSA Screen - Final Complete 08/01/24 00:00 Sputum Gram Stain - Final Complete 08/01/24 00:00 Sputum Respiratory Culture - Final Complete 07/30/24 14:47 Blood Blood Culture - Final NO GROWTH AFTER 5 DAYS OF INCUBATION. Complete Labs and/or images reviewed: Labs reviewed by me, Image(s) reviewed by me Assessment/Plan Assessment/Plan 08/10 weeknd coverage. patient on cpap trial passing parameters with pulm notified. becomes afib rvr with sed vac done. noting cr increase. will stop lasix, give small bolus fluids, give 1x toprol iv 5mg and increase metoprolol. sedatives off (propofol and fent) but we do have some precedex too. plan to extubate today. NEURO: Acute metabolic encephalopathy secondary to hypoxic/ hypercarbic respiratory failure RASS score: 0 - On mechanical ventilation intubated - cpap trial CARDIOVASCULAR: Acute on chronic exacerbation of decompensated systolic heart failure, NYHA class 3 Chronic permanent atrial fibrillation with secondary hypercoagulable state Severe pulmonary hypertension likely due to COPD /FAWN - [id number] score 3 and HAS BLED score 2 - CXR showed cardiomegaly with mild pulmonary vascular congestion - Echo on 07/31/2024 demonstrated EF 40% with global hypokinesis, irregular contractility, moderate tricuspid regurgitation, moderate aortic sclerosis with diminished excursion of the right coronary cusp and RVSP 56 mm hg - IV Lasix 20 mg b.i.d. - Metoprolol tartrate 25 mg bid - Hold Therapeutic Lovenox because of the superficial skin bleeding. - Maintain strict I&O - Atorvastatin 20 mg at HS - Discontinued aspirin due to superficial oozing from the skin PULMONARY: Acute on chronic hypoxic / hypercarbic respiratory failure Acute on chronic exacerbation of COPD Ruled out pulmonary embolism - CT angiography demonstrated 2 cm nodular opacities right lung apex, ruled out PE and follow up CT scan in 6 weeks to see if there is resolution. - Med neb with levalbuterol and ipratropium q.4 hours - IV vancomycin per pharmacy, IV cefepime 2gm Q 8 hours ( Started on 07/30/24) - IV methylprednisolone 20 mg BID - Respiratory culture showed normal oropharyngeal rc ENDOCRINE: Uncontrolled type 2 diabetes mellitus, hemoglobin A1c 9.2 Obesity class 3, BMI 50.1 kg/meter2 - Lantus 25 units at q.p.m. and aggressive sliding scale q.6 hour HEME: Chronic normocytic normochromic anemia likely due to anemia of chronic disease INFECTIOUS DISEASE: Bilateral lower extremity cellulitis - Wound culture on 07/31/24 demonstrated Enterobacter intermedius, Enterococcus faecalis, MRSA which is sensitive to vancomycin and cefepime - IV vancomycin per pharmacy, IV cefepime 2gm Q 8 hours ( Started on 07/30/24) - Blood culture showed no growth after 5 days of incubation DIET: Enteral feeding with Glucerna DVT prophylax: Hold due to superficial skin bleeding GI prophylaxis: Protonix 40 mg IV daily Bowel regimen: Lactulose 30 ml bid Code status: full code LINES/DRAINS/ACCESS: ETT: Intubated on 08/01/24 IV access: PICC line placed on 08/08/24 Drips: on norepinephrine, fentanyl and Precedex [place] catheter: on 07/30/24 DISPOSITION: JERRICA Plan discussed with: Patient My Orders Orders - NAOMI MONTILLA MD Procedure Category Date Status Time Lactated Ringer's PHA 08/10/24 Logged 10:45 Date of Service: August 10, 2024 Billing Provider: NAOMI MONTILLA MD Common Visit Codes: [id number] CARE 30-74 MIN NAOMI MONTILLA MD August 10, 2024 10:43
[2024-08-10] MEDS: LACTATED RINGER'S 250 ML IV ONE (10:45)
[2024-08-10] MEDS: CEFEPIME 2GM/50ML NS 50 ML IV SCH (16:30)
[2024-08-10 17:10] LABS: Base Excess 8.7 mmol/L (-2.0-3.0)
[2024-08-10] MEDS: METOPROLOL TARTRATE 25 MG TAB PO SCH (22:38)
--- NOTE | 2024-08-10 22:44 | DVHPN2 ---
Progress Note - Dictate Date Seen: August 10, 2024 Medical Necessity Reason Pt with a Central, PICC or Fol: Yes The following are medically ne: Central Line, [place] Catheter Reason for [place] catheter: Strict I&O Subjective Patient seen and examined in the ICU Intubated and sedated, on mechanical ventilation Overnight events reviewed vital signs Vital Sign Date Time Temp Pulse Resp B/P (MAP) Pulse Ox O2 Delivery O2 Flow Rate FiO2 08/10/24 22:27 105 18 148/79 (102) 98 30 08/10/24 20:00 Mechanical Ventilator+ 08/10/24 20:00 100.2 100.2 Total Intake and Output 08/09/24 08/09/24 08/10/24 15:00 23:00 07:00 Intake Total 315.631 ml 360.092 ml 527.405 ml Output Total 350 ml 900 ml Balance 315.631 ml 10.092 ml -372.595 ml medications Current Medications Medications Dose Ordered Sig/Artie Route Start Time Stop Time Status Last Admin Dose Admin Acetaminophen 325 mg Q4HP PRN PO 07/30/24 21:45 Vancomycin HCl 0 ml @ 0 mls/hr UD IV 07/30/24 21:45 Ipratropium [place] 0.5 mg Q4HR NEB 07/30/24 22:00 08/10/24 22:27 0.5 MG Levalbuterol HCl 1.25 mg Q4HR NEB 07/30/24 22:00 08/10/24 22:27 1.25 MG Pantoprazole Sodium 40 mg DAILY IV 08/01/24 10:00 08/10/24 08:19 40 MG Atorvastatin Calcium 20 mg HS PO 07/31/24 22:00 08/09/24 21:39 20 MG Midazolam HCl 50 ml @ 1 mls/hr Q24H IV 08/01/24 01:15 08/07/24 03:23 6 MLS/HR Norepinephrine Bitartrate 250 ml @ 3.75 mls/hr Q24H IV 08/02/24 17:15 08/07/24 17:45 1.875 MLS/HR Enteral Nutritional Formula 1,000 ml 50ML/HR GT 08/05/24 17:15 08/09/24 19:44 1,000 ML Diagnostic Test (Pha) 1 strip Q6HR 08/06/24 00:00 08/10/24 17:07 1 STRIP Insulin Human Regular Q6HR SC 08/06/24 00:00 08/10/24 17:07 4 UNITS Dextrose 50 ml UD PRN IV 08/05/24 17:15 Lactulose 30 ml BID PO 08/07/24 10:00 08/10/24 08:19 30 ML Insulin Glargine 25 units HS SC 08/07/24 22:00 08/09/24 21:40 25 UNITS Propofol 100 ml @ 3.459 mls/ hr Q24H IV 08/07/24 23:00 08/10/24 02:31 13.836 MLS/HR Methylprednisolone Sodium Succinate 20 mg BIDAC IV 08/09/24 07:00 08/10/24 16:30 20 MG Sodium Chloride 10 ml QSHIFT@10,22 IV 08/08/24 22:00 08/10/24 08:19 10 ML Fentanyl Citrate 250 ml @ 2.5 mls/hr Q24H IV 08/10/24 04:00 Metoprolol Tartrate 50 mg BID PO 08/10/24 22:00 Cefepime HCl 50 ml @ 12.5 mls/hr Q12H IV 08/10/24 18:00 08/10/24 16:30 12.5 MLS/HR objective Gen.: Patient lying in bed in medical ICU. Sedated, intubated on mechanical ventilator. Head: Normocephalic, atraumatic. Eyes: PERRLA. Ears: Normal external anatomy. Throat: Endotracheal tube and orogastric tube in place. Neck: Supple, trachea midline. Chest: Transmitted breath sounds bilaterally. Decreased air entry bilaterally. No wheezing. Bibasilar crackles. Cardiovascular: Positive S1, positive S2. Regular rate and rhythm. Abdomen: Positive bowel sounds in all 4 quadrants. Soft, nontender, nondistended. : [place] in place. Normal external genitalia. Rectal: Deferred. Skin: Warm, dry. Intact. Extremities: 2+ radial pulses bilaterally. No lower extremity edema. Neuro: Sedated. laboratory and microbiology Laboratory Tests 08/10/24 04:57 Test 08/10/24 04:57 Range/Units Serum Glucose 224 H 74-106 mg/dL Assessment/Plan Impression Acute hypoxemic respiratory failure On mechanical ventilator Severe pulmonary hypertension Pulmonary edema Chronic obstructive pulmonary disease exacerbation Congestive heart failure Atrial fibrillation Events: Patient seen and examined in ICU Remains on vent support On AC mode with RR 14, VT 450, PEEP 5, FiO2 30% Sedated on Propofol, Fentanyl On Precedex drip Off Levophed, hemodynamically stable. Continue bronchodilators. IV steroids Continue antibiotics. Tube feeds for nutritional support Accu-Cheks, ISS Diurese w/ Lasix Monitor renal function Monitor electrolytes; supplement as needed Labs and imaging reviewed ABG reviewed Plan s/p intubation on mechanical ventilator. Vent support Titrate to maintain sats 90% or above Sedation holiday If patient follows commands, proceed to weaning trial Pressure support 10/05, extubate when ready Antibiotics Bronchodilators Monitor renal function Monitor electrolytes Supplement as needed Pressors as needed for hemodynamic support To maintain a mean arterial pressure of 65 mmHg DVT prophylaxis Prognosis: Poor given multiple comorbidities Condition: Critical Rest of plan per hospitalist and other consultants A total of 35 minutes of critical care time was spent reviewing the patient's record, examining the patient, making a diagnostic and therapeutic plan, discussing this plan with the medical personnel, following up on diagnostic studies and following the patient for clinical stability excluding any and all procedures. At least 50% of this time was spent in the direct, [id number] contact. Thank you for allowing me to participate in this patient's care. Further recommendations will depend on the patient's clinical course. Please do not hesitate to contact me if you have any questions or concerns. This medical document was created using an electronic medical record system with [employer] dictation system. Although this document has been carefully reviewed, there may still be some phonetic and typographical errors. These areas are purely typographical due to imperfections of the software programs and do not reflect any compromise in the patient's medical care. Dietary Evaluation Review Comments: 1. Suggest TF w/ formula Pivot 1.5 @ 40 ml/hr (GOAL). Begin @ 10 ml/hr; advance by 10 ml Q4 hrs or as tolerated to 40 ml/hr x 24 hrs 2. Provide free water flushes of 30 ml Q6 hrs (120 ml total); adjust PRN 3. Monitor BMP/lytes and replete to WNL/PRN 4. Lantus, ss insulin for correction; adjust PRN to maintain BG <180 mg/dl TF Provision: TF at goal to provide 960 ml total volume, 1440 kcal, 90 gm pro, 7 gm fiber, 165 gm CHO, 729 ml H20 (meets 100% est. kcal needs, 100% est. pro needs) Expected Outcomes/Goals: Improved nutritional status, TF initiation within 24-48 hrs of intubation. Plan discussed with: Other (MARLYS Up) Critical Care Time(min): 35 WANG HASSAN MD August 10, 2024 22:44
[2024-08-11] VITALS (101 sets, daily range): BP systolic 100–180; BP diastolic 66–103; PULSE 81–131; RESP 10–24; TEMP 99.5–100.2; O2SAT 81–100
[2024-08-11 05:27] LABS: Basophils # (auto) 0 10 ^3/uL (0-0.2); Basophils % (auto) 0.1 % (0.0-2.0); Eosinophils # (auto) 0 10 ^3/uL (0-0.8); Hematocrit 32.2 % (41.0-53.0); Hemoglobin 10.5 g/dL (13.5-17.5); Lymphocytes # (auto) 0.5 10 ^3/uL (0.4-5.4); Lymphocytes % (auto) 3.3 % (10.0-50.0); Mean Corpuscular Hemoglobin 28.9 pg (28.0-32.0); Mean Corpuscular Hgb Conc. 32.6 g/dL (32.0-36.0); Mean Corpuscular Volume 88.7 fL (80.0-100.0); Monocytes # (auto) 1.5 10 ^3/uL (0-1.3); Monocytes % (auto) 9.1 % (0.0-12.0); Neutrophils # (auto) 14.2 10 ^3/uL (1.6-8.6); Neutrophils % (auto) 87.5 % (37.0-80.0); Nucleated Red Blood Cells % 0.1 %; Platelet Count (auto) 296 10^3/uL (140-450); Red Blood Cells 3.63 10^6/uL (4.5-5.90); Red Cell Distribution Width 15.4 % (11.8-14.3); White Blood Cell 16.3 10^3/uL (4.4-10.8)
[2024-08-11 05:54] LABS: Anion Gap 10 (5-15)
[2024-08-11 05:58] LABS: Calcium 10.8 mg/dL (8.7-10.4); Carbon Dioxide 31 mmol/L (20-31); Chloride 101 mmol/L (98-107); Potassium 3.5 mmol/L (3.5-5.1); Sodium 142 mmol/L (136-145)
[2024-08-11 06:00] LABS: Blood Urea Nitrogen 77 mg/dL (9-23); Glucose 205 mg/dL (74-106)
--- NOTE | 2024-08-11 06:52 | DVH ---
INDICATION: intubated TECHNIQUE: Single frontal view of the chest was obtained COMPARISON: XY CHEST PORTABLE on DOS: 08/10/24, XY CHEST PORTABLE on DOS: 08/09/24, XY CHEST PORTABLE on DOS: 08/08/24, XY CHEST PORTABLE on DOS: 08/08/24, XY CHEST PORTABLE on DOS: 08/07/24, XY CHEST PORTABLE o n DOS: 08/10/24 FINDINGS: Lines and Tubes: Remaining lines and tubes unchanged. Lungs: Clear Pleura: No effusion. No pneumothorax. Cardiomediastinal contours: Unremarkable Bones: Unremarkable IMPRESSION: 1. No acute disease.
[2024-08-11 07:23] LABS: Base Excess 4.1 mmol/L (-2.0-3.0)
--- NOTE | 2024-08-11 12:10 | DVHPN2 ---
Subjective Patient is a 69-year-old male with past medical history of CHF, COPD, type 2 diabetes, atrial fibrillation, who comes in due to respiratory distress. Per patient's brother who is also his caregiver, patient's home wound care nurse checked his vitals and his SpO2 was noted to be 68% with a pulse of 130, he also appeared disoriented and had labored breathing. Arrival to the ED patient was noted to be tachycardic and tachypneic and was placed on BiPAP. Note, patient is on home oxygen 2-3 L. Patient Underwent intubation with mechanical ventilation on 08/01/2024 due to acute metabolic encephalopathy likely due to acute hypoxic / hypercapnic respiratory failure. Patient was seen and examined on the bedside. 08/10 weeknd coverage. patient on cpap trial passing parameters with pulm notified. becomes afib rvr with sed vac done. noting cr increase. will stop lasix, give small bolus fluids, give 1x toprol iv 5mg and increase metoprolol. sedatives off (propofol and fent) but we do have some precedex too. plan to extubate today. 08/11-yesterday patient was unable to be extubated due to tachycardia. Three tachycardia AFib RVR much more controlled between 100-110. Following commands, and CPAP trial yesterday. Waiting for prominence. Likely extubation today. Rest of treatment is unchanged. Reviewed: Care Plan, H&P, Labs, Medications, Previous Orders, Radiology Changes from previous H/P or p: No Changes General: Per HPI Objective Vitals Vital Signs Date Time Temp Pulse Resp B/P (MAP) Pulse Ox O2 Delivery O2 Flow Rate FiO2 08/11/24 11:32 21 99 Bi-Pap+ 0 40 Mechanical Ventilator+ 40 08/11/24 11:32 118 08/11/24 11:15 100.2 104/77 (86) 212.4 Intake/Output Intake and Output 08/11/24 07:00 Intake Total 1203.899 ml Output Total 2300 ml Balance -1096.101 ml Intake Oral 100 ml IV Total 903.899 ml Tube Feeding 140 ml Other 60 ml Output Urine Total 2300 ml Exam General: RASS 0, , mucosae are moist Cardiovascular: Normal S1 and S2. No murmurs, gallops or rubs Respiratory: Mechanically assisted ventilation, equal bilateral airway entree. Bilateral crackles on auscultation Abdomen: Soft, nontender, no organomegaly, normal bowel sounds. MSK/skin: Mobilization of limbs cannot be evaluated. Skin is dry and warm. Bilateral macerated wound [id number] covered with dressing which is dry, bilateral pedal edema +. Neurological: Orientation cannot be assessed. No apparent motor no sensitive deficits. Pupils are isocoric and reactive General Appearance: Other (Intubated, on vent, unable to exam) HEENT: Atraumatic, PERRLA, EOMI, Mucous membr. moist/pink Neck: Supple Lungs: Clear to auscultation, Normal air movement Cardiovascular: Regular rate, Normal S1, Normal S2, No murmurs, Gallops, Rubs Abdomen: Normal bowel sounds, Soft, No tenderness Neuro: Cranial nerves 3-12 NL Psych/Mental Status: Mental status NL Medications Current Medications Medications Dose Ordered Sig/Artie Route Start Time Stop Time Status Last Admin Dose Admin Acetaminophen 325 mg Q4HP PRN PO 07/30/24 21:45 Ipratropium [place] 0.5 mg Q4HR NEB 07/30/24 22:00 08/11/24 10:39 0.5 MG Levalbuterol HCl 1.25 mg Q4HR NEB 07/30/24 22:00 08/11/24 10:39 1.25 MG Pantoprazole Sodium 40 mg DAILY IV 08/01/24 10:00 08/11/24 07:20 40 MG Atorvastatin Calcium 20 mg HS PO 07/31/24 22:00 08/10/24 22:37 20 MG Midazolam HCl 50 ml @ 1 mls/hr Q24H IV 08/01/24 01:15 08/07/24 03:23 6 MLS/HR Norepinephrine Bitartrate 250 ml @ 3.75 mls/hr Q24H IV 08/02/24 17:08/07/24 17:45 1.875 MLS/HR Enteral Nutritional Formula 1,000 ml 50ML/HR GT 08/05/24 17:15 08/11/24 03:43 1,000 ML Diagnostic Test (Pha) 1 strip Q6HR 08/06/24 00:00 08/11/24 11:02 1 STRIP Insulin Human Regular Q6HR SC 08/06/24 00:00 08/11/24 11:22 2 UNITS Dextrose 50 ml UD PRN IV 08/05/24 17:15 Lactulose 30 ml BID PO 08/07/24 10:00 08/11/24 07:20 30 ML Insulin Glargine 25 units HS SC 08/07/24 22:00 08/10/24 22:41 25 UNITS Propofol 100 ml @ 3.459 mls/ hr Q24H IV 08/07/24 23:00 08/10/24 22:38 3.459 MLS/HR Methylprednisolone Sodium Succinate 20 mg BIDAC IV 08/09/24 07:00 08/11/24 06:20 20 MG Sodium Chloride 10 ml QSHIFT@10,22 IV 08/08/24 22:00 08/11/24 07:20 10 ML Fentanyl Citrate 250 ml @ 2.5 mls/hr Q24H IV 08/10/24 04:00 08/10/24 22:41 2.5 MLS/HR Metoprolol Tartrate 50 mg BID PO 08/10/24 22:00 08/11/24 07:20 50 MG Cefepime HCl 50 ml @ 12.5 mls/hr Q12H IV 08/10/24 18:00 08/11/24 06:20 12.5 MLS/HR Laboratory Results Laboratory Tests 08/11/24 04:51 Chemistry Test 08/11/24 04:51 Calcium Level 10.8 mg/dL (8.7-10.4) H Magnesium Level 2.0 mg/dL (1.6-2.6) Urinalysis Test 07/30/24 15:37 Urine Color Light-yellow (Yellow) Urine Clarity Clear (Clear) Urine pH 5.0 (5.0-9.0) Urine Specific [place] 1.010 (1.001-1.035) Urine Protein Trace (Negative) H Urine Ketones Negative (Negative) Urine Blood Negative /uL (Negative) Urine Nitrite Negative (Negative) Urine Bilirubin Negative (Negative) Urine Urobilinogen Normal mg/dL (Negative) Urine Leukocyte Esterase Negative /uL (Negative) Urine RBC <1 /hpf (0 - 3) Urine Microscopic WBC 4 /HPF (0-3) H Urine Squamous Epithelial Cells None seen /hpf (<5) Urine Bacteria Few /hpf (None Seen) H Urine Hyaline Casts Few /lpf (0 - 2) Urine Mucus Few (None Seen) Urine Glucose 4+ mg/dL (Normal) H Blood Gas Results Test 08/11/24 06:40 Arterial Blood pH 7.485 (7.350-7.450) FiO2 % 30.0 Microbiology Microbiology Date/Time Source Procedure Growth Status 08/09/24 13:35 Other Aerobic Culture - Preliminary Resulted 08/01/24 00:00 Sputum Gram Stain - Final Complete 08/01/24 00:00 Sputum Respiratory Culture - Final Complete 07/30/24 14:47 Blood Blood Culture - Final NO GROWTH AFTER 5 DAYS OF INCUBATION. Complete Labs and/or images reviewed: Labs reviewed by me, Image(s) reviewed by me Assessment/Plan Assessment/Plan 08/10 weeknd coverage. patient on cpap trial passing parameters with pulm notified. becomes afib rvr with sed vac done. noting cr increase. will stop lasix, give small bolus fluids, give 1x toprol iv 5mg and increase metoprolol. sedatives off (propofol and fent) but we do have some precedex too. plan to extubate today. 08/11-yesterday patient was unable to be extubated due to tachycardia. Three tachycardia AFib RVR much more controlled between 100-110. Following commands, and CPAP trial yesterday. Waiting for prominence. Likely extubation today. Rest of treatment is unchanged. NEURO: Acute metabolic encephalopathy secondary to hypoxic/ hypercarbic respiratory failure RASS score: 0 - On mechanical ventilation intubated - cpap trial CARDIOVASCULAR: Acute on chronic exacerbation of decompensated systolic heart failure, NYHA class 3 Chronic permanent atrial fibrillation with secondary hypercoagulable state Severe pulmonary hypertension likely due to COPD /FAWN - [id number] score 3 and HAS BLED score 2 - CXR showed cardiomegaly with mild pulmonary vascular congestion - Echo on 07/31/2024 demonstrated EF 40% with global hypokinesis, irregular contractility, moderate tricuspid regurgitation, moderate aortic sclerosis with diminished excursion of the right coronary cusp and RVSP 56 mm hg - IV Lasix 20 mg b.i.d. - Metoprolol tartrate 25 mg bid - Hold Therapeutic Lovenox because of the superficial skin bleeding. - Maintain strict I&O - Atorvastatin 20 mg at HS - Discontinued aspirin due to superficial oozing from the skin PULMONARY: Acute on chronic hypoxic / hypercarbic respiratory failure Acute on chronic exacerbation of COPD Ruled out pulmonary embolism - CT angiography demonstrated 2 cm nodular opacities right lung apex, ruled out PE and follow up CT scan in 6 weeks to see if there is resolution. - Med neb with levalbuterol and ipratropium q.4 hours - IV vancomycin per pharmacy, IV cefepime 2gm Q 8 hours ( Started on 07/30/24) - IV methylprednisolone 20 mg BID - Respiratory culture showed normal oropharyngeal rc ENDOCRINE: Uncontrolled type 2 diabetes mellitus, hemoglobin A1c 9.2 Obesity class 3, BMI 50.1 kg/meter2 - Lantus 25 units at q.p.m. and aggressive sliding scale q.6 hour HEME: Chronic normocytic normochromic anemia likely due to anemia of chronic disease INFECTIOUS DISEASE: Bilateral lower extremity cellulitis - Wound culture on 07/31/24 demonstrated Enterobacter intermedius, Enterococcus faecalis, MRSA which is sensitive to vancomycin and cefepime - IV vancomycin per pharmacy, IV cefepime 2gm Q 8 hours ( Started on 07/30/24) - Blood culture showed no growth after 5 days of incubation DIET: Enteral feeding with Glucerna DVT prophylax: Hold due to superficial skin bleeding GI prophylaxis: Protonix 40 mg IV daily Bowel regimen: Lactulose 30 ml bid Code status: full code LINES/DRAINS/ACCESS: ETT: Intubated on 08/01/24 IV access: PICC line placed on 08/08/24 Drips: on norepinephrine, fentanyl and Precedex [place] catheter: on 07/30/24 DISPOSITION: JERRICA Plan discussed with: Other My Orders Orders - NAOMI MONTILLA MD Procedure Category Date Status Time Chest Portable XY 08/11/24 Resulted 04:00 Date of Service: August 11, 2024 Billing Provider: NAOMI MONTILLA MD Common Visit Codes: [id number] CARE 30-74 MIN NAOMI MONTILLA MD August 11, 2024 12:10
[2024-08-11 14:36] LABS: Base Excess 2.8 mmol/L (-2.0-3.0)
[2024-08-11] MEDS ORDERED: VANCOMYCIN PER PHARMACY 0 MG IV SCH (14:45)
[2024-08-11] MEDS: METOPROLOL TARTRATE 1MG/1ML-5ML VIAL IV ONE ×2 (17:35→22:07)
--- NOTE | 2024-08-11 23:06 | DVHPN2 ---
Progress Note - Dictate Date Seen: August 11, 2024 Medical Necessity Reason Pt with a Central, PICC or Fol: Yes The following are medically ne: Central Line, [place] Catheter Reason for [place] catheter: Strict I&O Subjective Patient seen and examined at bedside. S/p extubation, on supplemental oxygen Overnight events reviewed. vital signs Vital Sign Date Time Temp Pulse Resp B/P (MAP) Pulse Ox O2 Delivery O2 Flow Rate FiO2 08/11/24 22:45 100.2 107 19 127/79 (95) 95 212.4 08/11/24 22:04 Nasal Cannula 4.0 08/11/24 22:04 36 Total Intake and Output 08/10/24 08/10/24 08/11/24 15:00 23:00 07:00 Intake Total 454.004 ml 335.632 ml 414.263 ml Output Total 1300 ml 1000 ml Balance 454.004 ml -964.368 ml -585.737 ml medications Current Medications Medications Dose Ordered Sig/Artie Route Start Time Stop Time Status Last Admin Dose Admin Acetaminophen 325 mg Q4HP PRN PO 07/30/24 21:45 Ipratropium [place] 0.5 mg Q4HR NEB 07/30/24 22:00 08/11/24 22:04 0.5 MG Levalbuterol HCl 1.25 mg Q4HR NEB 07/30/24 22:00 08/11/24 22:04 1.25 MG Pantoprazole Sodium 40 mg DAILY IV 08/01/24 10:00 08/11/24 07:20 40 MG Atorvastatin Calcium 20 mg HS PO 07/31/24 22:00 08/10/24 22:37 20 MG Midazolam HCl 50 ml @ 1 mls/hr Q24H IV 08/01/24 01:15 08/07/24 03:23 6 MLS/HR Norepinephrine Bitartrate 250 ml @ 3.75 mls/hr Q24H IV 08/02/24 17:15 08/07/24 17:45 1.875 MLS/HR Enteral Nutritional Formula 1,000 ml 50ML/HR GT 08/05/24 17:15 08/11/24 03:43 1,000 ML Diagnostic Test (Pha) 1 strip Q6HR 08/06/24 00:00 08/11/24 16:32 1 STRIP Insulin Human Regular Q6HR SC 08/06/24 00:00 08/11/24 16:43 2 UNITS Dextrose 50 ml UD PRN IV 08/05/24 17:15 Lactulose 30 ml BID PO 08/07/24 10:00 08/11/24 07:20 30 ML Insulin Glargine 25 units HS SC 08/07/24 22:00 08/11/24 22:07 25 UNITS Propofol 100 ml @ 3.459 mls/ hr Q24H IV 08/07/24 23:00 08/10/24 22:38 3.459 MLS/HR Methylprednisolone Sodium Succinate 20 mg BIDAC IV 08/09/24 07:00 08/11/24 16:32 20 MG Sodium Chloride 10 ml QSHIFT@10,22 IV 08/08/24 22:00 08/11/24 22:07 10 ML Fentanyl Citrate 250 ml @ 2.5 mls/hr Q24H IV 08/10/24 04:00 08/10/24 22:41 2.5 MLS/HR Metoprolol Tartrate 50 mg BID PO 08/10/24 22:00 08/11/24 07:20 50 MG Cefepime HCl 50 ml @ 12.5 mls/hr Q12H IV 08/10/24 18:00 08/11/24 16:32 12.5 MLS/HR Vancomycin HCl 0 ml @ 0 mls/hr UD IV 08/11/24 14:45 objective Gen.: Patient lying in bed in no apparent distress. On supplemental oxygen. Head: Normocephalic, atraumatic. Eyes: EOMI/PERRLA. Ears: Normal hearing. Normal anatomy. Neck/trachea: Trachea midline, supple. Nose: Normal external anatomy. Mouth: Moist mucous membranes. Chest: Decreased air entry bilaterally. No wheezing or rhonchi. Cardiovascular: Positive S1, positive S2. Regular rate and rhythm. Abdomen: Positive bowel sounds in all 4 quadrants. Soft, non-tender, non- distended. : Deferred. Rectal: Deferred. Skin: Warm, dry. Intact. Extremities: 2+ radial pulses bilaterally. No lower extremity edema. Neuro: Awake, alert, oriented x3. No gross motor or sensory deficits. Cranial nerves II through XII intact. Gait not assessed. laboratory and microbiology Laboratory Tests 08/11/24 04:51 Test 08/11/24 04:51 Range/Units Serum Glucose 205 H 74-106 mg/dL Assessment/Plan Impression Acute hypoxemic respiratory failure Mechanical ventilation, s/p extubation Severe pulmonary hypertension Pulmonary edema Chronic obstructive pulmonary disease exacerbation Congestive heart failure Atrial fibrillation Events: Patient seen and examined in ICU Patient tolerated CPAP this AM and was extubated uneventfully Placed on supplemental oxygen Currently on 3 LPM NC No distress Taper O2 as tolerated Continue bronchodilators. IV steroids Continue antibiotics. Tube feeds for nutritional support Accu-Cheks, ISS Diurese w/ Lasix Monitor renal function Monitor electrolytes; supplement as needed Maintain euvolemia Labs and imaging reviewed Plan S/p extubation On supplemental oxygen Titrate to keep O2 sats above 90% Antibiotics Bronchodilators IV steroids Monitor renal function Monitor electrolytes Supplement as needed Pressors as needed for hemodynamic support To maintain a mean arterial pressure of 65 mmHg DVT prophylaxis Prognosis: Poor given multiple comorbidities Condition: Critical Rest of plan per hospitalist and other consultants A total of 35 minutes of critical care time was spent reviewing the patient's record, examining the patient, making a diagnostic and therapeutic plan, discussing this plan with the medical personnel, following up on diagnostic studies and following the patient for clinical stability excluding any and all procedures. At least 50% of this time was spent in the direct, [id number] contact. Thank you for allowing me to participate in this patient's care. Further recommendations will depend on the patient's clinical course. Please do not hesitate to contact me if you have any questions or concerns. This medical document was created using an electronic medical record system with [employer] dictation system. Although this document has been carefully reviewed, there may still be some phonetic and typographical errors. These areas are purely typographical due to imperfections of the software programs and do not reflect any compromise in the patient's medical care. Dietary Evaluation Review Comments: 1. Suggest TF w/ formula Pivot 1.5 @ 40 ml/hr (GOAL). Begin @ 10 ml/hr; advance by 10 ml Q4 hrs or as tolerated to 40 ml/hr x 24 hrs 2. Provide free water flushes of 30 ml Q6 hrs (120 ml total); adjust PRN 3. Monitor BMP/lytes and replete to WNL/PRN 4. Lantus, ss insulin for correction; adjust PRN to maintain BG <180 mg/dl TF Provision: TF at goal to provide 960 ml total volume, 1440 kcal, 90 gm pro, 7 gm fiber, 165 gm CHO, 729 ml H20 (meets 100% est. kcal needs, 100% est. pro needs) Expected Outcomes/Goals: Improved nutritional status, TF initiation within 24-48 hrs of intubation. Plan discussed with: Other (MARLYS Up) Critical Care Time(min): 35 WANG HASSAN MD August 11, 2024 23:06
[2024-08-12] VITALS (104 sets, daily range): BP systolic 96–203; BP diastolic 32–173; PULSE 82–143; RESP 14–24; TEMP 98.1–100.2; O2SAT 76–100
[2024-08-12 07:01] LABS: Base Excess 2.5 mmol/L (-2.0-3.0)
[2024-08-12 07:25] LABS: Urine Bacteria FEW /hpf (None Seen); Urine Blood 2+ /uL (Negative); Urine Clarity Turbid (Clear); Urine Color Light-Yellow (Yellow); Urine Protein, UAD 1+ (Negative); Urine Specific Gravity 1.013 (1.001-1.035); Urine Squamous Epithelial Cell FEW /hpf (<5); Urine Urobilinogen Normal (Negative); Urine WBC 9 /HPF (0-3); Urine pH 5.5 (5.0-9.0)
[2024-08-12 07:27] LABS: Basophils # (auto) 0 10 ^3/uL (0-0.2); Basophils % (auto) 0.1 % (0.0-2.0); Chloride 104 mmol/L (98-107); Eosinophils # (auto) 0 10 ^3/uL (0-0.8); Hematocrit 31.8 % (41.0-53.0); Hemoglobin 10.1 g/dL (13.5-17.5); Lymphocytes # (auto) 0.6 10 ^3/uL (0.4-5.4); Lymphocytes % (auto) 3.5 % (10.0-50.0); Mean Corpuscular Hemoglobin 28.9 pg (28.0-32.0); Mean Corpuscular Hgb Conc. 31.8 g/dL (32.0-36.0); Monocytes # (auto) 1.2 10 ^3/uL (0-1.3); Monocytes % (auto) 7.2 % (0.0-12.0); Neutrophils # (auto) 15.3 10 ^3/uL (1.6-8.6); Neutrophils % (auto) 89.2 % (37.0-80.0); Platelet Count (auto) 323 10^3/uL (140-450); Red Blood Cells 3.49 10^6/uL (4.5-5.90); White Blood Cell 17.2 10^3/uL (4.4-10.8)
[2024-08-12 07:28] LABS: Anion Gap 13 (5-15); Carbon Dioxide 28 mmol/L (20-31)
[2024-08-12 07:29] LABS: Calcium 10.9 mg/dL (8.7-10.4); Potassium 3.4 mmol/L (3.5-5.1); Sodium 145 mmol/L (136-145)
[2024-08-12 07:33] LABS: BUN/Creatinine Ratio 40.5 (10.0-20.0)
[2024-08-12 07:41] LABS: Blood Urea Nitrogen 77 mg/dL (9-23); Glucose 145 mg/dL (74-106)
[2024-08-12] MEDS ORDERED: POTASSIUM CHL 20MEQ/100ML 100 ML IV ONE (08:15)
[2024-08-12] MEDS: POTASSIUM CHL 20MEQ/50ML 50 ML IV ONE (09:35)
--- NOTE | 2024-08-12 10:16 | DVH ---
INDICATION: Hypoxia TECHNIQUE: Single frontal view of the chest was obtained COMPARISON: XY CHEST PORTABLE on DOS: 08/11/24, XY CHEST PORTABLE on DOS: 08/10/24, XY CHEST PORTABLE o n DOS: 08/09/24, XY CHEST PORTABLE on DOS: 08/08/24, XY CHEST PORTABLE on DOS: 08/08/24, XY CHEST PORTABLE on DOS: 08/11/24 FINDINGS: Lines and Tubes: ET and NG removed. Right PICC tip in SVC Lungs: Clear Pleura: No effusion. No pneumothorax. Cardiomediastinal contours: Unremarkable Bones: Unremarkable IMPRESSION: 1. No acute disease.
[2024-08-12] MEDS ORDERED: METOPROLOL TARTRATE 1MG/1ML-5ML VIAL IV PRN (10:30)
--- NOTE | 2024-08-12 16:08 | DVHPNRES ---
Progress Note Date Seen: August 12, 2024 Resident Creating Document: GINETTE TRIVEDI RESIDENT Medical Necessity Reason Pt with a Central, PICC or Fol: Yes The following are medically ne: Central Line, [place] Catheter Reason for [place] catheter: Strict I&O Subjective Review of Systems Patient is a 69-year-old male with past medical history of CHF, COPD, type 2 diabetes, atrial fibrillation, who comes in due to respiratory distress. Per patient's brother who is also his caregiver, patient's home wound care nurse checked his vitals and his SpO2 was noted to be 68% with a pulse of 130, he also appeared disoriented and had labored breathing. Arrival to the ED patient was noted to be tachycardic and tachypneic and was placed on BiPAP. Note, patient is on home oxygen 2-3 L. Patient Underwent intubation with mechanical ventilation on 08/01/2024 due to acute metabolic encephalopathy likely due to acute hypoxic / hypercapnic respiratory failure. Patient was seen and examined on the bedside. Alert and awake, status post extubation and currently on 4 L oxygen through nasal cannula and saturating 97%. Failed swallow evaluation today and started NG tube feeding. No sign of superficial bleeding or bleeding in [place] catheter and started again therapeutic Lovenox 110 mg sc daily for secondary hypercoagulable state. Objective vital signs Vital Sign Date Time Temp Pulse Resp B/P (MAP) Pulse Ox O2 Delivery O2 Flow Rate FiO2 08/12/24 15:36 126 08/12/24 15:36 22 99 Nasal Cannula* 4 N/A Mechanical Ventilator+ 08/12/24 15:00 203/173 (183) 08/12/24 14:30 99.1 210.4 Total Intake and Output 08/11/24 08/11/24 08/12/24 15:00 23:00 07:00 Intake Total 65.74 ml 150 ml 0 ml Output Total 900 ml 700 ml Balance 65.74 ml -750 ml -700 ml medications Current Medications Medications Dose Ordered Sig/Artie Route Start Time Stop Time Status Last Admin Dose Admin Acetaminophen 325 mg Q4HP PRN PO 07/30/24 21:45 Ipratropium [place] 0.5 mg Q4HR NEB 07/30/24 22:00 08/12/24 13:21 0.5 MG Levalbuterol HCl 1.25 mg Q4HR NEB 07/30/24 22:00 08/12/24 13:21 1.25 MG Pantoprazole Sodium 40 mg DAILY IV 08/01/24 10:00 08/12/24 07:24 40 MG Atorvastatin Calcium 20 mg HS PO 07/31/24 22:00 08/10/24 22:37 20 MG Enteral Nutritional Formula 1,000 ml 50ML/HR GT 08/05/24 17:15 08/11/24 03:43 1,000 ML Diagnostic Test (Pha) 1 strip Q6HR 08/06/24 00:00 08/12/24 11:33 1 STRIP Insulin Human Regular Q6HR SC 08/06/24 00:00 08/12/24 11:35 4 UNITS Dextrose 50 ml UD PRN IV 08/05/24 17:15 Lactulose 30 ml BID PO 08/07/24 10:00 08/11/24 07:20 30 ML Methylprednisolone Sodium Succinate 20 mg BIDAC IV 08/09/24 07:00 08/12/24 06:00 20 MG Sodium Chloride 10 ml QSHIFT@10,22 IV 08/08/24 22:00 08/12/24 07:24 10 ML Fentanyl Citrate 250 ml @ 2.5 mls/hr Q24H IV 08/10/24 04:00 08/10/24 22:41 2.5 MLS/HR Metoprolol Tartrate 50 mg BID PO 08/10/24 22:00 08/11/24 07:20 50 MG Cefepime HCl 50 ml @ 12.5 mls/hr Q12H IV 08/10/24 18:00 08/12/24 05:58 12.5 MLS/HR Vancomycin HCl 0 ml @ 0 mls/hr UD IV 08/11/24 14:45 Metoprolol Tartrate 1.25 mg Q6HPRN PRN IV 08/12/24 10:30 Enoxaparin Sodium 110 mg DAILY SC 08/13/24 10:00 UNV Potassium Chloride 100 ml @ 50 mls/hr Q2H IV 08/12/24 16:15 08/12/24 20:14 UNV Examination Physical examination: General Appearance: Alert and awake, Cooperative, s/p extubation HEENT: Atraumatic, PERRLA, EOMI, Mucous membrane moist/pink Respiratory: Clear to auscultation, Normal air movement Cardiovascular: Irregular rate, Normal S1, Normal S2, No murmurs, no chest wall tenderness Abdominal: Normal bowel sounds, Soft, No tenderness, No hepatospenomegaly, No masses Extremities: No clubbing, No cyanosis, No edema. Normal pulses, bilateral wounds in both legs covered with dressing. Skin: No rashes, No breakdown, No significant lesion Neuro: Strength at 4/5 X4 ext, Normal tone, Sensation intact, grossly intact cranial nerves. Psych/Mental Status: could not be assessed. laboratory and microbiology Laboratory Tests 08/12/24 05:10 Test 08/12/24 05:10 Range/Units Serum Glucose 145 H 74-106 mg/dL Microbiology Date/Time Source Procedure Growth Status 08/09/24 13:35 Other Aerobic Culture - Preliminary Resulted 08/01/24 00:00 Sputum Gram Stain - Final Complete 08/01/24 00:00 Sputum Respiratory Culture - Final Complete 07/30/24 14:47 Blood Blood Culture - Final NO GROWTH AFTER 5 DAYS OF INCUBATION. Complete Labs and/or images reviewed: Labs reviewed by me, Image(s) reviewed by me Problem List/Assessment/Plan Problem List/Assessment/Plan Assessment and plan: NEURO: Acute metabolic encephalopathy secondary to hypoxic/ hypercarbic respiratory failure - s/p extubation and on 4 L oxygen through nasal cannula CARDIOVASCULAR: Acute on chronic exacerbation of decompensated systolic heart failure, NYHA class 3 Chronic permanent atrial fibrillation with secondary hypercoagulable state Severe pulmonary hypertension likely due to COPD /FAWN - [id number] score 3 and HAS BLED score 2 - CXR showed cardiomegaly with mild pulmonary vascular congestion - Echo on 07/31/2024 demonstrated EF 40% with global hypokinesis, irregular contractility, moderate tricuspid regurgitation, moderate aortic sclerosis with diminished excursion of the right coronary cusp and RVSP 56 mm hg - Metoprolol tartrate 50 mg bid - Therapeutic Lovenox 110 mg sc daily - Maintain strict I&O - Atorvastatin 20 mg at HS Renal: DAVE likely hemodynamically mediated/VMN Possible Vancomycin toxicity Microscopic hematuria and possible acute cystitis - Patient is on IV cefepime - Monitor BMP PULMONARY: Acute on chronic hypoxic / hypercarbic respiratory failure Acute on chronic exacerbation of COPD Ruled out pulmonary embolism Ruled out gram negative pneumonia - CT angiography demonstrated 2 cm nodular opacities right lung apex, ruled out PE and follow up CT scan in 6 weeks to see if there is resolution. - Med neb with levalbuterol and ipratropium q.4 hours - IV vancomycin per pharmacy, IV cefepime 2gm Q 8 hours ( Started on 07/30/24) - IV methylprednisolone 20 mg BID - Respiratory culture showed normal oropharyngeal rc ENDOCRINE: Uncontrolled type 2 diabetes mellitus, hemoglobin A1c 9.2 Obesity class 3, BMI 50.1 kg/meter2 - Lantus 25 units at q.p.m. and aggressive sliding scale q.6 hour HEME: Chronic normocytic normochromic anemia likely due to anemia of chronic disease INFECTIOUS DISEASE: Bilateral lower extremity cellulitis Sepsis due to above - Wound culture on 07/31/24 demonstrated Enterobacter intermedius, Enterococcus faecalis, MRSA which is sensitive to vancomycin and cefepime - IV vancomycin per pharmacy, IV cefepime 2gm Q 8 hours ( Started on 07/30/24) - Blood culture showed no growth after 5 days of incubation DIET: Enteral feeding with Glucerna DVT prophylax: Lovenox GI prophylaxis: Protonix 40 mg IV daily Bowel regimen: Lactulose 30 ml bid Code status: full code LINES/DRAINS/ACCESS: Extubated on 08/11/24 IV access: PICC line placed on 08/08/24 [place] catheter: on 07/30/24 DISPOSITION: JERRICA Patient's status discussed with RN , Brother and Sister Critical care time spent more than 48 minutes, including patient care, chart review. Excluding any procedures. Case discussed with Dr. Hernandez Plan discussed with: Other (RN, Brother , Sister) My Orders My Orders Orders - GINETTE TRIVEDI RESIDENT Procedure Category Date Status Time Chest Portable XY 08/12/24 Resulted 06:43 Abg W/ Co-Ox RT 08/12/24 Logged 06:43 Blood Culture KALEN 08/12/24 In Process 06:43 Communication Order ORDERS 08/12/24 Transmitted 06:49 Potassium Chl PHA 08/12/24 In Process 20meq/50ml (Potassium 09:45 * Swallow Request ST 08/12/24 Transmitted 10:25 Metoprolol Inj PHA 08/12/24 In Process (Lopressor) 10:30 Chest Portable XY 08/12/24 Taken 15:42 Potassium Chl PHA 08/12/24 Logged 20meq/100ml 16:15 Dietary Evaluation Review Comments: 1. Suggest TF w/ formula Pivot 1.5 @ 40 ml/hr (GOAL). Begin @ 10 ml/hr; advance by 10 ml Q4 hrs or as tolerated to 40 ml/hr x 24 hrs 2. Provide free water flushes of 30 ml Q6 hrs (120 ml total); adjust PRN 3. Monitor BMP/lytes and replete to WNL/PRN 4. Lantus, ss insulin for correction; adjust PRN to maintain BG <180 mg/dl TF Provision: TF at goal to provide 960 ml total volume, 1440 kcal, 90 gm pro, 7 gm fiber, 165 gm CHO, 729 ml H20 (meets 100% est. kcal needs, 100% est. pro needs) Expected Outcomes/Goals: Improved nutritional status, TF initiation within 24-48 hrs of intubation. Date of Service: August 12, 2024 Billing Provider: GERMAN HERNANDEZ MD Common Visit Codes: [id number] CARE 30-74 MIN GINETTE TRIVEDI RESIDENT August 12, 2024 16:08 GERMAN HERNANDEZ MD August 13, 2024 16:25
--- NOTE | 2024-08-12 16:13 | DVH ---
CHEST RADIOGRAPH Indication: s/p NG tube placement Technique: Single frontal view of the chest was obtained Comparison: 08/11/2024 FINDINGS: Nasogastric tube tip is not well characterized. Appears to project towards the abdomen. Recommend d edicated abdominal radiograph. Right PICC line tip projects over the cavoatrial junction. The cardiac silhouette is enlarged. The lungs demonstrate patchy airspace opacities. The pulmonary va sculature is prominent. Small bilateral pleural effusions. There is no pneumothorax. IMPRESSION: 1. As above. Recommend abdominal radiograph.
[2024-08-12] MEDS ORDERED: POTASSIUM CHL 20MEQ/50ML 50 ML IV SCH (16:15)
[2024-08-12] MEDS: POTASSIUM CHL 20MEQ/100ML 100 ML IV SCH (16:34)
--- NOTE | 2024-08-12 17:37 | DVH ---
KUB INDICATION: S/p NG tube placement FINDINGS: Tip of the NG tube is in the left upper quadrant presumably within the stomach. IMPRESSION: 1. NG tube tip directed superiorly into the fundus of the stomach
[2024-08-12] MEDS ORDERED: ENOXAPARIN SOD 120 MG/0.8 ML SYRINGE SC SCH (22:00)
[2024-08-13] VITALS (105 sets, daily range): BP systolic 64–130; BP diastolic 27–76; PULSE 89–140; RESP 15–27; TEMP 98.1–99.2; O2SAT 89–100
[2024-08-13 07:41] LABS: Chloride 105 mmol/L (98-107); Potassium 5.1 mmol/L (3.5-5.1); Sodium 144 mmol/L (136-145)
[2024-08-13 07:42] LABS: Anion Gap 10 (5-15); Carbon Dioxide 29 mmol/L (20-31); Hematocrit 30.6 % (41.0-53.0); Hemoglobin 9.6 g/dL (13.5-17.5); Mean Corpuscular Hemoglobin 28.6 pg (28.0-32.0); Mean Corpuscular Hgb Conc. 31.3 g/dL (32.0-36.0); Mean Corpuscular Volume 91.4 fL (80.0-100.0); Platelet Count (auto) 304 10^3/uL (140-450); Red Blood Cells 3.35 10^6/uL (4.5-5.90); Red Cell Distribution Width 15.7 % (11.8-14.3); White Blood Cell 25.9 10^3/uL (4.4-10.8)
[2024-08-13 07:47] LABS: BUN/Creatinine Ratio 36.1 (10.0-20.0)
[2024-08-13 07:48] LABS: Band Neutrophils % (manual) 0; Basophils % (manual) 0 (0.0-2.0); Blast Cells 0; Eosinophils % (manual) 0 (0-7); Magnesium 2.4 mg/dL (1.6-2.6); Metamyelocytes % 0; Myelocytes % 0; Promyelocytes % 0; Reactive Lymphocytes 0
[2024-08-13 07:50] LABS: Blood Urea Nitrogen 108 mg/dL (9-23); Calcium 10.9 mg/dL (8.7-10.4); Glucose 222 mg/dL (74-106)
[2024-08-13] MEDS: ENOXAPARIN SOD 120 MG/0.8 ML SYRINGE SC SCH (07:57)
[2024-08-13 09:10] LABS: Lymphocytes % (manual) 3 (10.0-50.0); Monocytes % (manual) 4 (0-12); Platelet Estimate Adequate
[2024-08-13] MEDS: LINEZOLID 600MG/300ML 300 ML IV SCH (09:28)
--- NOTE | 2024-08-13 09:43 | DVH ---
CLINICAL INFORMATION: 69 years old, Male; hypoxia. TECHNIQUE: Single AP portable chest radiograph was obtained. COMPARISON: XY CHEST PORTABLE on DOS: 08/12/24, XY CHEST PORTABLE on DOS: 08/12/24, XY CHEST PORTABLE o n DOS: 08/11/24 FINDINGS: Stable positioning of the enteric tube and right PICC. Opacities in the left lung base, likely a comb ination of pleural effusion with overlying atelectasis and/or consolidation, unchanged. Patchy opacit ies in the left mid and upper lung are also unchanged. Unchanged cardiomegaly with prominence of the pulmonary vasculature. Mild atelectasis in the right lung base. No pneumothorax. No other significan t interval change. IMPRESSION: No significant interval change as detailed above.
--- NOTE | 2024-08-13 16:35 | DVHPNRES ---
Progress Note Date Seen: August 13, 2024 Resident Creating Document: GINETTE TRIVEDI RESIDENT Medical Necessity Reason Pt with a Central, PICC or Fol: Yes The following are medically ne: Central Line, [place] Catheter Reason for [place] catheter: Strict I&O Subjective Review of Systems Patient is a 69-year-old male with past medical history of CHF, COPD, type 2 diabetes, atrial fibrillation, who comes in due to respiratory distress. Per patient's brother who is also his caregiver, patient's home wound care nurse checked his vitals and his SpO2 was noted to be 68% with a pulse of 130, he also appeared disoriented and had labored breathing. Arrival to the ED patient was noted to be tachycardic and tachypneic and was placed on BiPAP. Note, patient is on home oxygen 2-3 L. Patient Underwent intubation with mechanical ventilation on 08/01/2024 due to acute metabolic encephalopathy likely due to acute hypoxic / hypercapnic respiratory failure. Patient was seen and examined on the bedside. He is alert and awake, status post extubation and currently on 3 L oxygen through nasal cannula and saturating 97%. Patient had episodes of fever in last 24 hour. Recent CxR showed low volume of left lung and possible collapse. Advised RT to do CPT on Lt side and night time bipap at 03/07. Objective vital signs Vital Sign Date Time Temp Pulse Resp B/P (MAP) Pulse Ox O2 Delivery O2 Flow Rate FiO2 08/13/24 15:33 101 08/13/24 15:33 20 94 Nasal Cannula* 1 N/A Mechanical Ventilator+ 08/13/24 15:30 99.2 93/52 (66) 99.2 Total Intake and Output 08/12/24 08/12/24 08/13/24 15:00 23:00 07:00 Intake Total 60 ml Output Total 200 ml 75 ml Balance -200 ml -15 ml medications Current Medications Medications Dose Ordered Sig/Artie Route Start Time Stop Time Status Last Admin Dose Admin Acetaminophen 325 mg Q4HP PRN PO 07/30/24 21:45 Ipratropium [place] 0.5 mg Q4HR NEB 07/30/24 22:00 08/13/24 14:47 0.5 MG Levalbuterol HCl 1.25 mg Q4HR NEB 07/30/24 22:00 08/13/24 14:47 1.25 MG Pantoprazole Sodium 40 mg DAILY IV 08/01/24 10:00 08/13/24 07:57 40 MG Enteral Nutritional Formula 1,000 ml 50ML/HR GT 08/05/24 17:15 08/12/24 21:58 1,000 ML Diagnostic Test (Pha) 1 strip Q6HR 08/06/24 00:00 08/13/24 11:09 1 STRIP Insulin Human Regular Q6HR SC 08/06/24 00:00 08/13/24 11:28 4 UNITS Dextrose 50 ml UD PRN IV 08/05/24 17:15 Lactulose 30 ml BID PO 08/07/24 10:00 08/13/24 07:57 30 ML Methylprednisolone Sodium Succinate 20 mg BIDAC IV 08/09/24 07:00 08/13/24 06:22 20 MG Sodium Chloride 10 ml QSHIFT@10,22 IV 08/08/24 22:00 08/13/24 07:57 10 ML Metoprolol Tartrate 50 mg BID PO 08/10/24 22:00 08/13/24 07:58 50 MG Metoprolol Tartrate 1.25 mg Q6HPRN PRN IV 08/12/24 10:30 Enoxaparin Sodium 110 mg DAILY SC 08/13/24 10:00 08/13/24 07:57 110 MG Linezolid 300 ml @ 150 mls/hr Q12HR IV 08/13/24 10:00 08/13/24 09:28 150 MLS/HR Cefepime HCl 50 ml @ 12.5 mls/hr DAILY@0600 IV 08/14/24 06:00 Examination Physical examination: General Appearance: Alert and awake, Cooperative, s/p extubation HEENT: Atraumatic, PERRLA, EOMI, Mucous membrane moist/pink Respiratory: Clear to auscultation, Normal air movement Cardiovascular: Irregular rate, Normal S1, Normal S2, No murmurs, no chest wall tenderness Abdominal: Normal bowel sounds, Soft, No tenderness, No hepatospenomegaly, No masses Extremities: No clubbing, No cyanosis, No edema. Normal pulses, bilateral wounds in both legs covered with dressing. Skin: No rashes, No breakdown, No significant lesion Neuro: Strength at 4/5 X4 ext, Normal tone, Sensation intact, grossly intact cranial nerves. Psych/Mental Status: could not be assessed. laboratory and microbiology Laboratory Tests 08/13/24 06:48 Test 08/13/24 06:48 Range/Units Serum Glucose 222 H 74-106 mg/dL Microbiology Date/Time Source Procedure Growth Status 08/12/24 07:06 Blood Blood Culture - Preliminary NO GROWTH AFTER 24 HOURS OF INCUBATION. Resulted 08/09/24 13:35 Other Aerobic Culture - Preliminary Resulted 08/01/24 00:00 Sputum Gram Stain - Final Complete 08/01/24 00:00 Sputum Respiratory Culture - Final Complete Labs and/or images reviewed: Labs reviewed by me, Image(s) reviewed by me Problem List/Assessment/Plan Problem List/Assessment/Plan Assessment and plan: NEURO: Acute metabolic encephalopathy secondary to hypoxic/ hypercarbic respiratory failure RASS score: -2 - On mechanical ventilation CARDIOVASCULAR: Acute on chronic exacerbation of decompensated systolic heart failure, NYHA class 3 Chronic permanent atrial fibrillation with secondary hypercoagulable state Severe pulmonary hypertension likely due to COPD /FAWN - [id number] score 3 and HAS BLED score 2 - CXR showed cardiomegaly with mild pulmonary vascular congestion - Echo on 07/31/2024 demonstrated EF 40% with global hypokinesis, irregular contractility, moderate tricuspid regurgitation, moderate aortic sclerosis with diminished excursion of the right coronary cusp and RVSP 56 mm hg - IV Lasix 20 mg b.i.d. - Metoprolol tartrate 25 mg bid - Hold Therapeutic Lovenox because of the superficial skin bleeding. - Maintain strict I&O - Atorvastatin 20 mg at HS - Discontinued aspirin due to superficial oozing from the skin PULMONARY: Acute on chronic hypoxic / hypercarbic respiratory failure Acute on chronic exacerbation of COPD Ruled out pulmonary embolism Gram negative pneumonia ruled out - CT angiography demonstrated 2 cm nodular opacities right lung apex, ruled out PE and follow up CT scan in 6 weeks to see if there is resolution. - Med neb with levalbuterol and ipratropium q.4 hours - IV Linezolid 600 mg bid, IV cefepime 2gm Q 8 hours - Discontinued vancomycin due to worsening kidney function - IV methylprednisolone 20 mg BID - Respiratory culture showed normal oropharyngeal rc Renal: DAVE likely hemodynamically mediated/VMN Possible Vancomycin toxicity Microscopic hematuria and possible acute cystitis - IV 1/2 NS @ 50 ml/hr - Patient is on IV cefepime and linezolid - Monitor BMP ENDOCRINE: Uncontrolled type 2 diabetes mellitus, hemoglobin A1c 9.2 Obesity class 3, BMI 50.1 kg/meter2 - Aggressive sliding scale q.6 hour HEME: Chronic normocytic normochromic anemia likely due to anemia of chronic disease INFECTIOUS DISEASE: Bilateral lower extremity cellulitis Sepsis due to above - Wound culture on 07/31/24 demonstrated Enterobacter intermedius, Enterococcus faecalis, MRSA which is sensitive to vancomycin and cefepime - IV Linezolid 600 mg bid and IV cefepime 2gm Q 8 hours - Blood culture showed no growth after 5 days of incubation DIET: Enteral feeding with Glucerna DVT prophylax: enoxaparin GI prophylaxis: Protonix 40 mg IV daily Bowel regimen: Lactulose 30 ml bid Code status: full code LINES/DRAINS/ACCESS: ETT: Intubated on 08/01/24 IV access: PICC line placed on 08/08/24 [place] catheter: on 08/13/24 DISPOSITION: JERRICA Patient's status discussed with rn long term care time spent more than 41 minutes, including patient care, chart review, and Excluding any procedures. Case discussed with Dr. Hernandez Plan discussed with: Other (RN) My Orders My Orders Orders - GINETTE TRIVEDI RESIDENT Procedure Category Date Status Time Linezolid 600mg/300ml PHA 08/13/24 In Process (Zyvox) 10:00 Chest Portable XY 08/13/24 Resulted 08:24 Npo (Nothing By DIET 08/13/24 Transmitted Mouth) Diet Dinner Dietary Evaluation Review Comments: 1. Suggest TF w/ formula Pivot 1.5 @ 40 ml/hr (GOAL). Begin @ 10 ml/hr; advance by 10 ml Q4 hrs or as tolerated to 40 ml/hr x 24 hrs 2. Provide free water flushes of 30 ml Q6 hrs (120 ml total); adjust PRN 3. Monitor BMP/lytes and replete to WNL/PRN 4. Lantus, ss insulin for correction; adjust PRN to maintain BG <180 mg/dl TF Provision: TF at goal to provide 960 ml total volume, 1440 kcal, 90 gm pro, 7 gm fiber, 165 gm CHO, 729 ml H20 (meets 100% est. kcal needs, 100% est. pro needs) Expected Outcomes/Goals: Improved nutritional status, TF initiation within 24-48 hrs of intubation. Date of Service: August 13, 2024 Billing Provider: GERMAN HERNANDEZ MD Common Visit Codes: [id number] CARE 30-74 MIN GINETTE TRIVEDI RESIDENT August 13, 2024 16:35 GERMAN HERNANDEZ MD August 14, 2024 15:47
[2024-08-13] MEDS: SOD CHL 0.45% 1,000 ML IV SCH (17:00)
[2024-08-14] VITALS (111 sets, daily range): BP systolic 53–142; BP diastolic 17–100; PULSE 84–121; RESP 10–27; TEMP 98–99.7; O2SAT 81–100
[2024-08-14] MEDS: CEFEPIME 2GM/50ML NS 50 ML IV SCH (05:47)
[2024-08-14 06:48] LABS: Basophils # (auto) 0 10 ^3/uL (0-0.2); Basophils % (auto) 0.2 % (0.0-2.0); Eosinophils # (auto) 0 10 ^3/uL (0-0.8); Hematocrit 27.6 % (41.0-53.0); Hemoglobin 8.8 g/dL (13.5-17.5); Lymphocytes # (auto) 0.4 10 ^3/uL (0.4-5.4); Lymphocytes % (auto) 2.4 % (10.0-50.0); Mean Corpuscular Hemoglobin 28.8 pg (28.0-32.0); Mean Corpuscular Hgb Conc. 31.9 g/dL (32.0-36.0); Mean Corpuscular Volume 90.2 fL (80.0-100.0); Monocytes % (auto) 5.4 % (0.0-12.0); Neutrophils # (auto) 16.4 10 ^3/uL (1.6-8.6); Platelet Count (auto) 250 10^3/uL (140-450); Red Blood Cells 3.06 10^6/uL (4.5-5.90); Red Cell Distribution Width 15.6 % (11.8-14.3); White Blood Cell 17.8 10^3/uL (4.4-10.8)
[2024-08-14 06:50] LABS: Chloride 105 mmol/L (98-107); Potassium 4.9 mmol/L (3.5-5.1); Sodium 142 mmol/L (136-145)
[2024-08-14 06:51] LABS: Anion Gap 11 (5-15); Calcium 9.4 mg/dL (8.7-10.4); Carbon Dioxide 26 mmol/L (20-31)
[2024-08-14 06:57] LABS: Magnesium 2.4 mg/dL (1.6-2.6)
[2024-08-14 06:59] LABS: Blood Urea Nitrogen 121 mg/dL (9-23); Glucose 246 mg/dL (74-106)
--- NOTE | 2024-08-14 07:00 | DVH ---
EXAM: XR Chest, 1 View CLINICAL INDICATION: Hypoxia TECHNIQUE: Frontal view of the chest. COMPARISON: XY CHEST PORTABLE on DOS: 08/13/24, XY CHEST PORTABLE on DOS: 08/12/24, XY CHEST PORTABLE on DOS: 08/12/24, XY CHEST PORTABLE on DOS: 08/11/24, XY CHEST PORTABLE on DOS: 08/10/24 FINDINGS: LUNGS AND PLEURAL SPACES: Unremarkable. No consolidation. No pneumothorax. HEART: Cardiomegaly without overt failure. MEDIASTINUM: Unremarkable. Normal mediastinal contour. BONES/JOINTS: Unremarkable. No acute fracture. TUBES, LINES AND DEVICES: Right peripherally inserted central catheter (PICC) tip in the superior v tasha cava. Probable Enteric tube tip cannot be seen but is below the diaphragm. However, evaluation is limited by multiple overlying wires. OTHER FINDINGS: . IMPRESSION: Cardiomegaly without overt failure.
[2024-08-14] MEDS ORDERED: BUMETANIDE INJECTION 12.5 MG in GIVE UN-DILUTED 0 ML IV SCH (12:15)
[2024-08-14] MEDS: BUMETANIDE 2.5mg/10ml (0.25 mg/ml) INJ IV ONE (13:33)
--- NOTE | 2024-08-14 14:31 | DVH ---
RENAL ULTRASOUND History: DAVE Comparison: None Technique: Multiple real-time sonographic images of the kidney and bladder were obtained in conjuncti on with Doppler imaging. Findings: Bilateral kidneys are echogenic. The right kidney measures 12 cm and demonstrates no evidence of hydronephrosis, perinephric fluid col lection, or shadowing stone. The left kidney measures 11.3 cm and demonstrates no evidence of hydronephrosis, perinephric fluid co llection, or shadowing stone. Urinary bladder: Decompressed by [place] catheter. Incidental note of cholelithiasis. Impression: 1. Echogenic kidneys, which can be seen with medical renal disease. 2. Cholelithiasis.
[2024-08-14 15:21] LABS: Creatinine, Urine 52.12 mg/dL (30.0-125.0)
[2024-08-14 15:24] LABS: Urine Protein/Creatinine Ratio 6.71
[2024-08-14 15:25] LABS: Protein, Urine 349.7 mg/dL (1-14)
[2024-08-14] MEDS: SOD CHL 0.45% 1,000 ML IV SCH (16:00)
--- NOTE | 2024-08-14 16:48 | DVHCONRES ---
Date Seen: August 14, 2024 Resident Creating Document: LIZZIE CONTRERAS RESIDENT History of Present Illness Mr Reynolds 69-year-old male patient with PMH of systolic CHF-EF 40%, COPD, type 2 diabetes mellitus, atrial fibrillation who initially presented to the ER on 07/30 for altered mental status and shortness of breath and underwent mechanical ventilation on 08/01. Patient is currently extubated, on 2 L nasal cannula supplementation. Patient is not vocal, only responds to his name but not to commands. Per patient's brother who is at bedside, patient has been not ambulating due to probably bilateral hip degenerative changes, and he has had extensive bilateral lower extremity ulcers with drainage, patient was feeling with home health and later opted hospice to see 24/10 care. Per her to admission, patient was confused and developed sudden onset shortness of breath. His hospice nurse saw the patient tachycardic at 130s and patient was saturating at 68% therefore he was sent to the ER. Patient was intubated 08/01 till 08/12. Blood cultures were negative, wound cultures 07/31 showed Enterobacter, Enterococcus and MRSA for which patient initially received IV vancomycin and IV cefepime starting 07/30, IV vancomycin was discontinued 08/11 and the patient was started on IV Zyvox b.i.d. 08/13. Patient has received 2 L of 0.45 NS, 250 cc of LR till now Nephrology has been consulted for worsening DAVE, patient has been experiencing renal failure since 08/10. Patient seen and examined at the bedside. Overnight low-grade fever 99.7, pulse 105 and irregular. Requiring 2 L NC supplementation. Bumex IV drip 0.5 mg/hours started. Continue 0.45 NS. Urine output 85 cc in the past 24 hours. Family History: Patient reports no known family medical history. Allergies: Coded Allergies: Shellfish Allergy (Verified Allergy, Unknown, 07/31/24) Home Meds Reported Medications Patients Own Medication (PATIENTS OWN MEDICATION) . PTS OWN MED-OBTAIN FROM PT AND SEND TO RX DRUG: FREQ: RX# EXP: DATE DISP: TECH: RP: 07/31/24 Patients Own Medication (PATIENTS OWN MEDICATION) . PTS OWN MED-OBTAIN FROM PT AND SEND TO RX DRUG: FREQ: RX# EXP: DATE DISP: TECH: RP: 07/31/24 Aspirin (Aspir-Low) 81 Mg Tab, 81 MG PO DAILY for 30 Days, MG 07/31/24 Furosemide (Furosemide) 40 Mg Tab, 1 TAB PO DAILY 07/31/24 Albuterol Sulfate (Albuterol Sulfate Hfa) 108 Mcg/Act Aer, INH 07/31/24 Metformin Hydrochloride (Metformin Hcl) 500 Mg Tab, 1 TAB PO DAILY 07/31/24 Current Medications Current Medications Medications (Trade) Dose Ordered Sig/Artie Route PRN Reason Start Time Stop Time Status Last Admin Cefepime HCl 50 ml @ 12.5 mls/hr DAILY@0600 IV 08/14/24 06:00 08/14/24 05:47 Insulin Glargine (Lantus) 15 units HS SC 08/14/24 22:00 Bumetanide 12.5 mg/Miscellaneous 50 ml @ 2 mls/hr Q24H IV 08/14/24 12:15 08/14/24 15:47 DC Sodium Chloride 1,000 ml @ 75 mls/hr [id number] IV 08/14/24 15:45 Prednisone 40 mg DAILY PO 08/15/24 10:00 Vital Signs Vital Signs Date Time Temp Pulse Resp B/P (MAP) Pulse Ox O2 Delivery O2 Flow Rate FiO2 08/14/24 15:45 98 23 133/56 (81) 97 08/14/24 14:15 Nasal Cannula* 2 N/A Mechanical Ventilator+ 08/14/24 12:00 98.1 98.1 Physical Exam Elderly male patient lying in the bed General: Obese, afebrile, palor, mucosae are moist Cardiovascular: IRRegular S1 and S2. No murmurs, gallops or rubs. No JVD homer vation. Bilateral pitting edema Respiratory: Bilateral decreased air entry on 2 L NC supplementation Abdomen: Soft, nontender, nondistended, normoactive bowel sounds, no rebound tenderness, no organomegaly, no masses Genitourinary: Deferred. Marlow draining 10 cc of urine MSK/skin: Mobilizes 4 limbs. Skin is dry and warm. Bilateral lower extremity have draining wounds, dressing dry clean and intact Neurological assessment could not be completed Labs/Diagnostic Data Labs Test 08/14/24 14:51 08/14/24 11:50 08/14/24 05:54 08/13/24 06:48 Range/Units Urine Creatinine 52.12 30.0-125.0 mg/dL Urine Protein/Creatinine Ratio 6.71 Urine Sodium 81 40-220 mmol/L Urine Total Protein 349.7 H 1-14 mg/dL POC Glucose 206 H 70-106 mg/dl White Blood Count 17.8 #H 4.4-10.8 10^3/uL Red Blood Count 3.06 L 4.5-5.90 10^6/uL Hemoglobin 8.8 L 13.5-17.5 g/dL Hematocrit 27.6 L 41.0-53.0 % Mean Corpuscular Volume 90.2 80.0-100.0 fL Mean Corpuscular Hemoglobin 28.8 28.0-32.0 pg Mean Corpuscular Hemoglobin Concent 31.9 L 32.0-36.0 g/dL Red Cell Distribution Width 15.6 H 11.8-14.3 % Platelet Count 250 140-450 10^3/uL Mean Platelet Volume 8.0 6.9-10.8 fL Neutrophils (%) (Auto) 92.0 H 37.0-80.0 % Lymphocytes (%) (Auto) 2.4 L 10.0-50.0 % Monocytes (%) (Auto) 5.4 0.0-12.0 % Eosinophils (%) (Auto) 0.0 0.0-7.0 % Basophils (%) (Auto) 0.2 0.0-2.0 % Neutrophils # (Auto) 16.4 H 1.6-8.6 10 ^3/uL Lymphocytes # (Auto) 0.4 0.4-5.4 10 ^3/uL Monocytes # (Auto) 1.0 0-1.3 10 ^3/uL Eosinophils # (Auto) 0 0-0.8 10 ^3/uL Basophils # (Auto) 0 0-0.2 10 ^3/uL Nucleated Red Blood Cells 0.0 % Sodium Level 142 136-145 mmol/L Potassium Level 4.9 3.5-5.1 mmol/L Chloride Level 105 98-107 mmol/L Carbon Dioxide Level 26 20-31 mmol/L Anion Gap 11 5-15 Blood Urea Nitrogen 121 #*H 9-23 mg/dL Creatinine 3.90 H 0.700-1.30 mg/dL Glomerular Filtration Rate Calc 16 >90 mL/min BUN/Creatinine Ratio 31.0 H 10.0-20.0 Serum Glucose 246 H 74-106 mg/dL Calcium Level 9.4 8.7-10.4 mg/dL Phosphorus Level 5.8 H 2.4-5.1 mg/dL Magnesium Level 2.4 1.6-2.6 mg/dL Vitamin D 25-Hydroxy 40.2 30.0-100 ng/mL Parathyroid Hormone (Intact) 54.6 18.4-80.1 pg/mL Differential Total Cells Counted 100.0 100 Neutrophils % (Manual) 93 H 37.0-80.0 Band Neutrophils % (Manual) 0 Lymphocytes % (Manual) 3 L 10.0-50.0 Monocytes % (Manual) 4 0-12 Eosinophils % (Manual) 0 0-7 Basophils % (Manual) 0 0.0-2.0 Metamyelocytes % (manual) 0 Myelocytes % (Manual) 0 Promyelocytes % (Manual) 0 Blast Cells % (Manual) 0 Reactive Lymphocytes 0 Platelet Estimate Adequate Random Vancomycin Level 16.2 H 5-10 ug/mL Test 08/12/24 07:00 08/12/24 06:55 08/11/24 10:42 08/11/24 06:40 Range/Units Urine Color Light-yellow Yellow Urine Clarity Turbid H Clear Urine pH 5.5 5.0-9.0 Urine Specific [place] 1.013 1.001-1.035 Urine Protein 1+ H Negative Urine Ketones Negative Negative Urine Blood 2+ H Negative /uL Urine Nitrite Negative Negative Urine Bilirubin Negative Negative Urine Urobilinogen Normal Negative mg/dL Urine Leukocyte Esterase Negative Negative /uL Urine RBC 33 0 - 3 /hpf Urine Microscopic WBC 9 H 0-3 /HPF Urine Squamous Epithelial Cells Few <5 /hpf Urine Bacteria Few H None Seen /hpf Urine Glucose Normal Normal mg/dL Blood Gas Specimen Type Arterial Blood Gas Sample Site Left radial Blood Gas Patient Temperature 37.0 Arterial Blood Date Drawn [id number] Arterial Blood pH 7.358 7.350-7.450 Arterial Blood Partial Pressure CO2 52.2 H 35.0-48.0 mmHg Arterial Blood Partial Pressure O2 92.0 83.0-108.0 mmHg Arterial Blood HCO3 28.7 H 21.0-28.0 mmol/L Arterial Blood Oxygen Saturation 96.2 94.0-98.0 % Arterial Blood Base Excess 2.5 -2.0-3.0 mmol/L Arterial Blood Oxyhemoglobin 95.6 94.0-98.0 % Arterial Blood Carboxyhemoglobin 0.3 L 0.5-1.5 % Arterial Blood Methemoglobin 0.3 0.0-1.5 % Kailash Test Yes Blood Gas Total Hemoglobin 11.00 L 13.5-17.5 g/dL Blood Gas Liter Flow 4.00 Blood Gas Modality Nasal cannula FiO2 % 40.0 Blood Gas Spontaneous Rate 23 Blood Gas Tidal Volume 450.0 Blood Gas Pressure Support 8 Blood Gas PEEP or CPAP 5.0 Blood Gas Set Respiration Rate 14.0 Test 08/10/24 10:07 08/09/24 06:26 08/09/24 04:28 08/08/24 19:11 Range/Units Blood Gas Spontaneous Tidal Volume 470 Blood Gas Critical Value Read Back Yes Blood Gas Notified Whom Nic salguero md Blood Gas Notified Time [id number] Blood Gas Notified By [employer] zuniga Total Bilirubin 0.4 0.2-1.0 mg/dL Aspartate Amino Transferase (AST) 22 13-40 U/L Alanine Aminotransferase (ALT) 22 7-40 U/L Alkaline Phosphatase 111 46-116 U/L Total Protein 6.4 5.7-8.2 g/dL Albumin 3.5 3.2-4.8 g/dL Vancomycin Level Trough 33.8 *H 5-10 ug/mL Test 08/08/24 08:18 08/07/24 04:46 08/02/24 16:44 08/01/24 03:52 Range/Units Prothrombin Time 11.9 H 9.3-11.8 sec Prothrombin Time INR 1.14 0.9-1.15 Activated Partial Thromboplast Time 27.0 24.5-34.5 SEC B-Type Natriuretic Peptide 42.39 0-100 pg/mL Urine Opiates Screen Neg NEGATIVE Urine Fentanyl Screen Pos NEGATIVE Urine Barbiturates Screen Neg NEGATIVE Urine Phencyclidine Screen Neg NEGATIVE Urine Amphetamines Screen Neg NEGATIVE Urine Benzodiazepines Screen Pos NEGATIVE Urine Cocaine Screen Neg NEGATIVE Urine Cannabinoids Screen Neg NEGATIVE Triglycerides Level 112 < 150 mg/dL Cholesterol Level 163 < 200 mg/dL LDL Cholesterol 77 < 100 mg/dL HDL Cholesterol 54 40-59 mg/dL Test 07/31/24 06:53 07/31/24 01:59 07/30/24 16:10 07/30/24 15:47 Range/Units Vitamin B12 Level 1350 H 211-911 pg/mL Folic Acid 32.36 >5.38 ng/mL Thyroid Stimulating Hormone (TSH) 0.60 0.55-4.78 uIU/mL Blood Gas EPAP 5 Blood Gas IPAP 22 Influenza Type A Antigen Negative Negative Influenza Type B Antigen Negative Negative SARS-CoV-2 Antigen (Rapid) Negative NEGATIVE Troponin I High Sensitivity 18 </=54 ng/L Test 07/30/24 15:37 07/30/24 14:47 Range/Units Urine Hyaline Casts Few 0 - 2 /lpf Urine Mucus Few None Seen Hemoglobin A1c 9.2 H <5.7 % A1C Lactic Acid Level 1.3 0.4-2.0 mmol/L Microbiology Date/Time Source Procedure Growth Status 08/12/24 07:06 Blood Blood Culture - Preliminary NO GROWTH AFTER 48 HOURS OF INCUBATION. Resulted 08/09/24 13:35 Other Aerobic Culture - Final Complete 08/01/24 00:00 Sputum Gram Stain - Final Complete 08/01/24 00:00 Sputum Respiratory Culture - Final Complete Assessment Acute kidney injury, rule out ATN== multifactorial secondary to vancomycin toxicity+ diuretics/nephrotoxins,, IV contrast for CTA on admission noted Acute hypoxic respiratory failure s/p intubation and mechanical ventilation, now extubated 08/12 Acute metabolic encephalopathy secondary to hypoxic/ hypercarbic respiratory failure Acute on chronic exacerbation of decompensated systolic heart failure, NYHA class 3 Chronic permanent atrial fibrillation with secondary hypercoagulable state Severe pulmonary hypertension likely due to COPD /FAWN Sepsis due to Bilateral lower extremity cellulitis PE ruled out Type 2 diabetes mellitus-A1c 9.2 Obesity Urine output 85 cc per past 24 hours Plan: Given the worsening renal function and urine output, we will closely monitor the patient. Patient may require hemodialysis if the urine output does not improve with diuresis. Started Bumex drip 0.5 mg per hour, continue half NS to increase urine volumes Follow up with urine studies and urine electrolytes Follow up with iron panel and kidney ultrasound Avoid nephrotoxic drugs Strict I&Os Plan discussed with patient in which all questions have been answered Case discussed with Dr. Lau Addendum Patient seen and examined, plan discussed with resident. Agree with above, we will follow closely This patient was in renal failure for four days, nephrology consulted only today morning when urine output significantly went down Recommend Bumex drip diuretic challenge We will consider renal replacement therapy if renal function does not improve BUN high likely secondary to diuretics and steroids Plan discussed with: Patient, Other (Brother with the bedside) LIZZIE CONTRERAS RESIDENT August 14, 2024 16:48 MELONY LAU MD August 14, 2024 18:36
[2024-08-14 17:14] LABS: % Iron Saturation 29.2 % (20-55)
--- NOTE | 2024-08-14 19:11 | DVHPNRES ---
Progress Note Date Seen: August 14, 2024 Resident Creating Document: GINETTE TRIVEDI RESIDENT Medical Necessity Reason Pt with a Central, PICC or Fol: Yes The following are medically ne: Central Line, [place] Catheter Reason for [place] catheter: Strict I&O Subjective Review of Systems Patient is a 69-year-old male with past medical history of CHF, COPD, type 2 diabetes, atrial fibrillation, who comes in due to respiratory distress. Per patient's brother who is also his caregiver, patient's home wound care nurse checked his vitals and his SpO2 was noted to be 68% with a pulse of 130, he also appeared disoriented and had labored breathing. Arrival to the ED patient was noted to be tachycardic and tachypneic and was placed on BiPAP. Note, patient is on home oxygen 2-3 L. Patient Underwent intubation with mechanical ventilation on 08/01/2024 due to acute metabolic encephalopathy likely due to acute hypoxic / hypercapnic respiratory failure. Patient was seen and examined on the bedside. He is alert and awake, status post extubation and currently on 3 L oxygen through nasal cannula and saturating 97%. Patient had episodes of fever in last 24 hour. Recent CxR showed improved lung expansion on the Lt side. Advised RT to do CPT on Lt side and night time bipap at 03/07. Objective vital signs Vital Sign Date Time Temp Pulse Resp B/P (MAP) Pulse Ox O2 Delivery O2 Flow Rate FiO2 08/14/24 18:30 107 12 133/55 (81) 90 08/14/24 18:20 Nasal Cannula* 2 28 08/14/24 16:00 98.6 98.6 Total Intake and Output 08/13/24 08/13/24 08/14/24 15:00 23:00 07:00 Intake Total 500 ml 1002 ml Output Total 100 ml 80 ml Balance 400 ml 922 ml medications Current Medications Medications Dose Ordered Sig/Artie Route Start Time Stop Time Status Last Admin Dose Admin Acetaminophen 325 mg Q4HP PRN PO 07/30/24 21:45 Ipratropium [place] 0.5 mg Q4HR NEB 07/30/24 22:00 08/14/24 18:20 0.5 MG Levalbuterol HCl 1.25 mg Q4HR NEB 07/30/24 22:00 08/14/24 18:20 1.25 MG Pantoprazole Sodium 40 mg DAILY IV 5/1/25 10:00 08/14/24 11:05 40 MG Enteral Nutritional Formula 1,000 ml 50ML/HR GT 08/05/24 17:15 08/12/24 21:58 1,000 ML Diagnostic Test (Pha) 1 strip Q6HR 08/06/24 00:00 08/14/24 18:22 1 STRIP Insulin Human Regular Q6HR SC 08/06/24 00:00 08/14/24 18:20 8 UNITS Dextrose 50 ml UD PRN IV 08/05/24 17:15 Lactulose 30 ml BID PO 08/07/24 10:00 08/13/24 22:07 30 ML Sodium Chloride 10 ml QSHIFT@10,22 IV 08/08/24 22:00 08/14/24 11:07 10 ML Metoprolol Tartrate 50 mg BID PO 08/10/24 22:00 08/14/24 11:03 50 MG Metoprolol Tartrate 1.25 mg Q6HPRN PRN IV 08/12/24 10:30 Enoxaparin Sodium 110 mg DAILY SC 08/13/24 10:00 08/14/24 11:07 110 MG Linezolid 300 ml @ 150 mls/hr Q12HR IV 08/13/24 10:00 08/14/24 11:07 150 MLS/HR Cefepime HCl 50 ml @ 12.5 mls/hr DAILY@0600 IV 08/14/24 06:00 08/14/24 05:47 12.5 MLS/HR Insulin Glargine 15 units HS SC 08/14/24 22:00 Sodium Chloride 1,000 ml @ 75 mls/hr [id number] IV 08/14/24 15:45 08/14/24 16:00 75 MLS/HR Prednisone 40 mg DAILY PO 08/15/24 10:00 Examination Physical examination: General Appearance: Alert and awake, Cooperative, s/p extubation HEENT: Atraumatic, PERRLA, EOMI, Mucous membrane moist/pink Respiratory: Clear to auscultation, Normal air movement Cardiovascular: Irregular rate, Normal S1, Normal S2, No murmurs, no chest wall tenderness Abdominal: Normal bowel sounds, Soft, No tenderness, No hepatospenomegaly, No masses Extremities: No clubbing, No cyanosis, No edema. Normal pulses, bilateral wounds in both legs covered with dressing. Skin: No rashes, No breakdown, No significant lesion Neuro: Strength at 4/5 X4 ext, Normal tone, Sensation intact, grossly intact cranial nerves. Psych/Mental Status: could not be assessed. laboratory and microbiology Laboratory Tests 08/14/24 05:54 Test 08/14/24 05:54 Range/Units Serum Glucose 246 H 74-106 mg/dL Microbiology Date/Time Source Procedure Growth Status 08/12/24 07:06 Blood Blood Culture - Preliminary NO GROWTH AFTER 48 HOURS OF INCUBATION. Resulted 08/09/24 13:35 Other Aerobic Culture - Final Complete 08/01/24 00:00 Sputum Gram Stain - Final Complete 08/01/24 00:00 Sputum Respiratory Culture - Final Complete Labs and/or images reviewed: Labs reviewed by me, Image(s) reviewed by me Problem List/Assessment/Plan Problem List/Assessment/Plan Assessment and plan: NEURO: Acute metabolic encephalopathy secondary to hypoxic/ hypercarbic respiratory failure - S/P extubation and currently on 3L O2 through nasal canula. CARDIOVASCULAR: Acute on chronic exacerbation of decompensated systolic heart failure, NYHA class 3 Chronic permanent atrial fibrillation with secondary hypercoagulable state Severe pulmonary hypertension likely due to COPD /FAWN - [id number] score 3 and HAS BLED score 2 - CXR showed cardiomegaly with mild pulmonary vascular congestion - Echo on 07/31/2024 demonstrated EF 40% with global hypokinesis, irregular contractility, moderate tricuspid regurgitation, moderate aortic sclerosis with diminished excursion of the right coronary cusp and RVSP 56 mm hg - Metoprolol tartrate 50 mg bid - Enoxaparin 110 mg SC daily. - Maintain strict I&O - Atorvastatin 20 mg at HS PULMONARY: Acute on chronic hypoxic / hypercarbic respiratory failure Acute on chronic exacerbation of COPD Ruled out pulmonary embolism Gram negative pneumonia ruled out - CT angiography demonstrated 2 cm nodular opacities right lung apex, ruled out PE and follow up CT scan in 6 weeks to see if there is resolution. - Med neb with levalbuterol and ipratropium q.4 hours - IV Linezolid 600 mg bid, IV cefepime 2gm Q 8 hours - Discontinued vancomycin due to worsening kidney function - Prednisone 40 mg po daily. - Respiratory culture showed normal oropharyngeal rc Renal: DAVE likely hemodynamically mediated/VMN Possible Vancomycin toxicity Microscopic hematuria and possible acute cystitis - IV 1/2 NS @75 ml/hr - Patient is on IV cefepime and linezolid - Nephrology on board. - Monitor BMP ENDOCRINE: Uncontrolled type 2 diabetes mellitus, hemoglobin A1c 9.2 Obesity class 3, BMI 50.1 kg/meter2 - Aggressive sliding scale q.6 hour - Lantus 15 units at HS HEME: Chronic normocytic normochromic anemia likely due to anemia of chronic disease INFECTIOUS DISEASE: Bilateral lower extremity cellulitis Sepsis due to above - Wound culture on 07/31/24 demonstrated Enterobacter intermedius, Enterococcus faecalis, MRSA which is sensitive to vancomycin and cefepime - IV Linezolid 600 mg bid and IV cefepime 2gm Q 8 hours - Blood culture showed no growth after 5 days of incubation DIET: Enteral feeding with Glucerna DVT prophylax: enoxaparin GI prophylaxis: Protonix 40 mg IV daily Bowel regimen: Lactulose 30 ml bid Code status: full code LINES/DRAINS/ACCESS: ETT: Intubated on 08/01/24 IV access: PICC line placed on 08/08/24 [place] catheter: on 08/13/24 DISPOSITION: JERRICA Patient's status discussed with assistant child care teacher time spent more than 41 minutes, including patient care, chart review, and Excluding any procedures. Case discussed with Dr. Hernandez Plan discussed with: Other (Brother, RN) My Orders My Orders Orders - GINETTE TRIVEDI RESIDENT Procedure Category Date Status Time Chest Portable XY 08/14/24 Resulted 06:30 *Dr. [facility] CONS 08/14/24 Transmitted -[place] 08:38 Insulin Lantus PHA 08/14/24 In Process (Glargine) (Lantus) 22:00 Dietary Evaluation Review Comments: 1. Suggest TF w/ formula Pivot 1.5 @ 40 ml/hr (GOAL). Begin @ 10 ml/hr; advance by 10 ml Q4 hrs or as tolerated to 40 ml/hr x 24 hrs 2. Provide free water flushes of 30 ml Q6 hrs (120 ml total); adjust PRN 3. Monitor BMP/lytes and replete to WNL/PRN 4. Lantus, ss insulin for correction; adjust PRN to maintain BG <180 mg/dl TF Provision: TF at goal to provide 960 ml total volume, 1440 kcal, 90 gm pro, 7 gm fiber, 165 gm CHO, 729 ml H20 (meets 100% est. kcal needs, 100% est. pro needs) Expected Outcomes/Goals: Improved nutritional status, TF initiation within 24-48 hrs of intubation. Date of Service: August 14, 2024 Billing Provider: GERMAN HERNANDEZ MD Common Visit Codes: 20210-[id number] CARE 30-74 MIN IGNETTE TRIVEDI RESIDENT August 14, 2024 19:11 GERMAN HERNANDEZ MD August 15, 2024 12:07
[2024-08-14] MEDS: INSULIN LANTUS (GLARGINE) 1 /0.01ml (100units/ml) SC SCH (22:02)
[2024-08-15] VITALS (116 sets, daily range): BP systolic 66–178; BP diastolic 31–150; PULSE 62–122; RESP 9–29; TEMP 97.7–99.2; O2SAT 32–100
[2024-08-15 07:26] LABS: Chloride 101 mmol/L (98-107); Sodium 137 mmol/L (136-145)
[2024-08-15 07:27] LABS: Anion Gap 12 (5-15); Calcium 9.4 mg/dL (8.7-10.4); Carbon Dioxide 24 mmol/L (20-31)
[2024-08-15 07:31] LABS: Potassium 5.3 mmol/L (3.5-5.1)
[2024-08-15 07:32] LABS: BUN/Creatinine Ratio 25.3 (10.0-20.0)
[2024-08-15 07:36] LABS: Basophils # (auto) 0 10 ^3/uL (0-0.2); Basophils % (auto) 0.2 % (0.0-2.0); Eosinophils # (auto) 0 10 ^3/uL (0-0.8); Eosinophils % (auto) 0.2 % (0.0-7.0); Glucose 179 mg/dL (74-106); Hematocrit 32.7 % (41.0-53.0); Hemoglobin 10.2 g/dL (13.5-17.5); Lymphocytes % (auto) 5.6 % (10.0-50.0); Mean Corpuscular Hemoglobin 28.7 pg (28.0-32.0); Mean Corpuscular Hgb Conc. 31.2 g/dL (32.0-36.0); Mean Corpuscular Volume 92.1 fL (80.0-100.0); Monocytes % (auto) 6.1 % (0.0-12.0); Neutrophils % (auto) 87.9 % (37.0-80.0); Platelet Count (auto) 210 10^3/uL (140-450); Red Blood Cells 3.55 10^6/uL (4.5-5.90); Red Cell Distribution Width 15.7 % (11.8-14.3); White Blood Cell 17.1 10^3/uL (4.4-10.8)
[2024-08-15 07:38] LABS: Blood Urea Nitrogen 118 mg/dL (9-23)
[2024-08-15] MEDS: SODIUM ZIRCONIUM CYCL 10 GM PAK PO ONE (09:14)
[2024-08-15] MEDS: FUROSEMIDE 20 MG/2 ML VIAL IV ONE (09:14)
[2024-08-15] MEDS: DEXTROSE (50%) 50ML SYRG IV ONE (09:15)
[2024-08-15] MEDS: InsuLIN REG 1unit/0.01ml Soln (100units/ml) IV ONE (09:22)
[2024-08-15] MEDS ORDERED: predniSONE 20 MG TAB PO SCH (10:00)
[2024-08-15] MEDS: NOREPINEPHRINE 8 MG/250ML KIT 250 ML IV ONE (10:42)
[2024-08-15] MEDS: HEPARIN 1,000 UNITS/ml 1ML VIAL IV ONE ×2 (11:00)
--- NOTE | 2024-08-15 11:08 | DVHPNRES ---
Progress Note Date Seen: August 15, 2024 Resident Creating Document: GINETTE TRIVEDI RESIDENT Medical Necessity Reason Pt with a Central, PICC or Fol: Yes The following are medically ne: Central Line, [place] Catheter Reason for [place] catheter: Strict I&O Subjective Review of Systems Patient is a 69-year-old male with past medical history of CHF, COPD, type 2 diabetes, atrial fibrillation, who comes in due to respiratory distress. Per patient's brother who is also his caregiver, patient's home wound care nurse checked his vitals and his SpO2 was noted to be 68% with a pulse of 130, he also appeared disoriented and had labored breathing. Arrival to the ED patient was noted to be tachycardic and tachypneic and was placed on BiPAP. Note, patient is on home oxygen 2-3 L. Patient Underwent intubation with mechanical ventilation on 08/01/2024 due to acute metabolic encephalopathy likely due to acute hypoxic / hypercapnic respiratory failure. Patient was seen and examined on the bedside. He is alert and awake, status post extubation and currently on bipap. Patient had episodes of fever in last 24 hour. Recent CxR showed improved lung expansion on the Lt side. Last 12 hour urine output was 125 ml and BUN and creatinine is going up. Hyperkalemia was managed with hyperkalemia protocol management. Renal U/S showed echogenic kidneys and rt Kaden catheter placed for possible dialysis. Objective vital signs Vital Sign Date Time Temp Pulse Resp B/P (MAP) Pulse Ox O2 Delivery O2 Flow Rate FiO2 08/15/24 09:14 134/58 08/15/24 08:15 115 22 98 08/15/24 08:00 97.7 97.7 08/15/24 06:59 Nasal Cannula 2.0 08/15/24 06:59 28 Total Intake and Output 08/14/24 08/14/24 08/15/24 15:00 23:00 07:00 Intake Total 750 ml 1222 ml 960.0 ml Output Total 80 ml 100 ml Balance 750 ml 1142 ml 860.0 ml medications Current Medications Medications Dose Ordered Sig/Artie Route Start Time Stop Time Status Last Admin Dose Admin Acetaminophen 325 mg Q4HP PRN PO 07/30/24 21:45 Ipratropium [place] 0.5 mg Q4HR NEB 07/30/24 22:00 08/15/24 06:59 0.5 MG Levalbuterol HCl 1.25 mg Q4HR NEB 07/30/24 22:00 08/15/24 06:59 1.25 MG Pantoprazole Sodium 40 mg DAILY IV 08/01/24 10:00 08/15/24 09:42 40 MG Enteral Nutritional Formula 1,000 ml 50ML/HR GT 08/05/24 17:15 08/12/24 21:58 1,000 ML Diagnostic Test (Pha) 1 strip Q6HR 08/06/24 00:00 08/15/24 05:48 1 STRIP Insulin Human Regular Q6HR SC 08/06/24 00:00 08/15/24 05:49 2 UNITS Dextrose 50 ml UD PRN IV 08/05/24 17:15 Lactulose 30 ml BID PO 08/07/24 10:00 08/13/24 22:07 30 ML Sodium Chloride 10 ml QSHIFT@10,22 IV 08/08/24 22:00 08/15/24 09:41 10 ML Metoprolol Tartrate 50 mg BID PO 08/10/24 22:00 08/14/24 11:03 50 MG Metoprolol Tartrate 1.25 mg Q6HPRN PRN IV 08/12/24 10:30 Enoxaparin Sodium 110 mg DAILY SC 08/13/24 10:00 08/14/24 11:07 110 MG Linezolid 300 ml @ 150 mls/hr Q12HR IV 08/13/24 10:00 08/15/24 09:41 150 MLS/HR Cefepime HCl 50 ml @ 12.5 mls/hr DAILY@0600 IV 08/14/24 06:00 08/15/24 05:48 12.5 MLS/HR Insulin Glargine 15 units HS SC 08/14/24 22:00 08/14/24 22:02 15 UNITS Sodium Chloride 1,000 ml @ 75 mls/hr [id number] IV 08/14/24 15:45 08/15/24 03:48 75 MLS/HR Prednisone 40 mg DAILY PO 08/15/24 10:00 Bumetanide 25 mg/ Miscellaneous 100 ml @ 4 mls/hr Q24H IV 08/15/24 08:30 Examination Physical examination: General Appearance: Confused and on bipap HEENT: Atraumatic, PERRLA, EOMI, Mucous membrane moist/pink Respiratory: Clear to auscultation, Normal air movement Cardiovascular: Irregular rate, Normal S1, Normal S2, No murmurs, no chest wall tenderness Abdominal: Normal bowel sounds, Soft, No tenderness, No hepatospenomegaly, No masses Extremities: No clubbing, No cyanosis, No edema. Normal pulses, bilateral wounds in both legs covered with dressing. Skin: No rashes, No breakdown, No significant lesion Neuro: Strength at 4/5 X4 ext, Normal tone, Sensation intact, grossly intact cranial nerves. Psych/Mental Status: could not be assessed. laboratory and microbiology Laboratory Tests 08/15/24 06:52 Test 08/15/24 06:52 Range/Units Serum Glucose 179 H 74-106 mg/dL Microbiology Date/Time Source Procedure Growth Status 08/12/24 07:06 Blood Blood Culture - Preliminary NO GROWTH AFTER 72 HOURS OF INCUBATION. Resulted 08/09/24 13:35 Other Aerobic Culture - Final Complete 08/01/24 00:00 Sputum Gram Stain - Final Complete 08/01/24 00:00 Sputum Respiratory Culture - Final Complete Labs and/or images reviewed: Labs reviewed by me, Image(s) reviewed by me Problem List/Assessment/Plan Problem List/Assessment/Plan Assessment and plan: NEURO: Acute metabolic encephalopathy secondary to hypoxic/ hypercarbic respiratory failure - S/P extubation and currently on BiPAP CARDIOVASCULAR: Acute on chronic exacerbation of decompensated systolic heart failure, NYHA class 3 Chronic permanent atrial fibrillation with secondary hypercoagulable state Severe pulmonary hypertension likely due to COPD /FAWN - [id number] score 3 and HAS BLED score 2 - CXR showed cardiomegaly with mild pulmonary vascular congestion - Echo on 07/31/2024 demonstrated EF 40% with global hypokinesis, irregular contractility, moderate tricuspid regurgitation, moderate aortic sclerosis with diminished excursion of the right coronary cusp and RVSP 56 mm hg - Metoprolol tartrate 50 mg bid - Enoxaparin 110 mg SC daily. - Maintain strict I&O - Atorvastatin 20 mg at HS PULMONARY: Acute on chronic hypoxic / hypercarbic respiratory failure Acute on chronic exacerbation of COPD Ruled out pulmonary embolism Gram negative pneumonia ruled out - CT angiography demonstrated 2 cm nodular opacities right lung apex, ruled out PE and follow up CT scan in 6 weeks to see if there is resolution. - Med neb with levalbuterol and ipratropium q.4 hours - IV methylprednisolone 40 mg bid - IV Linezolid 600 mg bid, IV cefepime 2gm Q 8 hours - Discontinued vancomycin due to worsening kidney function - Prednisone 40 mg po daily. - Respiratory culture showed normal oropharyngeal rc Renal: DAVE likely hemodynamically mediated/VMN Possible Vancomycin toxicity Microscopic hematuria and possible acute cystitis - Patient is on IV cefepime and linezolid - Nephrology on board. - Monitor BMP Metabolic: Hyperkalemia likely due to DAVE - Hyperkalemia protocol management. - Monitor BMP ENDOCRINE: Uncontrolled type 2 diabetes mellitus, hemoglobin A1c 9.2 Obesity class 3, BMI 50.1 kg/meter2 - Aggressive sliding scale q.6 hour - Lantus 15 units at HS HEME: Chronic normocytic normochromic anemia likely due to anemia of chronic disease INFECTIOUS DISEASE: Bilateral lower extremity cellulitis Sepsis due to above - Wound culture on 07/31/24 demonstrated Enterobacter intermedius, Enterococcus faecalis, MRSA which is sensitive to vancomycin and cefepime - IV Linezolid 600 mg bid and IV cefepime 2gm Q 8 hours - Blood culture showed no growth after 5 days of incubation DIET: Enteral feeding with Glucerna DVT prophylax: enoxaparin GI prophylaxis: Protonix 40 mg IV daily Bowel regimen: Lactulose 30 ml bid Code status: full code LINES/DRAINS/ACCESS: Kaden catheter: Placed on 08/15/24 IV access: PICC line placed on 08/08/24 [place] catheter: on 08/13/24 DISPOSITION: JERRICA Patient's status discussed with day care attendant time spent more than 83 minutes, including patient care, chart review, and procedures and monitoring of blood gases on bipap Case discussed with Dr. Sosa Plan discussed with: Other (MARLYS Talbot) Dietary Evaluation Review Comments: 1. Suggest TF w/ formula Pivot 1.5 @ 40 ml/hr (GOAL). Begin @ 10 ml/hr; advance by 10 ml Q4 hrs or as tolerated to 40 ml/hr x 24 hrs 2. Provide free water flushes of 30 ml Q6 hrs (120 ml total); adjust PRN 3. Monitor BMP/lytes and replete to WNL/PRN 4. Lantus, ss insulin for correction; adjust PRN to maintain BG <180 mg/dl TF Provision: TF at goal to provide 960 ml total volume, 1440 kcal, 90 gm pro, 7 gm fiber, 165 gm CHO, 729 ml H20 (meets 100% est. kcal needs, 100% est. pro needs) Expected Outcomes/Goals: Improved nutritional status, TF initiation within 24-48 hrs of intubation. Date of Service: August 15, 2024 Billing Provider: GERMAN SOSA MD Common Visit Codes: 52810-[id number] CARE 30-74 MIN, 00113-[id number] CARE-EACH +30MIN GINETTE TRIVEDI RESIDENT August 15, 2024 11:08 GERMAN SOSA MD August 17, 2024 22:28
[2024-08-15] MEDS: SODIUM CHL 0.9% 1000 ML BAG XX ONE (11:30)
--- NOTE | 2024-08-15 11:43 | DVH ---
EXAM: XY CHEST XRAY 1 VIEW Indication: r IJ YE PLACEMENT Technique: Single frontal view of the chest was obtained Comparison: XY CHEST PORTABLE on DOS: 08/14/24, XY CHEST PORTABLE on DOS: 08/13/24, XY CHEST PORTABLE o n DOS: 08/12/24, XY CHEST PORTABLE on DOS: 08/12/24, XY CHEST PORTABLE on DOS: 08/11/24 FINDINGS: Lines and Tubes: Right internal jugular central venous catheter tip projects over superior vena cava. Right PICC tip projects over the cavoatrial junction. Lungs: Mild pulmonary vascular congestion. Pleura: No effusion. No pneumothorax. Cardiomediastinal contours: Cardiomegaly Bones: No acute osseous abnormality. IMPRESSION: Interval placement of right internal jugular central venous catheter with tip in the superior vena ca va. Cardiomegaly with mild pulmonary vascular congestion
[2024-08-15] MEDS: BUMETANIDE INJECTION 25 MG in GIVE UN-DILUTED 0 ML IV SCH (12:57)
[2024-08-15 14:42] LABS: Base Excess -3.5 mmol/L (-2.0-3.0)
[2024-08-15] MEDS: methylPREDNISolone SOD SUCC 40 MG/ML VL IV ONE (17:05)
--- NOTE | 2024-08-15 17:21 | DVHPN2 ---
Progress Note Date Seen: August 15, 2024 Resident Creating Document: LIZZIE CONTRERAS RESIDENT Medical Necessity Reason Pt with a Central, PICC or Fol: Yes The following are medically ne: Central Line, [place] Catheter Reason for [place] catheter: Strict I&O Subjective Review of Systems Mr Reynolds 69-year-old male patient with PMH of systolic CHF-EF 40%, COPD, type 2 diabetes mellitus, atrial fibrillation who initially presented to the ER on 07/30 for altered mental status and shortness of breath and underwent mechanical ventilation on 08/01. Patient is currently extubated, on 2 L nasal cannula supplementation. Patient is not vocal, only responds to his name but not to commands. Per patient's brother who is at bedside, patient has been not ambulating due to probably bilateral hip degenerative changes, and he has had extensive bilateral lower extremity ulcers with drainage, patient was feeling with home health and later opted hospice to see 24/10 care. Per her to admission, patient was confused and developed sudden onset shortness of breath. His hospice nurse saw the patient tachycardic at 130s and patient was saturating at 68% therefore he was sent to the ER. Patient was intubated 08/01 till 08/12. Blood cultures were negative, wound cultures 07/31 showed Enterobacter, Enterococcus and MRSA for which patient initially received IV vancomycin and IV cefepime starting 07/30, IV vancomycin was discontinued 08/11 and the patient was started on IV Zyvox b.i.d. 08/13. Patient has received 2 L of 0.45 NS, 250 cc of LR till now Nephrology has been consulted for worsening DAVE, patient has been experiencing renal failure since 08/10. 08/14-Patient seen and examined at the bedside. Overnight low-grade fever 99.7, pulse 105 and irregular. Requiring 2 L NC supplementation. Bumex IV drip 0.5 mg/hours started. Continue 0.45 NS. Urine output 85 cc in the past 24 hours. 08/15 - patient seen and examined at the bedside. Urine output less than 100 cc overnight. Right IJ Kaden placed, hemodialysis order placed. Primary team started methylprednisolone 40 mg IV b.i.d. renal ultrasound shows echogenic kidneys. Objective vital signs Vital Sign Date Time Temp Pulse Resp B/P (MAP) Pulse Ox O2 Delivery O2 Flow Rate FiO2 08/15/24 16:05 99 125/65 100 Facial BiPAP Mask 30 5/15/25 15:08 22 08/15/24 14:00 2 08/15/24 12:00 98.0 98.0 Total Intake and Output 08/14/24 08/14/24 08/15/24 14:59 22:59 06:59 Intake Total 750 ml 1047 ml 1097.5 ml Output Total 80 ml 100 ml Balance 750 ml 967 ml 997.5 ml medications Current Medications Medications Dose Ordered Sig/Artie Route Start Time Stop Time Status Last Admin Dose Admin Acetaminophen 325 mg Q4HP PRN PO 07/30/24 21:45 Ipratropium [place] 0.5 mg Q4HR NEB 07/30/24 22:00 08/15/24 15:00 0.5 MG Levalbuterol HCl 1.25 mg Q4HR NEB 07/30/24 22:00 08/15/24 15:01 1.25 MG Pantoprazole Sodium 40 mg DAILY IV 08/01/24 10:00 08/15/24 09:42 40 MG Enteral Nutritional Formula 1,000 ml 50ML/HR GT 08/05/24 17:15 08/12/24 21:58 1,000 ML Diagnostic Test (Pha) 1 strip Q6HR 08/06/24 00:00 08/15/24 13:00 1 STRIP Insulin Human Regular Q6HR SC 08/06/24 00:00 08/15/24 13:05 2 UNITS Dextrose 50 ml UD PRN IV 08/05/24 17:15 Lactulose 30 ml BID PO 08/07/24 10:00 08/13/24 22:07 30 ML Sodium Chloride 10 ml QSHIFT@10,22 IV 08/08/24 22:00 08/15/24 09:41 10 ML Metoprolol Tartrate 1.25 mg Q6HPRN PRN IV 08/12/24 10:30 Enoxaparin Sodium 110 mg DAILY SC 08/13/24 10:00 08/14/24 11:07 110 MG Linezolid 300 ml @ 150 mls/hr Q12HR IV 08/13/24 10:00 08/15/24 09:41 150 MLS/HR Cefepime HCl 50 ml @ 12.5 mls/hr DAILY@0600 IV 08/14/24 06:00 08/15/24 05:48 12.5 MLS/HR Insulin Glargine 15 units HS SC 08/14/24 22:00 08/14/24 22:02 15 UNITS Bumetanide 25 mg/ Miscellaneous 100 ml @ 4 mls/hr Q24H IV 08/15/24 08:30 08/15/24 12:57 4 MLS/HR Methylprednisolone Sodium Succinate 40 mg BID IV 08/15/24 22:00 Examination Elderly male patient lying in the bed. Right IJ Kaden General: Obese, afebrile, palor, mucosae are moist Cardiovascular: IRRegular S1 and S2. No murmurs, gallops or rubs. No JVD elevation. Bilateral pitting edema Respiratory: Bilateral decreased air entry on 2 L NC supplementation Abdomen: Soft, nontender, nondistended, normoactive bowel sounds, no rebound tenderness, no organomegaly, no masses Genitourinary: Deferred. [place] draining 10 cc of urine MSK/skin: Mobilizes 4 limbs. Skin is dry and warm. Bilateral lower extremity have draining wounds, dressing dry clean and intact Neurological assessment could not be completed laboratory and microbiology Laboratory Tests 08/15/24 06:52 Test 08/15/24 06:52 Range/Units Serum Glucose 179 H 74-106 mg/dL Microbiology Date/Time Source Procedure Growth Status 08/12/24 07:06 Blood Blood Culture - Preliminary NO GROWTH AFTER 72 HOURS OF INCUBATION. Resulted 08/09/24 13:35 Other Aerobic Culture - Final Complete 08/01/24 00:00 Sputum Gram Stain - Final Complete 08/01/24 00:00 Sputum Respiratory Culture - Final Complete Labs and/or images reviewed: Labs reviewed by me, Image(s) reviewed by me Problem List/Assessment/Plan Problem List/Assessment/Plan Acute kidney injury, rule out ATN== multifactorial secondary to vancomycin toxicity+ diuretics/nephrotoxins,, IV contrast for CTA on admission noted Acute hypoxic respiratory failure s/p intubation and mechanical ventilation, now extubated 08/12 Acute metabolic encephalopathy secondary to hypoxic/ hypercarbic respiratory failure Acute on chronic exacerbation of decompensated systolic heart failure, NYHA class 3 Chronic permanent atrial fibrillation with secondary hypercoagulable state Severe pulmonary hypertension likely due to COPD /FAWN Sepsis due to Bilateral lower extremity cellulitis PE ruled out Type 2 diabetes mellitus-A1c 9.2 Obesity Urine output 85 cc per past 24 hours Plan: Given the worsening renal function and urine output, patient started on Bumex drip 1 milligram/hour. Right IJ Kaden catheter placed for hemodialysis. Hemodialysis pending Discontinued IV fluids Patient is requiring Levophed for hypotension BUN high likely secondary to diuretics and steroids Avoid nephrotoxic drugs Strict I&Os Plan discussed with patient in which all questions have been answered Case discussed with Dr. Lau Addendum Patient seen and examined, plan discussed with resident. Agree with above, we will follow closely HD today and tomorrow critical care time including HD arrangement and following ,46 min Plan discussed with: Patient Dietary Evaluation Review Comments: 1. Suggest TF w/ formula Pivot 1.5 @ 40 ml/hr (GOAL). Begin @ 10 ml/hr; advance by 10 ml Q4 hrs or as tolerated to 40 ml/hr x 24 hrs 2. Provide free water flushes of 30 ml Q6 hrs (120 ml total); adjust PRN 3. Monitor BMP/lytes and replete to WNL/PRN 4. Lantus, ss insulin for correction; adjust PRN to maintain BG <180 mg/dl TF Provision: TF at goal to provide 960 ml total volume, 1440 kcal, 90 gm pro, 7 gm fiber, 165 gm CHO, 729 ml H20 (meets 100% est. kcal needs, 100% est. pro needs) Expected Outcomes/Goals: Improved nutritional status, TF initiation within 24-48 hrs of intubation. LIZZIE CONTRERAS RESIDENT August 15, 2024 17:21 MELONY LAU MD August 15, 2024 20:14
--- NOTE | 2024-08-15 19:03 | DVHNC2 ---
Central Line Recorder of insertion practice: Glost Tile Shader Occupation of diamond driller helper: Name of diamond driller helper (Ginette Llamas) Indication: Other (Dialysis) Room prepared for procedure: Yes Glost Tile Shader performed hand hygien: Yes Maximal sterile barrier precau: Mask/Eye shield, Sterile gown, Cap, Sterlie gloves, Large sterlie drape Skin Preparation: Chlorhexidine gluconate, Providine iodine Skin preparation completely dr: Yes Insertion site: Right, Internal jugular Central line catheter type: Dialysis non-tunneled Number of lumens: 2 Central line exchanged over a: No Antiseptic ointment applied to: Yes Post Assessment: Chest X-Ray, No Pneumothorax Informed consent obtained: Yes Risks/benefits/alt described: Yes Notes Procedure note: . A time out was performed. My hands were washed immediately prior to the procedure. I wore a surgical cap, mask with protective eyewear, full gown and sterile gloves throughout the procedure. The patient was placed in Trendelenburg position. RIGHT chest region was prepped using chlorhexidine scrub and draped in sterile fashion using a full drape and sterile probe cover and sterile gel employed. The medial and lateral heads of the sternocleidomastoid muscle were identified as was the carotid pulse. The Internal Jugular vein was identified using the ultrasound. Anesthesia was achieved over the vein using 1% lidocaine. Using real-time out of plane guidance, the introducer needle was inserted into the Internal Jugular vein under direct ultrasound visualization. Venous blood was withdrawn. The syringe was removed and a guidewire was advanced into the introducer needle. The guidewire was visualized in the Internal Jugular Vein by ultrasound. A small incision was made at the skin surface with a scalpel and the introducer needle was exchanged for a dilator over the guidewire. After appropriate dilation was obtained, the dilator was exchanged over the wire for a petty catheter. The wire was removed and the catheter was sutured in [address] A sterile sorbaview shield was placed over the catheter at the insertion site. The patient tolerated the procedure without any hemodynamic compromise. At time of procedure completion, all ports aspirated and flushed properly. Post-procedure chest x-ray excluded pneumothorax. Estimated blood loss is less than 5 ml. Hollow Handle Bench Worker: Dr. Hernandez Date of Service: August 15, 2024 Billing Provider: FARDOUS,GINETTE RESIDENT Common Visit Codes: PROCEDURE ONLY Procedure Codes: 94815-[id number] NON-TUNNEL CV CATH GINETTE LLAMAS August 15, 2024 19:03 GERMAN HERNANDEZ MD August 17, 2024 22:30
[2024-08-15] MEDS: methylPREDNISolone SOD SUCC 40 MG/ML VL IV SCH (22:11)
[2024-08-15 23:14] LABS: Base Excess 1.1 mmol/L (-2.0-3.0)
[2024-08-15 23:57] LABS: Anion Gap 10 (5-15); Carbon Dioxide 27 mmol/L (20-31); Chloride 100 mmol/L (98-107); Potassium 4.6 mmol/L (3.5-5.1); Sodium 137 mmol/L (136-145)
[2024-08-15 23:58] LABS: Calcium 8.4 mg/dL (8.7-10.4)
[2024-08-16] VITALS (106 sets, daily range): BP systolic 85–141; BP diastolic 24–109; PULSE 68–126; RESP 12–27; TEMP 97.7–98.1; O2SAT 77–100
[2024-08-16 00:03] LABS: BUN/Creatinine Ratio 22.8 (10.0-20.0); Magnesium 2.2 mg/dL (1.6-2.6)
[2024-08-16 00:04] LABS: Blood Urea Nitrogen 76 mg/dL (9-23); Glucose 224 mg/dL (74-106)
[2024-08-16] MEDS: NOREPINEPHRINE 8 MG/250ML KIT 250 ML IV SCH (04:26)
--- NOTE | 2024-08-16 06:01 | DVH ---
EXAM: XR Chest, 1 View CLINICAL INDICATION: Bipap TECHNIQUE: Frontal view of the chest. COMPARISON: XY CHEST XRAY 1 VIEW on DOS: 08/15/24, XY CHEST PORTABLE on DOS: 08/14/24, XY CHEST MALENA BLE on DOS: 08/13/24, XY CHEST PORTABLE on DOS: 08/12/24, XY CHEST PORTABLE on DOS: 08/12/24 FINDINGS: LUNGS AND PLEURAL SPACES: See below. HEART: Cardiomegaly with mild congestion. MEDIASTINUM: Unremarkable. Normal mediastinal contour. BONES/JOINTS: Unremarkable. No acute fracture. TUBES, LINES AND DEVICES: Right internal jugular central venous catheter tip in the superior vena c gustavo. Enteric tube tip cannot be seen but is below the diaphragm. Right peripherally inserted centra l catheter (PICC) tip in the superior vena cava. OTHER FINDINGS: . . IMPRESSION: Cardiomegaly with mild congestion.
[2024-08-16 06:48] LABS: Base Excess 1.2 mmol/L (-2.0-3.0)
[2024-08-16 07:27] LABS: Alanine Aminotransferase 31 U/L (7-40); Anion Gap 10 (5-15); Aspartate Aminotransferase 33 U/L (13-40); BUN/Creatinine Ratio 26.1 (10.0-20.0); Bilirubin, Total 0.4 mg/dL (0.2-1.0); Calcium 8.9 mg/dL (8.7-10.4); Carbon Dioxide 25 mmol/L (20-31); Chloride 101 mmol/L (98-107); Potassium 4.7 mmol/L (3.5-5.1)
[2024-08-16 07:34] LABS: Albumin 2.9 g/dL (3.2-4.8); Alkaline Phosphatase 156 U/L (46-116); Glucose 215 mg/dL (74-106); Sodium 136 mmol/L (136-145); Total Protein 5.2 g/dL (5.7-8.2)
[2024-08-16 07:35] LABS: Blood Urea Nitrogen 92 mg/dL (9-23)
[2024-08-16 08:59] LABS: Hemoglobin 8.1 g/dL (13.5-17.5); Platelet Count (auto) 195 10^3/uL (140-450)
[2024-08-16 09:01] LABS: Hematocrit 25.5 % (41.0-53.0); Mean Corpuscular Hemoglobin 28.8 pg (28.0-32.0); Mean Corpuscular Hgb Conc. 31.9 g/dL (32.0-36.0); Mean Corpuscular Volume 90.4 fL (80.0-100.0); Red Blood Cells 2.82 10^6/uL (4.5-5.90); Red Cell Distribution Width 15.1 % (11.8-14.3); White Blood Cell 15.3 10^3/uL (4.4-10.8)
[2024-08-16 09:06] LABS: Band Neutrophils % (manual) 0; Basophils % (manual) 0 (0.0-2.0); Blast Cells 0; Eosinophils % (manual) 0 (0-7); Metamyelocytes % 0; Myelocytes % 0; Promyelocytes % 0; Reactive Lymphocytes 0
[2024-08-16] MEDS ORDERED: predniSONE 20 MG TAB PO SCH (10:00)
--- NOTE | 2024-08-16 11:08 | DVH ---
EXAM: XY CHEST XRAY 1 VIEW Indication: check Ngtube placement Technique: Single frontal view of the chest was obtained Comparison: XY CHEST PORTABLE on DOS: 08/16/24, XY CHEST XRAY 1 VIEW on DOS: 08/15/24, XY CHEST PORTABL E on DOS: 08/14/24, XY CHEST PORTABLE on DOS: 08/13/24, XY CHEST PORTABLE on DOS: 08/12/24 FINDINGS: Lines and Tubes: Enteric tube projects over the expected region of the stomach. Right PICC tip projec ts over the cavoatrial junction. Right central venous catheter tip projects over the proximal superi or vena cava. Lungs: Pulmonary vascular congestion. Pleura: No effusion. No pneumothorax. Cardiomediastinal contours: Cardiomegaly. Bones: No acute osseous abnormality. IMPRESSION: Cardiomegaly with pulmonary vascular congestion. Lines and tubes in appropriate position.
[2024-08-16 11:12] LABS: Lymphocytes % (manual) 2 (10.0-50.0); Monocytes % (manual) 4 (0-12); Platelet Estimate Adequate
[2024-08-16] MEDS: ALBUMIN 25% 100 ML IV ONE (16:00)
--- NOTE | 2024-08-16 16:06 | DVHPN2 ---
Progress Note Date Seen: August 16, 2024 Resident Creating Document: LIZZIE CONTRERAS RESIDENT Medical Necessity Reason Pt with a Central, PICC or Fol: Yes The following are medically ne: Central Line, [place] Catheter Reason for [place] catheter: Strict I&O Subjective Review of Systems Mr Reynolds 69-year-old male patient with PMH of systolic CHF-EF 40%, COPD, type 2 diabetes mellitus, atrial fibrillation who initially presented to the ER on 07/30 for altered mental status and shortness of breath and underwent mechanical ventilation on 08/01. Patient is currently extubated, on 2 L nasal cannula supplementation. Patient is not vocal, only responds to his name but not to commands. Per patient's brother who is at bedside, patient has been not ambulating due to probably bilateral hip degenerative changes, and he has had extensive bilateral lower extremity ulcers with drainage, patient was feeling with home health and later opted hospice to see 24/10 care. Per her to admission, patient was confused and developed sudden onset shortness of breath. His hospice nurse saw the patient tachycardic at 130s and patient was saturating at 68% therefore he was sent to the ER. Patient was intubated 08/01 till 08/12. Blood cultures were negative, wound cultures 07/31 showed Enterobacter, Enterococcus and MRSA for which patient initially received IV vancomycin and IV cefepime starting 07/30, IV vancomycin was discontinued 08/11 and the patient was started on IV Zyvox b.i.d. 08/13. Patient has received 2 L of 0.45 NS, 250 cc of LR till now Nephrology has been consulted for worsening DAVE, patient has been experiencing renal failure since 08/10. 08/14-Patient seen and examined at the bedside. Overnight low-grade fever 99.7, pulse 105 and irregular. Requiring 2 L NC supplementation. Bumex IV drip 0.5 mg/hours started. Continue 0.45 NS. Urine output 85 cc in the past 24 hours. 08/15 - patient seen and examined at the bedside. Urine output less than 100 cc overnight. Right IJ Kaden placed, hemodialysis order placed. Primary team started methylprednisolone 40 mg IV b.i.d. renal ultrasound shows echogenic kidneys. 08/16-patient seen and examined at the bedside. Patient responding to name, A&O x1, patient said his name today. Urine output is 200 cc. Hemodialysis pending today. Requiring Levophed. Discontinue IV Bumex given low urine output Objective vital signs Vital Sign Date Time Temp Pulse Resp B/P (MAP) Pulse Ox O2 Delivery O2 Flow Rate FiO2 08/16/24 14:25 109 20 99 08/16/24 14:19 Nasal Cannula* 1 24 08/16/24 06:31 08/16/24 04:01 98.0 98.0 Total Intake and Output 08/15/24 08/15/24 08/16/24 15:00 23:00 07:00 Intake Total 933 ml 712 ml 464.5 ml Output Total 85 ml 200 ml Balance 933 ml 627 ml 264.5 ml medications Current Medications Medications Dose Ordered Sig/Artie Route Start Time Stop Time Status Last Admin Dose Admin Acetaminophen 325 mg Q4HP PRN PO 07/30/24 21:45 Ipratropium [place] 0.5 mg Q4HR NEB 07/30/24 22:00 08/16/24 14:11 0.5 MG Levalbuterol HCl 1.25 mg Q4HR NEB 07/30/24 22:00 08/16/24 14:11 1.25 MG Pantoprazole Sodium 40 mg DAILY IV 08/01/24 10:00 08/16/24 12:52 40 MG Enteral Nutritional Formula 1,000 ml 50ML/HR GT 08/05/24 17:15 08/12/24 21:58 1,000 ML Diagnostic Test (Pha) 1 strip Q6HR 08/06/24 00:00 08/16/24 12:00 1 STRIP Insulin Human Regular Q6HR SC 08/06/24 00:00 08/16/24 12:00 2 UNITS Dextrose 50 ml UD PRN IV 08/05/24 17:15 Lactulose 30 ml BID PO 08/07/24 10:00 08/13/24 22:07 30 ML Sodium Chloride 10 ml QSHIFT@10,22 IV 08/08/24 22:00 08/16/24 12:53 10 ML Metoprolol Tartrate 1.25 mg Q6HPRN PRN IV 08/12/24 10:30 Hold Linezolid 300 ml @ 150 mls/hr Q12HR IV 08/13/24 10:00 08/16/24 12:56 150 MLS/HR Cefepime HCl 50 ml @ 12.5 mls/hr DAILY@0600 IV 08/14/24 06:00 08/16/24 06:18 12.5 MLS/HR Insulin Glargine 15 units HS SC 08/14/24 22:00 08/15/24 22:12 15 UNITS Bumetanide 25 mg/ Miscellaneous 100 ml @ 4 mls/hr Q24H IV 08/15/24 08:30 08/16/24 00:25 4 MLS/HR Methylprednisolone Sodium Succinate 40 mg BID IV 08/15/24 22:00 08/16/24 12:53 40 MG Norepinephrine Bitartrate 250 ml @ 3.75 mls/hr Q24H IV 08/15/24 18:30 08/16/24 04:26 15 MLS/HR Examination Elderly male patient lying in the bed. Right IJ Kaden General: Obese, afebrile, palor, mucosae are moist Cardiovascular: IRRegular S1 and S2. No murmurs, gallops or rubs. No JVD elevation. Bilateral pitting edema Respiratory: Bilateral decreased air entry on 2 L NC supplementation Abdomen: Soft, nontender, nondistended, normoactive bowel sounds, no rebound tenderness, no organomegaly, no masses Genitourinary: Deferred. [place] draining 10 cc of urine MSK/skin: Mobilizes 4 limbs. Skin is dry and warm. Bilateral lower extremity have draining wounds, dressing dry clean and intact Neurological assessment could not be completed laboratory and microbiology Laboratory Tests 08/16/24 08:28 08/16/24 06:34 Test 08/16/24 06:34 Range/Units Serum Glucose 215 H 74-106 mg/dL Microbiology Date/Time Source Procedure Growth Status 08/12/24 07:06 Blood Blood Culture - Preliminary NO GROWTH AFTER 72 HOURS OF INCUBATION. Resulted 08/09/24 13:35 Other Aerobic Culture - Final Complete 08/01/24 00:00 Sputum Gram Stain - Final Complete 08/01/24 00:00 Sputum Respiratory Culture - Final Complete Labs and/or images reviewed: Labs reviewed by me, Image(s) reviewed by me Problem List/Assessment/Plan Problem List/Assessment/Plan Acute kidney injury, rule out ATN== multifactorial secondary to vancomycin toxicity+ diuretics/nephrotoxins,, IV contrast for CTA on admission noted Acute hypoxic respiratory failure s/p intubation and mechanical ventilation, now extubated 08/12 Acute metabolic encephalopathy secondary to hypoxic/ hypercarbic respiratory failure Acute on chronic exacerbation of decompensated systolic heart failure, NYHA class 3 Chronic permanent atrial fibrillation with secondary hypercoagulable state Severe pulmonary hypertension likely due to COPD /FAWN Sepsis due to Bilateral lower extremity cellulitis PE ruled out Type 2 diabetes mellitus-A1c 9.2 Obesity Urine output 85 cc per past 24 hours Plan: Given the worsening renal function and urine output, patient underwent hemodialysis 08/15, pending hemodialysis today. Right IJ Kaden catheter placed 08/15 for hemodialysis. Discontinued IV Bumex drip given persistent low urine output. Discontinued IV fluids Patient is still requiring Levophed for hypotension This patient was in renal failure for four days, nephrology consulted only today morning when urine output significantly went down BUN high likely secondary to diuretics and steroids Avoid nephrotoxic drugs Strict I&Os Drips: Levophed Hemodialysis pending Plan discussed with patient in which all questions have been answered Case discussed with Dr. Lau Addendum Patient seen and examined, plan discussed with resident. Agree with above, we will follow closely HD today Plan discussed with: Patient Dietary Evaluation Review Comments: 1. Suggest TF w/ formula Pivot 1.5 @ 40 ml/hr (GOAL). Begin @ 10 ml/hr; advance by 10 ml Q4 hrs or as tolerated to 40 ml/hr x 24 hrs 2. Provide free water flushes of 30 ml Q6 hrs (120 ml total); adjust PRN 3. Monitor BMP/lytes and replete to WNL/PRN 4. Lantus, ss insulin for correction; adjust PRN to maintain BG <180 mg/dl TF Provision: TF at goal to provide 960 ml total volume, 1440 kcal, 90 gm pro, 7 gm fiber, 165 gm CHO, 729 ml H20 (meets 100% est. kcal needs, 100% est. pro needs) Expected Outcomes/Goals: Improved nutritional status, TF initiation within 24-48 hrs of intubation. Critical Care Time (mins): 35 LIZZIE CONTRERAS August 16, 2024 16:06 MELONY LAU MD August 16, 2024 20:41
--- NOTE | 2024-08-16 17:25 | DVHPNRES ---
Progress Note Date Seen: August 16, 2024 Resident Creating Document: GINETTE TRIVEDI RESIDENT Medical Necessity Reason Pt with a Central, PICC or Fol: Yes The following are medically ne: Central Line, [place] Catheter Reason for [place] catheter: Strict I&O Subjective Review of Systems Patient is a 69-year-old male with past medical history of CHF, COPD, type 2 diabetes, atrial fibrillation, who comes in due to respiratory distress. Per patient's brother who is also his caregiver, patient's home wound care nurse checked his vitals and his SpO2 was noted to be 68% with a pulse of 130, he also appeared disoriented and had labored breathing. Arrival to the ED patient was noted to be tachycardic and tachypneic and was placed on BiPAP. Note, patient is on home oxygen 2-3 L. Patient Underwent intubation with mechanical ventilation on 08/01/2024 due to acute metabolic encephalopathy likely due to acute hypoxic / hypercapnic respiratory failure. Patient was seen and examined on the bedside. He is alert and awake, status post extubation and currently on nasal canula 2 L . Recent CxR showed improved lung expansion on the Lt side. Last 12 hour urine output was 200 ml and BUN and creatinine is going up. Patient underwent hemodialysis today Objective vital signs Vital Sign Date Time Temp Pulse Resp B/P (MAP) Pulse Ox O2 Delivery O2 Flow Rate FiO2 08/16/24 17:15 116 24 92 08/16/24 16:00 Bi-Pap+ 30 30 08/16/24 14:19 1 08/16/24 04:01 98.0 98.0 Total Intake and Output 08/15/24 08/15/24 08/16/24 14:59 22:59 06:59 Intake Total 933.5 ml 780 ml 452 ml Output Total 85 ml 200 ml Balance 933.5 ml 695 ml 252 ml medications Current Medications Medications Dose Ordered Sig/Artie Route Start Time Stop Time Status Last Admin Dose Admin Acetaminophen 325 mg Q4HP PRN PO 07/30/24 21:45 Ipratropium [place] 0.5 mg Q4HR NEB 07/30/24 22:00 08/16/24 14:11 0.5 MG Levalbuterol HCl 1.25 mg Q4HR NEB 07/30/24 22:00 08/16/24 14:11 1.25 MG Pantoprazole Sodium 40 mg DAILY IV 08/01/24 10:00 08/16/24 12:52 40 MG Enteral Nutritional Formula 1,000 ml 50ML/HR GT 08/05/24 17:15 08/12/24 21:58 1,000 ML Diagnostic Test (Pha) 1 strip Q6HR 08/06/24 00:00 08/16/24 17:02 1 STRIP Insulin Human Regular Q6HR SC 08/06/24 00:00 08/16/24 17:05 2 UNITS Dextrose 50 ml UD PRN IV 08/05/24 17:15 Lactulose 30 ml BID PO 08/07/24 10:00 08/13/24 22:07 30 ML Sodium Chloride 10 ml QSHIFT@10,22 IV 08/08/24 22:00 08/16/24 12:53 10 ML Metoprolol Tartrate 1.25 mg Q6HPRN PRN IV 08/12/24 10:30 Hold Linezolid 300 ml @ 150 mls/hr Q12HR IV 08/13/24 10:00 08/16/24 12:56 150 MLS/HR Cefepime HCl 50 ml @ 12.5 mls/hr DAILY@0600 IV 08/14/24 06:00 08/16/24 06:18 12.5 MLS/HR Insulin Glargine 15 units HS SC 08/14/24 22:00 08/15/24 22:12 15 UNITS Methylprednisolone Sodium Succinate 40 mg BID IV 08/15/24 22:00 08/16/24 12:53 40 MG Norepinephrine Bitartrate 250 ml @ 3.75 mls/hr Q24H IV 08/15/24 18:30 08/16/24 04:26 15 MLS/HR Examination Physical examination: General Appearance: Alert& orientedX1 and on nasal canula 2 L HEENT: Atraumatic, PERRLA, EOMI, Mucous membrane moist/pink Respiratory: Clear to auscultation, Normal air movement Cardiovascular: Irregular rate, Normal S1, Normal S2, No murmurs, no chest wall tenderness Abdominal: Normal bowel sounds, Soft, No tenderness, No hepatospenomegaly, No masses Extremities: No clubbing, No cyanosis, No edema. Normal pulses, bilateral wounds in both legs covered with dressing. Skin: No rashes, No breakdown, No significant lesion Neuro: Strength at 4/5 X4 ext, Normal tone, Sensation intact, grossly intact cranial nerves. Psych/Mental Status: could not be assessed. laboratory and microbiology Laboratory Tests 08/16/24 08:28 08/16/24 06:34 Test 08/16/24 06:34 Range/Units Serum Glucose 215 H 74-106 mg/dL Microbiology Date/Time Source Procedure Growth Status 08/12/24 07:06 Blood Blood Culture - Preliminary NO GROWTH AFTER 72 HOURS OF INCUBATION. Resulted 08/09/24 13:35 Other Aerobic Culture - Final Complete 08/01/24 00:00 Sputum Gram Stain - Final Complete 08/01/24 00:00 Sputum Respiratory Culture - Final Complete Labs and/or images reviewed: Labs reviewed by me, Image(s) reviewed by me (Brother, sister and RN) Problem List/Assessment/Plan Problem List/Assessment/Plan Assessment and plan: NEURO: Acute metabolic encephalopathy secondary to hypoxic/ hypercarbic respiratory failure - S/P extubation and currently on nasal canula 2L CARDIOVASCULAR: Acute on chronic exacerbation of decompensated systolic heart failure, NYHA class 3 Chronic permanent atrial fibrillation with secondary hypercoagulable state Severe pulmonary hypertension likely due to COPD /FAWN - [id number] score 3 and HAS BLED score 2 - CXR showed cardiomegaly with mild pulmonary vascular congestion - Echo on 07/31/2024 demonstrated EF 40% with global hypokinesis, irregular contractility, moderate tricuspid regurgitation, moderate aortic sclerosis with diminished excursion of the right coronary cusp and RVSP 56 mm hg - Metoprolol tartrate 50 mg bid - Enoxaparin 110 mg SC daily. - Maintain strict I&O - Atorvastatin 20 mg at HS PULMONARY: Acute on chronic hypoxic / hypercarbic respiratory failure Acute on chronic exacerbation of COPD Ruled out pulmonary embolism Gram negative pneumonia ruled out - CT angiography demonstrated 2 cm nodular opacities right lung apex, ruled out PE and follow up CT scan in 6 weeks to see if there is resolution. - Med neb with levalbuterol and ipratropium q.4 hours - IV Linezolid 600 mg bid, IV cefepime 2gm Q 8 hours - Discontinued vancomycin due to worsening kidney function - IV methylprednisolone 40 mg bid - Respiratory culture showed normal oropharyngeal rc - Bipap at night 03/07 Renal: DAVE likely hemodynamically mediated/VMN Possible Vancomycin toxicity Microscopic hematuria and possible acute cystitis - Patient is on IV cefepime and linezolid - Nephrology on board. - Patient underwent hemodialysis today. - Monitor BMP Metabolic: Hyperkalemia likely due to DAVE - Hyperkalemia protocol management. - Monitor BMP ENDOCRINE: Uncontrolled type 2 diabetes mellitus, hemoglobin A1c 9.2 Obesity class 3, BMI 50.1 kg/meter2 - Aggressive sliding scale q.6 hour - Lantus 15 units at HS HEME: Chronic normocytic normochromic anemia likely due to anemia of chronic disease INFECTIOUS DISEASE: Bilateral lower extremity cellulitis Sepsis due to above - Wound culture on 07/31/24 demonstrated Enterobacter intermedius, Enterococcus faecalis, MRSA which is sensitive to vancomycin and cefepime - IV Linezolid 600 mg bid and IV cefepime 2gm Q 8 hours - Blood culture showed no growth after 5 days of incubation DIET: Enteral feeding with Glucerna DVT prophylax: enoxaparin GI prophylaxis: Protonix 40 mg IV daily Bowel regimen: Lactulose 30 ml bid Code status: full code LINES/DRAINS/ACCESS: Kaden catheter: Placed on 08/15/24 IV access: PICC line placed on 08/08/24 [place] catheter: on 08/13/24 DISPOSITION: JERRICA Patient's status discussed with geriatric personal care aide time spent more than 83 minutes, including patient care, chart review, and procedures. Case discussed with Dr. Lucio Plan discussed with: Other (Brother, sister and RN) My Orders My Orders Orders - GINETTE TRIVEDI RESIDENT Procedure Category Date Status Time Chest Portable XY 08/16/24 Resulted 04:00 Abg W/ Co-Ox RT 08/16/24 Logged 06:00 Chest Xray 1 View XY 08/16/24 Resulted 10:22 Hemoglobin & LAB 08/16/24 Transmitted Hematocrit 17:20 Dietary Evaluation Review Comments: 1. Suggest TF w/ formula Pivot 1.5 @ 40 ml/hr (GOAL). Begin @ 10 ml/hr; advance by 10 ml Q4 hrs or as tolerated to 40 ml/hr x 24 hrs 2. Provide free water flushes of 30 ml Q6 hrs (120 ml total); adjust PRN 3. Monitor BMP/lytes and replete to WNL/PRN 4. Lantus, ss insulin for correction; adjust PRN to maintain BG <180 mg/dl TF Provision: TF at goal to provide 960 ml total volume, 1440 kcal, 90 gm pro, 7 gm fiber, 165 gm CHO, 729 ml H20 (meets 100% est. kcal needs, 100% est. pro needs) Expected Outcomes/Goals: Improved nutritional status, TF initiation within 24-48 hrs of intubation. GINETTE TRIVEDI RESIDENT August 16, 2024 17:25
[2024-08-16 18:16] LABS: Hematocrit 27.4 % (41.0-53.0); Hemoglobin 8.8 g/dL (13.5-17.5)
[2024-08-17] VITALS (115 sets, daily range): BP systolic 81–155; BP diastolic 37–98; PULSE 84–122; RESP 10–28; TEMP 97.6–99.2; O2SAT 80–100
[2024-08-17 03:49] LABS: Anion Gap 9 (5-15); Carbon Dioxide 29 mmol/L (20-31)
[2024-08-17 03:50] LABS: Basophils # (auto) 0 10 ^3/uL (0-0.2); Basophils % (auto) 0.2 % (0.0-2.0); Calcium 8.1 mg/dL (8.7-10.4); Chloride 97 mmol/L (98-107); Hemoglobin 7.8 g/dL (13.5-17.5); Sodium 135 mmol/L (136-145)
[2024-08-17 03:51] LABS: Eosinophils # (auto) 0 10 ^3/uL (0-0.8); Hematocrit 24.6 % (41.0-53.0); Lymphocytes # (auto) 0.2 10 ^3/uL (0.4-5.4); Lymphocytes % (auto) 1.3 % (10.0-50.0); Mean Corpuscular Hemoglobin 28.5 pg (28.0-32.0); Mean Corpuscular Hgb Conc. 31.8 g/dL (32.0-36.0); Mean Corpuscular Volume 89.5 fL (80.0-100.0); Monocytes # (auto) 0.3 10 ^3/uL (0-1.3); Monocytes % (auto) 1.9 % (0.0-12.0); Neutrophils # (auto) 15.1 10 ^3/uL (1.6-8.6); Neutrophils % (auto) 96.6 % (37.0-80.0); Platelet Count (auto) 157 10^3/uL (140-450); Red Blood Cells 2.75 10^6/uL (4.5-5.90); Red Cell Distribution Width 15.5 % (11.8-14.3); White Blood Cell 15.7 10^3/uL (4.4-10.8)
[2024-08-17 03:55] LABS: BUN/Creatinine Ratio 15.7 (10.0-20.0)
[2024-08-17 04:02] LABS: Blood Urea Nitrogen 36 mg/dL (9-23); Glucose 189 mg/dL (74-106)
--- NOTE | 2024-08-17 05:35 | DVH ---
CHEST RADIOGRAPH Indication: Hypoxia Technique: Single frontal view of the chest was obtained Comparison: XY CHEST XRAY 1 VIEW on DOS: 08/16/24, XY CHEST PORTABLE on DOS: 08/16/24, XY CHEST XRAY 1 VIEW on DOS: 08/15/24 IMPRESSION: Heart is prominent size. Enteric tube tip is in the region of the stomach. There is moderate pulmona ry vascular congestion. Likely small right pleural effusion. No pneumothorax.
--- NOTE | 2024-08-17 13:18 | DVHPN2 ---
Subjective Patient is a 69-year-old male with past medical history of CHF, COPD, type 2 diabetes, atrial fibrillation, who comes in due to respiratory distress. Per patient's brother who is also his caregiver, patient's home wound care nurse checked his vitals and his SpO2 was noted to be 68% with a pulse of 130, he also appeared disoriented and had labored breathing. Arrival to the ED patient was noted to be tachycardic and tachypneic and was placed on BiPAP. Note, patient is on home oxygen 2-3 L. Patient Underwent intubation with mechanical ventilation on 08/01/2024 due to acute metabolic encephalopathy likely due to acute hypoxic / hypercapnic respiratory failure. Patient was seen and examined on the bedside. 08/10 weeknd coverage. patient on cpap trial passing parameters with pulm notified. becomes afib rvr with sed vac done. noting cr increase. will stop lasix, give small bolus fluids, give 1x toprol iv 5mg and increase metoprolol. sedatives off (propofol and fent) but we do have some precedex too. plan to extubate today. 08/11-yesterday patient was unable to be extubated due to tachycardia. Three tachycardia AFib RVR much more controlled between 100-110. Following commands, and CPAP trial yesterday. Waiting for prominence. Likely extubation today. Rest of treatment is unchanged. Reviewed: Care Plan, H&P, Labs, Medications, Previous Orders, Radiology Changes from previous H/P or p: No Changes General: Per HPI Objective Vitals Vital Signs Date Time Temp Pulse Resp B/P (MAP) Pulse Ox O2 Delivery O2 Flow Rate FiO2 08/17/24 12:20 100 143/93 100 Facial BiPAP Mask 30 08/17/24 11:45 10 08/17/24 10:00 2 08/17/24 04:01 99.2 99.2 Intake/Output Intake and Output 08/17/24 07:00 Intake Total 1109.75 ml Output Total 450 ml Balance 659.75 ml Intake Oral 0 ml IV Total 1009.75 ml Tube Feeding 100 ml Output Urine Total 375 ml Stool Total 75 ml # Bowel Movements 3 Exam General Appearance: Alert& orientedX1 and on nasal canula 2 L HEENT: Atraumatic, PERRLA, EOMI, Mucous membrane moist/pink Respiratory: Clear to auscultation, Normal air movement Cardiovascular: Irregular rate, Normal S1, Normal S2, No murmurs, no chest wall tenderness Abdominal: Normal bowel sounds, Soft, No tenderness, No hepatospenomegaly, No masses Extremities: No clubbing, No cyanosis, No edema. Normal pulses, bilateral wounds in both legs covered with dressing. Skin: No rashes, No breakdown, No significant lesion Neuro: Strength at 4/5 X4 ext, Normal tone, Sensation intact, grossly intact cranial nerves. Psych/Mental Status: could not be assessed. General Appearance: Other (Intubated, on vent, unable to exam) HEENT: Atraumatic, PERRLA, EOMI, Mucous membr. moist/pink Neck: Supple Lungs: Clear to auscultation, Normal air movement Cardiovascular: Regular rate, Normal S1, Normal S2, No murmurs, Gallops, Rubs Abdomen: Normal bowel sounds, Soft, No tenderness Neuro: Cranial nerves 3-12 NL Psych/Mental Status: Mental status NL Medications Current Medications Medications Dose Ordered Sig/Artie Route Start Time Stop Time Status Last Admin Dose Admin Acetaminophen 325 mg Q4HP PRN PO 07/30/24 21:45 Ipratropium [place] 0.5 mg Q4HR NEB 07/30/24 22:00 08/17/24 10:18 0.5 MG Levalbuterol HCl 1.25 mg Q4HR NEB 07/30/24 22:00 08/17/24 10:18 1.25 MG Pantoprazole Sodium 40 mg DAILY IV 08/01/24 10:00 08/17/24 10:43 40 MG Enteral Nutritional Formula 1,000 ml 50ML/HR GT 08/05/24 17:15 08/12/24 21:58 1,000 ML Diagnostic Test (Pha) 1 strip Q6HR 08/06/24 00:00 08/17/24 11:21 1 STRIP Insulin Human Regular Q6HR SC 08/06/24 00:00 08/17/24 11:22 2 UNITS Dextrose 50 ml UD PRN IV 08/05/24 17:15 Lactulose 30 ml BID PO 08/07/24 10:00 08/13/24 22:07 30 ML Sodium Chloride 10 ml QSHIFT@10,22 IV 08/08/24 22:00 08/17/24 10:43 10 ML Metoprolol Tartrate 1.25 mg Q6HPRN PRN IV 08/12/24 10:30 Hold Linezolid 300 ml @ 150 mls/hr Q12HR IV 08/13/24 10:00 08/17/24 10:43 150 MLS/HR Insulin Glargine 15 units HS SC 08/14/24 22:00 08/16/24 22:00 15 UNITS Methylprednisolone Sodium Succinate 40 mg BID IV 08/15/24 22:00 08/17/24 10:43 40 MG Norepinephrine Bitartrate 250 ml @ 3.75 mls/hr Q24H IV 08/15/24 18:30 08/16/24 18:30 15 MLS/HR Cefepime HCl 50 ml @ 12.5 mls/hr Q12H IV 08/17/24 18:00 Laboratory Results Laboratory Tests 08/17/24 03:30 Chemistry Test 08/17/24 03:30 Calcium Level 8.1 mg/dL (8.7-10.4) L Urinalysis Test 07/30/24 15:37 08/12/24 07:00 08/14/24 14:51 Urine Hyaline Casts Few /lpf (0 - 2) Urine Mucus Few (None Seen) Urine Color Light-yellow (Yellow) Urine Clarity Turbid (Clear) H Urine pH 5.5 (5.0-9.0) Urine Specific [place] 1.013 (1.001-1.035) Urine Protein 1+ (Negative) H Urine Ketones Negative (Negative) Urine Blood 2+ /uL (Negative) H Urine Nitrite Negative (Negative) Urine Bilirubin Negative (Negative) Urine Urobilinogen Normal mg/dL (Negative) Urine Leukocyte Esterase Negative /uL (Negative) Urine RBC 33 /hpf (0 - 3) Urine Microscopic WBC 9 /HPF (0-3) H Urine Squamous Epithelial Cells Few /hpf (<5) Urine Bacteria Few /hpf (None Seen) H Urine Glucose Normal mg/dL (Normal) Urine Creatinine 52.12 mg/dL (30.0-125.0) Urine Protein/Creatinine Ratio 6.71 Urine Sodium 81 mmol/L (40-220) Urine Total Protein 349.7 mg/dL (1-14) H Blood Gas Results Test 08/17/24 08:50 Arterial Blood pH 7.305 (7.350-7.450) FiO2 % 28.0 Microbiology Microbiology Date/Time Source Procedure Growth Status 08/12/24 07:06 Blood Blood Culture - Final NO GROWTH AFTER 5 DAYS OF INCUBATION. Complete 08/09/24 13:35 Other Aerobic Culture - Final Complete 08/01/24 00:00 Sputum Gram Stain - Final Complete 08/01/24 00:00 Sputum Respiratory Culture - Final Complete Labs and/or images reviewed: Labs reviewed by me, Image(s) reviewed by me Assessment/Plan Assessment/Plan 08/17--patient extubated and has been requiring BiPAP nightly. ABG this a.m. with worsening acidosis and pCO2 rising requiring BiPAP during the daytime as well. We will start PPN as patient is unable to eat all the BiPAP. Otherwise continuing HD and routine treatment as per primary team. NEURO: Acute metabolic encephalopathy secondary to hypoxic/ hypercarbic respiratory failure - S/P extubation and currently on nasal canula 2L CARDIOVASCULAR: Acute on chronic exacerbation of decompensated systolic heart failure, NYHA class 3 Chronic permanent atrial fibrillation with secondary hypercoagulable state Severe pulmonary hypertension likely due to COPD /FAWN - [id number] score 3 and HAS BLED score 2 - CXR showed cardiomegaly with mild pulmonary vascular congestion - Echo on 07/31/2024 demonstrated EF 40% with global hypokinesis, irregular contractility, moderate tricuspid regurgitation, moderate aortic sclerosis with diminished excursion of the right coronary cusp and RVSP 56 mm hg - Metoprolol tartrate 50 mg bid - Enoxaparin 110 mg SC daily. - Maintain strict I&O - Atorvastatin 20 mg at HS PULMONARY: Acute on chronic hypoxic / hypercarbic respiratory failure Acute on chronic exacerbation of COPD Ruled out pulmonary embolism Gram negative pneumonia ruled out - CT angiography demonstrated 2 cm nodular opacities right lung apex, ruled out PE and follow up CT scan in 6 weeks to see if there is resolution. - Med neb with levalbuterol and ipratropium q.4 hours - IV Linezolid 600 mg bid, IV cefepime 2gm Q 8 hours - Discontinued vancomycin due to worsening kidney function - IV methylprednisolone 40 mg bid - Respiratory culture showed normal oropharyngeal rc - Bipap at night 03/07 Renal: DAVE likely hemodynamically mediated/VMN Possible Vancomycin toxicity Microscopic hematuria and possible acute cystitis - Patient is on IV cefepime and linezolid - Nephrology on board. - Patient underwent hemodialysis today. - Monitor BMP Metabolic: Hyperkalemia likely due to DAVE - Hyperkalemia protocol management. - Monitor BMP ENDOCRINE: Uncontrolled type 2 diabetes mellitus, hemoglobin A1c 9.2 Obesity class 3, BMI 50.1 kg/meter2 - Aggressive sliding scale q.6 hour - Lantus 15 units at HS HEME: Chronic normocytic normochromic anemia likely due to anemia of chronic disease INFECTIOUS DISEASE: Bilateral lower extremity cellulitis Sepsis due to above - Wound culture on 07/31/24 demonstrated Enterobacter intermedius, Enterococcus faecalis, MRSA which is sensitive to vancomycin and cefepime - IV Linezolid 600 mg bid and IV cefepime 2gm Q 8 hours - Blood culture showed no growth after 5 days of incubation DIET: Enteral feeding with Glucerna DVT prophylax: enoxaparin GI prophylaxis: Protonix 40 mg IV daily Bowel regimen: Lactulose 30 ml bid Code status: full code LINES/DRAINS/ACCESS: [place] catheter: Placed on 08/15/24 IV access: PICC line placed on 08/08/24 [place] catheter: on 08/13/24 DISPOSITION: JERRICA Patient's status discussed with RN Plan discussed with: Patient My Orders Orders - NAOMI MONTILLA MD Procedure Category Date Status Time Ppn Per Pharmacy [facility] 08/17/24 In Process 13:13 Date of Service: August 17, 2024 Billing Provider: NAOMI MONTILLA MD Common Visit Codes: [id number] CARE 30-74 MIN NAOMI MONTILLA MD August 17, 2024 13:18
[2024-08-17] MEDS ORDERED: PPN PER PHARMACY 0 ML IV SCH (14:00)
[2024-08-17 14:52] LABS: Alanine Aminotransferase 37 U/L (7-40); Anion Gap 8 (5-15); BUN/Creatinine Ratio 15.8 (10.0-20.0); Calcium 8.7 mg/dL (8.7-10.4); Carbon Dioxide 29 mmol/L (20-31); Chloride 100 mmol/L (98-107); Magnesium 1.9 mg/dL (1.6-2.6); Potassium 3.7 mmol/L (3.5-5.1); Sodium 137 mmol/L (136-145); Triglycerides 138 mg/dL (< 150)
[2024-08-17 14:53] LABS: Bilirubin, Total 0.4 mg/dL (0.2-1.0); Phosphorus 4.3 mg/dL (2.4-5.1)
[2024-08-17 14:55] LABS: Alkaline Phosphatase 129 U/L (46-116); Aspartate Aminotransferase 48 U/L (13-40); Blood Urea Nitrogen 43 mg/dL (9-23); Glucose 155 mg/dL (74-106); Total Protein 5.4 g/dL (5.7-8.2)
--- NOTE | 2024-08-17 15:36 | DVHPN2 ---
Progress Note Date Seen: August 17, 2024 Medical Necessity Reason Pt with a Central, PICC or Fol: Yes The following are medically ne: Central Line, [place] Catheter Reason for [place] catheter: Strict I&O Subjective Patient reports: No new complaints (Sister's bedside) Review of Systems: Deferred Objective vital signs Vital Sign Date Time Temp Pulse Resp B/P (MAP) Pulse Ox O2 Delivery O2 Flow Rate FiO2 08/17/24 14:07 138/63 08/17/24 13:15 99 19 100 08/17/24 13:10 Facial BiPAP Mask 30 08/17/24 12:00 2 08/17/24 04:01 99.2 99.2 Total Intake and Output 08/16/24 08/16/24 08/17/24 15:00 23:00 07:00 Intake Total 489.5 ml 220 ml 400.25 ml Output Total 400 ml 50 ml Balance 489.5 ml -180 ml 350.25 ml medications Current Medications Medications Dose Ordered Sig/Artie Route Start Time Stop Time Status Last Admin Dose Admin Acetaminophen 325 mg Q4HP PRN PO 07/30/24 21:45 Ipratropium [place] 0.5 mg Q4HR NEB 07/30/24 22:00 08/17/24 14:30 0.5 MG Levalbuterol HCl 1.25 mg Q4HR NEB 07/30/24 22:00 08/17/24 14:30 1.25 MG Pantoprazole Sodium 40 mg DAILY IV 08/01/24 10:00 08/17/24 10:43 40 MG Enteral Nutritional Formula 1,000 ml 50ML/HR GT 08/05/24 17:15 08/12/24 21:58 1,000 ML Diagnostic Test (Pha) 1 strip Q6HR 08/06/24 00:00 08/17/24 11:21 1 STRIP Insulin Human Regular Q6HR SC 08/06/24 00:00 08/17/24 11:22 2 UNITS Dextrose 50 ml UD PRN IV 08/05/24 17:15 Lactulose 30 ml BID PO 08/07/24 10:00 08/13/24 22:07 30 ML Sodium Chloride 10 ml QSHIFT@10,22 IV 08/08/24 22:00 08/17/24 10:43 10 ML Metoprolol Tartrate 1.25 mg Q6HPRN PRN IV 08/12/24 10:30 Hold Linezolid 300 ml @ 150 mls/hr Q12HR IV 08/13/24 10:00 08/17/24 10:43 150 MLS/HR Insulin Glargine 15 units HS SC 08/14/24 22:00 08/16/24 22:00 15 UNITS Methylprednisolone Sodium Succinate 40 mg BID IV 08/15/24 22:00 08/17/24 10:43 40 MG Norepinephrine Bitartrate 250 ml @ 3.75 mls/hr Q24H IV 08/15/24 18:30 08/17/24 14:07 11.25 MLS/HR Cefepime HCl 50 ml @ 12.5 mls/hr Q12H IV 08/17/24 18:00 Amino Acids 0 ml @ 0 mls/hr PER PHARMACY IV 08/17/24 14:00 Examination: GENERAL:Abnormal, LUNGS:Abnormal, MSK:Abnormal, SKIN:Abnormal, NEURO:Abnormal laboratory and microbiology Laboratory Tests 08/17/24 13:54 08/17/24 03:30 Test 08/17/24 13:54 Range/Units Serum Glucose 155 H 74-106 mg/dL Microbiology Date/Time Source Procedure Growth Status 08/12/24 07:06 Blood Blood Culture - Final NO GROWTH AFTER 5 DAYS OF INCUBATION. Complete 08/09/24 13:35 Other Aerobic Culture - Final Complete 08/01/24 00:00 Sputum Gram Stain - Final Complete 08/01/24 00:00 Sputum Respiratory Culture - Final Complete Problem List/Assessment/Plan Problem List/Assessment/Plan Acute kidney injury, rule out ATN== multifactorial secondary to vancomycin toxicity+ diuretics/nephrotoxins,, IV contrast---needing dialysis Acute hypoxic respiratory failure s/p intubation and mechanical ventilation, now extubated 08/12 Acute metabolic encephalopathy secondary to hypoxic/ hypercarbic respiratory failure Acute on chronic exacerbation of decompensated systolic heart failure, NYHA class 3 Chronic permanent atrial fibrillation with secondary hypercoagulable state Severe pulmonary hypertension likely due to COPD /FAWN Sepsis due to Bilateral lower extremity cellulitis PE ruled out Type 2 diabetes mellitus-A1c 9.2 Obesity Plan: Next HD Monday versus Monday based on staffing Received two dialysis treatments and Monday Remains oligo anuric We will follow Plan discussed with: Patient, Other Dietary Evaluation Review Comments: 1. Suggest TF w/ formula Pivot 1.5 @ 40 ml/hr (GOAL). Begin @ 10 ml/hr; advance by 10 ml Q4 hrs or as tolerated to 40 ml/hr x 24 hrs 2. Provide free water flushes of 30 ml Q6 hrs (120 ml total); adjust PRN 3. Monitor BMP/lytes and replete to WNL/PRN 4. Lantus, ss insulin for correction; adjust PRN to maintain BG <180 mg/dl TF Provision: TF at goal to provide 960 ml total volume, 1440 kcal, 90 gm pro, 7 gm fiber, 165 gm CHO, 729 ml H20 (meets 100% est. kcal needs, 100% est. pro needs) Expected Outcomes/Goals: Improved nutritional status, TF initiation within 24-48 hrs of intubation. MELONY LAU MD August 17, 2024 15:36
[2024-08-17 17:21] LABS: Base Excess 1.1 mmol/L (-2.0-3.0)
[2024-08-17] MEDS: CEFEPIME 2GM/50ML NS 50 ML IV SCH (17:58)
--- NOTE | 2024-08-17 19:26 | DVHPN2 ---
Progress Note - Dictate Date Seen: August 17, 2024 Medical Necessity Reason Pt with a Central, PICC or Fol: Yes The following are medically ne: Central Line, [place] Catheter Reason for [place] catheter: Strict I&O Subjective Patient seen and examined at bedside. On BiPAP Overnight events reviewed. vital signs Vital Sign Date Time Temp Pulse Resp B/P (MAP) Pulse Ox O2 Delivery O2 Flow Rate FiO2 08/17/24 18:40 106 20 100 08/17/24 18:30 Nasal Cannula 2.0 08/17/24 18:30 28 08/17/24 18:02 127/55 08/17/24 04:01 99.2 99.2 Total Intake and Output 08/16/24 08/16/24 08/17/24 15:00 23:00 07:00 Intake Total 489.5 ml 220 ml 400.25 ml Output Total 400 ml 50 ml Balance 489.5 ml -180 ml 350.25 ml medications Current Medications Medications Dose Ordered Sig/Artie Route Start Time Stop Time Status Last Admin Dose Admin Acetaminophen 325 mg Q4HP PRN PO 07/30/24 21:45 Ipratropium [place] 0.5 mg Q4HR NEB 07/30/24 22:00 08/17/24 18:30 0.5 MG Levalbuterol HCl 1.25 mg Q4HR NEB 07/30/24 22:00 08/17/24 18:30 1.25 MG Pantoprazole Sodium 40 mg DAILY IV 08/01/24 10:00 08/17/24 10:43 40 MG Enteral Nutritional Formula 1,000 ml 50ML/HR GT 08/05/24 17:15 08/12/24 21:58 1,000 ML Diagnostic Test (Pha) 1 strip Q6HR 08/06/24 00:00 08/17/24 18:06 1 STRIP Insulin Human Regular Q6HR SC 08/06/24 00:00 08/17/24 18:05 4 UNITS Dextrose 50 ml UD PRN IV 08/05/24 17:15 Lactulose 30 ml BID PO 08/07/24 10:00 08/13/24 22:07 30 ML Sodium Chloride 10 ml QSHIFT@10,22 IV 08/08/24 22:00 08/17/24 10:43 10 ML Metoprolol Tartrate 1.25 mg Q6HPRN PRN IV 08/12/24 10:30 Hold Linezolid 300 ml @ 150 mls/hr Q12HR IV 08/13/24 10:00 08/17/24 10:43 150 MLS/HR Insulin Glargine 15 units HS SC 08/14/24 22:00 08/16/24 22:00 15 UNITS Methylprednisolone Sodium Succinate 40 mg BID IV 08/15/24 22:00 08/17/24 10:43 40 MG Norepinephrine Bitartrate 250 ml @ 3.75 mls/hr Q24H IV 08/15/24 18:30 08/17/24 14:07 11.25 MLS/HR Cefepime HCl 50 ml @ 12.5 mls/hr Q12H IV 08/17/24 18:00 08/17/24 17:58 12.5 MLS/HR Amino Acids 0 ml @ 0 mls/hr PER PHARMACY IV 08/17/24 14:00 objective Gen.: Patient lying in bed in no apparent distress. On BiPAP Head: Normocephalic, atraumatic. Eyes: EOMI/PERRLA. Ears: Normal hearing. Normal anatomy. Neck/trachea: Trachea midline, supple. Nose: Normal external anatomy. Mouth: Moist mucous membranes. Chest: Decreased air entry bilaterally. No wheezing or rhonchi. Cardiovascular: Positive S1, positive S2. Regular rate and rhythm. Abdomen: Positive bowel sounds in all 4 quadrants. Soft, non-tender, non- distended. : Deferred. Rectal: Deferred. Skin: Warm, dry. Intact. Extremities: 2+ radial pulses bilaterally. No lower extremity edema. Neuro: Awake, alert, oriented x3. No gross motor or sensory deficits. Cranial nerves II through XII intact. Gait not assessed. laboratory and microbiology Laboratory Tests 08/17/24 13:54 08/17/24 03:30 Test 08/17/24 13:54 Range/Units Serum Glucose 155 H 74-106 mg/dL Assessment/Plan Impression Acute hypoxemic respiratory failure Severe pulmonary hypertension Pulmonary edema Chronic obstructive pulmonary disease exacerbation Congestive heart failure Atrial fibrillation Events: Patient seen and examined at bedside On BiPAP at IPAP 12, EPAP 5, FiO2 30% Taper FiO2 as tolerated ABG reveals acidemia, hypercarbia On pressors for hemodynamic support Levophed 6 mcg/min Titrate to keep mean arterial pressure greater than 65 mmHg Continue bronchodilators. IV steroids Continue antibiotics. Tube feeds for nutritional support Accu-Cheks, ISS Patient is BiPAP dependent Continue to monitor respiratory status closely Labs and imaging reviewed Plan S/p extubation on 08/11/24 Continue BiPAP Titrate to keep O2 sats above 92% Antibiotics Bronchodilators IV steroids Monitor renal function Monitor electrolytes Supplement as needed Pressors as needed for hemodynamic support To maintain a mean arterial pressure of 65 mmHg DVT prophylaxis Prognosis: Poor given multiple comorbidities Condition: Critical Rest of plan per hospitalist and other consultants A total of 35 minutes of critical care time was spent reviewing the patient's record, examining the patient, making a diagnostic and therapeutic plan, discussing this plan with the medical personnel, following up on diagnostic studies and following the patient for clinical stability excluding any and all procedures. At least 50% of this time was spent in the direct, [id number] contact. Thank you for allowing me to participate in this patient's care. Further recommendations will depend on the patient's clinical course. Please do not hesitate to contact me if you have any questions or concerns. This medical document was created using an electronic medical record system with [employer] dictation system. Although this document has been carefully reviewed, there may still be some phonetic and typographical errors. These areas are purely typographical due to imperfections of the software programs and do not reflect any compromise in the patient's medical care. Dietary Evaluation Review Comments: 1. Suggest TF w/ formula Pivot 1.5 @ 40 ml/hr (GOAL). Begin @ 10 ml/hr; advance by 10 ml Q4 hrs or as tolerated to 40 ml/hr x 24 hrs 2. Provide free water flushes of 30 ml Q6 hrs (120 ml total); adjust PRN 3. Monitor BMP/lytes and replete to WNL/PRN 4. Lantus, ss insulin for correction; adjust PRN to maintain BG <180 mg/dl TF Provision: TF at goal to provide 960 ml total volume, 1440 kcal, 90 gm pro, 7 gm fiber, 165 gm CHO, 729 ml H20 (meets 100% est. kcal needs, 100% est. pro needs) Expected Outcomes/Goals: Improved nutritional status, TF initiation within 24-48 hrs of intubation. Plan discussed with: Other (MARLYS Ortiz) Critical Care Time(min): 35 HASSAN,WANG M MD August 17, 2024 19:26
[2024-08-17] MEDS: AMINO ACID INFUSION IN D10W 1,000 ML IV ONE (21:57)
[2024-08-18] VITALS (117 sets, daily range): BP systolic 82–159; BP diastolic 37–96; PULSE 54–126; RESP 12–24; TEMP 97.8–99.1; O2SAT 17–100
[2024-08-18 05:37] LABS: Anion Gap 10 (5-15); BUN/Creatinine Ratio 15.5 (10.0-20.0); Calcium 9.2 mg/dL (8.7-10.4); Carbon Dioxide 27 mmol/L (20-31); Potassium 3.9 mmol/L (3.5-5.1)
[2024-08-18 05:38] LABS: Alanine Aminotransferase 47 U/L (7-40); Alkaline Phosphatase 126 U/L (46-116); Aspartate Aminotransferase 60 U/L (13-40); Bilirubin, Total 0.4 mg/dL (0.2-1.0); Blood Urea Nitrogen 53 mg/dL (9-23); Chloride 97 mmol/L (98-107); Glucose 263 mg/dL (74-106); Phosphorus 5.7 mg/dL (2.4-5.1); Sodium 134 mmol/L (136-145); Total Protein 5.5 g/dL (5.7-8.2)
--- NOTE | 2024-08-18 12:06 | DVHPN2 ---
Subjective Patient is a 69-year-old male with past medical history of CHF, COPD, type 2 diabetes, atrial fibrillation, who comes in due to respiratory distress. Per patient's brother who is also his caregiver, patient's home wound care nurse checked his vitals and his SpO2 was noted to be 68% with a pulse of 130, he also appeared disoriented and had labored breathing. Arrival to the ED patient was noted to be tachycardic and tachypneic and was placed on BiPAP. Note, patient is on home oxygen 2-3 L. Patient Underwent intubation with mechanical ventilation on 08/01/2024 due to acute metabolic encephalopathy likely due to acute hypoxic / hypercapnic respiratory failure. Patient was seen and examined on the bedside. 08/10 weeknd coverage. patient on cpap trial passing parameters with pulm notified. becomes afib rvr with sed vac done. noting cr increase. will stop lasix, give small bolus fluids, give 1x toprol iv 5mg and increase metoprolol. sedatives off (propofol and fent) but we do have some precedex too. plan to extubate today. 08/11-yesterday patient was unable to be extubated due to tachycardia. Three tachycardia AFib RVR much more controlled between 100-110. Following commands, and CPAP trial yesterday. Waiting for prominence. Likely extubation today. Rest of treatment is unchanged. Reviewed: Care Plan, H&P, Labs, Medications, Previous Orders, Radiology Changes from previous H/P or p: No Changes General: Per HPI Objective Vitals Vital Signs Date Time Temp Pulse Resp B/P (MAP) Pulse Ox O2 Delivery O2 Flow Rate FiO2 08/18/24 09:22 105 18 100 08/18/24 09:16 Nasal Cannula 2.0 08/18/24 09:16 28 08/18/24 07:01 123/51 (75) 08/18/24 04:00 98.6 98.6 Intake/Output Intake and Output 08/18/24 07:00 Intake Total 1255.50 ml Output Total 625 ml Balance 630.50 ml IV Total 1255.50 ml Output Urine Total 525 ml Stool Total 100 ml # Bowel Movements 3 Exam General Appearance: Alert& orientedX1 and on nasal canula 2 L HEENT: Atraumatic, PERRLA, EOMI, Mucous membrane moist/pink Respiratory: Clear to auscultation, Normal air movement Cardiovascular: Irregular rate, Normal S1, Normal S2, No murmurs, no chest wall tenderness Abdominal: Normal bowel sounds, Soft, No tenderness, No hepatospenomegaly, No masses Extremities: No clubbing, No cyanosis, No edema. Normal pulses, bilateral wounds in both legs covered with dressing. Skin: No rashes, No breakdown, No significant lesion Neuro: Strength at 4/5 X4 ext, Normal tone, Sensation intact, grossly intact cranial nerves. Psych/Mental Status: could not be assessed. General Appearance: Other (Intubated, on vent, unable to exam) HEENT: Atraumatic, PERRLA, EOMI, Mucous membr. moist/pink Neck: Supple Lungs: Clear to auscultation, Normal air movement Cardiovascular: Regular rate, Normal S1, Normal S2, No murmurs, Gallops, Rubs Abdomen: Normal bowel sounds, Soft, No tenderness Neuro: Cranial nerves 3-12 NL Psych/Mental Status: Mental status NL Medications Current Medications Medications Dose Ordered Sig/Artie Route Start Time Stop Time Status Last Admin Dose Admin Acetaminophen 325 mg Q4HP PRN PO 07/30/24 21:45 Ipratropium [place] 0.5 mg Q4HR NEB 07/30/24 22:00 08/18/24 09:16 0.5 MG Levalbuterol HCl 1.25 mg Q4HR NEB 07/30/24 22:00 08/18/24 09:16 1.25 MG Pantoprazole Sodium 40 mg DAILY IV 08/01/24 10:00 08/18/24 11:35 40 MG Enteral Nutritional Formula 1,000 ml 50ML/HR GT 08/05/24 17:15 08/12/24 21:58 1,000 ML Diagnostic Test (Pha) 1 strip Q6HR 08/06/24 00:00 08/18/24 11:36 1 STRIP Insulin Human Regular Q6HR SC 08/06/24 00:00 08/18/24 11:46 8 UNITS Dextrose 50 ml UD PRN IV 08/05/24 17:15 Lactulose 30 ml BID PO 08/07/24 10:00 08/18/24 11:35 30 ML Sodium Chloride 10 ml QSHIFT@10,22 IV 08/08/24 22:00 08/18/24 11:36 10 ML Metoprolol Tartrate 1.25 mg Q6HPRN PRN IV 08/12/24 10:30 Hold Linezolid 300 ml @ 150 mls/hr Q12HR IV 08/13/24 10:00 08/18/24 11:36 150 MLS/HR Insulin Glargine 15 units HS SC 08/14/24 22:00 08/17/24 21:58 15 UNITS Methylprednisolone Sodium Succinate 40 mg BID IV 08/15/24 22:00 08/18/24 11:35 40 MG Norepinephrine Bitartrate 250 ml @ 3.75 mls/hr Q24H IV 08/15/24 18:30 08/17/24 14:07 11.25 MLS/HR Amino Acids 0 ml @ 0 mls/hr PER PHARMACY IV 08/17/24 14:00 Cefepime HCl 50 ml @ 12.5 mls/hr DAILY IV 08/19/24 10:00 Fat Emulsion Intravenous 50 ml/ Sodium Chloride 60 meq/Magnesium Sulfate 4 meq/ Multivitamins 10 ml/Chromium/ Copper/Manganese/ Zinc 1 ml/Insulin Human Regular 6 units/Amino Acids/ Dextrose/Purified Water 1,727.06 ml @ 72 mls/hr Q24H IV 08/18/24 22:00 08/19/24 21:59 Laboratory Results Laboratory Tests 08/17/24 03:30 08/18/24 05:05 Chemistry Test 08/17/24 13:54 08/18/24 05:05 Albumin 3.0 g/dL (3.2-4.8) L 3.0 g/dL (3.2-4.8) L Calcium Level 8.7 mg/dL (8.7-10.4) 9.2 mg/dL (8.7-10.4) Magnesium Level 1.9 mg/dL (1.6-2.6) 2.0 mg/dL (1.6-2.6) Phosphorus Level 4.3 mg/dL (2.4-5.1) 5.7 mg/dL (2.4-5.1) H Total Protein 5.4 g/dL (5.7-8.2) L 5.5 g/dL (5.7-8.2) L Lipid panel Test 08/17/24 13:54 Triglycerides Level 138 mg/dL (< 150) LFT Test 08/17/24 13:54 08/18/24 05:05 Alanine Aminotransferase (ALT) 37 U/L (7-40) 47 U/L (7-40) H Alkaline Phosphatase 129 U/L (46-116) H 126 U/L (46-116) H Aspartate Amino Transferase (AST) 48 U/L (13-40) H 60 U/L (13-40) H Total Bilirubin 0.4 mg/dL (0.2-1.0) 0.4 mg/dL (0.2-1.0) Urinalysis Test 07/30/24 15:37 08/12/24 07:00 08/14/24 14:51 Urine Hyaline Casts Few /lpf (0 - 2) Urine Mucus Few (None Seen) Urine Color Light-yellow (Yellow) Urine Clarity Turbid (Clear) H Urine pH 5.5 (5.0-9.0) Urine Specific [place] 1.013 (1.001-1.035) Urine Protein 1+ (Negative) H Urine Ketones Negative (Negative) Urine Blood 2+ /uL (Negative) H Urine Nitrite Negative (Negative) Urine Bilirubin Negative (Negative) Urine Urobilinogen Normal mg/dL (Negative) Urine Leukocyte Esterase Negative /uL (Negative) Urine RBC 33 /hpf (0 - 3) Urine Microscopic WBC 9 /HPF (0-3) H Urine Squamous Epithelial Cells Few /hpf (<5) Urine Bacteria Few /hpf (None Seen) H Urine Glucose Normal mg/dL (Normal) Urine Creatinine 52.12 mg/dL (30.0-125.0) Urine Protein/Creatinine Ratio 6.71 Urine Sodium 81 mmol/L (40-220) Urine Total Protein 349.7 mg/dL (1-14) H Blood Gas Results Test 08/17/24 17:08 Arterial Blood pH 7.469 (7.350-7.450) FiO2 % 30.0 Microbiology Microbiology Date/Time Source Procedure Growth Status 08/12/24 07:06 Blood Blood Culture - Final NO GROWTH AFTER 5 DAYS OF INCUBATION. Complete 08/09/24 13:35 Other Aerobic Culture - Final Complete 08/01/24 00:00 Sputum Gram Stain - Final Complete 08/01/24 00:00 Sputum Respiratory Culture - Final Complete Labs and/or images reviewed: Labs reviewed by me, Image(s) reviewed by me Assessment/Plan Assessment/Plan update 08/17--patient extubated and has been requiring BiPAP nightly. ABG this a.m. with worsening acidosis and pCO2 rising requiring BiPAP during the daytime as well. We will start PPN as patient is unable to eat all the BiPAP. Otherwise continuing HD and routine treatment as per primary team. 08/18-off of BiPAP today, able to respond to commands. Tachycardia with frequent PVCs AFib rates from 100 to 120s. Appears uncomfortable. Decreased/diminished breath sounds in all st with wheezing. Nephrology at bedside. Plan for diuretic and 1 time Solu-Medrol shot. And possible HD tomorrow. Urine output present dark straw-colored urine no pitting edema. X-ray reviewed from past 2 days with no significant changes and maybe some mild improvement from [id number]. We will continue p.r.n. use of BiPAP based on ABGs NEURO: Acute metabolic encephalopathy secondary to hypoxic/ hypercarbic respiratory failure - S/P extubation and currently on nasal canula 2L CARDIOVASCULAR: Acute on chronic exacerbation of decompensated systolic heart failure, NYHA class 3 Chronic permanent atrial fibrillation with secondary hypercoagulable state Severe pulmonary hypertension likely due to COPD /FAWN - [id number] score 3 and HAS BLED score 2 - CXR showed cardiomegaly with mild pulmonary vascular congestion - Echo on 07/31/2024 demonstrated EF 40% with global hypokinesis, irregular contractility, moderate tricuspid regurgitation, moderate aortic sclerosis with diminished excursion of the right coronary cusp and RVSP 56 mm hg - Metoprolol tartrate 50 mg bid - Enoxaparin 110 mg SC daily. - Maintain strict I&O - Atorvastatin 20 mg at HS PULMONARY: Acute on chronic hypoxic / hypercarbic respiratory failure Acute on chronic exacerbation of COPD Ruled out pulmonary embolism Gram negative pneumonia ruled out - CT angiography demonstrated 2 cm nodular opacities right lung apex, ruled out PE and follow up CT scan in 6 weeks to see if there is resolution. - Med neb with levalbuterol and ipratropium q.4 hours - IV Linezolid 600 mg bid, IV cefepime 2gm Q 8 hours - Discontinued vancomycin due to worsening kidney function - IV methylprednisolone 40 mg bid - Respiratory culture showed normal oropharyngeal rc - Bipap at night 03/07 Renal: DAVE likely hemodynamically mediated/VMN Possible Vancomycin toxicity Microscopic hematuria and possible acute cystitis - Patient is on IV cefepime and linezolid - Nephrology on board. - Patient underwent hemodialysis today. - Monitor BMP Metabolic: Hyperkalemia likely due to DAVE - Hyperkalemia protocol management. - Monitor BMP ENDOCRINE: Uncontrolled type 2 diabetes mellitus, hemoglobin A1c 9.2 Obesity class 3, BMI 50.1 kg/meter2 - Aggressive sliding scale q.6 hour - Lantus 15 units at HS HEME: Chronic normocytic normochromic anemia likely due to anemia of chronic disease INFECTIOUS DISEASE: Bilateral lower extremity cellulitis Sepsis due to above - Wound culture on 07/31/24 demonstrated Enterobacter intermedius, Enterococcus faecalis, MRSA which is sensitive to vancomycin and cefepime - IV Linezolid 600 mg bid and IV cefepime 2gm Q 8 hours - Blood culture showed no growth after 5 days of incubation DIET: Enteral feeding with Glucerna DVT prophylax: enoxaparin GI prophylaxis: Protonix 40 mg IV daily Bowel regimen: Lactulose 30 ml bid Code status: full code LINES/DRAINS/ACCESS: Kaden catheter: Placed on 08/15/24 IV access: PICC line placed on 08/08/24 Marlow catheter: on 08/13/24 DISPOSITION: JERRICA Patient's status discussed with RN Plan discussed with: Patient My Orders Orders - NAOMI MONTILLA MD Procedure Category Date Status Time Ppn Per Pharmacy BRENT 08/17/24 In Process 13:13 Abg W/ Co-Ox RT 08/17/24 Logged 16:00 Date of Service: August 18, 2024 Billing Provider: NAOMI MONTILLA MD Common Visit Codes: [id number] CARE 30-74 MIN NAOMI MONTILLA MD August 18, 2024 12:06
--- NOTE | 2024-08-18 12:31 | DVHPN2 ---
Progress Note Date Seen: August 18, 2024 Medical Necessity Reason Pt with a Central, PICC or Fol: Yes The following are medically ne: Central Line, [place] Catheter Reason for [place] catheter: Strict I&O Subjective Patient reports: Other Review of Systems: RESPIRATORY:Abnormal (sob) Objective vital signs Vital Sign Date Time Temp Pulse Resp B/P (MAP) Pulse Ox O2 Delivery O2 Flow Rate FiO2 08/18/24 09:22 105 18 100 08/18/24 09:16 Nasal Cannula 2.0 08/18/24 09:16 28 08/18/24 07:01 123/51 (75) 08/18/24 04:00 98.6 98.6 Total Intake and Output 08/17/24 08/17/24 08/18/24 15:00 23:00 07:00 Intake Total 390.00 ml 309.50 ml 556.0 ml Output Total 225 ml 400 ml Balance 390.00 ml 84.50 ml 156.0 ml medications Current Medications Medications Dose Ordered Sig/Artie Route Start Time Stop Time Status Last Admin Dose Admin Acetaminophen 325 mg Q4HP PRN PO 07/30/24 21:45 Ipratropium [place] 0.5 mg Q4HR NEB 07/30/24 22:00 08/18/24 09:16 0.5 MG Levalbuterol HCl 1.25 mg Q4HR NEB 07/30/24 22:00 08/18/24 09:16 1.25 MG Pantoprazole Sodium 40 mg DAILY IV 08/01/24 10:00 08/18/24 11:35 40 MG Enteral Nutritional Formula 1,000 ml 50ML/HR GT 08/05/24 17:15 08/12/24 21:58 1,000 ML Diagnostic Test (Pha) 1 strip Q6HR 08/06/24 00:00 08/18/24 11:36 1 STRIP Insulin Human Regular Q6HR SC 08/06/24 00:00 08/18/24 11:46 8 UNITS Dextrose 50 ml UD PRN IV 08/05/24 17:15 Lactulose 30 ml BID PO 08/07/24 10:00 08/18/24 11:35 30 ML Sodium Chloride 10 ml QSHIFT@10,22 IV 08/08/24 22:00 08/18/24 11:36 10 ML Metoprolol Tartrate 1.25 mg Q6HPRN PRN IV 08/12/24 10:30 Hold Linezolid 300 ml @ 150 mls/hr Q12HR IV 08/13/24 10:00 08/18/24 11:36 150 MLS/HR Insulin Glargine 15 units HS SC 08/14/24 22:00 08/17/24 21:58 15 UNITS Methylprednisolone Sodium Succinate 40 mg BID IV 08/15/24 22:00 08/18/24 11:35 40 MG Norepinephrine Bitartrate 250 ml @ 3.75 mls/hr Q24H IV 08/15/24 18:30 08/17/24 14:07 11.25 MLS/HR Amino Acids 0 ml @ 0 mls/hr PER PHARMACY IV 08/17/24 14:00 Cefepime HCl 50 ml @ 12.5 mls/hr DAILY IV 08/19/24 10:00 Fat Emulsion Intravenous 50 ml/ Sodium Chloride 60 meq/Magnesium Sulfate 4 meq/ Multivitamins 10 ml/Chromium/ Copper/Manganese/ Zinc 1 ml/Insulin Human Regular 6 units/Amino Acids/ Dextrose/Purified Water 1,727.06 ml @ 72 mls/hr Q24H IV 08/18/24 22:00 08/19/24 21:59 Examination: GENERAL:Abnormal, LUNGS:Abnormal, MSK:Abnormal, SKIN:Abnormal, NEURO:Normal laboratory and microbiology Laboratory Tests 08/18/24 05:05 08/17/24 03:30 Test 08/18/24 05:05 Range/Units Serum Glucose 263 #H 74-106 mg/dL Microbiology Date/Time Source Procedure Growth Status 08/12/24 07:06 Blood Blood Culture - Final NO GROWTH AFTER 5 DAYS OF INCUBATION. Complete 08/09/24 13:35 Other Aerobic Culture - Final Complete 08/01/24 00:00 Sputum Gram Stain - Final Complete 08/01/24 00:00 Sputum Respiratory Culture - Final Complete Problem List/Assessment/Plan Problem List/Assessment/Plan Acute kidney injury, likely ATN sec to shock / vanco toxicity / contrast needing dialysis Acute hypoxic respiratory failure s/p intubation and mechanical ventilation, now extubated 08/12 Acute metabolic encephalopathy secondary to hypoxic/ hypercarbic respiratory failure Acute on chronic exacerbation of decompensated systolic heart failure, NYHA class 3 Chronic permanent atrial fibrillation with secondary hypercoagulable state Severe pulmonary hypertension likely due to COPD /FAWN Sepsis due to Bilateral lower extremity cellulitis PE ruled out Type 2 diabetes mellitus-A1c 9.2 Obesity Plan: HD Monday uf as tolerated Remains oliguric We will follow on levophed d/w brother Plan discussed with: Other My Orders My Orders Orders - MELONY LAU MD Procedure Category Date Status Time Hemodialysis Orders ORDERS 08/18/24 Transmitted 12:26 Dietary Evaluation Review Comments: 1. Suggest TF w/ formula Pivot 1.5 @ 40 ml/hr (GOAL). Begin @ 10 ml/hr; advance by 10 ml Q4 hrs or as tolerated to 40 ml/hr x 24 hrs 2. Provide free water flushes of 30 ml Q6 hrs (120 ml total); adjust PRN 3. Monitor BMP/lytes and replete to WNL/PRN 4. Lantus, ss insulin for correction; adjust PRN to maintain BG <180 mg/dl TF Provision: TF at goal to provide 960 ml total volume, 1440 kcal, 90 gm pro, 7 gm fiber, 165 gm CHO, 729 ml H20 (meets 100% est. kcal needs, 100% est. pro needs) Expected Outcomes/Goals: Improved nutritional status, TF initiation within 24-48 hrs of intubation. Critical Care Time (mins): 39 MELONY LAU MD August 18, 2024 12:31
[2024-08-18] MEDS ORDERED: ALBUMIN 25% 100 ML IV SCH (13:30)
[2024-08-18] MEDS: PPN PER PHARMACY IV NR (22:33)
--- NOTE | 2024-08-18 22:52 | DVHPN2 ---
Progress Note - Dictate Date Seen: August 18, 2024 Medical Necessity Reason Pt with a Central, PICC or Fol: Yes The following are medically ne: Central Line, [place] Catheter Reason for [place] catheter: Strict I&O Subjective Patient seen and examined at bedside. On supplemental oxygen Overnight events reviewed. vital signs Vital Sign Date Time Temp Pulse Resp B/P (MAP) Pulse Ox O2 Delivery O2 Flow Rate FiO2 08/18/24 22:01 99 18 118/38 (64) 100 08/18/24 22:00 Nasal Cannula* 2 28 08/18/24 20:00 98.5 98.5 Total Intake and Output 08/17/24 08/17/24 08/18/24 15:00 23:00 07:00 Intake Total 390.00 ml 309.50 ml 556.0 ml Output Total 225 ml 400 ml Balance 390.00 ml 84.50 ml 156.0 ml medications Current Medications Medications Dose Ordered Sig/Artie Route Start Time Stop Time Status Last Admin Dose Admin Acetaminophen 325 mg Q4HP PRN PO 07/30/24 21:45 Ipratropium [place] 0.5 mg Q4HR NEB 07/30/24 22:00 08/18/24 21:47 0.5 MG Levalbuterol HCl 1.25 mg Q4HR NEB 07/30/24 22:00 08/18/24 21:47 1.25 MG Pantoprazole Sodium 40 mg DAILY IV 08/01/24 10:00 08/18/24 11:35 40 MG Enteral Nutritional Formula 1,000 ml 50ML/HR GT 08/05/24 17:15 08/12/24 21:58 1,000 ML Diagnostic Test (Pha) 1 strip Q6HR 08/06/24 00:00 08/18/24 18:00 1 STRIP Insulin Human Regular Q6HR SC 08/06/24 00:00 08/18/24 18:00 4 UNITS Dextrose 50 ml UD PRN IV 08/05/24 17:15 Lactulose 30 ml BID PO 08/07/24 10:00 08/18/24 22:30 30 ML Sodium Chloride 10 ml QSHIFT@10,22 IV 08/08/24 22:00 08/18/24 22:31 10 ML Metoprolol Tartrate 1.25 mg Q6HPRN PRN IV 08/12/24 10:30 Hold Linezolid 300 ml @ 150 mls/hr Q12HR IV 08/13/24 10:00 08/18/24 22:31 150 MLS/HR Insulin Glargine 15 units HS SC 08/14/24 22:00 08/18/24 22:32 15 UNITS Methylprednisolone Sodium Succinate 40 mg BID IV 08/15/24 22:00 08/18/24 22:31 40 MG Norepinephrine Bitartrate 250 ml @ 3.75 mls/hr Q24H IV 08/15/24 18:30 08/18/24 18:49 7.5 MLS/HR Amino Acids 0 ml @ 0 mls/hr PER PHARMACY IV 08/17/24 14:00 Cefepime HCl 50 ml @ 12.5 mls/hr DAILY IV 08/19/24 10:00 Fat Emulsion Intravenous 50 ml/ Sodium Chloride 60 meq/Magnesium Sulfate 4 meq/ Multivitamins 10 ml/Chromium/ Copper/Manganese/ Zinc 1 ml/Insulin Human Regular 6 units/Amino Acids/ Dextrose/Purified Water 1,727.06 ml @ 72 mls/hr Q24H IV 08/18/24 22:00 08/19/24 21:59 08/18/24 22:33 72 MLS/HR Albumin Human 100 ml @ 100 mls/hr PRN IV 08/18/24 13:30 08/18/24 23:59 objective Gen.: Patient lying in bed in no apparent distress. On supplemental oxygen Head: Normocephalic, atraumatic. Eyes: EOMI/PERRLA. Ears: Normal hearing. Normal anatomy. Neck/trachea: Trachea midline, supple. Nose: Normal external anatomy. Mouth: Moist mucous membranes. Chest: Decreased air entry bilaterally. No wheezing or rhonchi. Cardiovascular: Positive S1, positive S2. Regular rate and rhythm. Abdomen: Positive bowel sounds in all 4 quadrants. Soft, non-tender, non- distended. : Deferred. Rectal: Deferred. Skin: Warm, dry. Intact. Extremities: 2+ radial pulses bilaterally. No lower extremity edema. Neuro: Awake, alert, oriented x3. No gross motor or sensory deficits. Cranial nerves II through XII intact. Gait not assessed. laboratory and microbiology Laboratory Tests 08/18/24 05:05 08/17/24 03:30 Test 5/18/25 05:05 Range/Units Serum Glucose 263 #H 74-106 mg/dL Assessment/Plan Impression Acute hypoxemic respiratory failure Severe pulmonary hypertension Pulmonary edema Chronic obstructive pulmonary disease exacerbation Congestive heart failure Atrial fibrillation Events: Patient seen and examined at bedside Transitioned off BiPAP - on supplemental oxygen 2 LPM NC Taper O2 as tolerated NGT for feedings Clinimix for nutritional support On pressors for hemodynamic support Levophed 4 mcg/min Titrate to keep mean arterial pressure greater than 65 mmHg Improving pressor requirements Continue bronchodilators. IV steroids Continue antibiotics. Head of bed elevation Aspiration precautions Tube feeds for nutritional support Accu-Cheks, ISS Hemodialysis per Nephrology Monitor renal function Monitor electrolytes. Supplement as needed Labs and imaging reviewed Plan S/p extubation on 08/11/24 Continue supplemental oxygen Titrate to keep O2 sats above 92% Antibiotics Bronchodilators IV steroids HD per Nephrology Nephrology recs appreciated Monitor renal function Monitor electrolytes Supplement as needed Pressors as needed for hemodynamic support To maintain a mean arterial pressure of 65 mmHg DVT prophylaxis Prognosis: Poor given multiple comorbidities Condition: Critical Rest of plan per hospitalist and other consultants A total of 35 minutes of critical care time was spent reviewing the patient's record, examining the patient, making a diagnostic and therapeutic plan, discussing this plan with the medical personnel, following up on diagnostic studies and following the patient for clinical stability excluding any and all procedures. At least 50% of this time was spent in the direct, [id number] contact. Thank you for allowing me to participate in this patient's care. Further recommendations will depend on the patient's clinical course. Please do not hesitate to contact me if you have any questions or concerns. This medical document was created using an electronic medical record system with [employer] dictation system. Although this document has been carefully reviewed, there may still be some phonetic and typographical errors. These areas are purely typographical due to imperfections of the software programs and do not reflect any compromise in the patient's medical care. Dietary Evaluation Review Comments: 1. Suggest TF w/ formula Pivot 1.5 @ 40 ml/hr (GOAL). Begin @ 10 ml/hr; advance by 10 ml Q4 hrs or as tolerated to 40 ml/hr x 24 hrs 2. Provide free water flushes of 30 ml Q6 hrs (120 ml total); adjust PRN 3. Monitor BMP/lytes and replete to WNL/PRN 4. Lantus, ss insulin for correction; adjust PRN to maintain BG <180 mg/dl TF Provision: TF at goal to provide 960 ml total volume, 1440 kcal, 90 gm pro, 7 gm fiber, 165 gm CHO, 729 ml H20 (meets 100% est. kcal needs, 100% est. pro needs) Expected Outcomes/Goals: Improved nutritional status, TF initiation within 24-48 hrs of intubation. Plan discussed with: Other (MARLYS Cifuentes) Critical Care Time(min): 35 WANG HASSAN MD August 18, 2024 22:52
[2024-08-19] VITALS (113 sets, daily range): BP systolic 83–153; BP diastolic 31–97; PULSE 93–124; RESP 12–26; TEMP 97.9–99.2; O2SAT 81–100
[2024-08-19 05:39] LABS: Alkaline Phosphatase 111 U/L (46-116); Anion Gap 9 (5-15); BUN/Creatinine Ratio 14.8 (10.0-20.0); Calcium 8.9 mg/dL (8.7-10.4); Carbon Dioxide 28 mmol/L (20-31); Chloride 98 mmol/L (98-107); Magnesium 1.9 mg/dL (1.6-2.6); Potassium 3.6 mmol/L (3.5-5.1)
[2024-08-19 05:40] LABS: Bilirubin, Total 0.3 mg/dL (0.2-1.0)
[2024-08-19 05:53] LABS: Alanine Aminotransferase 54 U/L (7-40); Aspartate Aminotransferase 71 U/L (13-40); Blood Urea Nitrogen 43 mg/dL (9-23); Glucose 277 mg/dL (74-106); Sodium 135 mmol/L (136-145); Total Protein 5.4 g/dL (5.7-8.2)
[2024-08-19] MEDS: HEPARIN SODIUM (PORCINE) 5000 UNITS/ML 1ML VIAL SC SCH (09:57)
--- NOTE | 2024-08-19 10:18 | DVH ---
CHEST RADIOGRAPH Indication: on bipap Technique: Single frontal view of the chest was obtained COMPARISON: XY CHEST PORTABLE on DOS: 08/17/24, XY CHEST XRAY 1 VIEW on DOS: 08/16/24, XY CHEST PORTABL E on DOS: 08/16/24, XY CHEST XRAY 1 VIEW on DOS: 08/15/24, XY CHEST PORTABLE on DOS: 08/14/24 FINDINGS: Lines and Tubes: Right central venous catheter, right PICC in satisfactory position. Enteric cathete r in satisfactory position. Lungs: Congestion Pleura: No effusion. No pneumothorax. Cardiomediastinal contours: Unremarkable Bones: Unremarkable IMPRESSION: Lines and tubes in satisfactory position.
[2024-08-19] MEDS: CEFEPIME 2GM/50ML NS 50 ML IV SCH (10:24)
[2024-08-19 11:10] LABS: Basophils # (auto) 0 10 ^3/uL (0-0.2); Eosinophils # (auto) 0 10 ^3/uL (0-0.8); Hematocrit 27.7 % (41.0-53.0); Lymphocytes # (auto) 0.2 10 ^3/uL (0.4-5.4); Lymphocytes % (auto) 1.7 % (10.0-50.0); Mean Corpuscular Hgb Conc. 32.4 g/dL (32.0-36.0); Mean Corpuscular Volume 89.5 fL (80.0-100.0); Monocytes # (auto) 0.5 10 ^3/uL (0-1.3); Neutrophils # (auto) 11.8 10 ^3/uL (1.6-8.6); Neutrophils % (auto) 94.3 % (37.0-80.0); Platelet Count (auto) 90 10^3/uL (140-450); Red Blood Cells 3.09 10^6/uL (4.5-5.90); White Blood Cell 12.5 10^3/uL (4.4-10.8)
[2024-08-19] MEDS ORDERED: TPN PER PHARMACY 0 ML IV SCH (11:15)
--- NOTE | 2024-08-19 11:39 | DVHPN2 ---
Progress Note Date Seen: August 19, 2024 Resident Creating Document: LIZZIE CONTRERAS RESIDENT Medical Necessity Reason Pt with a Central, PICC or Fol: Yes The following are medically ne: Central Line, [place] Catheter Reason for [place] catheter: Strict I&O Subjective Review of Systems Mr Reynolds 69-year-old male patient with PMH of systolic CHF-EF 40%, COPD, type 2 diabetes mellitus, atrial fibrillation who initially presented to the ER on 07/30 for altered mental status and shortness of breath and underwent mechanical ventilation on 08/01. Patient is currently extubated, on 2 L nasal cannula supplementation. Patient is not vocal, only responds to his name but not to commands. Per patient's brother who is at bedside, patient has been not ambulating due to probably bilateral hip degenerative changes, and he has had extensive bilateral lower extremity ulcers with drainage, patient was feeling with home health and later opted hospice to see 24/10 care. Per her to admission, patient was confused and developed sudden onset shortness of breath. His hospice nurse saw the patient tachycardic at 130s and patient was saturating at 68% therefore he was sent to the ER. Patient was intubated 08/01 till 08/12. Blood cultures were negative, wound cultures 07/31 showed Enterobacter, Enterococcus and MRSA for which patient initially received IV vancomycin and IV cefepime starting 07/30, IV vancomycin was discontinued 08/11 and the patient was started on IV Zyvox b.i.d. 08/13. Patient has received 2 L of 0.45 NS, 250 cc of LR till now Nephrology has been consulted for worsening DAVE, patient has been experiencing renal failure since 08/10. 08/14-Patient seen and examined at the bedside. Overnight low-grade fever 99.7, pulse 105 and irregular. Requiring 2 L NC supplementation. Bumex IV drip 0.5 mg/hours started. Continue 0.45 NS. Urine output 85 cc in the past 24 hours. 08/15 - patient seen and examined at the bedside. Urine output less than 100 cc overnight. Right IJ Kaden placed, hemodialysis order placed. Primary team started methylprednisolone 40 mg IV b.i.d. renal ultrasound shows echogenic kidneys. 08/16-patient seen and examined at the bedside. Patient responding to name, A&O x1, patient said his name today. Urine output is 200 cc. Hemodialysis pending today. Requiring Levophed. Discontinue IV Bumex given low urine output 08/19 - patient seen and examined at the bedside. Urine output 75 cc overnight. Hemodialysis tomorrow. Fluid restrictions ordered. Other Systems: Patient seen and examined by myself in rounds with the mediciene resident, I agree with his assessement and plan Objective vital signs Vital Sign Date Time Temp Pulse Resp B/P (MAP) Pulse Ox O2 Delivery O2 Flow Rate FiO2 08/19/24 10:07 109 16 100 08/19/24 09:45 123/50 (74) 08/19/24 08:00 Nasal Cannula* 2 28 08/19/24 08:00 99.2 99.2 Total Intake and Output 08/18/24 08/18/24 08/19/24 15:00 23:00 07:00 Intake Total 688.0 ml 478.50 ml 917.5 ml Output Total 75 ml Balance 688.0 ml 478.50 ml 842.5 ml medications Current Medications Medications Dose Ordered Sig/Artie Route Start Time Stop Time Status Last Admin Dose Admin Acetaminophen 325 mg Q4HP PRN PO 07/30/24 21:45 Ipratropium [place] 0.5 mg Q4HR NEB 07/30/24 22:00 08/19/24 09:57 0.5 MG Levalbuterol HCl 1.25 mg Q4HR NEB 07/30/24 22:00 08/19/24 09:57 1.25 MG Pantoprazole Sodium 40 mg DAILY IV 08/01/24 10:00 08/19/24 10:23 40 MG Enteral Nutritional Formula 1,000 ml 50ML/HR GT 08/05/24 17:15 08/12/24 21:58 1,000 ML Diagnostic Test (Pha) 1 strip Q6HR 08/06/24 00:00 08/19/24 06:00 1 STRIP Insulin Human Regular Q6HR SC 08/06/24 00:00 08/19/24 06:58 12 UNITS Dextrose 50 ml UD PRN IV 08/05/24 17:15 Lactulose 30 ml BID PO 08/07/24 10:00 08/19/24 10:23 30 ML Sodium Chloride 10 ml QSHIFT@10,22 IV 08/08/24 22:00 08/19/24 10:24 10 ML Metoprolol Tartrate 1.25 mg Q6HPRN PRN IV 08/12/24 10:30 Hold Linezolid 300 ml @ 150 mls/hr Q12HR IV 08/13/24 10:00 08/19/24 10:24 150 MLS/HR Insulin Glargine 15 units HS SC 08/14/24 22:00 08/18/24 22:32 15 UNITS Methylprednisolone Sodium Succinate 40 mg BID IV 08/15/24 22:00 08/19/24 10:23 40 MG Norepinephrine Bitartrate 250 ml @ 3.75 mls/hr Q24H IV 08/15/24 18:30 08/18/24 18:49 7.5 MLS/HR Cefepime HCl 50 ml @ 12.5 mls/hr DAILY IV 08/19/24 10:00 08/19/24 10:24 12.5 MLS/HR Fat Emulsion Intravenous 50 ml/ Sodium Chloride 60 meq/Magnesium Sulfate 4 meq/ Multivitamins 10 ml/Chromium/ Copper/Manganese/ Zinc 1 ml/Insulin Human Regular 6 units/Amino Acids/ Dextrose/Purified Water 1,727.06 ml @ 72 mls/hr Q24H IV 08/18/24 22:00 08/19/24 21:59 08/18/24 22:33 72 MLS/HR Heparin Sodium (Porcine) 5,000 units Q12HR SC 08/19/24 10:00 Fat Emulsion Intravenous 100 ml/Sodium Chloride 80 meq/ Magnesium Sulfate 4 meq/ Multivitamins 10 ml/Chromium/ Copper/Manganese/ Zinc 1 ml/Insulin Human Regular 12 units/Potassium Acetate 15 meq/ Potassium Phosphate 15 meq/ Amino Acids/ Dextrose 1,143.0291 ml @ 47 mls/hr [id number] IV 08/19/24 22:00 08/20/24 21:59 Amino Acids 0 ml @ 0 mls/hr PER PHARMACY IV 08/19/24 11:15 Examination Elderly male patient lying in the bed. Right IJ Kaden General: Obese, afebrile, palor, mucosae are moist Cardiovascular: IRRegular S1 and S2. No murmurs, gallops or rubs. No JVD elevation. Bilateral pitting edema Respiratory: Bilateral decreased air entry on 2 L NC supplementation Abdomen: Soft, nontender, nondistended, normoactive bowel sounds, no rebound tenderness, no organomegaly, no masses Genitourinary: Deferred. [place] draining 10 cc of urine MSK/skin: Mobilizes 4 limbs. Skin is dry and warm. Bilateral lower extremity have draining wounds, dressing dry clean and intact Neurological assessment could not be completed laboratory and microbiology Laboratory Tests 08/19/24 05:00 Test 08/19/24 05:00 Range/Units Serum Glucose 277 H 74-106 mg/dL Microbiology Date/Time Source Procedure Growth Status 08/12/24 07:06 Blood Blood Culture - Final NO GROWTH AFTER 5 DAYS OF INCUBATION. Complete 08/09/24 13:35 Other Aerobic Culture - Final Complete 08/01/24 00:00 Sputum Gram Stain - Final Complete 08/01/24 00:00 Sputum Respiratory Culture - Final Complete Labs and/or images reviewed: Labs reviewed by me, Image(s) reviewed by me Problem List/Assessment/Plan Problem List/Assessment/Plan Acute kidney injury, rule out ATN== multifactorial secondary to vancomycin toxicity+ diuretics/nephrotoxins,, IV contrast for CTA on admission noted Nephrotic syndrome Acute hypoxic respiratory failure s/p intubation and mechanical ventilation, now extubated 08/12 Acute metabolic encephalopathy secondary to hypoxic/ hypercarbic respiratory failure Acute on chronic exacerbation of decompensated systolic heart failure, NYHA class 3 Chronic permanent atrial fibrillation with secondary hypercoagulable state Severe pulmonary hypertension likely due to COPD /FAWN Sepsis due to Bilateral lower extremity cellulitis PE ruled out Type 2 diabetes mellitus-A1c 9.2 Obesity Urine output 85 cc per past 24 hours Plan: Kidney function improving, patient underwent hemodialysis 08/15, 08/16, 08/18. Hemodialysis scheduled for tomorrow. Fluid restrictions 1200 cc within 24 hours including IV fluids, diet and IV antibiotics given dilutional hyponatremia Right IJ Kaden catheter placed 08/15 for hemodialysis. Discontinued IV Bumex drip given persistent low urine output. Discontinued IV fluids Patient is still requiring Levophed for hypotension This patient was in renal failure for four days, nephrology consulted only today morning when urine output significantly went down BUN high likely secondary to diuretics and steroids Avoid nephrotoxic drugs Strict I&Os Drips: Levophed Hemodialysis scheduled for tomorrow 08/20 Plan discussed with patient in which all questions have been answered Case discussed with Dr. Koo Plan discussed with: Patient My Orders My Orders Orders - LIZZIE CONTRERAS RESIDENT Procedure Category Date Status Time Maintain Fluid BRENT 08/19/24 In Process Restrictions 10:51 Dietary Evaluation Review Comments: 1. Suggest TF w/ formula Pivot 1.5 @ 40 ml/hr (GOAL). Begin @ 10 ml/hr; advance by 10 ml Q4 hrs or as tolerated to 40 ml/hr x 24 hrs 2. Provide free water flushes of 30 ml Q6 hrs (120 ml total); adjust PRN 3. Monitor BMP/lytes and replete to WNL/PRN 4. Lantus, ss insulin for correction; adjust PRN to maintain BG <180 mg/dl TF Provision: TF at goal to provide 960 ml total volume, 1440 kcal, 90 gm pro, 7 gm fiber, 165 gm CHO, 729 ml H20 (meets 100% est. kcal needs, 100% est. pro needs) Expected Outcomes/Goals: Improved nutritional status, TF initiation within 24-48 hrs of intubation. LIZZIE CONTRERAS RESIDENT August 19, 2024 11:39 ESTRELLA KOO MD August 19, 2024 14:43
[2024-08-19] MEDS: NOREPINEPHRINE 8 MG/250ML KIT 250 ML IV SCH (12:00)
[2024-08-19 13:05] LABS: Platelet Estimate Decreased
[2024-08-19] MEDS: MAGNESIUM SULFATE 1GM/100ML 100 ML IV ONE (15:17)
[2024-08-19] MEDS: POTASSIUM CHL 20MEQ/100ML 100 ML IV ONE (15:18)
[2024-08-19] MEDS ORDERED: DEXTROSE (50%) 50ML SYRG IV PRN (18:15)
[2024-08-19] MEDS: INSULIN LANTUS (GLARGINE) 1 /0.01ml (100units/ml) SC SCH (18:37)
[2024-08-19 18:58] LABS: Creatinine, Urine 31.63 mg/dL (30.0-125.0)
--- NOTE | 2024-08-19 19:19 | DVHPNRES ---
Progress Note Date Seen: August 19, 2024 Resident Creating Document: GINETTE TRIVEDI RESIDENT Medical Necessity Reason Pt with a Central, PICC or Fol: Yes The following are medically ne: Central Line, [place] Catheter Reason for [place] catheter: Strict I&O Subjective Review of Systems Patient is a 69-year-old male with past medical history of CHF, COPD, type 2 diabetes, atrial fibrillation, who comes in due to respiratory distress. Per patient's brother who is also his caregiver, patient's home wound care nurse checked his vitals and his SpO2 was noted to be 68% with a pulse of 130, he also appeared disoriented and had labored breathing. Arrival to the ED patient was noted to be tachycardic and tachypneic and was placed on BiPAP. Note, patient is on home oxygen 2-3 L. Patient Underwent intubation with mechanical ventilation on 08/01/2024 due to acute metabolic encephalopathy likely due to acute hypoxic / hypercapnic respiratory failure. Patient was seen and examined on the bedside. He is alert and awake, status post extubation and currently on nasal canula 2 L . Recent CxR showed improved lung expansion on the Lt side. Last 12 hour urine output was 275ml and patient underwent hemodialysis today Objective vital signs Vital Sign Date Time Temp Pulse Resp B/P (MAP) Pulse Ox O2 Delivery O2 Flow Rate FiO2 08/19/24 18:46 108 18 100 08/19/24 18:45 137/62 (87) 08/19/24 18:37 Nasal Cannula* 2 28 08/19/24 16:00 98.7 98.7 Total Intake and Output 08/18/24 08/18/24 08/19/24 15:00 23:00 07:00 Intake Total 688.0 ml 478.50 ml 917.5 ml Output Total 3200 ml 75 ml Balance 688.0 ml -2721.50 ml 842.5 ml medications Current Medications Medications Dose Ordered Sig/Artie Route Start Time Stop Time Status Last Admin Dose Admin Acetaminophen 325 mg Q4HP PRN PO 07/30/24 21:45 Ipratropium [place] 0.5 mg Q4HR NEB 07/30/24 22:00 08/19/24 18:37 0.5 MG Levalbuterol HCl 1.25 mg Q4HR NEB 07/30/24 22:00 08/19/24 18:37 1.25 MG Pantoprazole Sodium 40 mg DAILY IV 08/01/24 10:00 08/19/24 10:23 40 MG Enteral Nutritional Formula 1,000 ml 50ML/HR GT 08/05/24 17:15 08/12/24 21:58 1,000 ML Lactulose 30 ml BID PO 08/07/24 10:00 08/19/24 10:23 30 ML Sodium Chloride 10 ml QSHIFT@10,22 IV 08/08/24 22:00 08/19/24 10:24 10 ML Metoprolol Tartrate 1.25 mg Q6HPRN PRN IV 08/12/24 10:30 Hold Cefepime HCl 50 ml @ 12.5 mls/hr DAILY IV 08/19/24 10:00 08/19/24 10:24 12.5 MLS/HR Norepinephrine Bitartrate 250 ml @ 1.875 mls/ hr Q24H IV 08/19/24 12:00 08/19/24 12:00 1.875 MLS/HR Methylprednisolone Sodium Succinate 20 mg BID IV 08/19/24 22:00 Insulin Glargine 20 units HS SC 08/19/24 18:15 08/19/24 18:37 20 UNITS Diagnostic Test (Pha) 1 strip ACHS 08/19/24 22:00 Insulin Human Regular HS SC 08/19/24 22:00 Insulin Human Regular AC SC 08/20/24 07:00 Dextrose 50 ml UD PRN IV 08/19/24 18:15 Examination Physical examination: General Appearance: Alert& orientedX1 and on nasal canula 2 L HEENT: Atraumatic, PERRLA, EOMI, Mucous membrane moist/pink Respiratory: Clear to auscultation, Normal air movement Cardiovascular: Irregular rate, Normal S1, Normal S2, No murmurs, no chest wall tenderness Abdominal: Normal bowel sounds, Soft, No tenderness, No hepatospenomegaly, No masses Extremities: No clubbing, No cyanosis, No edema. Normal pulses, bilateral wounds in both legs covered with dressing. Skin: No rashes, No breakdown, No significant lesion Neuro: Strength at 4/5 X4 ext, Normal tone, Sensation intact, grossly intact cranial nerves. Psych/Mental Status: could not be assessed. laboratory and microbiology Laboratory Tests 08/19/24 10:42 08/19/24 05:00 Test 08/19/24 05:00 Range/Units Serum Glucose 277 H 74-106 mg/dL Microbiology Date/Time Source Procedure Growth Status 08/12/24 07:06 Blood Blood Culture - Final NO GROWTH AFTER 5 DAYS OF INCUBATION. Complete 08/09/24 13:35 Other Aerobic Culture - Final Complete 08/01/24 00:00 Sputum Gram Stain - Final Complete 08/01/24 00:00 Sputum Respiratory Culture - Final Complete Labs and/or images reviewed: Labs reviewed by me, Image(s) reviewed by me Problem List/Assessment/Plan Problem List/Assessment/Plan Assessment and plan: NEURO: Acute metabolic encephalopathy secondary to hypoxic/ hypercarbic respiratory failure - S/P extubation and currently on nasal canula 2L CARDIOVASCULAR: Acute on chronic exacerbation of decompensated systolic heart failure, NYHA class 3 Chronic permanent atrial fibrillation with secondary hypercoagulable state Severe pulmonary hypertension likely due to COPD /FAWN - [id number] score 3 and HAS BLED score 2 - CXR showed cardiomegaly with mild pulmonary vascular congestion - Echo on 07/31/2024 demonstrated EF 40% with global hypokinesis, irregular contractility, moderate tricuspid regurgitation, moderate aortic sclerosis with diminished excursion of the right coronary cusp and RVSP 56 mm hg. - Maintain strict I&O - Atorvastatin 20 mg at HS PULMONARY: Acute on chronic hypoxic / hypercarbic respiratory failure Acute on chronic exacerbation of COPD Ruled out pulmonary embolism Gram negative pneumonia ruled out - CT angiography demonstrated 2 cm nodular opacities right lung apex, ruled out PE and follow up CT scan in 6 weeks to see if there is resolution. - Med neb with levalbuterol and ipratropium q.4 hours - IV cefepime 2gm Q 8 hours - Discontinued linezolid due to thrombocytopenia - Discontinued vancomycin due to worsening kidney function - IV methylprednisolone 20 mg bid - Respiratory culture showed normal oropharyngeal rc - Bipap at night 03/07 GI : Possible stress ulcer FOBT positive - IV Protonix 40 mg daily Renal: DAVE likely hemodynamically mediated/VMN Possible Vancomycin toxicity Microscopic hematuria and possible acute cystitis - Patient is on IV cefepime - Nephrology on board. - Patient underwent hemodialysis 3 times. - Monitor BMP Metabolic: Hyperkalemia likely due to DAVE - Hyperkalemia protocol management. - Monitor BMP ENDOCRINE: Uncontrolled type 2 diabetes mellitus, hemoglobin A1c 9.2 Obesity class 3, BMI 50.1 kg/meter2 - Moderate sliding scale q.6 hour - Lantus 20 units at HS HEME: Chronic normocytic normochromic anemia likely due to anemia of chronic disease INFECTIOUS DISEASE: Bilateral lower extremity cellulitis Sepsis due to above - Wound culture on 07/31/24 demonstrated Enterobacter intermedius, Enterococcus faecalis, MRSA which is sensitive to vancomycin and cefepime - IV cefepime 2gm Q 8 hours - Blood culture showed no growth after 5 days of incubation DIET: Enteral feeding with Glucerna DVT prophylax: SCD GI prophylaxis: Protonix 40 mg IV daily Bowel regimen: Lactulose 30 ml bid Code status: full code LINES/DRAINS/ACCESS: Kaden catheter: Placed on 08/15/24 IV access: PICC line placed on 08/08/24 [place] catheter: on 08/13/24 DISPOSITION: JERRICA Patient's status discussed with field care manager time spent more than 41 minutes, including patient care and chart review. Case discussed with Dr. Hernandez Plan discussed with: Patient (RN), Other My Orders My Orders Orders - GINETTE TRIVEDI RESIDENT Procedure Category Date Status Time Chest Portable XY 08/19/24 Resulted 06:27 Abg W/ Co-Ox RT 08/19/24 Logged 07:13 Norepinephrine 8 PHA 08/19/24 In Process Mg/250ml Kit 12:00 Communication Order ORDERS 08/19/24 Transmitted 17:24 Insulin Lantus PHA 08/19/24 In Process (Glargine) (Lantus) 18:15 Glucose Blood PHA 08/19/24 In Process (Accu-Chek Comfort 22:00 Insulin R (Human) PHA 08/19/24 In Process (Insulin R) 22:00 Insulin R (Human) PHA 08/20/24 In Process (Insulin R) 07:00 Dextrose 50% Syringe PHA 08/19/24 In Process 18:15 Dietary Evaluation Review Comments: 1. Suggest TF w/ formula Pivot 1.5 @ 40 ml/hr (GOAL). Begin @ 10 ml/hr; advance by 10 ml Q4 hrs or as tolerated to 40 ml/hr x 24 hrs 2. Provide free water flushes of 30 ml Q6 hrs (120 ml total); adjust PRN 3. Monitor BMP/lytes and replete to WNL/PRN 4. Lantus, ss insulin for correction; adjust PRN to maintain BG <180 mg/dl TF Provision: TF at goal to provide 960 ml total volume, 1440 kcal, 90 gm pro, 7 gm fiber, 165 gm CHO, 729 ml H20 (meets 100% est. kcal needs, 100% est. pro needs) Expected Outcomes/Goals: Improved nutritional status, TF initiation within 24-48 hrs of intubation. Date of Service: August 19, 2024 Billing Provider: GERMAN HERNANDEZ MD Common Visit Codes: 48135-[id number] CARE 30-74 MIN GINETTE TRIVEDI RESIDENT August 19, 2024 19:19 GERMAN HERNANDEZ MD August 20, 2024 15:06
[2024-08-19] MEDS ORDERED: [UNRECOGNIZED DRUG - OTHER] IV NR (22:00)
[2024-08-19] MEDS ORDERED: SODIUM CHLORIDE IV NR (22:00)
[2024-08-19] MEDS ORDERED: FAT EMULSION IV NR (22:00)
[2024-08-19] MEDS ORDERED: MAGNESIUM SULF IV NR (22:00)
[2024-08-19] MEDS: methylPREDNISolone SOD SUCC 40 MG/ML VL IV SCH (22:21)
[2024-08-19] MEDS: ACCU-CHEK COMFORT CURVE STRIP VI SCH (22:22)
[2024-08-19] MEDS: InsuLIN REG 1unit/0.01ml Soln (100units/ml) SC SCH (22:23)
[2024-08-20] VITALS (114 sets, daily range): BP systolic 82–139; BP diastolic 34–94; PULSE 90–129; RESP 11–28; TEMP 97.3–99; O2SAT 86–100
[2024-08-20 05:34] LABS: Basophils # (auto) 0 10 ^3/uL (0-0.2); Basophils % (auto) 0.1 % (0.0-2.0); Eosinophils # (auto) 0 10 ^3/uL (0-0.8); Lymphocytes # (auto) 0.2 10 ^3/uL (0.4-5.4); Neutrophils # (auto) 10.3 10 ^3/uL (1.6-8.6); Platelet Count (auto) 77 10^3/uL (140-450); White Blood Cell 10.8 10^3/uL (4.4-10.8)
[2024-08-20 05:41] LABS: Hemoglobin 7.5 g/dL (13.5-17.5); Lymphocytes % (auto) 1.8 % (10.0-50.0); Mean Corpuscular Hgb Conc. 32.6 g/dL (32.0-36.0); Mean Corpuscular Volume 88.9 fL (80.0-100.0); Monocytes # (auto) 0.4 10 ^3/uL (0-1.3); Monocytes % (auto) 3.3 % (0.0-12.0); Neutrophils % (auto) 94.8 % (37.0-80.0); Red Blood Cells 2.59 10^6/uL (4.5-5.90); Red Cell Distribution Width 15.1 % (11.8-14.3)
[2024-08-20 05:47] LABS: Anion Gap 9 (5-15); Carbon Dioxide 27 mmol/L (20-31); Potassium 3.9 mmol/L (3.5-5.1)
[2024-08-20 05:53] LABS: BUN/Creatinine Ratio 17.2 (10.0-20.0)
[2024-08-20 05:59] LABS: Blood Urea Nitrogen 63 mg/dL (9-23); Calcium 8.6 mg/dL (8.7-10.4); Chloride 98 mmol/L (98-107); Glucose 184 mg/dL (74-106); Sodium 134 mmol/L (136-145)
[2024-08-20] MEDS: InsuLIN REG 1unit/0.01ml Soln (100units/ml) SC SCH (06:18)
[2024-08-20] MEDS: SODIUM CHL 0.9% 1000 ML BAG XX ONE (07:00)
[2024-08-20 09:01] LABS: Base Excess -0.1 mmol/L (-2.0-3.0)
[2024-08-20] MEDS: PANTOPRAZOLE 40 MG/10 ML VIAL INJ IV SCH (09:30)
--- NOTE | 2024-08-20 11:23 | DVHPN2 ---
Progress Note Date Seen: August 20, 2024 Resident Creating Document: LIZZIE CONTRERAS RESIDENT Medical Necessity Reason Pt with a Central, PICC or Fol: Yes The following are medically ne: Central Line, [place] Catheter Reason for [place] catheter: Strict I&O Subjective Review of Systems Mr Reynolds 69-year-old male patient with PMH of systolic CHF-EF 40%, COPD, type 2 diabetes mellitus, atrial fibrillation who initially presented to the ER on 07/30 for altered mental status and shortness of breath and underwent mechanical ventilation on 08/01. Patient is currently extubated, on 2 L nasal cannula supplementation. Patient is not vocal, only responds to his name but not to commands. Per patient's brother who is at bedside, patient has been not ambulating due to probably bilateral hip degenerative changes, and he has had extensive bilateral lower extremity ulcers with drainage, patient was feeling with home health and later opted hospice to see 24/10 care. Per her to admission, patient was confused and developed sudden onset shortness of breath. His hospice nurse saw the patient tachycardic at 130s and patient was saturating at 68% therefore he was sent to the ER. Patient was intubated 08/01 till 08/12. Blood cultures were negative, wound cultures 07/31 showed Enterobacter, Enterococcus and MRSA for which patient initially received IV vancomycin and IV cefepime starting 07/30, IV vancomycin was discontinued 08/11 and the patient was started on IV Zyvox b.i.d. 08/13. Patient has received 2 L of 0.45 NS, 250 cc of LR till now Nephrology has been consulted for worsening DAVE, patient has been experiencing renal failure since 08/10. 08/14-Patient seen and examined at the bedside. Overnight low-grade fever 99.7, pulse 105 and irregular. Requiring 2 L NC supplementation. Bumex IV drip 0.5 mg/hours started. Continue 0.45 NS. Urine output 85 cc in the past 24 hours. 08/15 - patient seen and examined at the bedside. Urine output less than 100 cc overnight. Right IJ Kaden placed, hemodialysis order placed. Primary team started methylprednisolone 40 mg IV b.i.d. renal ultrasound shows echogenic kidneys. 08/16-patient seen and examined at the bedside. Patient responding to name, A&O x1, patient said his name today. Urine output is 200 cc. Hemodialysis pending today. Requiring Levophed. Discontinue IV Bumex given low urine output 08/19 - patient seen and examined at the bedside. Urine output 75 cc overnight. Hemodialysis tomorrow. Fluid restrictions ordered. 08/19 - patient seen and examined at the bedside. Urine output 375 cc overnight. Hemodialysis ongoing. Other Systems: Patient seen and examined by myself today around with the medicine resident, I agree with his assessment and plan. Dysfunctional IJ Kaden hemodialysis catheter. We will try Hemodialysis tomorrow after catheter replacement Objective vital signs Vital Sign Date Time Temp Pulse Resp B/P (MAP) Pulse Ox O2 Delivery O2 Flow Rate FiO2 08/20/24 10:14 114 111/52 99 Facial BiPAP Mask 30 08/20/24 10:00 22 1 08/20/24 08:00 98.2 98.2 Total Intake and Output 08/19/24 08/19/24 08/20/24 15:00 23:00 07:00 Intake Total 939 ml 283 ml 75 ml Output Total 50 ml 375 ml Balance 939 ml 233 ml -300 ml medications Current Medications Medications Dose Ordered Sig/Artie Route Start Time Stop Time Status Last Admin Dose Admin Acetaminophen 325 mg Q4HP PRN PO 07/30/24 21:45 Ipratropium [place] 0.5 mg Q4HR NEB 07/30/24 22:00 08/20/24 10:13 0.5 MG Levalbuterol HCl 1.25 mg Q4HR NEB 07/30/24 22:00 08/20/24 10:13 1.25 MG Enteral Nutritional Formula 1,000 ml 50ML/HR GT 08/05/24 17:15 08/19/24 22:24 1,000 ML Lactulose 30 ml BID PO 08/07/24 10:00 08/20/24 09:30 30 ML Sodium Chloride 10 ml QSHIFT@10,22 IV 08/08/24 22:00 08/20/24 09:31 10 ML Cefepime HCl 50 ml @ 12.5 mls/hr DAILY IV 08/19/24 10:00 08/20/24 09:30 12.5 MLS/HR Norepinephrine Bitartrate 250 ml @ 1.875 mls/ hr Q24H IV 08/19/24 12:00 08/19/24 12:00 1.875 MLS/HR Methylprednisolone Sodium Succinate 20 mg BID IV 08/19/24 22:00 08/20/24 09:31 20 MG Insulin Glargine 20 units HS SC 08/19/24 18:15 08/19/24 22:22 20 UNITS Diagnostic Test (Pha) 1 strip ACHS 08/19/24 22:00 08/20/24 06:18 1 STRIP Insulin Human Regular HS SC 08/19/24 22:00 08/19/24 22:23 4 UNITS Insulin Human Regular AC SC 08/20/24 07:00 08/20/24 06:18 3 UNITS Dextrose 50 ml UD PRN IV 08/19/24 18:15 Pantoprazole Sodium 40 mg BID IV 08/20/24 08:15 08/20/24 09:31 40 MG Examination Elderly male patient lying in the bed. Right IJ Kaden General: Obese, afebrile, palor, mucosae are moist Cardiovascular: IRRegular S1 and S2. No murmurs, gallops or rubs. No JVD elevation. Bilateral pitting edema Respiratory: Bilateral decreased air entry on 2 L NC supplementation Abdomen: Soft, nontender, nondistended, normoactive bowel sounds, no rebound tenderness, no organomegaly, no masses Genitourinary: Deferred. [place] draining 10 cc of urine MSK/skin: Mobilizes 4 limbs. Skin is dry and warm. Bilateral lower extremity have draining wounds, dressing dry clean and intact Neurological assessment could not be completed laboratory and microbiology Laboratory Tests 08/20/24 05:10 Test 08/20/24 05:10 Range/Units Serum Glucose 184 H 74-106 mg/dL Microbiology Date/Time Source Procedure Growth Status 08/12/24 07:06 Blood Blood Culture - Final NO GROWTH AFTER 5 DAYS OF INCUBATION. Complete 08/09/24 13:35 Other Aerobic Culture - Final Complete 08/01/24 00:00 Sputum Gram Stain - Final Complete 08/01/24 00:00 Sputum Respiratory Culture - Final Complete Labs and/or images reviewed: Labs reviewed by me, Image(s) reviewed by me Problem List/Assessment/Plan Problem List/Assessment/Plan Acute kidney injury, rule out ATN== multifactorial secondary to vancomycin toxicity+ diuretics/nephrotoxins,, IV contrast for CTA on admission noted Nephrotic syndrome Acute hypoxic respiratory failure s/p intubation and mechanical ventilation, now extubated 08/12 Acute metabolic encephalopathy secondary to hypoxic/ hypercarbic respiratory failure Acute on chronic exacerbation of decompensated systolic heart failure, NYHA class 3 Chronic permanent atrial fibrillation with secondary hypercoagulable state Severe pulmonary hypertension likely due to COPD /FAWN Sepsis due to Bilateral lower extremity cellulitis PE ruled out Type 2 diabetes mellitus-A1c 9.2 Obesity Plan: Kidney function improving, patient underwent hemodialysis 08/15, 08/16, 08/18. Hemodialysis ongoing. Fluid restrictions 1200 cc within 24 hours including IV fluids, diet and IV antibiotics given dilutional hyponatremia Right IJ Kaden catheter placed 08/15 for hemodialysis. Discontinued IV Bumex drip given persistent low urine output. Discontinued IV fluids This patient was in renal failure for four days, nephrology consulted only today morning when urine output significantly went down BUN high likely secondary to diuretics and steroids Avoid nephrotoxic drugs Strict I&Os Drips: Off Levophed 08/20 Plan discussed with patient in which all questions have been answered Case discussed with Dr. Koo Plan discussed with: Patient Dietary Evaluation Review Comments: 1. Suggest TF w/ formula Pivot 1.5 @ 40 ml/hr (GOAL). Begin @ 10 ml/hr; advance by 10 ml Q4 hrs or as tolerated to 40 ml/hr x 24 hrs 2. Provide free water flushes of 30 ml Q6 hrs (120 ml total); adjust PRN 3. Monitor BMP/lytes and replete to WNL/PRN 4. Lantus, ss insulin for correction; adjust PRN to maintain BG <180 mg/dl TF Provision: TF at goal to provide 960 ml total volume, 1440 kcal, 90 gm pro, 7 gm fiber, 165 gm CHO, 729 ml H20 (meets 100% est. kcal needs, 100% est. pro needs) Expected Outcomes/Goals: Improved nutritional status, TF initiation within 24-48 hrs of intubation. LIZZIE CONTRERAS RESIDENT August 20, 2024 11:23 ESTRELLA KOO MD August 20, 2024 18:38
[2024-08-20 12:53] LABS: Base Excess -1.7 mmol/L (-2.0-3.0)
--- NOTE | 2024-08-20 17:52 | DVHPNRES ---
Progress Note Date Seen: August 20, 2024 Resident Creating Document: GINETTE TRIVEDI RESIDENT Medical Necessity Reason Pt with a Central, PICC or Fol: Yes The following are medically ne: Central Line, [place] Catheter Reason for [place] catheter: Strict I&O Subjective Review of Systems Patient is a 69-year-old male with past medical history of CHF, COPD, type 2 diabetes, atrial fibrillation, who comes in due to respiratory distress. Per patient's brother who is also his caregiver, patient's home wound care nurse checked his vitals and his SpO2 was noted to be 68% with a pulse of 130, he also appeared disoriented and had labored breathing. Arrival to the ED patient was noted to be tachycardic and tachypneic and was placed on BiPAP. Note, patient is on home oxygen 2-3 L. Patient Underwent intubation with mechanical ventilation on 08/01/2024 due to acute metabolic encephalopathy likely due to acute hypoxic / hypercapnic respiratory failure. Patient was seen and examined on the bedside. He is alert and awake, status post extubation and currently on BiPAP 15/10 . Scheduled for another session of dialysis today . Objective vital signs Vital Sign Date Time Temp Pulse Resp B/P (MAP) Pulse Ox O2 Delivery O2 Flow Rate FiO2 08/20/24 16:00 108 08/20/24 16:00 17 98 Bi-Pap+ 30 30 08/20/24 15:30 131/74 (93) 08/20/24 10:00 1 08/20/24 08:00 98.2 98.2 Total Intake and Output 08/19/24 08/19/24 08/20/24 15:00 23:00 07:00 Intake Total 939 ml 283 ml 75 ml Output Total 50 ml 375 ml Balance 939 ml 233 ml -300 ml medications Current Medications Medications Dose Ordered Sig/Artie Route Start Time Stop Time Status Last Admin Dose Admin Acetaminophen 325 mg Q4HP PRN PO 07/30/24 21:45 Ipratropium [place] 0.5 mg Q4HR NEB 07/30/24 22:00 08/20/24 14:28 0.5 MG Levalbuterol HCl 1.25 mg Q4HR NEB 07/30/24 22:00 08/20/24 14:28 1.25 MG Enteral Nutritional Formula 1,000 ml 50ML/HR GT 08/05/24 17:15 08/19/24 22:24 1,000 ML Lactulose 30 ml BID PO 08/07/24 10:00 08/20/24 09:30 30 ML Sodium Chloride 10 ml QSHIFT@10,22 IV 08/08/24 22:00 08/20/24 09:31 10 ML Cefepime HCl 50 ml @ 12.5 mls/hr DAILY IV 08/19/24 10:00 08/20/24 09:30 12.5 MLS/HR Norepinephrine Bitartrate 250 ml @ 1.875 mls/ hr Q24H IV 08/19/24 12:00 08/19/24 12:00 1.875 MLS/HR Methylprednisolone Sodium Succinate 20 mg BID IV 08/19/24 22:00 08/20/24 09:31 20 MG Insulin Glargine 20 units HS SC 08/19/24 18:15 08/19/24 22:22 20 UNITS Diagnostic Test (Pha) 1 strip ACHS 08/19/24 22:00 08/20/24 11:38 1 STRIP Insulin Human Regular HS SC 08/19/24 22:00 08/19/24 22:23 4 UNITS Insulin Human Regular AC SC 08/20/24 07:00 08/20/24 06:18 3 UNITS Dextrose 50 ml UD PRN IV 08/19/24 18:15 Pantoprazole Sodium 40 mg BID IV 08/20/24 08:15 08/20/24 09:31 40 MG Examination Physical examination: General Appearance: Alert& orientedX2 and on BIPAP 18/7 HEENT: Atraumatic, PERRLA, EOMI, Mucous membrane moist/pink Respiratory: Decreased Breath sounds bilaterally. Cardiovascular: Irregular rate, Normal S1, Normal S2, No murmurs, no chest wall tenderness Abdominal: Normal bowel sounds, Soft, No tenderness, No hepatospenomegaly, No masses Extremities: No clubbing, No cyanosis, No edema. Normal pulses, bilateral wounds in both legs covered with dressing. Skin: No rashes, No breakdown, No significant lesion Neuro: Strength at 4/5 X4 ext, Normal tone, Sensation intact, grossly intact cranial nerves. Psych/Mental Status: could not be assessed. laboratory and microbiology Laboratory Tests 08/20/24 05:10 Test 08/20/24 05:10 Range/Units Serum Glucose 184 H 74-106 mg/dL Microbiology Date/Time Source Procedure Growth Status 08/12/24 07:06 Blood Blood Culture - Final NO GROWTH AFTER 5 DAYS OF INCUBATION. Complete 08/09/24 13:35 Other Aerobic Culture - Final Complete 08/01/24 00:00 Sputum Gram Stain - Final Complete 08/01/24 00:00 Sputum Respiratory Culture - Final Complete Problem List/Assessment/Plan Problem List/Assessment/Plan Assessment and plan: NEURO: Acute metabolic encephalopathy secondary to hypoxic/ hypercarbic respiratory failure - S/P extubation and currently on BIPAP 15/10 CARDIOVASCULAR: Acute on chronic exacerbation of decompensated systolic heart failure, NYHA class 3 Chronic permanent atrial fibrillation with secondary hypercoagulable state Severe pulmonary hypertension likely due to COPD /FAWN - [id number] score 3 and HAS BLED score 2 - CXR showed cardiomegaly with mild pulmonary vascular congestion - Echo on 07/31/2024 demonstrated EF 40% with global hypokinesis, irregular contractility, moderate tricuspid regurgitation, moderate aortic sclerosis with diminished excursion of the right coronary cusp and RVSP 56 mm hg. - Maintain strict I&O - Atorvastatin 20 mg at HS PULMONARY: Acute on chronic hypoxic / hypercarbic respiratory failure Acute on chronic exacerbation of COPD Ruled out pulmonary embolism Gram negative pneumonia ruled out - CT angiography demonstrated 2 cm nodular opacities right lung apex, ruled out PE and follow up CT scan in 6 weeks to see if there is resolution. - Med neb with levalbuterol and ipratropium q.4 hours - IV cefepime 2gm Q 8 hours - Discontinued linezolid due to thrombocytopenia - Discontinued vancomycin due to worsening kidney function - IV methylprednisolone 20 mg bid - Respiratory culture showed normal oropharyngeal rc - Bipap 15/10 GI : Possible stress ulcer FOBT positive - IV Protonix 40 mg bid Renal: DAVE likely hemodynamically mediated/VMN Possible Vancomycin toxicity Microscopic hematuria and possible acute cystitis - Patient is on IV cefepime - Nephrology on board. - Had 3 sessions of hemodialysis - Patient is scheduled for hemodialysis today. - Monitor BMP Metabolic: Hyperkalemia likely due to DAVE - Hyperkalemia protocol management. - Monitor BMP ENDOCRINE: Uncontrolled type 2 diabetes mellitus, hemoglobin A1c 9.2 Obesity class 3, BMI 50.1 kg/meter2 - Moderate sliding scale q.6 hour - Lantus 20 units at HS HEME: Chronic normocytic normochromic anemia likely due to anemia of chronic disease INFECTIOUS DISEASE: Bilateral lower extremity cellulitis Sepsis due to above - Wound culture on 07/31/24 demonstrated Enterobacter intermedius, Enterococcus faecalis, MRSA which is sensitive to vancomycin and cefepime - IV cefepime 2gm Q 8 hours - Blood culture showed no growth after 5 days of incubation DIET: Enteral feeding with Glucerna by Dobhoff DVT prophylax: SCD GI prophylaxis: Protonix 40 mg IV daily Bowel regimen: Lactulose 30 ml bid Code status: full code LINES/DRAINS/ACCESS: Kaden catheter: Placed on 08/15/24 IV access: PICC line placed on 08/08/24 [place] catheter: on 08/13/24 DISPOSITION: JERRICA Patient's status discussed with animal care attendant time spent more than 41 minutes, including patient care and chart review. Case discussed with Dr. Hernandez Plan discussed with: Other (RN, sister) My Orders My Orders Orders - GINETTE TRIVEDI RESIDENT Procedure Category Date Status Time Insulin Lantus PHA 08/19/24 In Process (Glargine) (Lantus) 18:15 Glucose Blood PHA 08/19/24 In Process (Accu-Chek Comfort 22:00 Insulin R (Human) PHA 08/19/24 In Process (Insulin R) 22:00 Insulin R (Human) PHA 08/20/24 In Process (Insulin R) 07:00 Dextrose 50% Syringe PHA 08/19/24 In Process 18:15 Pantoprazole PHA 08/20/24 In Process (Protonix) 08:15 Abg W/ Co-Ox RT 08/20/24 Logged 08:08 Communication Order ORDERS 08/20/24 Transmitted 09:58 Abg W/ Co-Ox RT 08/20/24 Logged 13:00 Transfuse Blood ORDERS 08/20/24 Transmitted Product 15:59 Packedcells -Active BBK 08/20/24 Logged Bleeding 15:59 Type And Screen BBK 08/20/24 Logged 15:59 Comprehensive LAB 08/20/24 Logged Hepatitis Panel 16:02 Dietary Evaluation Review Comments: 1. Suggest TF w/ formula Pivot 1.5 @ 40 ml/hr (GOAL). Begin @ 10 ml/hr; advance by 10 ml Q4 hrs or as tolerated to 40 ml/hr x 24 hrs 2. Provide free water flushes of 30 ml Q6 hrs (120 ml total); adjust PRN 3. Monitor BMP/lytes and replete to WNL/PRN 4. Lantus, ss insulin for correction; adjust PRN to maintain BG <180 mg/dl TF Provision: TF at goal to provide 960 ml total volume, 1440 kcal, 90 gm pro, 7 gm fiber, 165 gm CHO, 729 ml H20 (meets 100% est. kcal needs, 100% est. pro needs) Expected Outcomes/Goals: Improved nutritional status, TF initiation within 24-48 hrs of intubation. Date of Service: August 20, 2024 Billing Provider: GERMAN HERNANDEZ MD Common Visit Codes: 29849-PLORSFLN CARE 30-74 MIN GINETTE TRIVEDI RESIDENT August 20, 2024 17:52 GERMAN HERNANDEZ MD August 21, 2024 16:17
[2024-08-20] MEDS: EPOETIN ALFA-EPBX 10,000 UNIT/1ML VIAL SC ONE (21:34)
--- NOTE | 2024-08-20 23:53 | DVH ---
CHEST RADIOGRAPH Indication: dobbhoff insertion Technique: Single frontal view of the chest was obtained COMPARISON: XY CHEST PORTABLE on DOS: 08/19/24 FINDINGS: Lines and Tubes: Interval insertion of a Dobbhoff tube the tip of which is coiled in the GE junction region and needs to be repositioned. A NG tube again noted extending below the diaphragm with its tip projecting over gastric fundus. Right IJ central venous catheter and right-sided PICC again noted. Lungs / Pleura: Mild bibasilar subsegmental atelectasis/consolidation and probable small pleural effu sions. No evidence of pulmonary edema. Cardiomediastinal contours: [id number] cardiomegaly. IMPRESSION: Tip of Dobbhoff tube is coiled in GE junction region and needs to be repositioned.
[2024-08-21] VITALS (84 sets, daily range): BP systolic 82–141; BP diastolic 24–92; PULSE 91–126; RESP 12–26; TEMP 97.6–98.8; O2SAT 45–100
[2024-08-21 05:10] LABS: Basophils # (auto) 0 10 ^3/uL (0-0.2); Basophils % (auto) 0.2 % (0.0-2.0); Eosinophils # (auto) 0 10 ^3/uL (0-0.8); Lymphocytes # (auto) 0.1 10 ^3/uL (0.4-5.4); Monocytes # (auto) 0.2 10 ^3/uL (0-1.3); Neutrophils # (auto) 9.2 10 ^3/uL (1.6-8.6); White Blood Cell 9.5 10^3/uL (4.4-10.8)
[2024-08-21 05:12] LABS: Hemoglobin 8.3 g/dL (13.5-17.5); Lymphocytes % (auto) 1.5 % (10.0-50.0); Mean Corpuscular Hemoglobin 29.4 pg (28.0-32.0); Mean Corpuscular Hgb Conc. 33.1 g/dL (32.0-36.0); Mean Corpuscular Volume 88.8 fL (80.0-100.0); Monocytes % (auto) 2.2 % (0.0-12.0); Neutrophils % (auto) 96.1 % (37.0-80.0); Platelet Count (auto) 67 10^3/uL (140-450); Red Blood Cells 2.81 10^6/uL (4.5-5.90); Red Cell Distribution Width 14.6 % (11.8-14.3)
[2024-08-21 05:16] LABS: Potassium 4.1 mmol/L (3.5-5.1)
[2024-08-21 05:17] LABS: Anion Gap 9 (5-15); Carbon Dioxide 27 mmol/L (20-31)
[2024-08-21 05:22] LABS: Magnesium 2.2 mg/dL (1.6-2.6)
--- NOTE | 2024-08-21 05:38 | DVH ---
EXAM: XR Chest, 1 View CLINICAL INDICATION: on bipap TECHNIQUE: Frontal view of the chest. COMPARISON: XY CHEST PORTABLE on DOS: 08/20/24, XY CHEST PORTABLE on DOS: 08/19/24, XY CHEST PORTABLE on DOS: 08/17/24, XY CHEST XRAY 1 VIEW on DOS: 08/16/24, XY CHEST PORTABLE on DOS: 08/16/24 FINDINGS: LUNGS AND PLEURAL SPACES: Mild congestive heart failure. No consolidation. No pneumothorax. HEART: Unremarkable. No cardiomegaly. MEDIASTINUM: Unremarkable. Normal mediastinal contour. BONES/JOINTS: Unremarkable. No acute fracture. TUBES, LINES AND DEVICES: Right internal jugular central venous catheter tip in the superior vena c gustavo. Enteric tube tip in the stomach. OTHER FINDINGS: . IMPRESSION: Mild congestive heart failure. .
[2024-08-21 05:52] LABS: Sodium 134 mmol/L (136-145)
[2024-08-21 05:53] LABS: Blood Urea Nitrogen 65 mg/dL (9-23); Calcium 8.7 mg/dL (8.7-10.4); Chloride 98 mmol/L (98-107); Glucose 134 mg/dL (74-106)
[2024-08-21 08:15] LABS: Base Excess -2.7 mmol/L (-2.0-3.0)
[2024-08-21 11:05] LABS: Hepatitis B Core Total AB Negative (Negative)
[2024-08-21 11:17] LABS: Hepatitis A Total Antibody Negative (Negative)
--- NOTE | 2024-08-21 11:17 | DVH ---
Date: 08/21/2024 09:43 AM Examination: XY KUB ABDOMEN SINGLE VIEW History: dobb delfina placement Comparison: XY KUB ABDOMEN SINGLE VIEW on DOS: 08/12/24, XY KUB ABDOMEN SINGLE VIEW on DOS: 08/09/24 TECHNIQUE: Frontal views of the abdomen was obtained. FINDINGS: Bowel gas pattern is unremarkable. Weighted tip feeding tube projects over the distal stomach versus proximal duodenum. The lung bases are unremarkable. No acute osseous abnormality identified. IMPRESSION: Nonobstructive bowel gas pattern.
[2024-08-21 11:18] LABS: Hepatitis B Surface Antibody Positive (Negative); Hepatitis B Surface Antigen Negative (Negative); Hepatitis C Antibody Negative (Negative)
--- NOTE | 2024-08-21 13:48 | DVHPN2 ---
Progress Note Date Seen: August 21, 2024 Resident Creating Document: LIZZIE CONTRERAS RESIDENT Medical Necessity Reason Pt with a Central, PICC or Fol: Yes The following are medically ne: Central Line, [place] Catheter Reason for [place] catheter: Strict I&O Subjective Review of Systems Mr Reynolds 69-year-old male patient with PMH of systolic CHF-EF 40%, COPD, type 2 diabetes mellitus, atrial fibrillation who initially presented to the ER on 07/30 for altered mental status and shortness of breath and underwent mechanical ventilation on 08/01. Patient is currently extubated, on 2 L nasal cannula supplementation. Patient is not vocal, only responds to his name but not to commands. Per patient's brother who is at bedside, patient has been not ambulating due to probably bilateral hip degenerative changes, and he has had extensive bilateral lower extremity ulcers with drainage, patient was feeling with home health and later opted hospice to see 24/10 care. Per her to admission, patient was confused and developed sudden onset shortness of breath. His hospice nurse saw the patient tachycardic at 130s and patient was saturating at 68% therefore he was sent to the ER. Patient was intubated 08/01 till 08/12. Blood cultures were negative, wound cultures 07/31 showed Enterobacter, Enterococcus and MRSA for which patient initially received IV vancomycin and IV cefepime starting 07/30, IV vancomycin was discontinued 08/11 and the patient was started on IV Zyvox b.i.d. 08/13. Patient has received 2 L of 0.45 NS, 250 cc of LR till now Nephrology has been consulted for worsening DAVE, patient has been experiencing renal failure since 08/10. 08/14-Patient seen and examined at the bedside. Overnight low-grade fever 99.7, pulse 105 and irregular. Requiring 2 L NC supplementation. Bumex IV drip 0.5 mg/hours started. Continue 0.45 NS. Urine output 85 cc in the past 24 hours. 08/15 - patient seen and examined at the bedside. Urine output less than 100 cc overnight. Right IJ Kaden placed, hemodialysis order placed. Primary team started methylprednisolone 40 mg IV b.i.d. renal ultrasound shows echogenic kidneys. 08/16-patient seen and examined at the bedside. Patient responding to name, A&O x1, patient said his name today. Urine output is 200 cc. Hemodialysis pending today. Requiring Levophed. Discontinue IV Bumex given low urine output 08/19 - patient seen and examined at the bedside. Urine output 75 cc overnight. Hemodialysis tomorrow. Fluid restrictions ordered. 08/19 - patient seen and examined at the bedside. Urine output 375 cc overnight. Hemodialysis could not be completed due to dysfunctional l IJ Kaden. 08/20-patient seen and examined at the bedside. Urine output 70 cc. BUN/creatinine slightly trending up. IR consulted for IJ tunneled catheter placement Other Systems: Patient seen and examined by myself today rounds with the medicine resident, I agree with the assessment and plan Objective vital signs Vital Sign Date Time Temp Pulse Resp B/P (MAP) Pulse Ox O2 Delivery O2 Flow Rate FiO2 08/21/24 13:28 115 19 95 08/21/24 13:28 Nasal Cannula* 2 28 08/21/24 12:01 131/58 (82) 08/21/24 09:15 97.6 97.6 Total Intake and Output 08/20/24 08/20/24 08/21/24 15:00 23:00 07:00 Intake Total 50 ml 30 ml 1000 ml Output Total 569 ml 20 ml Balance 50 ml -539 ml 980 ml medications Current Medications Medications Dose Ordered Sig/Artie Route Start Time Stop Time Status Last Admin Dose Admin Acetaminophen 325 mg Q4HP PRN PO 07/30/24 21:45 Ipratropium [place] 0.5 mg Q4HR NEB 07/30/24 22:00 08/21/24 13:28 0.5 MG Levalbuterol HCl 1.25 mg Q4HR NEB 07/30/24 22:00 08/21/24 13:28 1.25 MG Enteral Nutritional Formula 1,000 ml 50ML/HR GT 08/05/24 17:15 08/19/24 22:24 1,000 ML Lactulose 30 ml BID PO 08/07/24 10:00 08/21/24 10:23 30 ML Sodium Chloride 10 ml QSHIFT@10,22 IV 08/08/24 22:00 08/21/24 10:23 10 ML Cefepime HCl 50 ml @ 12.5 mls/hr DAILY IV 08/19/24 10:00 08/21/24 10:24 12.5 MLS/HR Norepinephrine Bitartrate 250 ml @ 1.875 mls/ hr Q24H IV 08/19/24 12:00 08/19/24 12:00 1.875 MLS/HR Methylprednisolone Sodium Succinate 20 mg BID IV 08/19/24 22:00 08/21/24 10:23 20 MG Insulin Glargine 20 units HS SC 08/19/24 18:15 08/19/24 22:22 20 UNITS Diagnostic Test (Pha) 1 strip ACHS 08/19/24 22:00 08/21/24 11:35 1 STRIP Insulin Human Regular HS SC 08/19/24 22:00 08/19/24 22:23 4 UNITS Insulin Human Regular AC SC 08/20/24 07:00 08/20/24 06:18 3 UNITS Dextrose 50 ml UD PRN IV 08/19/24 18:15 Pantoprazole Sodium 40 mg BID IV 08/20/24 08:15 08/21/24 10:23 40 MG Examination Elderly male patient lying in the bed. Right IJ Kaden General: Obese, afebrile, palor, mucosae are moist Cardiovascular: IRRegular S1 and S2. No murmurs, gallops or rubs. No JVD elevation. Bilateral pitting edema Respiratory: Bilateral decreased air entry on 2 L NC supplementation Abdomen: Soft, nontender, nondistended, normoactive bowel sounds, no rebound tenderness, no organomegaly, no masses Genitourinary: Deferred. [place] draining 10 cc of urine MSK/skin: Mobilizes 4 limbs. Skin is dry and warm. Bilateral lower extremity have draining wounds, dressing dry clean and intact Neurological assessment could not be completed laboratory and microbiology Laboratory Tests 08/21/24 04:46 Test 08/21/24 04:46 Range/Units Serum Glucose 134 H 74-106 mg/dL Microbiology Date/Time Source Procedure Growth Status 08/12/24 07:06 Blood Blood Culture - Final NO GROWTH AFTER 5 DAYS OF INCUBATION. Complete 08/09/24 13:35 Other Aerobic Culture - Final Complete 08/01/24 00:00 Sputum Gram Stain - Final Complete 08/01/24 00:00 Sputum Respiratory Culture - Final Complete Labs and/or images reviewed: Labs reviewed by me, Image(s) reviewed by me Problem List/Assessment/Plan Problem List/Assessment/Plan Acute kidney injury, rule out ATN== multifactorial secondary to vancomycin toxicity+ diuretics/nephrotoxins,, IV contrast for CTA on admission noted Nephrotic syndrome Acute hypoxic respiratory failure s/p intubation and mechanical ventilation, now extubated 08/12 Acute metabolic encephalopathy secondary to hypoxic/ hypercarbic respiratory failure Acute on chronic exacerbation of decompensated systolic heart failure, NYHA class 3 Chronic permanent atrial fibrillation with secondary hypercoagulable state Severe pulmonary hypertension likely due to COPD /FAWN Sepsis due to Bilateral lower extremity cellulitis PE ruled out Type 2 diabetes mellitus-A1c 9.2 Obesity Plan: Patient underwent hemodialysis 08/15, 08/16, 08/18. Could not undergo hemodialysis 08/20 dysfunctional IJ Kaden. BUN/creatinine slightly trending up. IR consulted for IJ tunneled catheter placement Fluid restrictions 1200 cc within 24 hours including IV fluids, diet and IV antibiotics given dilutional hyponatremia Status post transfusion 1 packed RBCs 08/21 Right IJ Kaden catheter placed 08/15 for hemodialysis. Discontinued IV Bumex drip given persistent low urine output. Discontinued IV fluids This patient was in renal failure for four days, nephrology consulted only today morning when urine output significantly went down BUN high likely secondary to diuretics and steroids Avoid nephrotoxic drugs Strict I&Os Drips: Off Levophed 08/20 Plan discussed with patient in which all questions have been answered Case discussed with Dr. Koo Plan discussed with: Patient Dietary Evaluation Review Comments: 1. Suggest TF w/ formula Pivot 1.5 @ 40 ml/hr (GOAL). Begin @ 10 ml/hr; advance by 10 ml Q4 hrs or as tolerated to 40 ml/hr x 24 hrs 2. Provide free water flushes of 30 ml Q6 hrs (120 ml total); adjust PRN 3. Monitor BMP/lytes and replete to WNL/PRN 4. Lantus, ss insulin for correction; adjust PRN to maintain BG <180 mg/dl TF Provision: TF at goal to provide 960 ml total volume, 1440 kcal, 90 gm pro, 7 gm fiber, 165 gm CHO, 729 ml H20 (meets 100% est. kcal needs, 100% est. pro needs) Expected Outcomes/Goals: Improved nutritional status, TF initiation within 24-48 hrs of intubation. LIZZIE CONTRERAS RESIDENT August 21, 2024 13:48 ESTRELLA KOO MD August 21, 2024 16:08
[2024-08-21] MEDS: LIDOCAINE 2%HCL (LOCAL ANESTH.) INJ 20ML MDV ONE (14:21)
[2024-08-21] MEDS: HEPARIN SODIUM (PORCINE) 5000 UNITS/ML 1ML VIAL ONE (14:23)
--- NOTE | 2024-08-21 15:12 | DVH ---
XY Insertion of Venous Cath, HISTORY: HD CATH PL PROCEDURE: Informed consent was obtained. The patient was placed supine on the interventional table. A limited localization ultrasound of the right neck base was obtained. The right neck base and upper chest were prepped with chlorhexidine which was allowed to dry and draped in the usual sterile fashio n. Time out was performed. IV sedation was administered. The skin and the soft tissues were infiltrat ed with 1% Lidocaine mixed with Epinephrine. With real-time ultrasound guidance, the internal jugular vein was accessed with a micropuncture kit, and an image documenting patency was recorded to PACS. A subcutaneous tunneled tract was created from the right upper chest to the venotomy site. A 14.5 Fren ch Custer Path, 23 cm long hemodialysis catheter was advanced through the tunneled tract. Fluoroscopy was used to advance a guidewire through the internal jugular vein into the inferior vena cava. Following serial dilatation, a 15 Maori peel-away sheath was introduced, though which was adva nced the catheter into the right atrium. The catheter tip position was confirmed with fluoroscopy. Th ere was satisfactory flow in both lumens. The catheter lumens were flushed with saline and heparin wa s left indwelling in the catheter. A post-procedure image of the chest was obtained. The neck incisio n site was closed with a Vicryl suture and dressed sterilely. The catheter was sutured at the skin valencia rface and exit site also dressed sterilely. No immediate complication was identified. DAP 176 FLUOROSCOPY TIME: 1.0 minutes. SEDATION: Dr. Corinna Fraire was personally responsible for the administration of moderate sedation during the procedure performed, including the use of an independent trained observer who had no other duties during the procedure. The drugs utilized were IV fentanyl and versed (see nursing log for details). The total time of supervision by the attending physician was approximately 30 minutes. FINDINGS: Widely patent right IJV. Post procedure image demonstrates smooth course of the hemodialysi s catheter with the tip in the right atrium. IMPRESSION: Placement of 14.5 slovak [address] Path, 23 cm long hemodialysis catheter through right internal jugular vein. Plan: Please contact IR for removal when no longer needed.
--- NOTE | 2024-08-21 17:12 | DVHPNRES ---
Progress Note Date Seen: August 21, 2024 Resident Creating Document: GINETTE TRIVEDI RESIDENT Medical Necessity Reason Pt with a Central, PICC or Fol: Yes The following are medically ne: Central Line, [place] Catheter Reason for [place] catheter: Strict I&O Subjective Review of Systems Patient is a 69-year-old male with past medical history of CHF, COPD, type 2 diabetes, atrial fibrillation, who comes in due to respiratory distress. Per patient's brother who is also his caregiver, patient's home wound care nurse checked his vitals and his SpO2 was noted to be 68% with a pulse of 130, he also appeared disoriented and had labored breathing. Arrival to the ED patient was noted to be tachycardic and tachypneic and was placed on BiPAP. Note, patient is on home oxygen 2-3 L. Patient Underwent intubation with mechanical ventilation on 08/01/2024 due to acute metabolic encephalopathy likely due to acute hypoxic / hypercapnic respiratory failure. Patient was seen and examined on the bedside. He is alert and awake, status post extubation and currently on BiPAP 15/08 . Scheduled for another session of dialysis today . Objective vital signs Vital Sign Date Time Temp Pulse Resp B/P (MAP) Pulse Ox O2 Delivery O2 Flow Rate FiO2 08/21/24 15:34 121 121/83 92 Facial BiPAP Mask 30 08/21/24 13:38 18 08/21/24 13:28 2 08/21/24 09:15 97.6 97.6 Total Intake and Output 08/20/24 08/20/24 08/21/24 15:00 23:00 07:00 Intake Total 50 ml 30 ml 1000 ml Output Total 569 ml 20 ml Balance 50 ml -539 ml 980 ml medications Current Medications Medications Dose Ordered Sig/Artie Route Start Time Stop Time Status Last Admin Dose Admin Acetaminophen 325 mg Q4HP PRN PO 07/30/24 21:45 Ipratropium [place] 0.5 mg Q4HR NEB 07/30/24 22:00 08/21/24 13:28 0.5 MG Levalbuterol HCl 1.25 mg Q4HR NEB 07/30/24 22:00 08/21/24 13:28 1.25 MG Enteral Nutritional Formula 1,000 ml 50ML/HR GT 08/05/24 17:15 08/19/24 22:24 1,000 ML Lactulose 30 ml BID PO 08/07/24 10:00 08/21/24 10:23 30 ML Sodium Chloride 10 ml QSHIFT@10,22 IV 08/08/24 22:00 08/21/24 10:23 10 ML Norepinephrine Bitartrate 250 ml @ 1.875 mls/ hr Q24H IV 08/19/24 12:00 08/19/24 12:00 1.875 MLS/HR Methylprednisolone Sodium Succinate 20 mg BID IV 08/19/24 22:00 08/21/24 10:23 20 MG Insulin Glargine 20 units HS SC 08/19/24 18:15 08/19/24 22:22 20 UNITS Diagnostic Test (Pha) 1 strip ACHS 08/19/24 22:00 08/21/24 11:35 1 STRIP Insulin Human Regular HS SC 08/19/24 22:00 08/19/24 22:23 4 UNITS Insulin Human Regular AC SC 08/20/24 07:00 08/20/24 06:18 3 UNITS Dextrose 50 ml UD PRN IV 08/19/24 18:15 Pantoprazole Sodium 40 mg BID IV 08/20/24 08:15 08/21/24 10:23 40 MG Doxycycline Hyclate 100 ml @ 50 mls/hr Q12H IV 08/21/24 17:00 UNV Examination Physical examination: General Appearance: Alert& orientedX2 and on BIPAP 15/5 HEENT: Atraumatic, PERRLA, EOMI, Mucous membrane moist/pink Respiratory: Decreased Breath sounds bilaterally. Cardiovascular: Irregular rate, Normal S1, Normal S2, No murmurs, no chest wall tenderness Abdominal: Normal bowel sounds, Soft, No tenderness, No hepatospenomegaly, No masses Extremities: No clubbing, No cyanosis, No edema. Normal pulses, bilateral wounds in both legs covered with dressing. Skin: No rashes, No breakdown, No significant lesion Neuro: Strength at 4/5 X4 ext, Normal tone, Sensation intact, grossly intact cranial nerves. Psych/Mental Status: could not be assessed. laboratory and microbiology Laboratory Tests 08/21/24 04:46 Test 08/21/24 04:46 Range/Units Serum Glucose 134 H 74-106 mg/dL Microbiology Date/Time Source Procedure Growth Status 08/12/24 07:06 Blood Blood Culture - Final NO GROWTH AFTER 5 DAYS OF INCUBATION. Complete 08/09/24 13:35 Other Aerobic Culture - Final Complete 08/01/24 00:00 Sputum Gram Stain - Final Complete 08/01/24 00:00 Sputum Respiratory Culture - Final Complete Labs and/or images reviewed: Labs reviewed by me (MARLYS Talbot), Image(s) reviewed by me Problem List/Assessment/Plan Problem List/Assessment/Plan Assessment and plan: NEURO: Acute metabolic encephalopathy secondary to hypoxic/ hypercarbic respiratory failure - S/P extubation and currently on BIPAP 15/08 CARDIOVASCULAR: Acute on chronic exacerbation of decompensated systolic heart failure, NYHA class 3 Chronic permanent atrial fibrillation with secondary hypercoagulable state Severe pulmonary hypertension likely due to COPD /FAWN - [id number] score 3 and HAS BLED score 2 - CXR showed cardiomegaly with mild pulmonary vascular congestion - Echo on 07/31/2024 demonstrated EF 40% with global hypokinesis, irregular contractility, moderate tricuspid regurgitation, moderate aortic sclerosis with diminished excursion of the right coronary cusp and RVSP 56 mm hg. - Maintain strict I&O - Atorvastatin 20 mg at HS PULMONARY: Acute on chronic hypoxic / hypercarbic respiratory failure Acute on chronic exacerbation of COPD Ruled out pulmonary embolism Gram negative pneumonia ruled out - CT angiography demonstrated 2 cm nodular opacities right lung apex, ruled out PE and follow up CT scan in 6 weeks to see if there is resolution. - Med neb with levalbuterol and ipratropium q.4 hours - Discontinued IV cefepime and downgraded to IV doxycycline 100 mg bid. - IV methylprednisolone 20 mg bid - Respiratory culture showed normal oropharyngeal rc - Bipap 15/10 GI : Possible stress ulcer FOBT positive - IV Protonix 40 mg bid Renal: DAVE likely hemodynamically mediated/VMN Possible Vancomycin toxicity Microscopic hematuria and possible acute cystitis - Patient is on IV cefepime - Nephrology on board. - Had 3 sessions of hemodialysis - Patient is scheduled for hemodialysis today. - Monitor BMP Metabolic: Hyperkalemia likely due to DAVE - Hyperkalemia protocol management. - Monitor BMP ENDOCRINE: Uncontrolled type 2 diabetes mellitus, hemoglobin A1c 9.2 Obesity class 3, BMI 50.1 kg/meter2 - Moderate sliding scale q.6 hour - Lantus 20 units at HS HEME: Chronic normocytic normochromic anemia likely due to anemia of chronic disease INFECTIOUS DISEASE: Bilateral lower extremity cellulitis Sepsis due to above - Wound culture on 07/31/24 demonstrated Enterobacter intermedius, Enterococcus faecalis, MRSA . - Discontinued IV cefepime and downgraded to IV doxycycline 100 mg bid. - Blood culture showed no growth after 5 days of incubation DIET: Enteral feeding with Glucerna by Dobhoff DVT prophylax: SCD GI prophylaxis: Protonix 40 mg IV daily Bowel regimen: Lactulose 30 ml bid Code status: full code LINES/DRAINS/ACCESS: Tunneled catheter: Placed on 08/21/24 IV access: PICC line placed on 08/08/24 [place] catheter: on 08/13/24 DISPOSITION: JERRICA Patient's status discussed with acute care surgeon time spent more than 41 minutes, including patient care and chart review. Case discussed with Dr. Sosa Plan discussed with: Other My Orders My Orders Orders - GINETTE TRIVEDI Procedure Category Date Status Time Chest Portable XY 08/21/24 Resulted 04:00 Abg W/ Co-Ox RT 08/21/24 Logged 05:45 Kub Abdomen Single XY 08/21/24 Resulted View 09:40 Doxycycline PHA 08/21/24 Logged 100mg/100ml 17:00 * [facility] CONS 08/21/24 Transmitted Consult Dietary Evaluation Review Comments: 1. Suggest TF w/ formula Pivot 1.5 @ 40 ml/hr (GOAL). Begin @ 10 ml/hr; advance by 10 ml Q4 hrs or as tolerated to 40 ml/hr x 24 hrs 2. Provide free water flushes of 30 ml Q6 hrs (120 ml total); adjust PRN 3. Monitor BMP/lytes and replete to WNL/PRN 4. Lantus, ss insulin for correction; adjust PRN to maintain BG <180 mg/dl TF Provision: TF at goal to provide 960 ml total volume, 1440 kcal, 90 gm pro, 7 gm fiber, 165 gm CHO, 729 ml H20 (meets 100% est. kcal needs, 100% est. pro needs) Expected Outcomes/Goals: Improved nutritional status, TF initiation within 24-48 hrs of intubation. Date of Service: August 21, 2024 Billing Provider: GERAMN SOSA MD Common Visit Codes: 59276-[id number] CARE 30-74 MIN GINETTE TRIVEDI August 21, 2024 17:12 GERMAN SOSA MD August 22, 2024 12:47
[2024-08-21] MEDS: DOXYCYCLINE 100MG/100ML 100 ML IV SCH (17:39)
--- NOTE | 2024-08-21 17:41 | DVH ---
CHEST RADIOGRAPH Indication: DOBB SHEMAR PLACEMENT Technique: Single frontal view of the chest was obtained Comparison: XY CHEST PORTABLE on DOS: 08/21/24, XY CHEST PORTABLE on DOS: 08/20/24, XY CHEST PORTABLE o n DOS: 08/19/24, XY CHEST PORTABLE on DOS: 08/17/24, XY CHEST XRAY 1 VIEW on DOS: 08/16/24 FINDINGS: Lines and Tubes: Dobbhoff tube with the tip in the body of the stomach. Right-sided hemodialysis cath eter in place. Lungs: No focal consolidation. Pleura: No effusion. No pneumothorax. Cardiomediastinal contours: Mild cardiomegaly Bones: No acute osseous abnormality. IMPRESSION: 1. Dobbhoff tube with the tip in the body of the stomach. 2. Mild cardiomegaly 3. No evidence of airspace consolidation or pulmonary venous congestive
[2024-08-21] MEDS: ALBUMIN 25% 100 ML IV PRN (18:40)
[2024-08-21] MEDS: SODIUM CHL 0.9% 1000 ML BAG XX ONE (18:40)
[2024-08-21] MEDS: EPOETIN ALFA-EPBX 10,000 UNIT/1ML VIAL SC ONE (21:29)
[2024-08-21] MEDS: METOCLOPRAMIDE HCL 5MG/ml INJ 2ml VIAL IV ONE (21:56)
[2024-08-22] VITALS (119 sets, daily range): BP systolic 72–138; BP diastolic 26–93; PULSE 84–127; RESP 9–26; TEMP 97.5–99.1; O2SAT 70–100
--- NOTE | 2024-08-22 01:44 | DVH ---
Exam: XY KUB ABDOMEN SINGLE VIEW Indication: Post dobhoff placement Comparison: XY KUB ABDOMEN SINGLE VIEW on DOS: 08/21/24 Technique: AP radiographs of the abdomen Findings / Impression: Dobbhoff tube noted with its tip projecting over duodenum. Right IJ central venous catheter noted with its tip projecting over cavoatrial junction. Bibasilar valencia bsegmental atelectasis/consolidation and probable small pleural effusions.
[2024-08-22 05:55] LABS: Basophils # (auto) 0.1 10 ^3/uL (0-0.2); Basophils % (auto) 0.4 % (0.0-2.0); Eosinophils # (auto) 0 10 ^3/uL (0-0.8); Hemoglobin 8.4 g/dL (13.5-17.5); Lymphocytes # (auto) 0.3 10 ^3/uL (0.4-5.4); Red Cell Distribution Width 14.7 % (11.8-14.3)
[2024-08-22 06:01] LABS: Hematocrit 25.3 % (41.0-53.0); Lymphocytes % (auto) 2.2 % (10.0-50.0); Mean Corpuscular Hemoglobin 29.4 pg (28.0-32.0); Mean Corpuscular Hgb Conc. 33.1 g/dL (32.0-36.0); Mean Corpuscular Volume 88.8 fL (80.0-100.0); Monocytes # (auto) 0.4 10 ^3/uL (0-1.3); Monocytes % (auto) 2.9 % (0.0-12.0); Neutrophils # (auto) 12.7 10 ^3/uL (1.6-8.6); Neutrophils % (auto) 94.5 % (37.0-80.0); Platelet Count (auto) 78 10^3/uL (140-450); Red Blood Cells 2.84 10^6/uL (4.5-5.90); White Blood Cell 13.5 10^3/uL (4.4-10.8)
[2024-08-22 06:02] LABS: Anion Gap 7 (5-15); Carbon Dioxide 33 mmol/L (20-31); Chloride 98 mmol/L (98-107); Potassium 4.1 mmol/L (3.5-5.1); Sodium 138 mmol/L (136-145)
[2024-08-22 06:03] LABS: Calcium 8.8 mg/dL (8.7-10.4)
[2024-08-22 06:08] LABS: BUN/Creatinine Ratio 12.4 (10.0-20.0)
[2024-08-22 06:30] LABS: Blood Urea Nitrogen 31 mg/dL (9-23); Glucose 150 mg/dL (74-106)
[2024-08-22 09:18] LABS: Base Excess 0.8 mmol/L (-2.0-3.0)
[2024-08-22 10:10] LABS: Base Excess 2.1 mmol/L (-2.0-3.0)
[2024-08-22] MEDS: diphenhdrAMINE HCL 50 MG/1 ML VL IV ONE (10:19)
--- NOTE | 2024-08-22 10:56 | DVHPN2 ---
Progress Note Date Seen: August 22, 2024 Resident Creating Document: LIZZIE CONTRERAS RESIDENT Medical Necessity Reason Pt with a Central, PICC or Fol: Yes The following are medically ne: Central Line, [place] Catheter Reason for [place] catheter: Strict I&O Subjective Review of Systems Mr Reynolds 69-year-old male patient with PMH of systolic CHF-EF 40%, COPD, type 2 diabetes mellitus, atrial fibrillation who initially presented to the ER on 07/30 for altered mental status and shortness of breath and underwent mechanical ventilation on 08/01. Patient is currently extubated, on 2 L nasal cannula supplementation. Patient is not vocal, only responds to his name but not to commands. Per patient's brother who is at bedside, patient has been not ambulating due to probably bilateral hip degenerative changes, and he has had extensive bilateral lower extremity ulcers with drainage, patient was feeling with home health and later opted hospice to see 24/10 care. Per her to admission, patient was confused and developed sudden onset shortness of breath. His hospice nurse saw the patient tachycardic at 130s and patient was saturating at 68% therefore he was sent to the ER. Patient was intubated 08/01 till 08/12. Blood cultures were negative, wound cultures 07/31 showed Enterobacter, Enterococcus and MRSA for which patient initially received IV vancomycin and IV cefepime starting 07/30, IV vancomycin was discontinued 08/11 and the patient was started on IV Zyvox b.i.d. 08/13. Patient has received 2 L of 0.45 NS, 250 cc of LR till now Nephrology has been consulted for worsening DAVE, patient has been experiencing renal failure since 08/10. 08/14-Patient seen and examined at the bedside. Overnight low-grade fever 99.7, pulse 105 and irregular. Requiring 2 L NC supplementation. Bumex IV drip 0.5 mg/hours started. Continue 0.45 NS. Urine output 85 cc in the past 24 hours. 08/15 - patient seen and examined at the bedside. Urine output less than 100 cc overnight. Right IJ Kaden placed, hemodialysis order placed. Primary team started methylprednisolone 40 mg IV b.i.d. renal ultrasound shows echogenic kidneys. 08/16-patient seen and examined at the bedside. Patient responding to name, A&O x1, patient said his name today. Urine output is 200 cc. Hemodialysis pending today. Requiring Levophed. Discontinue IV Bumex given low urine output 08/19 - patient seen and examined at the bedside. Urine output 75 cc overnight. Hemodialysis tomorrow. Fluid restrictions ordered. 08/20 - patient seen and examined at the bedside. Urine output 375 cc overnight. Hemodialysis could not be completed due to dysfunctional l IJ Kaden. 08/21-patient seen and examined at the bedside. Urine output 70 cc. BUN/creatinine slightly trending up. IR consulted for IJ tunneled catheter placement 08/22 - patient seen and examined at bedside. Urine output decreasing, 45 mL only. Patient is on BiPAP. Underwent hemodialysis yesterday after right tunneled catheter placement. WBC increased to 13. Other Systems: Patient seen and examined by myself today in follow-up with the medicine resident, I agree with his assessment and plan Objective vital signs Vital Sign Date Time Temp Pulse Resp B/P (MAP) Pulse Ox O2 Delivery O2 Flow Rate FiO2 08/22/24 09:54 13 97 Bi-Pap+ 30 30 08/22/24 09:54 97 08/22/24 09:46 134/54 (80) 08/22/24 08:00 97.5 97.5 08/22/24 07:46 3 Total Intake and Output 08/21/24 08/21/24 08/22/24 15:00 23:00 07:00 Intake Total 300 ml 64.6875 ml Output Total 20 ml 25 ml Balance 280 ml 39.6875 ml medications Current Medications Medications Dose Ordered Sig/Artie Route Start Time Stop Time Status Last Admin Dose Admin Acetaminophen 325 mg Q4HP PRN PO 07/30/24 21:45 Ipratropium [place] 0.5 mg Q4HR NEB 07/30/24 22:00 08/22/24 06:37 0.5 MG Levalbuterol HCl 1.25 mg Q4HR NEB 07/30/24 22:00 08/22/24 06:36 1.25 MG Enteral Nutritional Formula 1,000 ml 50ML/HR GT 08/05/24 17:15 08/19/24 22:24 1,000 ML Lactulose 30 ml BID PO 08/07/24 10:00 08/21/24 10:23 30 ML Sodium Chloride 10 ml QSHIFT@,22 IV 08/08/24 22:00 08/22/24 08:04 10 ML Norepinephrine Bitartrate 250 ml @ 1.875 mls/ hr Q24H IV 08/19/24 12:00 08/21/24 23:06 1.875 MLS/HR Methylprednisolone Sodium Succinate 20 mg BID IV 08/19/24 22:00 08/22/24 08:04 20 MG Insulin Glargine 20 units HS SC 08/19/24 18:15 08/19/24 22:22 20 UNITS Diagnostic Test (Pha) 1 strip ACHS 08/19/24 22:00 08/22/24 08:04 1 STRIP Insulin Human Regular HS SC 08/19/24 22:00 08/19/24 22:23 4 UNITS Insulin Human Regular AC SC 08/20/24 07:00 08/21/24 17:40 6 UNITS Dextrose 50 ml UD PRN IV 08/19/24 18:15 Pantoprazole Sodium 40 mg BID IV 08/20/24 08:15 08/22/24 08:04 40 MG Doxycycline Hyclate 100 ml @ 50 mls/hr Q12H IV 08/21/24 17:00 08/22/24 05:11 50 MLS/HR Albumin Human 100 ml @ 100 mls/hr PRN PRN IV 08/21/24 17:30 08/21/24 19:40 100 MLS/HR Examination Elderly male patient lying in the bed. Right IJ tunneled cath General: Obese, afebrile, palor, mucosae are moist Cardiovascular: IRRegular S1 and S2. No murmurs, gallops or rubs. No JVD elevation. Bilateral pitting edema Respiratory: Bilateral decreased air entry on 2 L NC supplementation Abdomen: Soft, nontender, nondistended, normoactive bowel sounds, no rebound tenderness, no organomegaly, no masses Genitourinary: Deferred. [place] draining 10 cc of urine MSK/skin: Mobilizes 4 limbs. Skin is dry and warm. Bilateral lower extremity have draining wounds, dressing dry clean and intact Neurological assessment could not be completed laboratory and microbiology Laboratory Tests 08/22/24 04:50 Test 08/22/24 04:50 Range/Units Serum Glucose 150 H 74-106 mg/dL Microbiology Date/Time Source Procedure Growth Status 08/12/24 07:06 Blood Blood Culture - Final NO GROWTH AFTER 5 DAYS OF INCUBATION. Complete 08/09/24 13:35 Other Aerobic Culture - Final Complete 08/01/24 00:00 Sputum Gram Stain - Final Complete 08/01/24 00:00 Sputum Respiratory Culture - Final Complete Labs and/or images reviewed: Labs reviewed by me, Image(s) reviewed by me Problem List/Assessment/Plan Problem List/Assessment/Plan Acute kidney injury, rule out ATN== multifactorial secondary to vancomycin toxicity+ diuretics/nephrotoxins,, IV contrast for CTA on admission noted , patient is anuric requiring intermittent hemodialysis Nephrotic syndrome Acute hypoxic respiratory failure s/p intubation and mechanical ventilation, now extubated 08/12 on BiPAP Acute metabolic encephalopathy secondary to hypoxic/ hypercarbic respiratory failure Acute on chronic exacerbation of decompensated systolic heart failure, NYHA class 3 Chronic permanent atrial fibrillation with secondary hypercoagulable state Severe pulmonary hypertension likely due to COPD /FAWN Sepsis due to Bilateral lower extremity cellulitis PE ruled out Type 2 diabetes mellitus-A1c 9.2 Obesity Plan: Hemodialysis tomorrow BUN/creatinine trending down, Patient underwent dialysis 08/21 after right tunnel catheter was placed. Previously underwent hemodialysis 08/15, 08/16, 08/18. Fluid restrictions 1200 cc within 24 hours including IV fluids, diet and IV antibiotics given dilutional hyponatremia Status post transfusion 1 packed RBCs 08/21 Right IJ Kaden catheter placed 08/15 till 08/21 for hemodialysis. Tunneled catheter placement 08/21. Discontinued IV Bumex drip given persistent low urine output. Discontinued IV fluids This patient was in renal failure for four days, nephrology consulted only today morning when urine output significantly went down BUN high likely secondary to diuretics and steroids Avoid nephrotoxic drugs Strict I&Os Drips: Off Levophed 08/20 Plan discussed with patient in which all questions have been answered Case discussed with Dr. Koo Plan discussed with: Patient Dietary Evaluation Review Comments: 1. Suggest TF w/ formula Pivot 1.5 @ 40 ml/hr (GOAL). Begin @ 10 ml/hr; advance by 10 ml Q4 hrs or as tolerated to 40 ml/hr x 24 hrs 2. Provide free water flushes of 30 ml Q6 hrs (120 ml total); adjust PRN 3. Monitor BMP/lytes and replete to WNL/PRN 4. Lantus, ss insulin for correction; adjust PRN to maintain BG <180 mg/dl TF Provision: TF at goal to provide 960 ml total volume, 1440 kcal, 90 gm pro, 7 gm fiber, 165 gm CHO, 729 ml H20 (meets 100% est. kcal needs, 100% est. pro needs) Expected Outcomes/Goals: Improved nutritional status, TF initiation within 24-48 hrs of intubation. LIZZIE CONTRERAS RESIDENT August 22, 2024 10:56 ESTRELLA KOO MD August 22, 2024 13:08
[2024-08-22] MEDS: levoFLOXacin 500MG 100 ML IV ONE (13:25)
[2024-08-22] MEDS: methylPREDNISolone SOD SUCC 40 MG/ML VL IM ONE (13:26)
[2024-08-22] MEDS: LORazepam 2MG/ML-1ML VIAL IV PRN (17:00)
--- NOTE | 2024-08-22 18:06 | DVHPNRES ---
Progress Note Date Seen: August 22, 2024 Resident Creating Document: GINETTE TRIVEDI RESIDENT Medical Necessity Reason Pt with a Central, PICC or Fol: Yes The following are medically ne: Central Line, [place] Catheter Reason for [place] catheter: Strict I&O Subjective Review of Systems Patient is a 69-year-old male with past medical history of CHF, COPD, type 2 diabetes, atrial fibrillation, who comes in due to respiratory distress. Per patient's brother who is also his caregiver, patient's home wound care nurse checked his vitals and his SpO2 was noted to be 68% with a pulse of 130, he also appeared disoriented and had labored breathing. Arrival to the ED patient was noted to be tachycardic and tachypneic and was placed on BiPAP. Note, patient is on home oxygen 2-3 L. Patient Underwent intubation with mechanical ventilation on 08/01/2024 due to acute metabolic encephalopathy likely due to acute hypoxic / hypercapnic respiratory failure. Patient was seen and examined on the bedside. He is alert and awake, status post extubation and currently on BiPAP 15/08 . Had 1 session of hemodialysis yesterday. Objective vital signs Vital Sign Date Time Temp Pulse Resp B/P (MAP) Pulse Ox O2 Delivery O2 Flow Rate FiO2 08/22/24 17:41 119 08/22/24 17:41 12 94 Nasal Cannula* 1 24 08/22/24 17:30 106/54 (71) 08/22/24 16:00 99.1 99.1 Total Intake and Output 08/21/24 08/21/24 08/22/24 15:00 23:00 07:00 Intake Total 300 ml 64.6875 ml Output Total 20 ml 25 ml Balance 280 ml 39.6875 ml medications Current Medications Medications Dose Ordered Sig/Artie Route Start Time Stop Time Status Last Admin Dose Admin Acetaminophen 325 mg Q4HP PRN PO 07/30/24 21:45 Ipratropium [place] 0.5 mg Q4HR NEB 07/30/24 22:00 08/22/24 14:00 0.5 MG Levalbuterol HCl 1.25 mg Q4HR NEB 07/30/24 22:00 08/22/24 14:00 1.25 MG Enteral Nutritional Formula 1,000 ml 50ML/HR GT 08/05/24 17:15 08/19/24 22:24 1,000 ML Lactulose 30 ml BID PO 08/07/24 10:00 08/21/24 10:23 30 ML Sodium Chloride 10 ml QSHIFT@10,22 IV 08/08/24 22:00 08/22/24 08:04 10 ML Norepinephrine Bitartrate 250 ml @ 1.875 mls/ hr Q24H IV 08/19/24 12:00 08/21/24 23:06 1.875 MLS/HR Insulin Glargine 20 units HS SC 08/19/24 18:15 08/19/24 22:22 20 UNITS Diagnostic Test (Pha) 1 strip ACHS 08/19/24 22:00 08/22/24 16:43 1 STRIP Insulin Human Regular HS SC 08/19/24 22:00 08/19/24 22:23 4 UNITS Insulin Human Regular AC SC 08/20/24 07:00 08/22/24 16:44 3 UNITS Dextrose 50 ml UD PRN IV 08/19/24 18:15 Pantoprazole Sodium 40 mg BID IV 08/20/24 08:15 08/22/24 08:04 40 MG Albumin Human 100 ml @ 100 mls/hr PRN PRN IV 08/21/24 17:30 08/21/24 19:40 100 MLS/HR Methylprednisolone Sodium Succinate 40 mg BID IV 08/22/24 22:00 Levofloxacin/ Dextrose 100 ml @ 100 mls/hr Q48H IV 08/23/24 13:00 Lorazepam 1 mg Q6HP PRN IV 08/22/24 13:45 08/22/24 17:00 1 MG Examination Physical examination: General Appearance: Alert& orientedX2 and on BIPAP 15/5 HEENT: Atraumatic, PERRLA, EOMI, Mucous membrane moist/pink Respiratory: Decreased Breath sounds bilaterally. Cardiovascular: Irregular rate, Normal S1, Normal S2, No murmurs, no chest wall tenderness Abdominal: Normal bowel sounds, Soft, No tenderness, No hepatospenomegaly, No masses Extremities: No clubbing, No cyanosis, No edema. Normal pulses, bilateral wounds in both legs covered with dressing. Skin: No rashes, No breakdown, No significant lesion Neuro: Strength at 4/5 X4 ext, Normal tone, Sensation intact, grossly intact cranial nerves. Psych/Mental Status: could not be assessed. laboratory and microbiology Laboratory Tests 08/22/24 04:50 Test 08/22/24 04:50 Range/Units Serum Glucose 150 H 74-106 mg/dL Microbiology Date/Time Source Procedure Growth Status 08/12/24 07:06 Blood Blood Culture - Final NO GROWTH AFTER 5 DAYS OF INCUBATION. Complete 08/09/24 13:35 Other Aerobic Culture - Final Complete 08/01/24 00:00 Sputum Gram Stain - Final Complete 08/01/24 00:00 Sputum Respiratory Culture - Final Complete Labs and/or images reviewed: Labs reviewed by me, Image(s) reviewed by me Problem List/Assessment/Plan Problem List/Assessment/Plan Assessment and plan: NEURO: Acute metabolic encephalopathy secondary to hypoxic/ hypercarbic respiratory failure - S/P extubation and currently on BIPAP 15/5 CARDIOVASCULAR: Acute on chronic exacerbation of decompensated systolic heart failure, NYHA class 3 Chronic permanent atrial fibrillation with secondary hypercoagulable state Severe pulmonary hypertension likely due to COPD /FAWN - [id number] score 3 and HAS BLED score 2 - CXR showed cardiomegaly with mild pulmonary vascular congestion - Echo on 07/31/2024 demonstrated EF 40% with global hypokinesis, irregular contractility, moderate tricuspid regurgitation, moderate aortic sclerosis with diminished excursion of the right coronary cusp and RVSP 56 mm hg. - Maintain strict I&O - Atorvastatin 20 mg at HS PULMONARY: Acute on chronic hypoxic / hypercarbic respiratory failure Acute on chronic exacerbation of COPD Ruled out pulmonary embolism Gram negative pneumonia ruled out - CT angiography demonstrated 2 cm nodular opacities right lung apex, ruled out PE and follow up CT scan in 6 weeks to see if there is resolution. - Med neb with levalbuterol and ipratropium q.4 hours - IV Levaquin 500 mg q.48h - IV methylprednisolone 40 mg bid - Respiratory culture showed normal oropharyngeal rc - On Bipap 15/5 in night time GI : Possible stress ulcer FOBT positive - IV Protonix 40 mg bid Renal: DAVE likely hemodynamically mediated/VMN Possible Vancomycin toxicity Microscopic hematuria and possible acute cystitis - Patient is on IV cefepime - Nephrology on board. - Had 4 sessions of hemodialysis - Monitor BMP Metabolic: Hyperkalemia likely due to DAVE - Hyperkalemia protocol management. - Monitor BMP ENDOCRINE: Uncontrolled type 2 diabetes mellitus, hemoglobin A1c 9.2 Obesity class 3, BMI 50.1 kg/meter2 - Moderate sliding scale q.6 hour - Lantus 20 units at HS HEME: Chronic normocytic normochromic anemia likely due to anemia of chronic disease INFECTIOUS DISEASE: Bilateral lower extremity cellulitis Sepsis due to above - Wound culture on 07/31/24 demonstrated Enterobacter intermedius, Enterococcus faecalis, MRSA . - Discontinued IV cefepime and downgraded to IV doxycycline 100 mg bid. - Blood culture showed no growth after 5 days of incubation DIET: Enteral feeding with Glucerna by Dobhoff DVT prophylax: SCD GI prophylaxis: Protonix 40 mg IV daily Bowel regimen: Lactulose 30 ml bid Code status: full code LINES/DRAINS/ACCESS: Tunneled catheter: Placed on 08/21/24 IV access: PICC line placed on 08/08/24 [place] catheter: on 08/13/24 DISPOSITION: JERRICA Patient's status discussed with pet care associate time spent more than 41 minutes, including patient care and chart review. Case discussed with Dr. Hernandez Plan discussed with: Other (RN) My Orders My Orders Orders - GINETTE TRIVEDI RESIDENT Procedure Category Date Status Time Abg W/ Co-Ox RT 08/22/24 Logged 04:00 Dietary Evaluation Review Comments: 1. Suggest TF w/ formula Pivot 1.5 @ 40 ml/hr (GOAL). Begin @ 10 ml/hr; advance by 10 ml Q4 hrs or as tolerated to 40 ml/hr x 24 hrs 2. Provide free water flushes of 30 ml Q6 hrs (120 ml total); adjust PRN 3. Monitor BMP/lytes and replete to WNL/PRN 4. Lantus, ss insulin for correction; adjust PRN to maintain BG <180 mg/dl TF Provision: TF at goal to provide 960 ml total volume, 1440 kcal, 90 gm pro, 7 gm fiber, 165 gm CHO, 729 ml H20 (meets 100% est. kcal needs, 100% est. pro needs) Expected Outcomes/Goals: Improved nutritional status, TF initiation within 24-48 hrs of intubation. Date of Service: August 22, 2024 Billing Provider: GERMAN HERNANDEZ MD Common Visit Codes: 81910-[id number] CARE 30-74 MIN GINETTE TIRVEDI August 22, 2024 18:06 GERMAN HERNANDEZ MD August 25, 2024 21:44
[2024-08-22] MEDS: methylPREDNISolone SOD SUCC 40 MG/ML VL IV SCH (22:10)
[2024-08-23] VITALS (114 sets, daily range): BP systolic 78–148; BP diastolic 33–107; PULSE 89–131; RESP 13–33; TEMP 97.6–99.6; O2SAT 83–100
[2024-08-23 05:16] LABS: Basophils # (auto) 0.1 10 ^3/uL (0-0.2); Eosinophils # (auto) 0.2 10 ^3/uL (0-0.8); Lymphocytes # (auto) 0.3 10 ^3/uL (0.4-5.4); Monocytes # (auto) 0.4 10 ^3/uL (0-1.3); Nucleated Red Blood Cells % 0.1 %
[2024-08-23 05:19] LABS: Basophils % (auto) 0.8 % (0.0-2.0); Eosinophils % (auto) 2.5 % (0.0-7.0); Hematocrit 24.1 % (41.0-53.0); Hemoglobin 8.1 g/dL (13.5-17.5); Lymphocytes % (auto) 3.5 % (10.0-50.0); Mean Corpuscular Hemoglobin 30.2 pg (28.0-32.0); Mean Corpuscular Hgb Conc. 33.5 g/dL (32.0-36.0); Mean Corpuscular Volume 90.2 fL (80.0-100.0); Monocytes % (auto) 3.9 % (0.0-12.0); Neutrophils # (auto) 8.5 10 ^3/uL (1.6-8.6); Neutrophils % (auto) 89.3 % (37.0-80.0); Platelet Count (auto) 85 10^3/uL (140-450); Red Blood Cells 2.67 10^6/uL (4.5-5.90); Red Cell Distribution Width 14.8 % (11.8-14.3); White Blood Cell 9.5 10^3/uL (4.4-10.8)
[2024-08-23 05:29] LABS: Anion Gap 10 (5-15); Carbon Dioxide 30 mmol/L (20-31); Potassium 4.9 mmol/L (3.5-5.1); Sodium 138 mmol/L (136-145)
[2024-08-23 05:30] LABS: Calcium 9.9 mg/dL (8.7-10.4)
[2024-08-23 05:35] LABS: BUN/Creatinine Ratio 13.1 (10.0-20.0)
[2024-08-23 05:41] LABS: Blood Urea Nitrogen 46 mg/dL (9-23); Chloride 98 mmol/L (98-107); Glucose 191 mg/dL (74-106)
--- NOTE | 2024-08-23 05:58 | DVH ---
EXAM: XR Chest, 1 View CLINICAL INDICATION: on bipap TECHNIQUE: Frontal view of the chest. COMPARISON: XY CHEST XRAY 1 VIEW on DOS: 08/21/24, XY CHEST PORTABLE on DOS: 08/21/24, XY CHEST MALENA BLE on DOS: 08/20/24, XY CHEST PORTABLE on DOS: 08/19/24, XY CHEST PORTABLE on DOS: 08/17/24 FINDINGS: LUNGS AND PLEURAL SPACES: See below. HEART: Cardiomegaly with mild congestion. MEDIASTINUM: Unremarkable. Normal mediastinal contour. BONES/JOINTS: Unremarkable. No acute fracture. TUBES, LINES AND DEVICES: Right internal jugular central venous catheter tip in the superior vena c gustavo. Enteric tube tip cannot be seen but is below the diaphragm. OTHER FINDINGS: . . . . IMPRESSION: Cardiomegaly with mild congestion.
[2024-08-23 06:36] LABS: Base Excess 1.2 mmol/L (-2.0-3.0)
[2024-08-23] MEDS: SODIUM CHL 0.9% 1000 ML BAG XX ONE (07:00)
--- NOTE | 2024-08-23 10:17 | DVHPN2 ---
Progress Note Date Seen: August 23, 2024 Resident Creating Document: LIZZIE CONTRERAS RESIDENT Medical Necessity Reason Pt with a Central, PICC or Fol: Yes The following are medically ne: Central Line, [place] Catheter Reason for [place] catheter: Strict I&O Subjective Review of Systems Mr Reynolds 69-year-old male patient with PMH of systolic CHF-EF 40%, COPD, type 2 diabetes mellitus, atrial fibrillation who initially presented to the ER on 07/30 for altered mental status and shortness of breath and underwent mechanical ventilation on 08/01. Patient is currently extubated, on 2 L nasal cannula supplementation. Patient is not vocal, only responds to his name but not to commands. Per patient's brother who is at bedside, patient has been not ambulating due to probably bilateral hip degenerative changes, and he has had extensive bilateral lower extremity ulcers with drainage, patient was feeling with home health and later opted hospice to see 24/10 care. Per her to admission, patient was confused and developed sudden onset shortness of breath. His hospice nurse saw the patient tachycardic at 130s and patient was saturating at 68% therefore he was sent to the ER. Patient was intubated 08/01 till 08/12. Blood cultures were negative, wound cultures 07/31 showed Enterobacter, Enterococcus and MRSA for which patient initially received IV vancomycin and IV cefepime starting 07/30, IV vancomycin was discontinued 08/11 and the patient was started on IV Zyvox b.i.d. 08/13. Patient has received 2 L of 0.45 NS, 250 cc of LR till now Nephrology has been consulted for worsening DAVE, patient has been experiencing renal failure since 08/10. 08/14-Patient seen and examined at the bedside. Overnight low-grade fever 99.7, pulse 105 and irregular. Requiring 2 L NC supplementation. Bumex IV drip 0.5 mg/hours started. Continue 0.45 NS. Urine output 85 cc in the past 24 hours. 08/15 - patient seen and examined at the bedside. Urine output less than 100 cc overnight. Right IJ Kaden placed, hemodialysis order placed. Primary team started methylprednisolone 40 mg IV b.i.d. renal ultrasound shows echogenic kidneys. 08/16-patient seen and examined at the bedside. Patient responding to name, A&O x1, patient said his name today. Urine output is 200 cc. Hemodialysis pending today. Requiring Levophed. Discontinue IV Bumex given low urine output 08/19 - patient seen and examined at the bedside. Urine output 75 cc overnight. Hemodialysis tomorrow. Fluid restrictions ordered. 08/20 - patient seen and examined at the bedside. Urine output 375 cc overnight. Hemodialysis could not be completed due to dysfunctional l IJ Kaden. 08/21-patient seen and examined at the bedside. Urine output 70 cc. BUN/creatinine slightly trending up. IR consulted for IJ tunneled catheter placement 08/22 - patient seen and examined at bedside. Urine output decreasing, 45 mL only. Patient is on BiPAP. Underwent hemodialysis yesterday after right tunneled catheter placement. WBC increased to 13. 08/23 - patient seen and examined at the bedside. Urine output trending down, 0 cc overnight. bun/creatinine trending up , Undergoing Hemodialysis bicarb 35 mEq. Bladder scan ordered, flush [place] catheter. Objective vital signs Vital Sign Date Time Temp Pulse Resp B/P (MAP) Pulse Ox O2 Delivery O2 Flow Rate FiO2 08/23/24 10:09 96 Nasal Cannula* 2 28 08/23/24 10:09 118 22 08/23/24 09:16 128/65 (86) 08/23/24 08:01 98.7 98.7 Total Intake and Output 08/22/24 08/22/24 08/23/24 15:00 23:00 07:00 Intake Total 150 ml 100 ml 190 ml Output Total 30 ml 0 ml Balance 150 ml 70 ml 190 ml medications Current Medications Medications Dose Ordered Sig/Artie Route Start Time Stop Time Status Last Admin Dose Admin Acetaminophen 325 mg Q4HP PRN PO 07/30/24 21:45 Ipratropium [place] 0.5 mg Q4HR NEB 07/30/24 22:00 08/23/24 10:09 0.5 MG Levalbuterol HCl 1.25 mg Q4HR NEB 07/30/24 22:00 08/23/24 10:09 1.25 MG Enteral Nutritional Formula 1,000 ml 50ML/HR GT 08/05/24 17:15 08/22/24 23:17 1,000 ML Lactulose 30 ml BID PO 08/07/24 10:00 08/22/24 22:10 30 ML Sodium Chloride 10 ml QSHIFT@, IV 08/08/24 22:00 08/23/24 08:14 10 ML Norepinephrine Bitartrate 250 ml @ 1.875 mls/ hr Q24H IV 08/19/24 12:00 08/21/24 23:06 1.875 MLS/HR Insulin Glargine 20 units HS SC 08/19/24 18:15 08/22/24 22:08 20 UNITS Diagnostic Test (Pha) 1 strip ACHS 08/19/24 22:00 08/23/24 06:13 1 STRIP Insulin Human Regular HS SC 08/19/24 22:00 08/22/24 22:07 3 UNITS Insulin Human Regular AC SC 08/20/24 07:00 08/23/24 06:14 3 UNITS Dextrose 50 ml UD PRN IV 08/19/24 18:15 Pantoprazole Sodium 40 mg BID IV 08/20/24 08:15 08/23/24 08:14 40 MG Albumin Human 100 ml @ 100 mls/hr PRN PRN IV 08/21/24 17:30 08/21/24 19:40 100 MLS/HR Methylprednisolone Sodium Succinate 40 mg BID IV 08/22/24 22:00 08/23/24 08:15 40 MG Levofloxacin/ Dextrose 100 ml @ 100 mls/hr Q48H IV 08/23/24 13:00 Lorazepam 1 mg Q6HP PRN IV 08/22/24 13:45 08/22/24 23:17 1 MG Examination Elderly male patient lying in the bed. Right IJ tunneled cath General: Obese, afebrile, palor, mucosae are moist Cardiovascular: IRRegular S1 and S2. No murmurs, gallops or rubs. No JVD elevation. Bilateral pitting edema Respiratory: Bilateral decreased air entry on 2 L NC supplementation Abdomen: Soft, nontender, nondistended, normoactive bowel sounds, no rebound tenderness, no organomegaly, no masses Genitourinary: Deferred. [place] draining 10 cc of urine MSK/skin: Mobilizes 4 limbs. Skin is dry and warm. Bilateral lower extremity have draining wounds, dressing dry clean and intact Neurological assessment could not be completed laboratory and microbiology Laboratory Tests 08/23/24 04:53 Test 08/23/24 04:53 Range/Units Serum Glucose 191 H 74-106 mg/dL Microbiology Date/Time Source Procedure Growth Status 08/12/24 07:06 Blood Blood Culture - Final NO GROWTH AFTER 5 DAYS OF INCUBATION. Complete 08/09/24 13:35 Other Aerobic Culture - Final Complete 08/01/24 00:00 Sputum Gram Stain - Final Complete 08/01/24 00:00 Sputum Respiratory Culture - Final Complete Labs and/or images reviewed: Labs reviewed by me, Image(s) reviewed by me Problem List/Assessment/Plan Problem List/Assessment/Plan Acute kidney injury, rule out ATN== multifactorial secondary to vancomycin toxicity+ diuretics/nephrotoxins,, IV contrast for CTA on admission noted Nephrotic syndrome Acute hypoxic respiratory failure s/p intubation and mechanical ventilation, now extubated 08/12 Acute metabolic encephalopathy secondary to hypoxic/ hypercarbic respiratory failure Acute on chronic exacerbation of decompensated systolic heart failure, NYHA class 3 Chronic permanent atrial fibrillation with secondary hypercoagulable state Severe pulmonary hypertension likely due to COPD /FAWN Sepsis due to Bilateral lower extremity cellulitis PE ruled out Type 2 diabetes mellitus-A1c 9.2 Obesity Plan: Decreasing urine output, BUN/creatinine trending up. Patient undergoing dialysis at this time. Previously underwent hemodialysis 08/15, 08/16, 08/18, 08/21, Follow up with bladder scan Fluid restrictions 1200 cc within 24 hours including IV fluids, diet and IV antibiotics given dilutional hyponatremia Status post transfusion 1 packed RBCs 08/21 Right IJ Kaden catheter placed 08/15 till 08/21 for hemodialysis. Tunneled catheter placement 08/21. Discontinued IV Bumex drip given persistent low urine output. Discontinued IV fluids This patient was in renal failure for four days, nephrology consulted only today morning when urine output significantly went down BUN high likely secondary to diuretics and steroids Avoid nephrotoxic drugs Strict I&Os Drips: Off Levophed 08/20 Plan discussed with patient in which all questions have been answered Case discussed with Dr. Elizalde Plan discussed with: Patient Dietary Evaluation Review Comments: 1. Suggest TF w/ formula Pivot 1.5 @ 40 ml/hr (GOAL). Begin @ 10 ml/hr; advance by 10 ml Q4 hrs or as tolerated to 40 ml/hr x 24 hrs 2. Provide free water flushes of 30 ml Q6 hrs (120 ml total); adjust PRN 3. Monitor BMP/lytes and replete to WNL/PRN 4. Lantus, ss insulin for correction; adjust PRN to maintain BG <180 mg/dl TF Provision: TF at goal to provide 960 ml total volume, 1440 kcal, 90 gm pro, 7 gm fiber, 165 gm CHO, 729 ml H20 (meets 100% est. kcal needs, 100% est. pro needs) Expected Outcomes/Goals: Improved nutritional status, TF initiation within 24-48 hrs of intubation. LIZZIE CONTRERAS RESIDENT August 23, 2024 10:17
[2024-08-23] MEDS: levoFLOXacin 500MG 100 ML IV SCH (13:40)
--- NOTE | 2024-08-23 13:49 | DVH ---
Date: 08/23/2024 12:54 PM Examination: XY KUB ABDOMEN SINGLE VIEW History: dobb delfina placement Comparison: XY KUB ABDOMEN SINGLE VIEW on DOS: 08/22/24, XY KUB ABDOMEN SINGLE VIEW on DOS: 08/21/24, X Y KUB ABDOMEN SINGLE VIEW on DOS: 08/12/24, XY KUB ABDOMEN SINGLE VIEW on DOS: 08/09/24 TECHNIQUE: Frontal views of the abdomen was obtained. FINDINGS: Bowel gas pattern is unremarkable. The lung bases are unremarkable. No acute osseous abnormality identified. IMPRESSION: Nonobstructive bowel gas pattern. Dobbhoff feeding tube in the stomach
--- NOTE | 2024-08-23 16:02 | DVHPNRES ---
Progress Note Date Seen: August 23, 2024 Resident Creating Document: GINETTE TRIVEDI RESIDENT Medical Necessity Reason Pt with a Central, PICC or Fol: Yes The following are medically ne: Central Line, [place] Catheter Reason for [place] catheter: Strict I&O Subjective Review of Systems Patient is a 69-year-old male with past medical history of CHF, COPD, type 2 diabetes, atrial fibrillation, who comes in due to respiratory distress. Per patient's brother who is also his caregiver, patient's home wound care nurse checked his vitals and his SpO2 was noted to be 68% with a pulse of 130, he also appeared disoriented and had labored breathing. Arrival to the ED patient was noted to be tachycardic and tachypneic and was placed on BiPAP. Note, patient is on home oxygen 2-3 L. Patient Underwent intubation with mechanical ventilation on 08/01/2024 due to acute metabolic encephalopathy likely due to acute hypoxic / hypercapnic respiratory failure. Patient was seen and examined on the bedside. He is alert and awake, status post extubation and currently on nasal canula 2L . Patient underwent hemodialysis today. Objective vital signs Vital Sign Date Time Temp Pulse Resp B/P (MAP) Pulse Ox O2 Delivery O2 Flow Rate FiO2 08/23/24 14:31 120 20 97 08/23/24 14:08 Nasal Cannula* 1 24 08/23/24 11:31 97.6 97.6 Total Intake and Output 08/22/24 08/22/24 08/23/24 15:00 23:00 07:00 Intake Total 150 ml 100 ml 190 ml Output Total 30 ml 0 ml Balance 150 ml 70 ml 190 ml medications Current Medications Medications Dose Ordered Sig/Artie Route Start Time Stop Time Status Last Admin Dose Admin Acetaminophen 325 mg Q4HP PRN PO 07/30/24 21:45 Ipratropium [place] 0.5 mg Q4HR NEB 07/30/24 22:00 08/23/24 13:57 0.5 MG Levalbuterol HCl 1.25 mg Q4HR NEB 07/30/24 22:00 08/23/24 13:57 1.25 MG Enteral Nutritional Formula 1,000 ml 50ML/HR GT 08/05/24 17:15 08/22/24 23:17 1,000 ML Lactulose 30 ml BID PO 08/07/24 10:00 08/22/24 22:10 30 ML Sodium Chloride 10 ml QSHIFT@10,22 IV 08/08/24 22:00 08/23/24 08:14 10 ML Norepinephrine Bitartrate 250 ml @ 1.875 mls/ hr Q24H IV 08/19/24 12:00 08/21/24 23:06 1.875 MLS/HR Insulin Glargine 20 units HS SC 08/19/24 18:15 08/22/24 22:08 20 UNITS Diagnostic Test (Pha) 1 strip ACHS 08/19/24 22:00 08/23/24 11:21 1 STRIP Insulin Human Regular HS SC 08/19/24 22:00 08/22/24 22:07 3 UNITS Insulin Human Regular AC SC 08/20/24 07:00 08/23/24 06:14 3 UNITS Dextrose 50 ml UD PRN IV 08/19/24 18:15 Pantoprazole Sodium 40 mg BID IV 08/20/24 08:15 08/23/24 08:14 40 MG Albumin Human 100 ml @ 100 mls/hr PRN PRN IV 08/21/24 17:30 08/21/24 19:40 100 MLS/HR Methylprednisolone Sodium Succinate 40 mg BID IV 08/22/24 22:00 08/23/24 08:15 40 MG Levofloxacin/ Dextrose 100 ml @ 100 mls/hr Q48H IV 08/23/24 13:00 08/23/24 13:40 100 MLS/HR Lorazepam 1 mg Q6HP PRN IV 08/22/24 13:45 08/22/24 23:17 1 MG Examination Physical examination: General Appearance: Alert& orientedX2 and on BIPAP 15/5 HEENT: Atraumatic, PERRLA, EOMI, Mucous membrane moist/pink Respiratory: Decreased Breath sounds bilaterally. Cardiovascular: Irregular rate, Normal S1, Normal S2, No murmurs, no chest wall tenderness Abdominal: Normal bowel sounds, Soft, No tenderness, No hepatospenomegaly, No masses Extremities: No clubbing, No cyanosis, No edema. Normal pulses, bilateral wounds in both legs covered with dressing. Skin: No rashes, No breakdown, No significant lesion Neuro: Strength at 4/5 X4 ext, Normal tone, Sensation intact, grossly intact cranial nerves. Psych/Mental Status: could not be assessed. laboratory and microbiology Laboratory Tests 08/23/24 04:53 Test 08/23/24 04:53 Range/Units Serum Glucose 191 H 74-106 mg/dL Microbiology Date/Time Source Procedure Growth Status 08/12/24 07:06 Blood Blood Culture - Final NO GROWTH AFTER 5 DAYS OF INCUBATION. Complete 08/09/24 13:35 Other Aerobic Culture - Final Complete 08/01/24 00:00 Sputum Gram Stain - Final Complete 08/01/24 00:00 Sputum Respiratory Culture - Final Complete Labs and/or images reviewed: Labs reviewed by me, Image(s) reviewed by me Problem List/Assessment/Plan Problem List/Assessment/Plan Assessment and plan: NEURO: Acute metabolic encephalopathy secondary to hypoxic/ hypercarbic respiratory failure - S/P extubation and currently on nasal canula 2L. CARDIOVASCULAR: Acute on chronic exacerbation of decompensated systolic heart failure, NYHA class 3 Chronic permanent atrial fibrillation with secondary hypercoagulable state Severe pulmonary hypertension likely due to COPD /FAWN - [id number] score 3 and HAS BLED score 2 - CXR showed cardiomegaly with mild pulmonary vascular congestion - Echo on 07/31/2024 demonstrated EF 40% with global hypokinesis, irregular contractility, moderate tricuspid regurgitation, moderate aortic sclerosis with diminished excursion of the right coronary cusp and RVSP 56 mm hg. - Maintain strict I&O - Atorvastatin 20 mg at HS PULMONARY: Acute on chronic hypoxic / hypercarbic respiratory failure Acute on chronic exacerbation of COPD Ruled out pulmonary embolism Gram negative pneumonia ruled out - CT angiography demonstrated 2 cm nodular opacities right lung apex, ruled out PE and follow up CT scan in 6 weeks to see if there is resolution. - Med neb with levalbuterol and ipratropium q.4 hours - IV Levaquin 500 mg q.48h - IV methylprednisolone 40 mg bid - Respiratory culture showed normal oropharyngeal rc - On Bipap 15/5 in night time GI : Possible stress ulcer FOBT positive - IV Protonix 40 mg bid Renal: DAVE likely hemodynamically mediated/VMN Possible Vancomycin toxicity Microscopic hematuria and possible acute cystitis - Patient is on IV cefepime - Nephrology on board. - Had 5 sessions of hemodialysis - Monitor BMP Metabolic: Hyperkalemia likely due to DAVE - Hyperkalemia protocol management. - Monitor BMP ENDOCRINE: Uncontrolled type 2 diabetes mellitus, hemoglobin A1c 9.2 Obesity class 3, BMI 50.1 kg/meter2 - Moderate sliding scale q.6 hour - Lantus 20 units at HS HEME: Chronic normocytic normochromic anemia likely due to anemia of chronic disease INFECTIOUS DISEASE: Bilateral lower extremity cellulitis Sepsis due to above - Wound culture on 07/31/24 demonstrated Enterobacter intermedius, Enterococcus faecalis, MRSA . - IV levofloxacin 500 mg q.48h - Blood culture showed no growth after 5 days of incubation DIET: Enteral feeding with Glucerna by NG tube DVT prophylax: SCD GI prophylaxis: Protonix 40 mg IV daily Bowel regimen: Lactulose 30 ml bid Code status: full code LINES/DRAINS/ACCESS: Tunneled catheter: Placed on 08/21/24 IV access: PICC line placed on 08/08/24 [place] catheter: on 08/13/24 DISPOSITION: JERRICA Patient's status discussed with care rep time spent more than 41 minutes, including patient care and chart review. Case discussed with Dr. Mclaughlin Plan discussed with: Other (Sister, RN) My Orders My Orders Orders - GINETTE TRIVEDI RESIDENT Procedure Category Date Status Time Chest Portable XY 08/23/24 Resulted 04:00 Abg W/ Co-Ox RT 08/23/24 Logged 04:00 Kub Abdomen Single XY 08/23/24 Resulted View 07:20 * Swallow Request ST 08/23/24 Transmitted 11:08 Pt Request For Service PT 08/23/24 Logged 14:44 Npo (Nothing By DIET 08/23/24 Transmitted Mouth) Diet Dinner Chest Xray 1 View XY 08/23/24 Logged 15:56 Dietary Evaluation Review Comments: 1. Suggest TF w/ formula Pivot 1.5 @ 40 ml/hr (GOAL). Begin @ 10 ml/hr; advance by 10 ml Q4 hrs or as tolerated to 40 ml/hr x 24 hrs 2. Provide free water flushes of 30 ml Q6 hrs (120 ml total); adjust PRN 3. Monitor BMP/lytes and replete to WNL/PRN 4. Lantus, ss insulin for correction; adjust PRN to maintain BG <180 mg/dl TF Provision: TF at goal to provide 960 ml total volume, 1440 kcal, 90 gm pro, 7 gm fiber, 165 gm CHO, 729 ml H20 (meets 100% est. kcal needs, 100% est. pro needs) Expected Outcomes/Goals: Improved nutritional status, TF initiation within 24-48 hrs of intubation. GINETTE TRIVEDI RESIDENT August 23, 2024 16:02
--- NOTE | 2024-08-23 16:34 | DVH ---
CHEST RADIOGRAPH Indication: NGT PLACEMENT Technique: Single frontal view of the chest was obtained Comparison: XY CHEST PORTABLE on DOS: 08/23/24, XY CHEST XRAY 1 VIEW on DOS: 08/21/24, XY CHEST PORTABL E on DOS: 08/21/24 FINDINGS: Lines and Tubes: Enteric tube below the left diaphragm in the stomach. Right internal jugular in plac e in the right atrium. Lungs: No focal consolidation. Pleura: No effusion. No pneumothorax. Cardiomediastinal contours: Unremarkable Bones: No acute osseous abnormality. IMPRESSION: 1. Enteric tube below the left diaphragm in the stomach. 2. Right internal jugular catheter in place in the right atrium.
[2024-08-23] MEDS: EPOETIN ALFA-EPBX 10,000 UNIT/1ML VIAL SC ONE (21:37)
[2024-08-24] VITALS (115 sets, daily range): BP systolic 88–243; BP diastolic 24–225; PULSE 99–132; RESP 10–27; TEMP 97.4–98.9; O2SAT 86–100
[2024-08-24 05:43] LABS: Basophils # (auto) 0.1 10 ^3/uL (0-0.2); Basophils % (auto) 0.7 % (0.0-2.0); Eosinophils # (auto) 0 10 ^3/uL (0-0.8); Lymphocytes # (auto) 0.3 10 ^3/uL (0.4-5.4); Lymphocytes % (auto) 2.2 % (10.0-50.0); Mean Corpuscular Hemoglobin 28.9 pg (28.0-32.0); Mean Corpuscular Hgb Conc. 32.1 g/dL (32.0-36.0); Mean Corpuscular Volume 89.9 fL (80.0-100.0); Monocytes # (auto) 0.5 10 ^3/uL (0-1.3); Monocytes % (auto) 4.2 % (0.0-12.0); Neutrophils # (auto) 10.5 10 ^3/uL (1.6-8.6); Neutrophils % (auto) 92.9 % (37.0-80.0); Nucleated Red Blood Cells % 0.1 %; Platelet Count (auto) 109 10^3/uL (140-450); Red Blood Cells 3.11 10^6/uL (4.5-5.90); White Blood Cell 11.4 10^3/uL (4.4-10.8)
[2024-08-24 06:50] LABS: Chloride 100 mmol/L (98-107); Potassium 3.9 mmol/L (3.5-5.1); Sodium 139 mmol/L (136-145)
[2024-08-24 06:51] LABS: Anion Gap 6 (5-15); Calcium 9.4 mg/dL (8.7-10.4)
[2024-08-24 06:54] LABS: Carbon Dioxide 33 mmol/L (20-31)
[2024-08-24 06:56] LABS: BUN/Creatinine Ratio 11.8 (10.0-20.0); Glucose 171 mg/dL (74-106)
[2024-08-24 06:57] LABS: Blood Urea Nitrogen 31 mg/dL (9-23); Magnesium 2.2 mg/dL (1.6-2.6)
[2024-08-24 06:58] LABS: Phosphorus 4.6 mg/dL (2.4-5.1)
[2024-08-24] MEDS: METOCLOPRAMIDE HCL 5MG/ml INJ 2ml VIAL IV SCH (13:49)
--- NOTE | 2024-08-24 14:22 | DVHPN2 ---
Progress Note - Dictate Date Seen: August 24, 2024 Medical Necessity Reason Pt with a Central, PICC or Fol: Yes The following are medically ne: Central Line, [place] Catheter Reason for [place] catheter: Strict I&O vital signs Vital Sign Date Time Temp Pulse Resp B/P (MAP) Pulse Ox O2 Delivery O2 Flow Rate FiO2 08/24/24 13:55 119 08/24/24 13:54 17 100 Nasal Cannula* 2 28 08/24/24 13:45 128/38 (68) 08/24/24 12:00 97.7 97.7 Total Intake and Output 08/23/24 08/23/24 08/24/24 15:00 23:00 07:00 Intake Total 110 ml 190 ml Output Total 15 ml 10 ml Balance 95 ml 180 ml medications Current Medications Medications Dose Ordered Sig/Artie Route Start Time Stop Time Status Last Admin Dose Admin Acetaminophen 325 mg Q4HP PRN PO 07/30/24 21:45 Ipratropium [place] 0.5 mg Q4HR NEB 07/30/24 22:00 08/24/24 13:36 0.5 MG Levalbuterol HCl 1.25 mg Q4HR NEB 07/30/24 22:00 08/24/24 13:36 1.25 MG Enteral Nutritional Formula 1,000 ml 50ML/HR GT 08/05/24 17:15 08/24/24 02:54 1,000 ML Lactulose 30 ml BID PO 08/07/24 10:00 08/24/24 08:09 30 ML Sodium Chloride 10 ml QSHIFT@10,22 IV 08/08/24 22:00 08/24/24 08:10 10 ML Norepinephrine Bitartrate 250 ml @ 1.875 mls/ hr Q24H IV 08/19/24 12:00 08/21/24 23:06 1.875 MLS/HR Insulin Glargine 20 units HS SC 08/19/24 18:15 08/23/24 21:39 20 UNITS Diagnostic Test (Pha) 1 strip ACHS 08/19/24 22:00 08/24/24 08:10 1 STRIP Insulin Human Regular HS SC 08/19/24 22:00 08/23/24 21:38 3 UNITS Insulin Human Regular AC SC 08/20/24 07:00 08/24/24 11:30 3 UNITS Dextrose 50 ml UD PRN IV 08/19/24 18:15 Pantoprazole Sodium 40 mg BID IV 08/20/24 08:15 08/24/24 08:09 40 MG Albumin Human 100 ml @ 100 mls/hr PRN PRN IV 08/21/24 17:30 08/21/24 19:40 100 MLS/HR Methylprednisolone Sodium Succinate 40 mg BID IV 08/22/24 22:00 08/24/24 08:10 40 MG Levofloxacin/ Dextrose 100 ml @ 100 mls/hr Q48H IV 08/23/24 13:00 08/23/24 13:40 100 MLS/HR Lorazepam 1 mg Q6HP PRN IV 08/22/24 13:45 08/24/24 02:04 1 MG Metoclopramide HCl 5 mg Q8HR IV 08/24/24 14:00 08/24/24 13:49 5 MG laboratory and microbiology Laboratory Tests 08/24/24 05:00 Test 08/24/24 05:00 Range/Units Serum Glucose 171 H 74-106 mg/dL Assessment/Plan Certified [employer] In[employer] rounds Impression Acute hypoxemic respiratory failure Pulmonary edema COPD CHF Patient seen and examined in ICU Events S/p extubation High oxygen requirements Intermittently requiring bipap Profoundly weak and deconditioned Patient at significant risk for aspiration Labs and imaging reviewed Chest x-ray shows right IJ central line in place ABG reviewed Management Supplemental oxygen Titrate to maintain sats 90% or above Incentive spirometry Aspiration precautions Continue antibiotics F/u cultures Bronchodilators Monitor renal function Monitor electrolytes Supplement as needed Prognosis very poor, family aware Remains full code per family DVT prophylaxis Critical care time 35 minutes Dietary Evaluation Review Comments: 1. Suggest TF w/ formula Pivot 1.5 @ 40 ml/hr (GOAL). Begin @ 10 ml/hr; advance by 10 ml Q4 hrs or as tolerated to 40 ml/hr x 24 hrs 2. Provide free water flushes of 30 ml Q6 hrs (120 ml total); adjust PRN 3. Monitor BMP/lytes and replete to WNL/PRN 4. Lantus, ss insulin for correction; adjust PRN to maintain BG <180 mg/dl TF Provision: TF at goal to provide 960 ml total volume, 1440 kcal, 90 gm pro, 7 gm fiber, 165 gm CHO, 729 ml H20 (meets 100% est. kcal needs, 100% est. pro needs) Expected Outcomes/Goals: Improved nutritional status, TF initiation within 24-48 hrs of intubation. Plan discussed with: Other (Rn) AKIKO CABRERA MD August 24, 2024 14:22
--- NOTE | 2024-08-24 16:11 | DVHPN2 ---
Subjective in bed resting Reviewed: Care Plan, H&P, Labs, Medications, Previous Orders, Radiology Changes from previous H/P or p: No Changes General: Per HPI Objective Vitals Vital Signs Date Time Temp Pulse Resp B/P (MAP) Pulse Ox O2 Delivery O2 Flow Rate FiO2 08/24/24 15:53 19 100 Nasal Cannula* 2 28 08/24/24 15:45 113 88/52 (64) 08/24/24 12:00 97.7 97.7 Intake/Output Intake and Output 08/24/24 07:00 Intake Total 300 ml Output Total 25 ml Balance 275 ml Intake Oral 10 ml IV Total 100 ml Tube Feeding 100 ml Other 90 ml Output Urine Total 25 ml General Appearance: Other (Intubated, on vent, unable to exam) HEENT: Atraumatic, PERRLA, EOMI, Mucous membr. moist/pink Neck: Supple Lungs: Clear to auscultation, Normal air movement Cardiovascular: Regular rate, Normal S1, Normal S2, No murmurs, Gallops, Rubs Abdomen: Normal bowel sounds, Soft, No tenderness Neuro: Cranial nerves 3-12 NL Psych/Mental Status: Mental status NL Medications Current Medications Medications Dose Ordered Sig/Artie Route Start Time Stop Time Status Last Admin Dose Admin Acetaminophen 325 mg Q4HP PRN PO 07/30/24 21:45 Ipratropium [place] 0.5 mg Q4HR NEB 07/30/24 22:00 08/24/24 13:36 0.5 MG Levalbuterol HCl 1.25 mg Q4HR NEB 07/30/24 22:00 08/24/24 13:36 1.25 MG Enteral Nutritional Formula 1,000 ml 50ML/HR GT 08/05/24 17:15 08/24/24 02:54 1,000 ML Lactulose 30 ml BID PO 08/07/24 10:00 08/24/24 08:09 30 ML Sodium Chloride 10 ml QSHIFT@10,22 IV 08/08/24 22:00 08/24/24 08:10 10 ML Norepinephrine Bitartrate 250 ml @ 1.875 mls/ hr Q24H IV 08/19/24 12:00 08/21/24 23:06 1.875 MLS/HR Insulin Glargine 20 units HS SC 08/19/24 18:15 08/23/24 21:39 20 UNITS Diagnostic Test (Pha) 1 strip ACHS 08/19/24 22:00 08/24/24 08:10 1 STRIP Insulin Human Regular HS SC 08/19/24 22:00 08/23/24 21:38 3 UNITS Insulin Human Regular AC SC 08/20/24 07:00 08/24/24 11:30 3 UNITS Dextrose 50 ml UD PRN IV 08/19/24 18:15 Pantoprazole Sodium 40 mg BID IV 08/20/24 08:15 08/24/24 08:09 40 MG Albumin Human 100 ml @ 100 mls/hr PRN PRN IV 08/21/24 17:30 08/21/24 19:40 100 MLS/HR Methylprednisolone Sodium Succinate 40 mg BID IV 08/22/24 22:00 08/24/24 08:10 40 MG Levofloxacin/ Dextrose 100 ml @ 100 mls/hr Q48H IV 08/23/24 13:00 08/23/24 13:40 100 MLS/HR Lorazepam 1 mg Q6HP PRN IV 08/22/24 13:45 08/24/24 02:04 1 MG Metoclopramide HCl 5 mg Q8HR IV 08/24/24 14:00 08/24/24 13:49 5 MG Laboratory Results Laboratory Tests 08/24/24 05:00 Chemistry Test 08/24/24 05:00 Calcium Level 9.4 mg/dL (8.7-10.4) Magnesium Level 2.2 mg/dL (1.6-2.6) Phosphorus Level 4.6 mg/dL (2.4-5.1) Urinalysis Test 07/30/24 15:37 08/12/24 07:00 08/14/24 14:51 08/19/24 18:15 Urine Hyaline Casts Few /lpf (0 - 2) Urine Mucus Few (None Seen) Urine Color Light-yellow (Yellow) Urine Clarity Turbid (Clear) H Urine pH 5.5 (5.0-9.0) Urine Specific [place] 1.013 (1.001-1.035) Urine Protein 1+ (Negative) H Urine Ketones Negative (Negative) Urine Blood 2+ /uL (Negative) H Urine Nitrite Negative (Negative) Urine Bilirubin Negative (Negative) Urine Urobilinogen Normal mg/dL (Negative) Urine Leukocyte Esterase Negative /uL (Negative) Urine RBC 33 /hpf (0 - 3) Urine Microscopic WBC 9 /HPF (0-3) H Urine Squamous Epithelial Cells Few /hpf (<5) Urine Bacteria Few /hpf (None Seen) H Urine Glucose Normal mg/dL (Normal) Urine Protein/Creatinine Ratio 6.71 Urine Total Protein 349.7 mg/dL (1-14) H Urine Creatinine 31.63 mg/dL (30.0-125.0) Urine Sodium 85 mmol/L (40-220) Microbiology Microbiology Date/Time Source Procedure Growth Status 08/12/24 07:06 Blood Blood Culture - Final NO GROWTH AFTER 5 DAYS OF INCUBATION. Complete 08/09/24 13:35 Other Aerobic Culture - Final Complete 08/01/24 00:00 Sputum Gram Stain - Final Complete 08/01/24 00:00 Sputum Respiratory Culture - Final Complete Assessment/Plan Assessment/Plan NEURO: Acute metabolic encephalopathy secondary to hypoxic/ hypercarbic respiratory failure - S/P extubation and currently on nasal canula 2L. CARDIOVASCULAR: Acute on chronic exacerbation of decompensated systolic heart failure, NYHA class 3 Chronic permanent atrial fibrillation with secondary hypercoagulable state Severe pulmonary hypertension likely due to COPD /FAWN - [id number] score 3 and HAS BLED score 2 - CXR showed cardiomegaly with mild pulmonary vascular congestion - Echo on 07/31/2024 demonstrated EF 40% with global hypokinesis, irregular contractility, moderate tricuspid regurgitation, moderate aortic sclerosis with diminished excursion of the right coronary cusp and RVSP 56 mm hg. - Maintain strict I&O - Atorvastatin 20 mg at HS PULMONARY: Acute on chronic hypoxic / hypercarbic respiratory failure Acute on chronic exacerbation of COPD Ruled out pulmonary embolism Gram negative pneumonia ruled out - CT angiography demonstrated 2 cm nodular opacities right lung apex, ruled out PE and follow up CT scan in 6 weeks to see if there is resolution. - Med neb with levalbuterol and ipratropium q.4 hours - IV Levaquin 500 mg q.48h - IV methylprednisolone 40 mg bid - Respiratory culture showed normal oropharyngeal rc - On Bipap 15/5 in night time GI : Possible stress ulcer FOBT positive - IV Protonix 40 mg bid Renal: DAVE likely hemodynamically mediated/VMN Possible Vancomycin toxicity Microscopic hematuria and possible acute cystitis - Patient is on IV cefepime - Nephrology on board. - Had 5 sessions of hemodialysis - Monitor BMP Metabolic: Hyperkalemia likely due to DAVE - Hyperkalemia protocol management. - Monitor BMP ENDOCRINE: Uncontrolled type 2 diabetes mellitus, hemoglobin A1c 9.2 Obesity class 3, BMI 50.1 kg/meter2 - Moderate sliding scale q.6 hour - Lantus 20 units at HS HEME: Chronic normocytic normochromic anemia likely due to anemia of chronic disease INFECTIOUS DISEASE: Bilateral lower extremity cellulitis Sepsis due to above - Wound culture on 07/31/24 demonstrated Enterobacter intermedius, Enterococcus faecalis, MRSA . - IV levofloxacin 500 mg q.48h - Blood culture showed no growth after 5 days of incubation DIET: Enteral feeding with Glucerna by NG tube DVT prophylax: SCD GI prophylaxis: Protonix 40 mg IV daily Bowel regimen: Lactulose 30 ml bid Code status: full code LINES/DRAINS/ACCESS: Tunneled catheter: Placed on 08/21/24 IV access: PICC line placed on 08/08/24 [place] catheter: on 08/13/24 DISPOSITION: JERRICA Patient's status discussed with rn urgent care time spent more than 41 minutes, including patient care and chart review. Plan discussed with: Other (nurse) My Orders Orders - MEGHA GAMA MD Procedure Category Date Status Time Transfer Orders XFER 08/24/24 Transmitted 13:28 Date of Service: August 24, 2024 Billing Provider: MEGHA GAMA MD Common Visit Codes: [id number] CARE 30-74 MIN MEGHA GAMA MD August 24, 2024 16:11
[2024-08-24 16:32] LABS: Base Excess 2.7 mmol/L (-2.0-3.0)
[2024-08-25] VITALS (78 sets, daily range): BP systolic 82–138; BP diastolic 34–70; PULSE 75–124; RESP 10–24; TEMP 97.5–98.2; O2SAT 83–100
[2024-08-25 05:51] LABS: Basophils # (auto) 0.1 10 ^3/uL (0-0.2); Basophils % (auto) 0.8 % (0.0-2.0); Eosinophils # (auto) 0 10 ^3/uL (0-0.8); Hematocrit 25.4 % (41.0-53.0); Hemoglobin 8.5 g/dL (13.5-17.5); Lymphocytes # (auto) 0.2 10 ^3/uL (0.4-5.4); Lymphocytes % (auto) 2.5 % (10.0-50.0); Mean Corpuscular Hemoglobin 29.8 pg (28.0-32.0); Mean Corpuscular Hgb Conc. 33.4 g/dL (32.0-36.0); Mean Corpuscular Volume 89.3 fL (80.0-100.0); Monocytes # (auto) 0.3 10 ^3/uL (0-1.3); Neutrophils # (auto) 7.3 10 ^3/uL (1.6-8.6); Neutrophils % (auto) 92.7 % (37.0-80.0); Nucleated Red Blood Cells % 0.2 %; Platelet Count (auto) 93 10^3/uL (140-450); Red Blood Cells 2.84 10^6/uL (4.5-5.90); Red Cell Distribution Width 14.8 % (11.8-14.3); White Blood Cell 7.9 10^3/uL (4.4-10.8)
[2024-08-25 06:00] LABS: Albumin 3.3 g/dL (3.2-4.8); Alkaline Phosphatase 96 U/L (46-116); Anion Gap 11 (5-15); Aspartate Aminotransferase 15 U/L (13-40); BUN/Creatinine Ratio 13.5 (10.0-20.0); Calcium 10.1 mg/dL (8.7-10.4); Carbon Dioxide 30 mmol/L (20-31); Chloride 99 mmol/L (98-107); Magnesium 2.3 mg/dL (1.6-2.6); Potassium 4.1 mmol/L (3.5-5.1); Sodium 140 mmol/L (136-145)
[2024-08-25 06:01] LABS: Bilirubin, Total 0.4 mg/dL (0.2-1.0)
[2024-08-25 06:20] LABS: Alanine Aminotransferase 56 U/L (7-40); Blood Urea Nitrogen 48 mg/dL (9-23); Glucose 129 mg/dL (74-106); Total Protein 5.5 g/dL (5.7-8.2)
--- NOTE | 2024-08-25 07:03 | DVH ---
INDICATION: sob TECHNIQUE: Single frontal view of the chest was obtained COMPARISON: XY CHEST XRAY 1 VIEW on DOS: 08/23/24, XY CHEST PORTABLE on DOS: 08/23/24, XY CHEST XRAY 1 VIEW on DOS: 08/21/24, XY CHEST PORTABLE on DOS: 08/21/24, XY CHEST PORTABLE on DOS: 08/20/24, XY CHEST XRAY 1 VIEW on DOS: 08/23/24 FINDINGS: Lines and Tubes: Enteric tube below the left diaphragm in the stomach. Right internal jugular in plac e in the right atrium. Lungs: No focal consolidation. Pleura: No effusion. No pneumothorax. Cardiomediastinal contours: Unremarkable Bones: No acute osseous abnormality. IMPRESSION: 1. Enteric tube below the left diaphragm in the stomach. 2. Right internal jugular catheter in place in the right atrium.
--- NOTE | 2024-08-25 10:30 | DVHPN2 ---
Progress Note - Dictate Date Seen: August 25, 2024 Medical Necessity Reason Pt with a Central, PICC or Fol: Yes The following are medically ne: Central Line, [place] Catheter Reason for [place] catheter: Strict I&O vital signs Vital Sign Date Time Temp Pulse Resp B/P (MAP) Pulse Ox O2 Delivery O2 Flow Rate FiO2 08/25/24 10:13 113 08/25/24 10:11 17 94 Nasal Cannula* 1 24 08/25/24 09:15 124/59 (80) 08/25/24 08:00 97.7 97.7 Total Intake and Output 08/24/24 08/24/24 08/25/24 15:00 23:00 07:00 Intake Total 200 ml 300 ml Output Total 10 ml Balance 190 ml 300 ml medications Current Medications Medications Dose Ordered Sig/Artie Route Start Time Stop Time Status Last Admin Dose Admin Acetaminophen 325 mg Q4HP PRN PO 07/30/24 21:45 Ipratropium [place] 0.5 mg Q4HR NEB 07/30/24 22:00 08/25/24 09:48 0.5 MG Levalbuterol HCl 1.25 mg Q4HR NEB 07/30/24 22:00 08/25/24 09:48 1.25 MG Enteral Nutritional Formula 1,000 ml 50ML/HR GT 08/05/24 17:15 08/25/24 06:13 1,000 ML Lactulose 30 ml BID PO 08/07/24 10:00 08/25/24 09:53 30 ML Sodium Chloride 10 ml QSHIFT@10,22 IV 08/08/24 22:00 08/25/24 07:36 10 ML Norepinephrine Bitartrate 250 ml @ 1.875 mls/ hr Q24H IV 08/19/24 12:00 08/21/24 23:06 1.875 MLS/HR Insulin Glargine 20 units HS SC 08/19/24 18:15 08/24/24 22:03 20 UNITS Diagnostic Test (Pha) 1 strip ACHS 08/19/24 22:00 08/25/24 07:36 1 STRIP Insulin Human Regular HS SC 08/19/24 22:00 08/24/24 21:58 2 UNITS Insulin Human Regular AC SC 08/20/24 07:00 08/24/24 17:05 6 UNITS Dextrose 50 ml UD PRN IV 08/19/24 18:15 Pantoprazole Sodium 40 mg BID IV 08/20/24 08:15 08/25/24 07:36 40 MG Albumin Human 100 ml @ 100 mls/hr PRN PRN IV 08/21/24 17:30 08/21/24 19:40 100 MLS/HR Methylprednisolone Sodium Succinate 40 mg BID IV 08/22/24 22:00 08/25/24 07:36 40 MG Levofloxacin/ Dextrose 100 ml @ 100 mls/hr Q48H IV 08/23/24 13:00 08/23/24 13:40 100 MLS/HR Lorazepam 1 mg Q6HP PRN IV 08/22/24 13:45 08/25/24 01:42 1 MG Metoclopramide HCl 5 mg Q8HR IV 08/24/24 14:00 08/25/24 06:11 5 MG Morphine Sulfate 2 mg Q2HPRN PRN IV 08/25/24 09:30 laboratory and microbiology Laboratory Tests 08/25/24 05:21 Test 08/25/24 05:21 Range/Units Serum Glucose 129 H 74-106 mg/dL Assessment/Plan System Support Technician rounds Impression Acute hypoxemic respiratory failure Pulmonary edema COPD CHF Patient seen and examined in ICU Events S/p extubation On 2 liters nasal cannula NG tube in place Patient at risk for aspiration Appears delirious Labs and imaging reviewed ABG reviewed Management Supplemental oxygen Titrate to maintain sats 90% or above Incentive spirometry Aspiration precautions Continue antibiotics F/u cultures Bronchodilators Monitor renal function Monitor electrolytes Supplement as needed Prognosis very poor, family aware Remains full code per family DVT prophylaxis Critical care time 35 minutes Dietary Evaluation Review Comments: 1. Suggest TF w/ formula Pivot 1.5 @ 40 ml/hr (GOAL). Begin @ 10 ml/hr; advance by 10 ml Q4 hrs or as tolerated to 40 ml/hr x 24 hrs 2. Provide free water flushes of 30 ml Q6 hrs (120 ml total); adjust PRN 3. Monitor BMP/lytes and replete to WNL/PRN 4. Lantus, ss insulin for correction; adjust PRN to maintain BG <180 mg/dl TF Provision: TF at goal to provide 960 ml total volume, 1440 kcal, 90 gm pro, 7 gm fiber, 165 gm CHO, 729 ml H20 (meets 100% est. kcal needs, 100% est. pro needs) Expected Outcomes/Goals: Improved nutritional status, TF initiation within 24-48 hrs of intubation. Plan discussed with: Other (Rn) AKIKO CABRERA MD August 25, 2024 10:30
[2024-08-25 12:24] LABS: Base Excess 0.6 mmol/L (-2.0-3.0)
--- NOTE | 2024-08-25 14:37 | DVHPN2 ---
Progress Note - Dictate Date Seen: August 25, 2024 Medical Necessity Reason Pt with a Central, PICC or Fol: Yes The following are medically ne: Central Line, [place] Catheter Reason for [place] catheter: Strict I&O Subjective Patient on BiPAP, patient's at bedside vital signs Vital Sign Date Time Temp Pulse Resp B/P (MAP) Pulse Ox O2 Delivery O2 Flow Rate FiO2 08/25/24 14:00 112 19 98/60 (73) 94 08/25/24 13:54 Facial BiPAP Mask 30 08/25/24 12:05 1 08/25/24 12:00 97.5 97.5 Total Intake and Output 08/24/24 08/24/24 08/25/24 15:00 23:00 07:00 Intake Total 200 ml 300 ml Output Total 10 ml Balance 190 ml 300 ml medications Current Medications Medications Dose Ordered Sig/Artie Route Start Time Stop Time Status Last Admin Dose Admin Acetaminophen 325 mg Q4HP PRN PO 07/30/24 21:45 Ipratropium [place] 0.5 mg Q4HR NEB 07/30/24 22:00 08/25/24 13:54 0.5 MG Levalbuterol HCl 1.25 mg Q4HR NEB 07/30/24 22:00 08/25/24 13:54 1.25 MG Enteral Nutritional Formula 1,000 ml 50ML/HR GT 08/05/24 17:15 08/25/24 06:13 1,000 ML Lactulose 30 ml BID PO 08/07/24 10:00 08/25/24 09:53 30 ML Sodium Chloride 10 ml QSHIFT@10,22 IV 08/08/24 22:00 08/25/24 07:36 10 ML Norepinephrine Bitartrate 250 ml @ 1.875 mls/ hr Q24H IV 08/19/24 12:00 08/21/24 23:06 1.875 MLS/HR Insulin Glargine 20 units HS SC 08/19/24 18:15 08/24/24 22:03 20 UNITS Diagnostic Test (Pha) 1 strip ACHS 08/19/24 22:00 08/25/24 07:36 1 STRIP Insulin Human Regular HS SC 08/19/24 22:00 08/24/24 21:58 2 UNITS Insulin Human Regular AC SC 08/20/24 07:00 08/25/24 11:50 2 UNITS Dextrose 50 ml UD PRN IV 08/19/24 18:15 Pantoprazole Sodium 40 mg BID IV 08/20/24 08:15 08/25/24 07:36 40 MG Albumin Human 100 ml @ 100 mls/hr PRN PRN IV 08/21/24 17:30 08/21/24 19:40 100 MLS/HR Methylprednisolone Sodium Succinate 40 mg BID IV 08/22/24 22:00 08/25/24 07:36 40 MG Levofloxacin/ Dextrose 100 ml @ 100 mls/hr Q48H IV 08/23/24 13:00 08/25/24 11:54 100 MLS/HR Lorazepam 1 mg Q6HP PRN IV 08/22/24 13:45 08/25/24 01:42 1 MG Metoclopramide HCl 5 mg Q8HR IV 08/24/24 14:00 08/25/24 11:53 5 MG Morphine Sulfate 2 mg Q2HPRN PRN IV 08/25/24 09:30 objective Gen: Mild tachypnea, remains on BiPAP lungs: Coarse breath sounds ext: + edema laboratory and microbiology Laboratory Tests 08/25/24 05:21 Test 08/25/24 05:21 Range/Units Serum Glucose 129 H 74-106 mg/dL Problem List IMP: 1) Ischemic/ Nephrotoxic ATN - requiring intermittent kidney replacement therapy 2) acute hypoxemic respiratory failure 3) cor pulmonale 4) morbid obesity 5) anemia REC: - trial of high-dose loop diuretic to enhance urine volumes. May not be efficacious if patient persistently with dense ATN - discussed plan of care from Nephrology perspective with patient's - currently without urgent indication for dialysis. Dietary Evaluation Review Comments: 1. Suggest TF w/ formula Pivot 1.5 @ 40 ml/hr (GOAL). Begin @ 10 ml/hr; advance by 10 ml Q4 hrs or as tolerated to 40 ml/hr x 24 hrs 2. Provide free water flushes of 30 ml Q6 hrs (120 ml total); adjust PRN 3. Monitor BMP/lytes and replete to WNL/PRN 4. Lantus, ss insulin for correction; adjust PRN to maintain BG <180 mg/dl TF Provision: TF at goal to provide 960 ml total volume, 1440 kcal, 90 gm pro, 7 gm fiber, 165 gm CHO, 729 ml H20 (meets 100% est. kcal needs, 100% est. pro needs) Expected Outcomes/Goals: Improved nutritional status, TF initiation within 24-48 hrs of intubation. Plan discussed with: Spouse MARIO MURRIETA MD August 25, 2024 14:37
[2024-08-25] MEDS: BUMETANIDE 2.5mg/10ml (0.25 mg/ml) INJ IV ONE (14:45)
--- NOTE | 2024-08-25 17:18 | DVHPN2 ---
Subjective in bed resting Reviewed: Care Plan, H&P, Labs, Medications, Previous Orders, Radiology Changes from previous H/P or p: No Changes General: Per HPI Objective Vitals Vital Signs Date Time Temp Pulse Resp B/P (MAP) Pulse Ox O2 Delivery O2 Flow Rate FiO2 08/25/24 16:00 12 93 Bi-Pap+ 30 30 08/25/24 15:54 111 93/69 08/25/24 12:05 1 08/25/24 12:00 97.5 97.5 Intake/Output Intake and Output 08/25/24 07:00 Intake Total 500 ml Output Total 10 ml Balance 490 ml Intake Oral 50 ml Tube Feeding 330 ml Other 120 ml Output Urine Total 10 ml General Appearance: Other (Intubated, on vent, unable to exam) HEENT: Atraumatic, PERRLA, EOMI, Mucous membr. moist/pink Neck: Supple Lungs: Clear to auscultation, Normal air movement Cardiovascular: Regular rate, Normal S1, Normal S2, No murmurs, Gallops, Rubs Abdomen: Normal bowel sounds, Soft, No tenderness Neuro: Cranial nerves 3-12 NL Psych/Mental Status: Mental status NL Medications Current Medications Medications Dose Ordered Sig/Artie Route Start Time Stop Time Status Last Admin Dose Admin Acetaminophen 325 mg Q4HP PRN PO 07/30/24 21:45 Ipratropium [place] 0.5 mg Q4HR NEB 07/30/24 22:00 08/25/24 13:54 0.5 MG Levalbuterol HCl 1.25 mg Q4HR NEB 07/30/24 22:00 08/25/24 13:54 1.25 MG Enteral Nutritional Formula 1,000 ml 50ML/HR GT 08/05/24 17:15 08/25/24 06:13 1,000 ML Lactulose 30 ml BID PO 08/07/24 10:00 08/25/24 09:53 30 ML Sodium Chloride 10 ml QSHIFT@10,22 IV 08/08/24 22:00 08/25/24 07:36 10 ML Norepinephrine Bitartrate 250 ml @ 1.875 mls/ hr Q24H IV 08/19/24 12:00 08/21/24 23:06 1.875 MLS/HR Insulin Glargine 20 units HS SC 08/19/24 18:15 08/24/24 22:03 20 UNITS Diagnostic Test (Pha) 1 strip ACHS 08/19/24 22:00 08/25/24 15:36 1 STRIP Insulin Human Regular HS SC 08/19/24 22:00 08/24/24 21:58 2 UNITS Insulin Human Regular AC SC 08/20/24 07:00 08/25/24 11:50 2 UNITS Dextrose 50 ml UD PRN IV 08/19/24 18:15 Pantoprazole Sodium 40 mg BID IV 08/20/24 08:15 08/25/24 07:36 40 MG Albumin Human 100 ml @ 100 mls/hr PRN PRN IV 08/21/24 17:30 08/21/24 19:40 100 MLS/HR Methylprednisolone Sodium Succinate 40 mg BID IV 08/22/24 22:00 08/25/24 07:36 40 MG Levofloxacin/ Dextrose 100 ml @ 100 mls/hr Q48H IV 08/23/24 13:00 08/25/24 11:54 100 MLS/HR Lorazepam 1 mg Q6HP PRN IV 08/22/24 13:45 08/25/24 01:42 1 MG Metoclopramide HCl 5 mg Q8HR IV 08/24/24 14:00 08/25/24 11:53 5 MG Morphine Sulfate 2 mg Q2HPRN PRN IV 08/25/24 09:30 Laboratory Results Laboratory Tests 08/25/24 05:21 Chemistry Test 08/25/24 05:21 Albumin 3.3 g/dL (3.2-4.8) Calcium Level 10.1 mg/dL (8.7-10.4) Magnesium Level 2.3 mg/dL (1.6-2.6) Total Protein 5.5 g/dL (5.7-8.2) L LFT Test 08/25/24 05:21 Alanine Aminotransferase (ALT) 56 U/L (7-40) H Alkaline Phosphatase 96 U/L (46-116) Aspartate Amino Transferase (AST) 15 U/L (13-40) Total Bilirubin 0.4 mg/dL (0.2-1.0) Urinalysis Test 07/30/24 15:37 08/12/24 07:00 08/14/24 14:51 08/19/24 18:15 Urine Hyaline Casts Few /lpf (0 - 2) Urine Mucus Few (None Seen) Urine Color Light-yellow (Yellow) Urine Clarity Turbid (Clear) H Urine pH 5.5 (5.0-9.0) Urine Specific [place] 1.013 (1.001-1.035) Urine Protein 1+ (Negative) H Urine Ketones Negative (Negative) Urine Blood 2+ /uL (Negative) H Urine Nitrite Negative (Negative) Urine Bilirubin Negative (Negative) Urine Urobilinogen Normal mg/dL (Negative) Urine Leukocyte Esterase Negative /uL (Negative) Urine RBC 33 /hpf (0 - 3) Urine Microscopic WBC 9 /HPF (0-3) H Urine Squamous Epithelial Cells Few /hpf (<5) Urine Bacteria Few /hpf (None Seen) H Urine Glucose Normal mg/dL (Normal) Urine Protein/Creatinine Ratio 6.71 Urine Total Protein 349.7 mg/dL (1-14) H Urine Creatinine 31.63 mg/dL (30.0-125.0) Urine Sodium 85 mmol/L (40-220) Blood Gas Results Test 08/25/24 06:24 08/25/24 12:16 Arterial Blood pH 7.325 (7.350-7.450) 7.218 (7.350-7.450) FiO2 % 30.0 24.0 Microbiology Microbiology Date/Time Source Procedure Growth Status 08/12/24 07:06 Blood Blood Culture - Final NO GROWTH AFTER 5 DAYS OF INCUBATION. Complete 08/09/24 13:35 Other Aerobic Culture - Final Complete 08/01/24 00:00 Sputum Gram Stain - Final Complete 08/01/24 00:00 Sputum Respiratory Culture - Final Complete Assessment/Plan Assessment/Plan NEURO: Acute metabolic encephalopathy secondary to hypoxic/ hypercarbic respiratory failure - S/P extubation and currently on nasal canula 2L. CARDIOVASCULAR: Acute on chronic exacerbation of decompensated systolic heart failure, NYHA class 3 Chronic permanent atrial fibrillation with secondary hypercoagulable state Severe pulmonary hypertension likely due to COPD /FAWN - [id number] score 3 and HAS BLED score 2 - CXR showed cardiomegaly with mild pulmonary vascular congestion - Echo on 07/31/2024 demonstrated EF 40% with global hypokinesis, irregular contractility, moderate tricuspid regurgitation, moderate aortic sclerosis with diminished excursion of the right coronary cusp and RVSP 56 mm hg. - Maintain strict I&O - Atorvastatin 20 mg at HS PULMONARY: Acute on chronic hypoxic / hypercarbic respiratory failure Acute on chronic exacerbation of COPD Ruled out pulmonary embolism Gram negative pneumonia ruled out - CT angiography demonstrated 2 cm nodular opacities right lung apex, ruled out PE and follow up CT scan in 6 weeks to see if there is resolution. - Med neb with levalbuterol and ipratropium q.4 hours - IV Levaquin 500 mg q.48h - IV methylprednisolone 40 mg bid - Respiratory culture showed normal oropharyngeal rc - On Bipap 15/5 in night time GI : Possible stress ulcer FOBT positive - IV Protonix 40 mg bid Renal: DAVE likely hemodynamically mediated/VMN Possible Vancomycin toxicity Microscopic hematuria and possible acute cystitis - Patient is on IV cefepime - Nephrology on board. - Had 5 sessions of hemodialysis - Monitor BMP Metabolic: Hyperkalemia likely due to DAVE - Hyperkalemia protocol management. - Monitor BMP ENDOCRINE: Uncontrolled type 2 diabetes mellitus, hemoglobin A1c 9.2 Obesity class 3, BMI 50.1 kg/meter2 - Moderate sliding scale q.6 hour - Lantus 20 units at HS HEME: Chronic normocytic normochromic anemia likely due to anemia of chronic disease INFECTIOUS DISEASE: Bilateral lower extremity cellulitis Sepsis due to above - Wound culture on 07/31/24 demonstrated Enterobacter intermedius, Enterococcus faecalis, MRSA . - IV levofloxacin 500 mg q.48h - Blood culture showed no growth after 5 days of incubation DIET: Enteral feeding with Glucerna by NG tube DVT prophylax: SCD GI prophylaxis: Protonix 40 mg IV daily Bowel regimen: Lactulose 30 ml bid Code status: full code LINES/DRAINS/ACCESS: Tunneled catheter: Placed on 08/21/24 IV access: PICC line placed on 08/08/24 [place] catheter: on 08/13/24 DISPOSITION: JERRICA Patient's status discussed with home health care worker time spent more than 41 minutes, including patient care and chart review. Plan discussed with: Patient My Orders Orders - MEGHA GAMA MD Procedure Category Date Status Time Chest Portable XY 08/25/24 Resulted 04:00 Abg W/ Co-Ox RT 08/25/24 Logged 12:01 Date of Service: August 25, 2024 Billing Provider: MEGHA GAMA MD Common Visit Codes: [id number] CARE 30-74 MIN MEGHA GAMA MD August 25, 2024 17:18
[2024-08-25] MEDS: MORPHINE SULFATE INJ 2 MG/ml SYRG IV PRN (18:16)
[2024-08-26] VITALS (60 sets, daily range): BP systolic 92–135; BP diastolic 35–68; PULSE 101–131; RESP 8–22; TEMP 97.6–98.7; O2SAT 87–100
[2024-08-26 05:30] LABS: Basophils # (auto) 0.1 10 ^3/uL (0-0.2); Basophils % (auto) 0.9 % (0.0-2.0); Eosinophils # (auto) 0 10 ^3/uL (0-0.8); Hematocrit 27.2 % (41.0-53.0); Hemoglobin 8.8 g/dL (13.5-17.5); Lymphocytes # (auto) 0.2 10 ^3/uL (0.4-5.4); Lymphocytes % (auto) 2.3 % (10.0-50.0); Mean Corpuscular Hemoglobin 29.1 pg (28.0-32.0); Mean Corpuscular Hgb Conc. 32.3 g/dL (32.0-36.0); Monocytes # (auto) 0.3 10 ^3/uL (0-1.3); Monocytes % (auto) 3.7 % (0.0-12.0); Neutrophils # (auto) 8.5 10 ^3/uL (1.6-8.6); Neutrophils % (auto) 93.1 % (37.0-80.0); Nucleated Red Blood Cells % 0.1 %; Platelet Count (auto) 108 10^3/uL (140-450); Red Blood Cells 3.03 10^6/uL (4.5-5.90); Red Cell Distribution Width 15.2 % (11.8-14.3); White Blood Cell 9.1 10^3/uL (4.4-10.8)
[2024-08-26 05:47] LABS: Albumin 3.5 g/dL (3.2-4.8); Alkaline Phosphatase 94 U/L (46-116); Anion Gap 13 (5-15); Aspartate Aminotransferase 15 U/L (13-40); BUN/Creatinine Ratio 14.4 (10.0-20.0); Calcium 9.6 mg/dL (8.7-10.4); Carbon Dioxide 28 mmol/L (20-31); Magnesium 2.4 mg/dL (1.6-2.6); Potassium 4.5 mmol/L (3.5-5.1); Sodium 139 mmol/L (136-145); Total Protein 5.7 g/dL (5.7-8.2)
[2024-08-26 05:48] LABS: Bilirubin, Total 0.4 mg/dL (0.2-1.0)
[2024-08-26 05:49] LABS: Alanine Aminotransferase 49 U/L (7-40); Blood Urea Nitrogen 67 mg/dL (9-23); Chloride 98 mmol/L (98-107); Glucose 184 mg/dL (74-106)
[2024-08-26 06:17] LABS: Base Excess -0.7 mmol/L (-2.0-3.0)
--- NOTE | 2024-08-26 09:03 | DVHPN2 ---
Progress Note Date Seen: August 26, 2024 Resident Creating Document: LIZZIE CONTRERAS RESIDENT Medical Necessity Reason Pt with a Central, PICC or Fol: Yes The following are medically ne: Central Line, [place] Catheter Reason for [place] catheter: Strict I&O Subjective Review of Systems Mr Reynolds 69-year-old male patient with PMH of systolic CHF-EF 40%, COPD, type 2 diabetes mellitus, atrial fibrillation who initially presented to the ER on 07/30 for altered mental status and shortness of breath and underwent mechanical ventilation on 08/01. Patient is currently extubated, on 2 L nasal cannula supplementation. Patient is not vocal, only responds to his name but not to commands. Per patient's brother who is at bedside, patient has been not ambulating due to probably bilateral hip degenerative changes, and he has had extensive bilateral lower extremity ulcers with drainage, patient was feeling with home health and later opted hospice to see 24/10 care. Per her to admission, patient was confused and developed sudden onset shortness of breath. His hospice nurse saw the patient tachycardic at 130s and patient was saturating at 68% therefore he was sent to the ER. Patient was intubated 08/01 till 08/12. Blood cultures were negative, wound cultures 07/31 showed Enterobacter, Enterococcus and MRSA for which patient initially received IV vancomycin and IV cefepime starting 07/30, IV vancomycin was discontinued 08/11 and the patient was started on IV Zyvox b.i.d. 08/13. Patient has received 2 L of 0.45 NS, 250 cc of LR till now Nephrology has been consulted for worsening DAVE, patient has been experiencing renal failure since 08/10. 08/14-Patient seen and examined at the bedside. Overnight low-grade fever 99.7, pulse 105 and irregular. Requiring 2 L NC supplementation. Bumex IV drip 0.5 mg/hours started. Continue 0.45 NS. Urine output 85 cc in the past 24 hours. 08/15 - patient seen and examined at the bedside. Urine output less than 100 cc overnight. Right IJ Kaden placed, hemodialysis order placed. Primary team started methylprednisolone 40 mg IV b.i.d. renal ultrasound shows echogenic kidneys. 08/16-patient seen and examined at the bedside. Patient responding to name, A&O x1, patient said his name today. Urine output is 200 cc. Hemodialysis pending today. Requiring Levophed. Discontinue IV Bumex given low urine output 08/19 - patient seen and examined at the bedside. Urine output 75 cc overnight. Hemodialysis tomorrow. Fluid restrictions ordered. 08/20 - patient seen and examined at the bedside. Urine output 375 cc overnight. Hemodialysis could not be completed due to dysfunctional l IJ Kaden. 08/21-patient seen and examined at the bedside. Urine output 70 cc. BUN/creatinine slightly trending up. IR consulted for IJ tunneled catheter placement 08/22 - patient seen and examined at bedside. Urine output decreasing, 45 mL only. Patient is on BiPAP. Underwent hemodialysis yesterday after right tunneled catheter placement. WBC increased to 13. 08/23 - patient seen and examined at the bedside. Urine output trending down, 0 cc overnight. bun/creatinine trending up , Undergoing Hemodialysis bicarb 35 mEq. Bladder scan ordered, flush [place] catheter. 08/26 - patient seen and examined at the bedside. Bumex 4 mg IV once administered yesterday. Urine out 45 cc. Objective vital signs Vital Sign Date Time Temp Pulse Resp B/P (MAP) Pulse Ox O2 Delivery O2 Flow Rate FiO2 08/26/24 06:30 115 14 106/58 (74) 96 08/26/24 06:00 Bi-Pap+ 30 30 08/26/24 04:00 98.3 98.3 08/25/24 12:05 1 Total Intake and Output 08/25/24 08/25/24 08/26/24 15:00 23:00 07:00 Intake Total 200 ml 0 ml Output Total 15 ml 30 ml Balance 185 ml -30 ml medications Current Medications Medications Dose Ordered Sig/Artie Route Start Time Stop Time Status Last Admin Dose Admin Acetaminophen 325 mg Q4HP PRN PO 07/30/24 21:45 Ipratropium [place] 0.5 mg Q4HR NEB 07/30/24 22:00 08/26/24 05:54 0.5 MG Levalbuterol HCl 1.25 mg Q4HR NEB 07/30/24 22:00 08/26/24 05:54 1.25 MG Enteral Nutritional Formula 1,000 ml 50ML/HR GT 08/05/24 17:15 08/25/24 06:13 1,000 ML Lactulose 30 ml BID PO 08/07/24 10:00 08/25/24 21:47 30 ML Sodium Chloride 10 ml QSHIFT@10,22 IV 08/08/24 22:00 08/25/24 21:47 10 ML Norepinephrine Bitartrate 250 ml @ 1.875 mls/ hr Q24H IV 08/19/24 12:00 08/21/24 23:06 1.875 MLS/HR Insulin Glargine 20 units HS SC 08/19/24 18:15 08/24/24 22:03 20 UNITS Diagnostic Test (Pha) 1 strip ACHS 08/19/24 22:00 08/26/24 06:34 1 STRIP Insulin Human Regular HS SC 08/19/24 22:00 08/24/24 21:58 2 UNITS Insulin Human Regular AC SC 08/20/24 07:00 08/26/24 06:35 3 UNITS Dextrose 50 ml UD PRN IV 08/19/24 18:15 Pantoprazole Sodium 40 mg BID IV 08/20/24 08:15 08/25/24 21:46 40 MG Albumin Human 100 ml @ 100 mls/hr PRN PRN IV 08/21/24 17:30 08/21/24 19:40 100 MLS/HR Methylprednisolone Sodium Succinate 40 mg BID IV 08/22/24 22:00 08/25/24 21:47 40 MG Levofloxacin/ Dextrose 100 ml @ 100 mls/hr Q48H IV 08/23/24 13:00 08/25/24 11:54 100 MLS/HR Lorazepam 1 mg Q6HP PRN IV 08/22/24 13:45 08/25/24 01:42 1 MG Metoclopramide HCl 5 mg Q8HR IV 08/24/24 14:00 08/26/24 05:43 5 MG Morphine Sulfate 2 mg Q2HPRN PRN IV 08/25/24 09:30 08/25/24 21:24 2 MG Examination Elderly male patient lying in the bed. Right IJ tunneled cath General: Obese, afebrile, palor, mucosae are moist Cardiovascular: IRRegular S1 and S2. No murmurs, gallops or rubs. No JVD elevation. Bilateral pitting edema Respiratory: Bilateral decreased air entry on BiPAP Abdomen: Soft, nontender, nondistended, normoactive bowel sounds, no rebound tenderness, no organomegaly, no masses Genitourinary: Deferred. [place] draining 10 cc of urine MSK/skin: Mobilizes 4 limbs. Skin is dry and warm. Bilateral lower extremity have draining wounds, dressing dry clean and intact Neurological assessment could not be completed laboratory and microbiology Laboratory Tests 08/26/24 05:10 Test 08/26/24 05:10 Range/Units Serum Glucose 184 H 74-106 mg/dL Microbiology Date/Time Source Procedure Growth Status 08/12/24 07:06 Blood Blood Culture - Final NO GROWTH AFTER 5 DAYS OF INCUBATION. Complete 08/09/24 13:35 Other Aerobic Culture - Final Complete 08/01/24 00:00 Sputum Gram Stain - Final Complete 08/01/24 00:00 Sputum Respiratory Culture - Final Complete Labs and/or images reviewed: Labs reviewed by me, Image(s) reviewed by me Problem List/Assessment/Plan Problem List/Assessment/Plan Acute kidney injury, ischemic/nephrotoxic ATN== multifactorial secondary to vancomycin toxicity+ diuretics/nephrotoxins,, IV contrast for CTA on admission noted requiring kidney replacement therapy Nephrotic syndrome Anemia, likely ESRD Acute hypoxic respiratory failure s/p intubation and mechanical ventilation, now extubated 08/12 Acute metabolic encephalopathy secondary to hypoxic/ hypercarbic respiratory failure Acute on chronic exacerbation of decompensated systolic heart failure, NYHA class 3 Chronic permanent atrial fibrillation with secondary hypercoagulable state Severe pulmonary hypertension likely due to COPD /FAWN Sepsis due to Bilateral lower extremity cellulitis PE ruled out Type 2 diabetes mellitus-A1c 9.2 Obesity Plan: BUN/creatinine trending up. Continuing with trial of high-dose loop diuretic to increase urine volumes. Last hemodialysis session 08/23 Patient completed five sessions of hemodialysis. Previously underwent hemodialysis 08/15, 08/16, 08/18, 08/21, 08/23 Bladder scan unremarkable 08/23 Fluid restrictions 1200 cc within 24 hours including IV fluids, diet and IV antibiotics given dilutional hyponatremia Status post transfusion 1 packed RBCs 08/21 Right IJ Kaden catheter placed 08/15 till 08/21 for hemodialysis. Tunneled catheter placement 08/21. Discontinued IV fluids BUN high likely secondary to diuretics and steroids Avoid nephrotoxic drugs Strict I&Os Drips: Off Levophed 08/20 Plan discussed with patient in which all questions have been answered Case discussed with Dr. Elizalde Plan discussed with: Patient Dietary Evaluation Review Comments: 1. Suggest TF w/ formula Pivot 1.5 @ 40 ml/hr (GOAL). Begin @ 10 ml/hr; advance by 10 ml Q4 hrs or as tolerated to 40 ml/hr x 24 hrs 2. Provide free water flushes of 30 ml Q6 hrs (120 ml total); adjust PRN 3. Monitor BMP/lytes and replete to WNL/PRN 4. Lantus, ss insulin for correction; adjust PRN to maintain BG <180 mg/dl TF Provision: TF at goal to provide 960 ml total volume, 1440 kcal, 90 gm pro, 7 gm fiber, 165 gm CHO, 729 ml H20 (meets 100% est. kcal needs, 100% est. pro needs) Expected Outcomes/Goals: Improved nutritional status, TF initiation within 24-48 hrs of intubation. LIZZIE CONTRERAS RESIDENT August 26, 2024 09:03
[2024-08-26] MEDS: PANTOPRAZOLE 40 MG/10 ML VIAL INJ IV SCH (10:00)
--- NOTE | 2024-08-26 10:57 | DVH ---
XY CHEST PORTABLE, HISTORY: ngt placement COMPARISON: XY CHEST PORTABLE on DOS: 08/25/24, XY CHEST XRAY 1 VIEW on DOS: 08/23/24, XY CHEST PORTABL E on DOS: 08/23/24 XY CHEST PORTABLE on DOS: 08/25/24, XY CHEST XRAY 1 VIEW on DOS: 08/23/24, XY CHEST PORTABLE on DOS: TECHNICAL DATA: 1 view of the chest was obtained. FINDINGS: Lines and tubes: PICC and TD cath are seen. Cardiomediastinal silhouette: Enlarged. Pulmonary vasculature: normal Lung expansion: normal Lung airspace: normal Lung interstitium: normal Pleura: normal Pneumothorax: no Bones: Unremarkable Other: Patient is rotated. IMPRESSION: NG tube in the stomach. Similar lung aeration.
--- NOTE | 2024-08-26 17:03 | DVHPNRES ---
Progress Note Date Seen: August 26, 2024 Resident Creating Document: GINETTE TRIVEDI RESIDENT Medical Necessity Reason Pt with a Central, PICC or Fol: Yes The following are medically ne: Central Line, [place] Catheter Reason for [place] catheter: Strict I&O Subjective Review of Systems Patient is a 69-year-old male with past medical history of CHF, COPD, type 2 diabetes, atrial fibrillation, who comes in due to respiratory distress. Per patient's brother who is also his caregiver, patient's home wound care nurse checked his vitals and his SpO2 was noted to be 68% with a pulse of 130, he also appeared disoriented and had labored breathing. Arrival to the ED patient was noted to be tachycardic and tachypneic and was placed on BiPAP. Note, patient is on home oxygen 2-3 L. Patient Underwent intubation with mechanical ventilation on 08/01/2024 due to acute metabolic encephalopathy likely due to acute hypoxic / hypercapnic respiratory failure. Patient was seen and examined on the bedside. He is alert and awake, status post extubation and currently on nasal canula 2L . Urine output is 45 mL in last 12 hours, BUN and creatinine is going up and last dialysis was 0 08/23. Objective vital signs Vital Sign Date Time Temp Pulse Resp B/P (MAP) Pulse Ox O2 Delivery O2 Flow Rate FiO2 08/26/24 16:00 13 98 Nasal Cannula* 1 24 08/26/24 16:00 106 08/26/24 14:30 116/58 (77) 08/26/24 12:01 97.9 97.9 Total Intake and Output 08/25/24 08/25/24 08/26/24 15:00 23:00 07:00 Intake Total 200 ml 0 ml Output Total 15 ml 30 ml Balance 185 ml -30 ml medications Current Medications Medications Dose Ordered Sig/Artie Route Start Time Stop Time Status Last Admin Dose Admin Acetaminophen 325 mg Q4HP PRN PO 07/30/24 21:45 Ipratropium [place] 0.5 mg Q4HR NEB 07/30/24 22:00 08/26/24 13:43 0.5 MG Levalbuterol HCl 1.25 mg Q4HR NEB 07/30/24 22:00 08/26/24 13:43 1.25 MG Enteral Nutritional Formula 1,000 ml 50ML/HR GT 08/05/24 17:15 08/26/24 13:06 1,000 ML Lactulose 30 ml BID PO 08/07/24 10:00 08/26/24 11:22 30 ML Sodium Chloride 10 ml QSHIFT@10,22 IV 08/08/24 22:00 08/26/24 10:42 10 ML Norepinephrine Bitartrate 250 ml @ 1.875 mls/ hr Q24H IV 08/19/24 12:00 08/21/24 23:06 1.875 MLS/HR Insulin Glargine 20 units HS SC 08/19/24 18:15 08/24/24 22:03 20 UNITS Diagnostic Test (Pha) 1 strip ACHS 08/19/24 22:00 08/26/24 13:05 1 STRIP Insulin Human Regular HS SC 08/19/24 22:00 08/24/24 21:58 2 UNITS Insulin Human Regular AC SC 08/20/24 07:00 08/26/24 06:35 3 UNITS Dextrose 50 ml UD PRN IV 08/19/24 18:15 Albumin Human 100 ml @ 100 mls/hr PRN PRN IV 08/21/24 17:30 08/21/24 19:40 100 MLS/HR Methylprednisolone Sodium Succinate 40 mg BID IV 08/22/24 22:00 08/26/24 10:42 40 MG Levofloxacin/ Dextrose 100 ml @ 100 mls/hr Q48H IV 08/23/24 13:00 08/25/24 11:54 100 MLS/HR Lorazepam 1 mg Q6HP PRN IV 08/22/24 13:45 08/25/24 01:42 1 MG Metoclopramide HCl 5 mg Q8HR IV 08/24/24 14:00 08/26/24 14:09 5 MG Morphine Sulfate 2 mg Q2HPRN PRN IV 08/25/24 09:30 08/25/24 21:24 2 MG Pantoprazole Sodium 40 mg DAILY IV 08/26/24 09:00 08/26/24 10:42 40 MG Examination Physical examination: General Appearance: Alert& orientedX2 and on nasal canula 2L HEENT: Atraumatic, PERRLA, EOMI, Mucous membrane moist/pink Respiratory: Decreased Breath sounds bilaterally. Cardiovascular: Irregular rate, Normal S1, Normal S2, No murmurs, no chest wall tenderness Abdominal: Normal bowel sounds, Soft, No tenderness, No hepatospenomegaly, No masses Extremities: No clubbing, No cyanosis, No edema. Normal pulses, bilateral wounds in both legs covered with dressing. Skin: No rashes, No breakdown, No significant lesion Neuro: Strength at 4/5 X4 ext, Normal tone, Sensation intact, grossly intact cranial nerves. Psych/Mental Status: could not be assessed. laboratory and microbiology Laboratory Tests 08/26/24 05:10 Test 08/26/24 05:10 Range/Units Serum Glucose 184 H 74-106 mg/dL Microbiology Date/Time Source Procedure Growth Status 08/12/24 07:06 Blood Blood Culture - Final NO GROWTH AFTER 5 DAYS OF INCUBATION. Complete 08/09/24 13:35 Other Aerobic Culture - Final Complete 08/01/24 00:00 Sputum Gram Stain - Final Complete 08/01/24 00:00 Sputum Respiratory Culture - Final Complete Labs and/or images reviewed: Labs reviewed by me, Image(s) reviewed by me Problem List/Assessment/Plan Problem List/Assessment/Plan Assessment and plan: NEURO: Acute metabolic encephalopathy secondary to hypoxic/ hypercarbic respiratory failure - S/P extubation and currently on nasal canula 2L. CARDIOVASCULAR: Acute on chronic exacerbation of decompensated systolic heart failure, NYHA class 3 Chronic permanent atrial fibrillation with secondary hypercoagulable state Severe pulmonary hypertension likely due to COPD /FAWN - [id number] score 3 and HAS BLED score 2 - CXR showed cardiomegaly with mild pulmonary vascular congestion - Echo on 07/31/2024 demonstrated EF 40% with global hypokinesis, irregular contractility, moderate tricuspid regurgitation, moderate aortic sclerosis with diminished excursion of the right coronary cusp and RVSP 56 mm hg. - Maintain strict I&O - Atorvastatin 20 mg at HS PULMONARY: Acute on chronic hypoxic / hypercarbic respiratory failure Acute on chronic exacerbation of COPD Ruled out pulmonary embolism Gram negative pneumonia ruled out - CT angiography demonstrated 2 cm nodular opacities right lung apex, ruled out PE and follow up CT scan in 6 weeks to see if there is resolution. - Med neb with levalbuterol and ipratropium q.4 hours - IV Levaquin 500 mg q.48h - IV methylprednisolone 40 mg bid - Respiratory culture showed normal oropharyngeal rc - On Bipap 15/5 in night time GI : Possible stress ulcer FOBT positive - IV Protonix 40 mg bid Renal: DAVE likely hemodynamically mediated/VMN Possible Vancomycin toxicity Microscopic hematuria and possible acute cystitis - Patient is on IV cefepime - Nephrology on board. - Had 5 sessions of hemodialysis - Monitor BMP Metabolic: Hyperkalemia likely due to DAVE - Hyperkalemia protocol management. - Monitor BMP ENDOCRINE: Uncontrolled type 2 diabetes mellitus, hemoglobin A1c 9.2 Obesity class 3, BMI 50.1 kg/meter2 - Moderate sliding scale q.6 hour - Lantus 20 units at HS HEME: Chronic normocytic normochromic anemia likely due to anemia of chronic disease INFECTIOUS DISEASE: Bilateral lower extremity cellulitis Sepsis due to above - Wound culture on 07/31/24 demonstrated Enterobacter intermedius, Enterococcus faecalis, MRSA . - IV levofloxacin 500 mg q.48h - Blood culture showed no growth after 5 days of incubation DIET: Enteral feeding with Glucerna by NG tube DVT prophylax: SCD GI prophylaxis: Protonix 40 mg IV daily Bowel regimen: Lactulose 30 ml bid Code status: full code LINES/DRAINS/ACCESS: Tunneled catheter: Placed on 08/21/24 IV access: PICC line placed on 08/08/24 [place] catheter: on 08/13/24 DISPOSITION: JERRICA Patient's status discussed with rn primary care time spent more than 41 minutes, including patient care and chart review. Case discussed with Dr. Mclaughlin Plan discussed with: Other (Brother, RN) My Orders My Orders Orders - GINETTE TRIVEDI RESIDENT Procedure Category Date Status Time Pantoprazole PHA 08/26/24 In Process (Protonix) 09:00 Chest Portable XY 08/26/24 Resulted 10:26 Dietary Evaluation Review Comments: 1. Suggest TF w/ formula Pivot 1.5 @ 40 ml/hr (GOAL). Begin @ 10 ml/hr; advance by 10 ml Q4 hrs or as tolerated to 40 ml/hr x 24 hrs 2. Provide free water flushes of 30 ml Q6 hrs (120 ml total); adjust PRN 3. Monitor BMP/lytes and replete to WNL/PRN 4. Lantus, ss insulin for correction; adjust PRN to maintain BG <180 mg/dl TF Provision: TF at goal to provide 960 ml total volume, 1440 kcal, 90 gm pro, 7 gm fiber, 165 gm CHO, 729 ml H20 (meets 100% est. kcal needs, 100% est. pro needs) Expected Outcomes/Goals: Improved nutritional status, TF initiation within 24-48 hrs of intubation. GINETTE TRIVEDI RESIDENT August 26, 2024 17:03
[2024-08-27] VITALS (80 sets, daily range): BP systolic 76–132; BP diastolic 26–70; PULSE 90–118; RESP 11–37; TEMP 96.8–98.1; O2SAT 87–100
[2024-08-27 05:03] LABS: Basophils # (auto) 0 10 ^3/uL (0-0.2); Basophils % (auto) 0.4 % (0.0-2.0); Eosinophils # (auto) 0 10 ^3/uL (0-0.8); Eosinophils % (auto) 0.1 % (0.0-7.0); Hematocrit 27.4 % (41.0-53.0); Hemoglobin 8.9 g/dL (13.5-17.5); Lymphocytes # (auto) 0.2 10 ^3/uL (0.4-5.4); Lymphocytes % (auto) 2.5 % (10.0-50.0); Mean Corpuscular Hgb Conc. 32.4 g/dL (32.0-36.0); Mean Corpuscular Volume 89.5 fL (80.0-100.0); Monocytes # (auto) 0.4 10 ^3/uL (0-1.3); Monocytes % (auto) 5.1 % (0.0-12.0); Neutrophils % (auto) 91.9 % (37.0-80.0); Nucleated Red Blood Cells % 0.2 %; Platelet Count (auto) 108 10^3/uL (140-450); Red Blood Cells 3.06 10^6/uL (4.5-5.90); Red Cell Distribution Width 15.2 % (11.8-14.3); White Blood Cell 8.7 10^3/uL (4.4-10.8)
[2024-08-27 05:12] LABS: Potassium 4.5 mmol/L (3.5-5.1); Sodium 139 mmol/L (136-145)
[2024-08-27 05:13] LABS: Anion Gap 13 (5-15); Carbon Dioxide 28 mmol/L (20-31)
[2024-08-27 05:14] LABS: Calcium 9.2 mg/dL (8.7-10.4)
[2024-08-27 05:19] LABS: BUN/Creatinine Ratio 14.9 (10.0-20.0)
[2024-08-27 05:31] LABS: Chloride 98 mmol/L (98-107); Glucose 241 mg/dL (74-106)
[2024-08-27 05:32] LABS: Blood Urea Nitrogen 82 mg/dL (9-23)
--- NOTE | 2024-08-27 08:33 | DVHPN2 ---
Progress Note Date Seen: August 27, 2024 Resident Creating Document: LIZZIE CONTRERAS RESIDENT Medical Necessity Reason Pt with a Central, PICC or Fol: Yes The following are medically ne: Central Line, [place] Catheter Reason for [place] catheter: Strict I&O Subjective Review of Systems Mr Reynolds 69-year-old male patient with PMH of systolic CHF-EF 40%, COPD, type 2 diabetes mellitus, atrial fibrillation who initially presented to the ER on 07/30 for altered mental status and shortness of breath and underwent mechanical ventilation on 08/01. Patient is currently extubated, on 2 L nasal cannula supplementation. Patient is not vocal, only responds to his name but not to commands. Per patient's brother who is at bedside, patient has been not ambulating due to probably bilateral hip degenerative changes, and he has had extensive bilateral lower extremity ulcers with drainage, patient was feeling with home health and later opted hospice to see 24/10 care. Per her to admission, patient was confused and developed sudden onset shortness of breath. His hospice nurse saw the patient tachycardic at 130s and patient was saturating at 68% therefore he was sent to the ER. Patient was intubated 08/01 till 08/12. Blood cultures were negative, wound cultures 07/31 showed Enterobacter, Enterococcus and MRSA for which patient initially received IV vancomycin and IV cefepime starting 07/30, IV vancomycin was discontinued 08/11 and the patient was started on IV Zyvox b.i.d. 08/13. Patient has received 2 L of 0.45 NS, 250 cc of LR till now Nephrology has been consulted for worsening DAVE, patient has been experiencing renal failure since 08/10. 08/14-Patient seen and examined at the bedside. Overnight low-grade fever 99.7, pulse 105 and irregular. Requiring 2 L NC supplementation. Bumex IV drip 0.5 mg/hours started. Continue 0.45 NS. Urine output 85 cc in the past 24 hours. 08/15 - patient seen and examined at the bedside. Urine output less than 100 cc overnight. Right IJ Kaden placed, hemodialysis order placed. Primary team started methylprednisolone 40 mg IV b.i.d. renal ultrasound shows echogenic kidneys. 08/16-patient seen and examined at the bedside. Patient responding to name, A&O x1, patient said his name today. Urine output is 200 cc. Hemodialysis pending today. Requiring Levophed. Discontinue IV Bumex given low urine output 08/19 - patient seen and examined at the bedside. Urine output 75 cc overnight. Hemodialysis tomorrow. Fluid restrictions ordered. 08/20 - patient seen and examined at the bedside. Urine output 375 cc overnight. Hemodialysis could not be completed due to dysfunctional l IJ Kaden. 08/21-patient seen and examined at the bedside. Urine output 70 cc. BUN/creatinine slightly trending up. IR consulted for IJ tunneled catheter placement 08/22 - patient seen and examined at bedside. Urine output decreasing, 45 mL only. Patient is on BiPAP. Underwent hemodialysis yesterday after right tunneled catheter placement. WBC increased to 13. 08/23 - patient seen and examined at the bedside. Urine output trending down, 0 cc overnight. bun/creatinine trending up , Undergoing Hemodialysis bicarb 35 mEq. Bladder scan ordered, flush [place] catheter. 08/26 - patient seen and examined at the bedside. Bumex 4 mg IV once administered yesterday. Urine out 45 cc. 08/27 - Patient seen and examined at the bedside. On 1 L NC, sats 97%. U/O 40cc. BUN/Cr trending up. HD today Objective vital signs Vital Sign Date Time Temp Pulse Resp B/P (MAP) Pulse Ox O2 Delivery O2 Flow Rate FiO2 08/27/24 08:00 97 08/27/24 08:00 17 99 Nasal Cannula* 1 24 08/27/24 06:00 106/56 (73) 08/27/24 05:00 96.8 96.8 Total Intake and Output 08/26/24 08/26/24 08/27/24 15:00 23:00 07:00 Intake Total 320 ml 360 ml Output Total 25 ml 15 ml Balance 295 ml 345 ml medications Current Medications Medications Dose Ordered Sig/Artie Route Start Time Stop Time Status Last Admin Dose Admin Acetaminophen 325 mg Q4HP PRN PO 07/30/24 21:45 Ipratropium [place] 0.5 mg Q4HR NEB 07/30/24 22:00 08/27/24 07:04 0.5 MG Levalbuterol HCl 1.25 mg Q4HR NEB 07/30/24 22:00 08/27/24 07:04 1.25 MG Enteral Nutritional Formula 1,000 ml 50ML/HR GT 08/05/24 17:15 08/26/24 13:06 1,000 ML Lactulose 30 ml BID PO 08/07/24 10:00 08/26/24 20:14 30 ML Sodium Chloride 10 ml QSHIFT@10,22 IV 08/08/24 22:00 08/26/24 20:14 10 ML Norepinephrine Bitartrate 250 ml @ 1.875 mls/ hr Q24H IV 08/19/24 12:00 08/21/24 23:06 1.875 MLS/HR Insulin Glargine 20 units HS SC 08/19/24 18:15 08/26/24 21:38 20 UNITS Diagnostic Test (Pha) 1 strip ACHS 08/19/24 22:00 08/27/24 05:20 1 STRIP Insulin Human Regular HS SC 08/19/24 22:00 08/24/24 21:58 2 UNITS Insulin Human Regular AC SC 08/20/24 07:00 08/27/24 05:23 6 UNITS Dextrose 50 ml UD PRN IV 08/19/24 18:15 Albumin Human 100 ml @ 100 mls/hr PRN PRN IV 08/21/24 17:30 08/21/24 19:40 100 MLS/HR Methylprednisolone Sodium Succinate 40 mg BID IV 08/22/24 22:00 08/26/24 20:15 40 MG Levofloxacin/ Dextrose 100 ml @ 100 mls/hr Q48H IV 08/23/24 13:00 08/25/24 11:54 100 MLS/HR Lorazepam 1 mg Q6HP PRN IV 08/22/24 13:45 08/25/24 01:42 1 MG Metoclopramide HCl 5 mg Q8HR IV 08/24/24 14:00 08/27/24 05:24 5 MG Morphine Sulfate 2 mg Q2HPRN PRN IV 08/25/24 09:30 08/25/24 21:24 2 MG Pantoprazole Sodium 40 mg DAILY IV 08/26/24 09:00 08/26/24 10:42 40 MG Examination Elderly male patient lying in the bed. Right IJ tunneled cath General: Obese, afebrile, palor, mucosae are moist Cardiovascular: IRRegular S1 and S2. No murmurs, gallops or rubs. No JVD elevation. Bilateral pitting edema Respiratory: Bilateral decreased air entry on BiPAP Abdomen: Soft, nontender, nondistended, normoactive bowel sounds, no rebound tenderness, no organomegaly, no masses Genitourinary: Deferred. [place] draining 10 cc of urine MSK/skin: Mobilizes 4 limbs. Skin is dry and warm. Bilateral lower extremity have draining wounds, dressing dry clean and intact Neurological assessment could not be completed laboratory and microbiology Laboratory Tests 08/27/24 04:51 Test 08/27/24 04:51 Range/Units Serum Glucose 241 H 74-106 mg/dL Microbiology Date/Time Source Procedure Growth Status 08/12/24 07:06 Blood Blood Culture - Final NO GROWTH AFTER 5 DAYS OF INCUBATION. Complete 08/09/24 13:35 Other Aerobic Culture - Final Complete 08/01/24 00:00 Sputum Gram Stain - Final Complete 08/01/24 00:00 Sputum Respiratory Culture - Final Complete Labs and/or images reviewed: Labs reviewed by me, Image(s) reviewed by me Problem List/Assessment/Plan Problem List/Assessment/Plan Acute kidney injury, ischemic/nephrotoxic ATN== multifactorial secondary to vancomycin toxicity+ diuretics/nephrotoxins,, IV contrast for CTA on admission noted requiring kidney replacement therapy Nephrotic syndrome Anemia, likely ESRD Acute hypoxic respiratory failure s/p intubation and mechanical ventilation, now extubated 08/12 Acute metabolic encephalopathy secondary to hypoxic/ hypercarbic respiratory failure Acute on chronic exacerbation of decompensated systolic heart failure, NYHA class 3 Chronic permanent atrial fibrillation with secondary hypercoagulable state Severe pulmonary hypertension likely due to COPD /FAWN Sepsis due to Bilateral lower extremity cellulitis PE ruled out Type 2 diabetes mellitus-A1c 9.2 Obesity Plan: BUN/creatinine trending up. GFR declining. Resume renal replacement therapy, HD scheduled for today. Patient didn't respond to trial of high-dose loop diuretic to increase urine volumes. Last hemodialysis session 08/23 Patient completed five sessions of hemodialysis. Previously underwent hemodialysis 08/15, 08/16, 08/18, 08/21, 08/23 Bladder scan unremarkable 08/23 Fluid restrictions 1200 cc within 24 hours including IV fluids, diet and IV antibiotics given dilutional hyponatremia Status post transfusion 1 packed RBCs 08/21 Right IJ Kaden catheter placed 08/15 till 08/21 for hemodialysis. Tunneled catheter placement 08/21. Discontinued IV fluids BUN high likely secondary to diuretics and steroids Avoid nephrotoxic drugs Strict I&Os Drips: Off Levophed 08/20 Plan discussed with patient in which all questions have been answered Case discussed with Dr. Elizalde Plan discussed with: Patient Dietary Evaluation Review Comments: 1. Suggest TF w/ formula Pivot 1.5 @ 40 ml/hr (GOAL). Begin @ 10 ml/hr; advance by 10 ml Q4 hrs or as tolerated to 40 ml/hr x 24 hrs 2. Provide free water flushes of 30 ml Q6 hrs (120 ml total); adjust PRN 3. Monitor BMP/lytes and replete to WNL/PRN 4. Lantus, ss insulin for correction; adjust PRN to maintain BG <180 mg/dl TF Provision: TF at goal to provide 960 ml total volume, 1440 kcal, 90 gm pro, 7 gm fiber, 165 gm CHO, 729 ml H20 (meets 100% est. kcal needs, 100% est. pro needs) Expected Outcomes/Goals: Improved nutritional status, TF initiation within 24-48 hrs of intubation. LIZZIE CONTRERAS RESIDENT August 27, 2024 08:33
[2024-08-27] MEDS: HYDROcodone-ACET 5/325MG TAB PO PRN (13:45)
[2024-08-27] MEDS: SODIUM CHL 0.9% 1000 ML BAG XX ONE (14:00)
--- NOTE | 2024-08-27 18:54 | DVHPNRES ---
Progress Note Date Seen: August 27, 2024 Resident Creating Document: GINETTE TRIVEDI RESIDENT Medical Necessity Reason Pt with a Central, PICC or Fol: Yes The following are medically ne: Central Line, [place] Catheter Reason for [place] catheter: Strict I&O Subjective Review of Systems Patient is a 69-year-old male with past medical history of CHF, COPD, type 2 diabetes, atrial fibrillation, who comes in due to respiratory distress. Per patient's brother who is also his caregiver, patient's home wound care nurse checked his vitals and his SpO2 was noted to be 68% with a pulse of 130, he also appeared disoriented and had labored breathing. Arrival to the ED patient was noted to be tachycardic and tachypneic and was placed on BiPAP. Note, patient is on home oxygen 2-3 L. Patient Underwent intubation with mechanical ventilation on 08/01/2024 due to acute metabolic encephalopathy likely due to acute hypoxic / hypercapnic respiratory failure. Patient was seen and examined on the bedside. He is alert and awake, status post extubation and currently on nasal canula 2L . Urine output is 15 mL in last 12 hours, He underwent dialysis today and 3 L removed. Objective vital signs Vital Sign Date Time Temp Pulse Resp B/P (MAP) Pulse Ox O2 Delivery O2 Flow Rate FiO2 08/27/24 18:24 89/44 08/27/24 18:00 19 93 Nasal Cannula* 1 24 08/27/24 18:00 105 08/27/24 16:00 98.0 98.0 Total Intake and Output 08/26/24 08/26/24 08/27/24 15:00 23:00 07:00 Intake Total 320 ml 360 ml Output Total 25 ml 15 ml Balance 295 ml 345 ml medications Current Medications Medications Dose Ordered Sig/Artie Route Start Time Stop Time Status Last Admin Dose Admin Acetaminophen 325 mg Q4HP PRN PO 07/30/24 21:45 Ipratropium [place] 0.5 mg Q4HR NEB 07/30/24 22:00 08/27/24 18:43 0.5 MG Levalbuterol HCl 1.25 mg Q4HR NEB 07/30/24 22:00 08/27/24 18:43 1.25 MG Enteral Nutritional Formula 1,000 ml 50ML/HR GT 08/05/24 17:15 08/26/24 13:06 1,000 ML Lactulose 30 ml BID PO 08/07/24 10:00 08/27/24 10:28 30 ML Sodium Chloride 10 ml QSHIFT@10,22 IV 08/08/24 22:00 08/27/24 10:28 10 ML Norepinephrine Bitartrate 250 ml @ 1.875 mls/ hr Q24H IV 08/19/24 12:00 08/27/24 16:05 1.875 MLS/HR Insulin Glargine 20 units HS SC 08/19/24 18:15 08/26/24 21:38 20 UNITS Diagnostic Test (Pha) 1 strip ACHS 08/19/24 22:00 08/27/24 17:35 1 STRIP Insulin Human Regular HS SC 08/19/24 22:00 08/24/24 21:58 2 UNITS Insulin Human Regular AC SC 08/20/24 07:00 08/27/24 17:36 2 UNITS Dextrose 50 ml UD PRN IV 08/19/24 18:15 Albumin Human 100 ml @ 100 mls/hr PRN PRN IV 08/21/24 17:30 08/27/24 14:55 100 MLS/HR Methylprednisolone Sodium Succinate 40 mg BID IV 08/22/24 22:00 08/27/24 10:28 40 MG Levofloxacin/ Dextrose 100 ml @ 100 mls/hr Q48H IV 08/23/24 13:00 08/27/24 17:35 100 MLS/HR Lorazepam 1 mg Q6HP PRN IV 08/22/24 13:45 08/25/24 01:42 1 MG Metoclopramide HCl 5 mg Q8HR IV 08/24/24 14:00 08/27/24 13:45 5 MG Morphine Sulfate 2 mg Q2HPRN PRN IV 08/25/24 09:30 08/25/24 21:24 2 MG Pantoprazole Sodium 40 mg DAILY IV 08/26/24 09:00 08/27/24 10:28 40 MG Acetaminophen/ Hydrocodone Bitart 1 tab Q6HPRN PRN PO 08/27/24 13:15 08/27/24 13:45 1 TAB Examination Physical examination: General Appearance: Alert& orientedX2 and on nasal canula 2L HEENT: Atraumatic, PERRLA, EOMI, Mucous membrane moist/pink Respiratory: Decreased Breath sounds bilaterally. Cardiovascular: Irregular rate, Normal S1, Normal S2, No murmurs, no chest wall tenderness Abdominal: Normal bowel sounds, Soft, No tenderness, No hepatospenomegaly, No masses Extremities: No clubbing, No cyanosis, No edema. Normal pulses, bilateral wounds in both legs covered with dressing. Skin: No rashes, No breakdown, No significant lesion Neuro: Strength at 4/5 X4 ext, Normal tone, Sensation intact, grossly intact cranial nerves. Psych/Mental Status: could not be assessed. laboratory and microbiology Laboratory Tests 08/27/24 04:51 Test 08/27/24 04:51 Range/Units Serum Glucose 241 H 74-106 mg/dL Microbiology Date/Time Source Procedure Growth Status 08/12/24 07:06 Blood Blood Culture - Final NO GROWTH AFTER 5 DAYS OF INCUBATION. Complete 08/09/24 13:35 Other Aerobic Culture - Final Complete 08/01/24 00:00 Sputum Gram Stain - Final Complete 08/01/24 00:00 Sputum Respiratory Culture - Final Complete Labs and/or images reviewed: Labs reviewed by me, Image(s) reviewed by me Problem List/Assessment/Plan Problem List/Assessment/Plan Assessment and plan: NEURO: Acute metabolic encephalopathy secondary to hypoxic/ hypercarbic respiratory failure - S/P extubation and currently on nasal canula 2L. CARDIOVASCULAR: Acute on chronic exacerbation of decompensated systolic heart failure, NYHA class 3 Chronic permanent atrial fibrillation with secondary hypercoagulable state Severe pulmonary hypertension likely due to COPD /FAWN - [id number] score 3 and HAS BLED score 2 - CXR showed cardiomegaly with mild pulmonary vascular congestion - Echo on 07/31/2024 demonstrated EF 40% with global hypokinesis, irregular contractility, moderate tricuspid regurgitation, moderate aortic sclerosis with diminished excursion of the right coronary cusp and RVSP 56 mm hg. - Maintain strict I&O - Atorvastatin 20 mg at HS PULMONARY: Acute on chronic hypoxic / hypercarbic respiratory failure Acute on chronic exacerbation of COPD Ruled out pulmonary embolism Gram negative pneumonia ruled out - CT angiography demonstrated 2 cm nodular opacities right lung apex, ruled out PE and follow up CT scan in 6 weeks to see if there is resolution. - Med neb with levalbuterol and ipratropium q.4 hours - IV Levaquin 500 mg q.48h - IV methylprednisolone 40 mg bid - Respiratory culture showed normal oropharyngeal rc - On Bipap 15/5 in night time GI : Possible stress ulcer FOBT positive - IV Protonix 40 mg daily Renal: DAVE likely hemodynamically mediated/VMN Possible Vancomycin toxicity Microscopic hematuria and possible acute cystitis - Patient is on IV cefepime - Nephrology on board. - Continue hemodialysis - Monitor BMP Metabolic: Hyperkalemia likely due to DAVE - Hyperkalemia protocol management. - Monitor BMP ENDOCRINE: Uncontrolled type 2 diabetes mellitus, hemoglobin A1c 9.2 Obesity class 3, BMI 50.1 kg/meter2 - Moderate sliding scale q.6 hour - Lantus 20 units at HS HEME: Chronic normocytic normochromic anemia likely due to anemia of chronic disease INFECTIOUS DISEASE: Bilateral lower extremity cellulitis Sepsis due to above - Wound culture on 07/31/24 demonstrated Enterobacter intermedius, Enterococcus faecalis, MRSA . - IV levofloxacin 500 mg q.48h - Blood culture showed no growth after 5 days of incubation DIET: Enteral feeding with Glucerna by NG tube DVT prophylax: SCD GI prophylaxis: Protonix 40 mg IV daily Bowel regimen: Lactulose 30 ml bid Code status: full code LINES/DRAINS/ACCESS: Tunneled catheter: Placed on 08/21/24 IV access: PICC line placed on 08/08/24 [place] catheter: on 08/13/24 DISPOSITION: JERRICA Patient's status discussed with nursing care attendant time spent more than 81 minutes, including patient care and family meeting. Case discussed with Dr. Hernandez Plan discussed with: Other (Brother, sister, RN) My Orders My Orders Orders - GINETTE TRIVEDI RESIDENT Procedure Category Date Status Time * Food Production Manager CONS 08/27/24 Transmitted Consult Dietary Evaluation Review Comments: 1. Suggest TF w/ formula Pivot 1.5 @ 40 ml/hr (GOAL). Begin @ 10 ml/hr; advance by 10 ml Q4 hrs or as tolerated to 40 ml/hr x 24 hrs 2. Provide free water flushes of 30 ml Q6 hrs (120 ml total); adjust PRN 3. Monitor BMP/lytes and replete to WNL/PRN 4. Lantus, ss insulin for correction; adjust PRN to maintain BG <180 mg/dl TF Provision: TF at goal to provide 960 ml total volume, 1440 kcal, 90 gm pro, 7 gm fiber, 165 gm CHO, 729 ml H20 (meets 100% est. kcal needs, 100% est. pro needs) Expected Outcomes/Goals: Improved nutritional status, TF initiation within 24-48 hrs of intubation. Date of Service: August 27, 2024 Billing Provider: GERMAN HERNANDEZ MD Common Visit Codes: 12528-[id number] CARE 30-74 MIN, 36120-[id number] CARE-EACH +30MIN GINETTE TRIVEDI RESIDENT August 27, 2024 18:54 EGRMAN HERNANDEZ MD August 28, 2024 16:13
[2024-08-28] VITALS (100 sets, daily range): BP systolic 90–138; BP diastolic 37–79; PULSE 87–125; RESP 10–22; TEMP 97.9–98.3; O2SAT 87–100
[2024-08-28 05:06] LABS: Basophils # (auto) 0 10 ^3/uL (0-0.2); Basophils % (auto) 0.3 % (0.0-2.0); Eosinophils # (auto) 0 10 ^3/uL (0-0.8); Hematocrit 26.1 % (41.0-53.0); Hemoglobin 8.7 g/dL (13.5-17.5); Lymphocytes # (auto) 0.2 10 ^3/uL (0.4-5.4); Mean Corpuscular Hemoglobin 29.8 pg (28.0-32.0); Mean Corpuscular Hgb Conc. 33.3 g/dL (32.0-36.0); Mean Corpuscular Volume 89.5 fL (80.0-100.0); Monocytes # (auto) 0.3 10 ^3/uL (0-1.3); Monocytes % (auto) 3.4 % (0.0-12.0); Neutrophils # (auto) 7.8 10 ^3/uL (1.6-8.6); Neutrophils % (auto) 94.3 % (37.0-80.0); Nucleated Red Blood Cells % 0.2 %; Platelet Count (auto) 86 10^3/uL (140-450); Red Blood Cells 2.91 10^6/uL (4.5-5.90); White Blood Cell 8.2 10^3/uL (4.4-10.8)
--- NOTE | 2024-08-28 05:09 | DVH ---
EXAM: XR Chest, 1 View CLINICAL INDICATION: s/p extubation TECHNIQUE: Frontal view of the chest. COMPARISON: XY CHEST PORTABLE on DOS: 08/26/24, XY CHEST PORTABLE on DOS: 08/25/24, XY CHEST XRAY 1 V IEW on DOS: 08/23/24, XY CHEST PORTABLE on DOS: 08/23/24, XY CHEST XRAY 1 VIEW on DOS: 08/21/24 FINDINGS: LUNGS AND PLEURAL SPACES: Mild congestive heart failure. No consolidation. No pneumothorax. HEART: Unremarkable. No cardiomegaly. MEDIASTINUM: Unremarkable. Normal mediastinal contour. BONES/JOINTS: Unremarkable. No acute fracture. TUBES, LINES AND DEVICES: Right internal jugular central venous catheter tip in the superior vena c gustavo. Enteric tube tip in the stomach. OTHER FINDINGS: . IMPRESSION: Mild congestive heart failure.
[2024-08-28 05:13] LABS: Potassium 4.8 mmol/L (3.5-5.1); Sodium 136 mmol/L (136-145)
[2024-08-28 05:14] LABS: Anion Gap 9 (5-15); Calcium 9.2 mg/dL (8.7-10.4); Carbon Dioxide 31 mmol/L (20-31)
[2024-08-28 05:17] LABS: Chloride 96 mmol/L (98-107)
[2024-08-28 05:53] LABS: Blood Urea Nitrogen 47 mg/dL (9-23); Glucose 188 mg/dL (74-106)
--- NOTE | 2024-08-28 10:03 | DVHPN2 ---
Progress Note Date Seen: August 28, 2024 Medical Necessity Reason Pt with a Central, PICC or Fol: Yes The following are medically ne: Central Line, [place] Catheter Reason for [place] catheter: Strict I&O Subjective Patient reports: No new complaints Review of Systems: Deferred Objective vital signs Vital Sign Date Time Temp Pulse Resp B/P (MAP) Pulse Ox O2 Delivery O2 Flow Rate FiO2 08/28/24 08:00 97.9 95 20 109/45 (66) 97 97.9 08/28/24 08:00 Nasal Cannula* 1 24 Total Intake and Output 08/27/24 08/27/24 08/28/24 15:00 23:00 07:00 Intake Total 100 ml 600.625 ml 395.625 ml Output Total 10 ml 15 ml Balance 100 ml 590.625 ml 380.625 ml medications Current Medications Medications Dose Ordered Sig/Artie Route Start Time Stop Time Status Last Admin Dose Admin Acetaminophen 325 mg Q4HP PRN PO 07/30/24 21:45 Ipratropium [place] 0.5 mg Q4HR NEB 07/30/24 22:00 08/28/24 06:21 0.5 MG Levalbuterol HCl 1.25 mg Q4HR NEB 07/30/24 22:00 08/28/24 06:21 1.25 MG Enteral Nutritional Formula 1,000 ml 50ML/HR GT 08/05/24 17:15 08/26/24 13:06 1,000 ML Lactulose 30 ml BID PO 08/07/24 10:00 08/28/24 09:42 30 ML Sodium Chloride 10 ml QSHIFT@10,22 IV 08/08/24 22:00 08/28/24 09:43 10 ML Norepinephrine Bitartrate 250 ml @ 1.875 mls/ hr Q24H IV 08/19/24 12:00 08/27/24 16:05 1.875 MLS/HR Insulin Glargine 20 units HS SC 08/19/24 18:15 08/27/24 21:39 20 UNITS Diagnostic Test (Pha) 1 strip ACHS 08/19/24 22:00 08/28/24 06:32 1 STRIP Insulin Human Regular HS SC 08/19/24 22:00 08/27/24 21:38 3 UNITS Insulin Human Regular AC SC 08/20/24 07:00 08/28/24 06:31 3 UNITS Dextrose 50 ml UD PRN IV 08/19/24 18:15 Albumin Human 100 ml @ 100 mls/hr PRN PRN IV 08/21/24 17:30 08/27/24 14:55 100 MLS/HR Methylprednisolone Sodium Succinate 40 mg BID IV 08/22/24 22:00 08/28/24 09:43 40 MG Levofloxacin/ Dextrose 100 ml @ 100 mls/hr Q48H IV 08/23/24 13:00 08/27/24 17:35 100 MLS/HR Lorazepam 1 mg Q6HP PRN IV 08/22/24 13:45 08/25/24 01:42 1 MG Metoclopramide HCl 5 mg Q8HR IV 08/24/24 14:00 08/28/24 05:41 5 MG Morphine Sulfate 2 mg Q2HPRN PRN IV 08/25/24 09:30 08/25/24 21:24 2 MG Pantoprazole Sodium 40 mg DAILY IV 08/26/24 09:00 08/28/24 09:42 40 MG Acetaminophen/ Hydrocodone Bitart 1 tab Q6HPRN PRN PO 08/27/24 13:15 08/27/24 13:45 1 TAB Bumetanide 2.5 mg DAILY IV 08/28/24 10:00 UNV Epoetin Nikita-epbx 10,000 unit MWF SC 08/28/24 10:00 UNV Examination: GENERAL:Abnormal, LUNGS:Abnormal, CVS:Abnormal, SKIN:Abnormal laboratory and microbiology Laboratory Tests 08/28/24 04:53 Test 08/28/24 04:53 Range/Units Serum Glucose 188 H 74-106 mg/dL Microbiology Date/Time Source Procedure Growth Status 08/12/24 07:06 Blood Blood Culture - Final NO GROWTH AFTER 5 DAYS OF INCUBATION. Complete 08/09/24 13:35 Other Aerobic Culture - Final Complete 08/01/24 00:00 Sputum Gram Stain - Final Complete 08/01/24 00:00 Sputum Respiratory Culture - Final Complete Problem List/Assessment/Plan Problem List/Assessment/Plan Admitted for respiratory failure due to COPD excerbation w/ decompensated HF . course complicated for ATN requiring inpatient dialysis Acute issues: Acute kidney injury due to ATN ischemic + vanco/contrast decompensated heart failure, afib respiratory failure s/p extubation anemia due to ckd s/p HD yesterday diuretics today Epogen to achieve hb 10-11, iron panel tomorrow MAP >65 strict I/O Plan discussed with: Patient My Orders My Orders Orders - MERYL BUSTOS MD Procedure Category Date Status Time Basic Metabolic Panel LAB 08/29/24 Verified 04:00 Bumetanide Injection PHA 08/28/24 Logged (Bumex Injection) 10:00 Hemoglobin LAB 08/29/24 Verified 05:00 Hematocrit LAB 08/29/24 Verified 05:00 Iron Panel LAB 08/29/24 Verified 05:00 Transferrin LAB 08/29/24 Verified 05:00 Ferritin LAB 08/29/24 Verified 05:00 Epoetin Nikita-Epbx PHA 08/28/24 Logged (Retacrit) 10:00 Dietary Evaluation Review Comments: 1. Suggest TF w/ formula Pivot 1.5 @ 40 ml/hr (GOAL). Begin @ 10 ml/hr; advance by 10 ml Q4 hrs or as tolerated to 40 ml/hr x 24 hrs 2. Provide free water flushes of 30 ml Q6 hrs (120 ml total); adjust PRN 3. Monitor BMP/lytes and replete to WNL/PRN 4. Lantus, ss insulin for correction; adjust PRN to maintain BG <180 mg/dl TF Provision: TF at goal to provide 960 ml total volume, 1440 kcal, 90 gm pro, 7 gm fiber, 165 gm CHO, 729 ml H20 (meets 100% est. kcal needs, 100% est. pro needs) Expected Outcomes/Goals: Improved nutritional status, TF initiation within 24-48 hrs of intubation. MERYL BUSTOS MD August 28, 2024 10:03
[2024-08-28] MEDS: BUMETANIDE 2.5mg/10ml (0.25 mg/ml) INJ IV SCH (10:54)
--- NOTE | 2024-08-28 14:24 | DVHDSRES ---
Discharge Summary Date of Admission Resident Creating Document: GINETTE TRIVEDI RESIDENT Jul 30, 2024 at 21:31 Date of Discharge: August 28, 2024 Admitting Diagnosis Acute metabolic encephalopathy secondary to hypoxic/ hypercarbic respiratory failure Wounds: Bilateral leg wound in the lower extremity Labs/Diagnostic Data: Laboratory Results Test 08/28/24 11:35 08/28/24 04:53 08/26/24 06:10 08/26/24 05:10 POC Glucose 139 mg/dl (70-106) White Blood Count 8.2 10^3/uL (4.4-10.8) Red Blood Count 2.91 10^6/uL (4.5-5.90) Hemoglobin 8.7 g/dL (13.5-17.5) Hematocrit 26.1 % (41.0-53.0) Mean Corpuscular Volume 89.5 fL (80.0-100.0) Mean Corpuscular Hemoglobin 29.8 pg (28.0-32.0) Mean Corpuscular Hemoglobin Concent 33.3 g/dL (32.0-36.0) Red Cell Distribution Width 15.0 % (11.8-14.3) Platelet Count 86 10^3/uL (140-450) Mean Platelet Volume 7.2 fL (6.9-10.8) Neutrophils (%) (Auto) 94.3 % (37.0-80.0) Lymphocytes (%) (Auto) 2.0 % (10.0-50.0) Monocytes (%) (Auto) 3.4 % (0.0-12.0) Eosinophils (%) (Auto) 0.0 % (0.0-7.0) Basophils (%) (Auto) 0.3 % (0.0-2.0) Neutrophils # (Auto) 7.8 10 ^3/uL (1.6-8.6) Lymphocytes # (Auto) 0.2 10 ^3/uL (0.4-5.4) Monocytes # (Auto) 0.3 10 ^3/uL (0-1.3) Eosinophils # (Auto) 0 10 ^3/uL (0-0.8) Basophils # (Auto) 0 10 ^3/uL (0-0.2) Nucleated Red Blood Cells 0.2 % Sodium Level 136 mmol/L (136-145) Potassium Level 4.8 mmol/L (3.5-5.1) Chloride Level 96 mmol/L (98-107) Carbon Dioxide Level 31 mmol/L (20-31) Anion Gap 9 (5-15) Blood Urea Nitrogen 47 mg/dL (9-23) Creatinine 3.62 mg/dL (0.700-1.30) Glomerular Filtration Rate Calc 17 mL/min (>90) BUN/Creatinine Ratio 13.0 (10.0-20.0) Serum Glucose 188 mg/dL (74-106) Calcium Level 9.2 mg/dL (8.7-10.4) Blood Gas Specimen Type Arterial Blood Gas Sample Site Right radial Blood Gas Patient Temperature 37.0 Arterial Blood Date Drawn [id number] Arterial Blood pH 7.328 (7.350-7.450) Arterial Blood Partial Pressure CO2 49.7 mmHg (35.0-48.0) Arterial Blood Partial Pressure O2 85.0 mmHg (83.0-108.0) Arterial Blood HCO3 25.5 mmol/L (21.0-28.0) Arterial Blood Oxygen Saturation 94.8 % (94.0-98.0) Arterial Blood Base Excess -0.7 mmol/L (-2.0-3.0) Arterial Blood Oxyhemoglobin 94.2 % (94.0-98.0) Arterial Blood Carboxyhemoglobin 0.2 % (0.5-1.5) Arterial Blood Methemoglobin 0.4 % (0.0-1.5) Kailash Test Yes Blood Gas Total Hemoglobin 9.40 g/dL (13.5-17.5) Blood Gas Set Respiration Rate 12.0 Blood Gas Modality Mask - bipap FiO2 % 30.0 Blood Gas EPAP 5 Blood Gas IPAP 15 Magnesium Level 2.4 mg/dL (1.6-2.6) Total Bilirubin 0.4 mg/dL (0.2-1.0) Aspartate Amino Transferase (AST) 15 U/L (13-40) Alanine Aminotransferase (ALT) 49 U/L (7-40) Alkaline Phosphatase 94 U/L (46-116) Total Protein 5.7 g/dL (5.7-8.2) Albumin 3.5 g/dL (3.2-4.8) Test 08/25/24 12:16 08/25/24 06:24 08/24/24 05:00 08/20/24 18:50 Blood Gas Liter Flow 1.00 Blood Gas Critical Value Read Back Yes Blood Gas Notified Whom jarrett Thacker md Blood Gas Notified Time [id number] Blood Gas Notified By Glass [employer] Mirror Inspector lea warner Blood Gas Spontaneous Rate 19 Phosphorus Level 4.6 mg/dL (2.4-5.1) Hepatitis A Antibody Total Negative (Negative) Hepatitis B Surface Antigen Negative (Negative) Hepatitis B Surface Antibody Positive (Negative) Hepatitis B Core Total Antibody Negative (Negative) Hepatitis C Antibody Negative (Negative) Test 08/19/24 18:15 08/19/24 10:42 08/17/24 13:54 08/17/24 06:00 Urine Creatinine 31.63 mg/dL (30.0-125.0) Urine Sodium 85 mmol/L (40-220) Platelet Estimate Decreased Triglycerides Level 138 mg/dL (< 150) Stool Occult Blood Positive (Negative) Stool Occult Blood Sample #3 (Negative) Test 08/16/24 08:28 08/15/24 19:49 08/15/24 06:52 08/14/24 14:51 Differential Total Cells Counted 100.0 (100) Neutrophils % (Manual) 94 (37.0-80.0) Band Neutrophils % (Manual) 0 Lymphocytes % (Manual) 2 (10.0-50.0) Monocytes % (Manual) 4 (0-12) Eosinophils % (Manual) 0 (0-7) Basophils % (Manual) 0 (0.0-2.0) Metamyelocytes % (manual) 0 Myelocytes % (Manual) 0 Promyelocytes % (Manual) 0 Blast Cells % (Manual) 0 Reactive Lymphocytes 0 Lactic Acid Level 0.6 mmol/L (0.4-2.0) Ferritin 206.2 ng/mL (22-322) Urine Protein/Creatinine Ratio 6.71 Urine Total Protein 349.7 mg/dL (1-14) Test 08/14/24 05:54 08/13/24 06:48 08/12/24 07:00 08/11/24 10:42 Iron Level 66 ug/dL (65-175) Total Iron Binding Capacity 226 ug/dL (250-425) Percent Iron Saturation 29.2 % (20-55) Vitamin D 25-Hydroxy 40.2 ng/mL (30.0-100) Parathyroid Hormone (Intact) 54.6 pg/mL (18.4-80.1) Random Vancomycin Level 16.2 ug/mL (5-10) Urine Color Light-yellow (Yellow) Urine Clarity Turbid (Clear) Urine pH 5.5 (5.0-9.0) Urine Specific [place] 1.013 (1.001-1.035) Urine Protein 1+ (Negative) Urine Ketones Negative (Negative) Urine Blood 2+ /uL (Negative) Urine Nitrite Negative (Negative) Urine Bilirubin Negative (Negative) Urine Urobilinogen Normal mg/dL (Negative) Urine Leukocyte Esterase Negative /uL (Negative) Urine RBC 33 /hpf (0 - 3) Urine Microscopic WBC 9 /HPF (0-3) Urine Squamous Epithelial Cells Few /hpf (<5) Urine Bacteria Few /hpf (None Seen) Urine Glucose Normal mg/dL (Normal) Blood Gas Tidal Volume 450.0 Blood Gas Pressure Support 8 Blood Gas PEEP or CPAP 5.0 Test 08/10/24 10:07 08/08/24 19:11 08/08/24 08:18 08/07/24 04:46 Blood Gas Spontaneous Tidal Volume 470 Vancomycin Level Trough 33.8 ug/mL (5-10) Prothrombin Time 11.9 sec (9.3-11.8) Prothrombin Time INR 1.14 (0.9-1.15) Activated Partial Thromboplast Time 27.0 SEC (24.5-34.5) B-Type Natriuretic Peptide 42.39 pg/mL (0-100) Test 08/02/24 16:44 08/01/24 03:52 07/31/24 06:53 07/30/24 16:10 Urine Opiates Screen Neg (NEGATIVE) Urine Fentanyl Screen Pos (NEGATIVE) Urine Barbiturates Screen Neg (NEGATIVE) Urine Phencyclidine Screen Neg (NEGATIVE) Urine Amphetamines Screen Neg (NEGATIVE) Urine Benzodiazepines Screen Pos (NEGATIVE) Urine Cocaine Screen Neg (NEGATIVE) Urine Cannabinoids Screen Neg (NEGATIVE) Cholesterol Level 163 mg/dL (< 200) LDL Cholesterol 77 mg/dL (< 100) HDL Cholesterol 54 mg/dL (40-59) Vitamin B12 Level 1350 pg/mL (211-911) Folic Acid 32.36 ng/mL (>5.38) Thyroid Stimulating Hormone (TSH) 0.60 uIU/mL (0.55-4.78) Influenza Type A Antigen Negative (Negative) Influenza Type B Antigen Negative (Negative) SARS-CoV-2 Antigen (Rapid) Negative (NEGATIVE) Test 07/30/24 15:47 07/30/24 15:37 07/30/24 14:47 Troponin I High Sensitivity 18 ng/L (</=54) Urine Hyaline Casts Few /lpf (0 - 2) Urine Mucus Few (None Seen) Hemoglobin A1c 9.2 % A1C (<5.7) Other Laboratory Tests 08/28/24 04:53 Brief Hx & Hospital Course: Patient is a 69-year-old male with past medical history of CHF, COPD, type 2 diabetes, atrial fibrillation, who comes in due to respiratory distress. Per patient's brother who is also his caregiver, patient's home wound care nurse checked his vitals and his SpO2 was noted to be 68% with a pulse of 130, he also appeared disoriented and had labored breathing. According to the brother, patient's mobility has been progressively decreasing over the last 3 months and he has been limited to a recliner/office chair for the last 1 month and refuses to lie flat in his bed. Patient has been having increasing leg swelling during this time with the appearance of fluid-filled blisters which eventually started draining an ulcerated. Brother says he has been using antibiotic dressing on open sores with the help of wound nurse however the dressings continued to get drenched in the discharge and this is what prompted this visit to the hospital. Arrival to the ED patient was noted to be tachycardic and tachypneic and was placed on BiPAP. Note, patient is on home oxygen 2-3 L. Past Medical History CHF, COPD, type 2 diabetes, atrial fibrillation Past Surgical History Left heart catheterization 8 years ago, brother unsure of results. Past Social History Smoking: Quit, prior to that was smoking 1 pack per day for 10 years Alcohol: Denies Drugs: Denies Allergy: Shellfish Home medications: Unable to obtain Hospital course: Patient was initially any presented with respiratory distress and later developed acute hypercapnic respiratory failure that needed emergent intubation. Patient was treated for acute exacerbation of chronic COPD, acute exacerbation of CHF, atrial fibrillation with RVR , sepsis due to bilateral cellulitis with IV methylprednisolone 40 mg b.i.d., IV Lasix 40 mg , IV vancomycin as per pharmacy, IV cefepime 1 g b.i.d. Wound culture was positive for MRSA, Enterococcus faecalis and Enterobacter intermedius. Patient was extubated on 08/11/2024. After extubation patient was alert and oriented X2 and was on intermittently on BiPAP and nasal cannula 2 L. patient failed swallow evaluation 3 times and currently on tube feeding. During the hospital stay patient developed DAVE likely hemodynamically mediated or vancomycin toxicity that needed scheduled dialysis, not responded to fluid challenge or diuretic therapy. Nephrology was on board. Wound dressing was done every other day and healthy granulation tissue is covering the wound. Family meeting was done with the family member yesterday and discussed extensively about patient's diagnoses, prognoses and options of discharge plan. rodent control worker was consulted regarding LTAC placement for continuing dialysis, wound care, rehabilitation and feeding. Patient is being discharged to LTAC today and waiting for bed availability. Physical examination: General Appearance: Alert& orientedX2 and on nasal canula 2L HEENT: Atraumatic, PERRLA, EOMI, Mucous membrane moist/pink Respiratory: Decreased Breath sounds bilaterally. Cardiovascular: Irregular rate, Normal S1, Normal S2, No murmurs, no chest wall tenderness Abdominal: Normal bowel sounds, Soft, No tenderness, No hepatospenomegaly, No masses Extremities: No clubbing, No cyanosis, No edema. Normal pulses, bilateral wounds in both legs covered with dressing. Skin: No rashes, No breakdown, No significant lesion Neuro: Strength at 4/5 X4 ext, Normal tone, Sensation intact, grossly intact cranial nerves. Psych/Mental Status: could not be assessed. Diagnosis: Acute metabolic encephalopathy secondary to hypoxic/ hypercarbic respiratory failure Acute on chronic exacerbation of decompensated systolic heart failure, NYHA class 3 Chronic permanent atrial fibrillation with secondary hypercoagulable sta Severe pulmonary hypertension likely due to COPD /FAWN Acute on chronic hypoxic / hypercarbic respiratory failure Acute on chronic exacerbation of COPD Ruled out pulmonary embolism Gram negative pneumonia ruled out Possible stress ulcer DAVE likely hemodynamically mediated/VMN Possible Vancomycin toxicity Microscopic hematuria and possible acute cystitis Hyperkalemia likely due to DAVE Uncontrolled type 2 diabetes mellitus, hemoglobin A1c 9.2 Obesity class 3, BMI 50.1 kg/meter2 Chronic normocytic normochromic anemia likely due to anemia of chronic disease Bilateral lower extremity cellulitis Sepsis due to cellulitis Time spent in discharge planning was 42 mins Consults/Reason for consult Nephrology, pulmonology were consulted Operations or Procedures EXAM: XY CHEST PORTABLE Indication: sob Technique: Single frontal view of the chest was obtained Comparison: None FINDINGS: Lines and Tubes: None Lungs: No focal consolidation. Pleura: No effusion. No pneumothorax. Cardiomediastinal contours: Cardiomegaly. Bones: No acute osseous abnormality. IMPRESSION: Cardiomegaly. No acute cardiopulmonary disease. Procedure: CT CT ANGIO CHEST CONTRAST Reason for study/Clinical History: r/o PE Comparison Study: None available at time of dictation. Exam Date: 07/31/2024 12:02 PM Radiation Dose Information: CT Dose: CTDI volume is 28.85 mGy. Dose-length product is 1073.19 mGy*cm TECHNIQUE: After the uneventful administration of intravenous contrast intravenously, CT imaging was performed through the chest. Coronal and sagittal reformations were performed by the technologist. FINDINGS: Lower Neck: Visualized portions of the thyroid gland are unremarkable. Aorta and Vasculature: Normal caliber of thoracic aorta. Lymph Nodes: No enlarged intrathoracic lymph nodes. Mediastinum: Heart size is normal. There is no pericardial effusion. The esophagus is unremarkable. Lungs: 2cm Nodular opacities right lung apex. Follow-up CT in 6 weeks to see if there is resolution. Musculoskeletal: No acute osseous abnormality. Upper abdomen: Limited portions of the upper abdomen are unremarkable. IMPRESSION: No evidence of acute intrathoracic abnormality identified. 2cm Nodular opacities right lung apex. Follow-up CT in 6 weeks to see if there is resolution. EXAM: Two-dimensional and M-mode echocardiogram with Doppler and color Doppler. Blood Pressure: 113/54 mmHg INDICATION PE RISK FACTORS Obesity: Height: 5'5", Weight: 301 DIMENSIONS LVDd 5.9 (3.8-5.7cm) LA (2D) 5.9 (1.9-4.0cm) Aortic Root 3.5 (2.0- 3.7cm) LVDs 4.3 (2.5-4.0cm) LA (MM) (1.9-4.0cm) Aortic Cusp Exc 0.8 (1.5- 2.0cm) EF (%) 52.0 (55-70%) Rt. Atrium 5.7 (1.9-4.0cm) Asc. Aorta cm IVSd 0.9 (0.7-1.1cm) RV (D) (1.8-2.4cm) PWd 0.9 (0.7-1.1cm) Mitral Valve Mitral Mitral Stenosis E wave 1.17m/s MV Mean GR. mmHg E/A ratio 0.0 2D MVA cm2 Aortic Valve Aortic Valve Aortic Stenosis V1 0.95m/s AO Mean GR. 15mmHg V2 2.44m/s AO Peak GR. 24mmHg LVOT Diameter 2.5 (1.8-2.4cm) Doppler BARRY 1.91cm2 Tricuspid Valve TR Velocity 3.42m/s RVSP 56mmHg Other Information Quality : Technically Limited Rhythm : Technically limited study due to body habitus. Conclusion Technically good study. Atrial fibrillation. Biatrial enlargement. Mild LV enlargement. Aortic root enlargement. Moderate mitral annular calcification with the patient of the posterior mitral leaflet. Moderate aortic sclerosis with diminished excursion of the right coronary cusp. Calcification of the non and left coronary cusps as well. There appears to be a certain degree of aortic sclerosis present. Mild gradient of15 mmHg suggestive aortic sclerosis without stenosis. The tricuspid appears to be structurally normal. Left ventricular function is diminished. EF is approximately 40% with global hypokinesis. Irregular contractility. Moderate tricuspid regurgitation. Mild mitral insufficiency. No pericardial effusion masses or vegetations. Condition at Discharge: Guarded Final Diagnosis/Problems List Acute metabolic encephalopathy secondary to hypoxic/ hypercarbic respiratory failure Acute on chronic exacerbation of decompensated systolic heart failure, NYHA class 3 Chronic permanent atrial fibrillation with secondary hypercoagulable sta Severe pulmonary hypertension likely due to COPD /FAWN Acute on chronic hypoxic / hypercarbic respiratory failure Acute on chronic exacerbation of COPD Ruled out pulmonary embolism Gram negative pneumonia ruled out Possible stress ulcer DAVE likely hemodynamically mediated/VMN Possible Vancomycin toxicity Microscopic hematuria and possible acute cystitis Hyperkalemia likely due to DAVE Uncontrolled type 2 diabetes mellitus, hemoglobin A1c 9.2 Obesity class 3, BMI 50.1 kg/meter2 Chronic normocytic normochromic anemia likely due to anemia of chronic disease Bilateral lower extremity cellulitis Sepsis due to cellulitis Discharge Disposition: Acute Care Facility Discharge Instruct/Medications Diet: Consistent carbohydrate, Cardiac 2g Na,low cholest Activity: No Restrictions, As Tolerated Follow Up/Referral: Follow up with PCP Medications: As per EMR Discharge Statement: "Patient was advised to return to the ER or call 911 if any headaches, dizziness, shortness of breath, chest pain, abdominal pain, bleeding, fevers, or worsening of medical condition. Patient was counseled about treatment plan, medications, possible side effects, patientverbalized understanding. All questions were answered to the best of my ability. This discharge took greater then 30 minutes in planning, reviewing documentation, counseling the patient, and discussing with other team members." ASSESSMENT ASSESSMENT Assessment Acute metabolic encephalopathy secondary to acute hypoxic/hypercapnic respiratory failure. Date of Service: August 28, 2024 Billing Provider: GERMAN HERNANDEZ MD Common Visit Codes: 61784-JOM/OBS DISCH DAY >30min GINETTE TRIVEDI RESIDENT August 28, 2024 14:24 GERMAN HERNANDEZ MD August 29, 2024 13:11
[2024-08-28] MEDS: EPOETIN ALFA-EPBX 10,000 UNIT/1ML VIAL SC SCH (21:53)
[2024-08-28] MEDS: methylPREDNISolone SOD SUCC 40 MG/ML VL IV SCH (21:54)
[2024-08-29] VITALS (60 sets, daily range): BP systolic 81–130; BP diastolic 39–82; PULSE 94–130; RESP 12–26; TEMP 36.6; O2SAT 86–100
[2024-08-29 06:45] LABS: Hematocrit 26.5 % (41.0-53.0); Hemoglobin 8.7 g/dL (13.5-17.5)
[2024-08-29 06:57] LABS: Anion Gap 10 (5-15); Carbon Dioxide 30 mmol/L (20-31); Sodium 138 mmol/L (136-145)
[2024-08-29 06:58] LABS: % Iron Saturation 39.7 % (20-55); Calcium 9.7 mg/dL (8.7-10.4)
[2024-08-29 07:03] LABS: BUN/Creatinine Ratio 14.6 (10.0-20.0); Blood Urea Nitrogen 66 mg/dL (9-23); Chloride 98 mmol/L (98-107); Glucose 244 mg/dL (74-106); Potassium 5.3 mmol/L (3.5-5.1)
[2024-08-29 07:09] LABS: Phosphorus 7.8 mg/dL (2.4-5.1)
--- NOTE | 2024-08-29 09:14 | DVHPN2 ---
Progress Note Date Seen: August 29, 2024 Resident Creating Document: LIZZIE CONTRERAS RESIDENT Medical Necessity Reason Pt with a Central, PICC or Fol: Yes The following are medically ne: Central Line, [place] Catheter Reason for [place] catheter: Strict I&O Subjective Review of Systems Mr Reynolds 69-year-old male patient with PMH of systolic CHF-EF 40%, COPD, type 2 diabetes mellitus, atrial fibrillation who initially presented to the ER on 07/30 for altered mental status and shortness of breath and underwent mechanical ventilation on 08/01. Patient is currently extubated, on 2 L nasal cannula supplementation. Patient is not vocal, only responds to his name but not to commands. Per patient's brother who is at bedside, patient has been not ambulating due to probably bilateral hip degenerative changes, and he has had extensive bilateral lower extremity ulcers with drainage, patient was feeling with home health and later opted hospice to see 24/10 care. Per her to admission, patient was confused and developed sudden onset shortness of breath. His hospice nurse saw the patient tachycardic at 130s and patient was saturating at 68% therefore he was sent to the ER. Patient was intubated 08/01 till 08/12. Blood cultures were negative, wound cultures 07/31 showed Enterobacter, Enterococcus and MRSA for which patient initially received IV vancomycin and IV cefepime starting 07/30, IV vancomycin was discontinued 08/11 and the patient was started on IV Zyvox b.i.d. 08/13. Patient has received 2 L of 0.45 NS, 250 cc of LR till now Nephrology has been consulted for worsening DAVE, patient has been experiencing renal failure since 08/10. 08/14-Patient seen and examined at the bedside. Overnight low-grade fever 99.7, pulse 105 and irregular. Requiring 2 L NC supplementation. Bumex IV drip 0.5 mg/hours started. Continue 0.45 NS. Urine output 85 cc in the past 24 hours. 08/15 - patient seen and examined at the bedside. Urine output less than 100 cc overnight. Right IJ Kaden placed, hemodialysis order placed. Primary team started methylprednisolone 40 mg IV b.i.d. renal ultrasound shows echogenic kidneys. 08/16-patient seen and examined at the bedside. Patient responding to name, A&O x1, patient said his name today. Urine output is 200 cc. Hemodialysis pending today. Requiring Levophed. Discontinue IV Bumex given low urine output 08/19 - patient seen and examined at the bedside. Urine output 75 cc overnight. Hemodialysis tomorrow. Fluid restrictions ordered. 08/20 - patient seen and examined at the bedside. Urine output 375 cc overnight. Hemodialysis could not be completed due to dysfunctional l IJ Kaden. 08/21-patient seen and examined at the bedside. Urine output 70 cc. BUN/creatinine slightly trending up. IR consulted for IJ tunneled catheter placement 08/22 - patient seen and examined at bedside. Urine output decreasing, 45 mL only. Patient is on BiPAP. Underwent hemodialysis yesterday after right tunneled catheter placement. WBC increased to 13. 08/23 - patient seen and examined at the bedside. Urine output trending down, 0 cc overnight. bun/creatinine trending up , Undergoing Hemodialysis bicarb 35 mEq. Bladder scan ordered, flush [place] catheter. 08/26 - patient seen and examined at the bedside. Bumex 4 mg IV once administered yesterday. Urine out 45 cc. 08/27 - Patient seen and examined at the bedside. On 1 L NC, sats 97%. U/O 40cc. BUN/Cr trending up. Underwent HD today 08/29 - patient seen and examined. K 5.3, hyperkalemia protocol initiated. HD today. Bun/cr 66/4.5 from 47/3.6. GFR 13, Po4 7.8. DC bumex 2.5mg IV daily, U/O 35cc/24 hrs. Iron profile consistent with anemia of chronic kidney disease Objective vital signs Vital Sign Date Time Temp Pulse Resp B/P (MAP) Pulse Ox O2 Delivery O2 Flow Rate FiO2 08/29/24 06:48 116 16 100 08/29/24 06:40 Nasal Cannula* 1 24 08/29/24 06:00 105/44 (64) 08/29/24 04:00 97.9 97.9 Total Intake and Output 08/28/24 08/28/24 08/29/24 15:00 23:00 07:00 Intake Total 1.875 ml 520 ml 600 ml Output Total 20 ml 15 ml Balance 1.875 ml 500 ml 585 ml medications Current Medications Medications Dose Ordered Sig/Artie Route Start Time Stop Time Status Last Admin Dose Admin Acetaminophen 325 mg Q4HP PRN PO 4/29/25 21:45 Ipratropium [place] 0.5 mg Q4HR NEB 07/30/24 22:00 08/29/24 06:40 0.5 MG Levalbuterol HCl 1.25 mg Q4HR NEB 07/30/24 22:00 08/29/24 06:40 1.25 MG Enteral Nutritional Formula 1,000 ml 50ML/HR GT 08/05/24 17:15 08/28/24 17:18 1,000 ML Lactulose 30 ml BID PO 08/07/24 10:00 08/28/24 21:54 30 ML Sodium Chloride 10 ml QSHIFT@10,22 IV 08/08/24 22:00 08/28/24 21:55 10 ML Norepinephrine Bitartrate 250 ml @ 1.875 mls/ hr Q24H IV 08/19/24 12:00 08/27/24 16:05 1.875 MLS/HR Insulin Glargine 20 units HS SC 08/19/24 18:15 08/28/24 21:55 20 UNITS Diagnostic Test (Pha) 1 strip ACHS 08/19/24 22:00 08/29/24 06:18 1 STRIP Insulin Human Regular HS SC 08/19/24 22:00 08/28/24 21:54 3 UNITS Insulin Human Regular AC SC 08/20/24 07:00 08/29/24 06:18 9 UNITS Dextrose 50 ml UD PRN IV 08/19/24 18:15 Albumin Human 100 ml @ 100 mls/hr PRN PRN IV 08/21/24 17:30 08/27/24 14:55 100 MLS/HR Levofloxacin/ Dextrose 100 ml @ 100 mls/hr Q48H IV 08/23/24 13:00 08/27/24 17:35 100 MLS/HR Lorazepam 1 mg Q6HP PRN IV 08/22/24 13:45 08/25/24 01:42 1 MG Morphine Sulfate 2 mg Q2HPRN PRN IV 08/25/24 09:30 08/25/24 21:24 2 MG Pantoprazole Sodium 40 mg DAILY IV 08/26/24 09:00 08/28/24 09:42 40 MG Acetaminophen/ Hydrocodone Bitart 1 tab Q6HPRN PRN PO 08/27/24 13:15 08/28/24 14:57 1 TAB Bumetanide 2.5 mg DAILY IV 08/28/24 10:00 08/28/24 10:54 2.5 MG Epoetin Nikita-epbx 10,000 unit MWF@2100 SC 08/28/24 21:00 08/28/24 21:53 10,000 UNIT Methylprednisolone Sodium Succinate 20 mg BID IV 08/28/24 22:00 08/28/24 21:54 20 MG Examination Elderly male patient lying in the bed. Right IJ tunneled cath General: Obese, afebrile, palor, mucosae are moist Cardiovascular: IRRegular S1 and S2. No murmurs, gallops or rubs. No JVD elevation. Bilateral pitting edema Respiratory: Bilateral decreased air entry on BiPAP Abdomen: Soft, nontender, nondistended, normoactive bowel sounds, no rebound tenderness, no organomegaly, no masses Genitourinary: Deferred. [place] draining 10 cc of urine MSK/skin: Mobilizes 4 limbs. Skin is dry and warm. Bilateral lower extremity have draining wounds, dressing dry clean and intact Neurological assessment could not be completed laboratory and microbiology Laboratory Tests 08/29/24 05:04 08/28/24 04:53 Test 08/29/24 05:04 Range/Units Serum Glucose 244 H 74-106 mg/dL Microbiology Date/Time Source Procedure Growth Status 08/12/24 07:06 Blood Blood Culture - Final NO GROWTH AFTER 5 DAYS OF INCUBATION. Complete 08/09/24 13:35 Other Aerobic Culture - Final Complete 08/01/24 00:00 Sputum Gram Stain - Final Complete 08/01/24 00:00 Sputum Respiratory Culture - Final Complete Labs and/or images reviewed: Labs reviewed by me, Image(s) reviewed by me Problem List/Assessment/Plan Problem List/Assessment/Plan Acute kidney injury, ischemic/nephrotoxic ATN== multifactorial secondary to vancomycin toxicity+ diuretics/nephrotoxins,, IV contrast for CTA on admission noted requiring kidney replacement therapy Nephrotic syndrome Anemia, likely ESRD Acute hypoxic respiratory failure s/p intubation and mechanical ventilation, now extubated 08/12 Acute metabolic encephalopathy secondary to hypoxic/ hypercarbic respiratory failure Acute on chronic exacerbation of decompensated systolic heart failure, NYHA class 3 Chronic permanent atrial fibrillation with secondary hypercoagulable state Severe pulmonary hypertension likely due to COPD /FAWN Sepsis due to Bilateral lower extremity cellulitis PE ruled out Type 2 diabetes mellitus-A1c 9.2 Obesity Plan: BUN/creatinine trending up. GFR declining. Patient undergoing hemodialysis, 1.5-2 L we will be taken out. Discontinued bumex 2.5mg IV and discontinued [place] catheter U/O 35cc/24 hrs Patient didn't respond to trial of high-dose loop diuretic to increase urine volumes. Last hemodialysis session 08/27 Patient completed six sessions of hemodialysis. Previously underwent hemodialysis 08/15, 08/16, 08/18, 08/21, 08/23, 08/27 Continue Epoetin 20mb bid IV M/W/F, goal hemoglobin 10 and Started calcium acetate 667 mg TID via G-tube Fluid restrictions 1200 cc within 24 hours including IV fluids, diet and IV antibiotics given dilutional hyponatremia Status post transfusion 1 packed RBCs 08/21 Right IJ Kaden catheter placed 08/15 till 08/21 for hemodialysis. Tunneled catheter placement 08/21. Discontinued IV fluids BUN high likely secondary to diuretics and steroids Avoid nephrotoxic drugs Strict I&Os Drips: Off Levophed 08/28 Tube feedings changed to Nepro Plan discussed with patient in which all questions have been answered Case discussed with Dr. Ledbetter Plan discussed with: Patient, Other (Brother at the bedside) Dietary Evaluation Review Comments: 1. Suggest TF w/ formula Pivot 1.5 @ 40 ml/hr (GOAL). Begin @ 10 ml/hr; advance by 10 ml Q4 hrs or as tolerated to 40 ml/hr x 24 hrs 2. Provide free water flushes of 30 ml Q6 hrs (120 ml total); adjust PRN 3. Monitor BMP/lytes and replete to WNL/PRN 4. Lantus, ss insulin for correction; adjust PRN to maintain BG <180 mg/dl TF Provision: TF at goal to provide 960 ml total volume, 1440 kcal, 90 gm pro, 7 gm fiber, 165 gm CHO, 729 ml H20 (meets 100% est. kcal needs, 100% est. pro needs) Expected Outcomes/Goals: Improved nutritional status, TF initiation within 24-48 hrs of intubation. LIZZIE CONTRERAS RESIDENT August 29, 2024 09:14
[2024-08-29] MEDS: ALBUTEROL SULF 2.5 MG/0.5ML(0.5%) NEB SOLN NEB ONE (09:17)
[2024-08-29] MEDS: DEXTROSE (50%) 50ML SYRG IV ONE (09:43)
[2024-08-29] MEDS: SODIUM ZIRCONIUM CYCL 10 GM PAK PO ONE (09:43)
[2024-08-29] MEDS: SODIUM BICARB 8.4% 50Meq/50ml SYR INJ IV ONE (09:43)
[2024-08-29] MEDS: FUROSEMIDE 20 MG/2 ML VIAL IV ONE (09:44)
[2024-08-29] MEDS: InsuLIN REG 1unit/0.01ml Soln (100units/ml) IV ONE (09:48)
[2024-08-29] MEDS: SODIUM CHL 0.9% 1000 ML BAG XX ONE (10:00)
[2024-08-29] MEDS: ALBUMIN 25% 100 ML IV ONE (11:30)
[2024-08-29] MEDS: CALCIUM ACETATE 667 MG CAP PO ONE (14:19)
--- NOTE | 2024-08-29 19:25 | DVHPNRES ---
Progress Note Date Seen: August 29, 2024 Resident Creating Document: GINETTE TRIVEDI RESIDENT Medical Necessity Reason Pt with a Central, PICC or Fol: Yes The following are medically ne: Central Line, [place] Catheter Reason for [place] catheter: Strict I&O Subjective Review of Systems Patient is a 69-year-old male with past medical history of CHF, COPD, type 2 diabetes, atrial fibrillation, who comes in due to respiratory distress. Per patient's brother who is also his caregiver, patient's home wound care nurse checked his vitals and his SpO2 was noted to be 68% with a pulse of 130, he also appeared disoriented and had labored breathing. Arrival to the ED patient was noted to be tachycardic and tachypneic and was placed on BiPAP. Note, patient is on home oxygen 2-3 L. Patient Underwent intubation with mechanical ventilation on 08/01/2024 due to acute metabolic encephalopathy likely due to acute hypoxic / hypercapnic respiratory failure. Patient was seen and examined on the bedside. He is alert and awake, status post extubation and currently on nasal canula 2L . He underwent dialysis today. Patient is accepted in LTAC facility and being discharged to LTAC today. Objective vital signs Vital Sign Date Time Temp Pulse Resp B/P (MAP) Pulse Ox O2 Delivery O2 Flow Rate FiO2 08/29/24 18:45 106 19 112/64 (80) 100 08/29/24 18:29 Nasal Cannula 2.0 08/29/24 18:29 28 08/29/24 16:27 36.6 Total Intake and Output 08/28/24 08/28/24 08/29/24 15:00 23:00 07:00 Intake Total 1.875 ml 520 ml 600 ml Output Total 20 ml 15 ml Balance 1.875 ml 500 ml 585 ml medications Current Medications Medications Dose Ordered Sig/Artie Route Start Time Stop Time Status Last Admin Dose Admin Acetaminophen 325 mg Q4HP PRN PO 07/30/24 21:45 Ipratropium [place] 0.5 mg Q4HR NEB 07/30/24 22:00 08/29/24 18:29 0.5 MG Levalbuterol HCl 1.25 mg Q4HR NEB 07/30/24 22:00 08/29/24 18:29 1.25 MG Enteral Nutritional Formula 1,000 ml 50ML/HR GT 08/05/24 17:15 08/28/24 17:18 1,000 ML Lactulose 30 ml BID PO 08/07/24 10:00 08/29/24 14:19 30 ML Sodium Chloride 10 ml QSHIFT@10,22 IV 08/08/24 22:00 08/29/24 14:19 10 ML Norepinephrine Bitartrate 250 ml @ 1.875 mls/ hr Q24H IV 08/19/24 12:00 08/27/24 16:05 1.875 MLS/HR Insulin Glargine 20 units HS SC 08/19/24 18:15 08/28/24 21:55 20 UNITS Diagnostic Test (Pha) 1 strip ACHS 08/19/24 22:00 08/29/24 17:23 1 STRIP Insulin Human Regular HS SC 08/19/24 22:00 08/28/24 21:54 3 UNITS Insulin Human Regular AC SC 08/20/24 07:00 08/29/24 17:29 2 UNITS Dextrose 50 ml UD PRN IV 08/19/24 18:15 Albumin Human 100 ml @ 100 mls/hr PRN PRN IV 08/21/24 17:30 08/27/24 14:55 100 MLS/HR Levofloxacin/ Dextrose 100 ml @ 100 mls/hr Q48H IV 08/23/24 13:00 08/29/24 14:19 100 MLS/HR Lorazepam 1 mg Q6HP PRN IV 08/22/24 13:45 08/25/24 01:42 1 MG Morphine Sulfate 2 mg Q2HPRN PRN IV 08/25/24 09:30 08/25/24 21:24 2 MG Pantoprazole Sodium 40 mg DAILY IV 08/26/24 09:00 08/29/24 14:19 40 MG Acetaminophen/ Hydrocodone Bitart 1 tab Q6HPRN PRN PO 08/27/24 13:15 08/28/24 14:57 1 TAB Epoetin Nikita-epbx 10,000 unit MWF@2100 SC 08/28/24 21:00 08/28/24 21:53 10,000 UNIT Calcium Acetate 667 mg TIDWMEALS PO 08/29/24 18:00 Prednisone 40 mg DAILY PO 08/30/24 10:00 Examination Physical examination: General Appearance: Alert& orientedX3, and on nasal canula 2L HEENT: Atraumatic, PERRLA, EOMI, Mucous membrane moist/pink Respiratory: Decreased Breath sounds bilaterally. Cardiovascular: Irregular rate, Normal S1, Normal S2, No murmurs, no chest wall tenderness Abdominal: Normal bowel sounds, Soft, No tenderness, No hepatospenomegaly, No masses Extremities: No clubbing, No cyanosis, No edema. Normal pulses, bilateral wounds in both legs covered with dressing. Skin: No rashes, No breakdown, No significant lesion Neuro: Strength at 4/5 X4 ext, Normal tone, Sensation intact, grossly intact cranial nerves. Psych/Mental Status: could not be assessed. laboratory and microbiology Laboratory Tests 08/29/24 05:04 08/28/24 04:53 Test 08/29/24 05:04 Range/Units Serum Glucose 244 H 74-106 mg/dL Microbiology Date/Time Source Procedure Growth Status 08/12/24 07:06 Blood Blood Culture - Final NO GROWTH AFTER 5 DAYS OF INCUBATION. Complete 08/09/24 13:35 Other Aerobic Culture - Final Complete 08/01/24 00:00 Sputum Gram Stain - Final Complete 08/01/24 00:00 Sputum Respiratory Culture - Final Complete Labs and/or images reviewed: Labs reviewed by me, Image(s) reviewed by me Problem List/Assessment/Plan Problem List/Assessment/Plan Assessment and plan: NEURO: Acute metabolic encephalopathy secondary to hypoxic/ hypercarbic respiratory failure - S/P extubation and currently on nasal canula 2L. CARDIOVASCULAR: Acute on chronic exacerbation of decompensated systolic heart failure, NYHA class 3 Chronic permanent atrial fibrillation with secondary hypercoagulable state Severe pulmonary hypertension likely due to COPD /FAWN - [id number] score 3 and HAS BLED score 2 - CXR showed cardiomegaly with mild pulmonary vascular congestion - Echo on 07/31/2024 demonstrated EF 40% with global hypokinesis, irregular contractility, moderate tricuspid regurgitation, moderate aortic sclerosis with diminished excursion of the right coronary cusp and RVSP 56 mm hg. - Maintain strict I&O - Atorvastatin 20 mg at HS PULMONARY: Acute on chronic hypoxic / hypercarbic respiratory failure Acute on chronic exacerbation of COPD Ruled out pulmonary embolism Gram negative pneumonia ruled out - CT angiography demonstrated 2 cm nodular opacities right lung apex, ruled out PE and follow up CT scan in 6 weeks to see if there is resolution. - Med neb with levalbuterol and ipratropium q.4 hours - IV Levaquin 500 mg q.48h - IV methylprednisolone 40 mg bid - Respiratory culture showed normal oropharyngeal rc - On Bipap 15/ in night time GI : Possible stress ulcer FOBT positive - IV Protonix 40 mg daily Renal: DAVE likely hemodynamically mediated/VMN Possible Vancomycin toxicity Microscopic hematuria and possible acute cystitis - Patient is on IV cefepime - Nephrology on board. - Continue hemodialysis - Monitor BMP Metabolic: Hyperkalemia likely due to DAVE - Hyperkalemia protocol management. - Monitor BMP ENDOCRINE: Uncontrolled type 2 diabetes mellitus, hemoglobin A1c 9.2 Obesity class 3, BMI 50.1 kg/meter2 - Moderate sliding scale q.6 hour - Lantus 20 units at HS HEME: Chronic normocytic normochromic anemia likely due to anemia of chronic disease INFECTIOUS DISEASE: Bilateral lower extremity cellulitis Sepsis due to above - Wound culture on 07/31/24 demonstrated Enterobacter intermedius, Enterococcus faecalis, MRSA . - IV levofloxacin 500 mg q.48h - Blood culture showed no growth after 5 days of incubation DIET: Enteral feeding with Glucerna by NG tube DVT prophylax: SCD GI prophylaxis: Protonix 40 mg IV daily Bowel regimen: Lactulose 30 ml bid Code status: full code LINES/DRAINS/ACCESS: Tunneled catheter: Placed on 08/21/24 IV access: PICC line placed on 08/08/24 [place] catheter: on 08/13/24 DISPOSITION: JERRICA Patient's status discussed with critical care educator time spent time 41 minute Case discussed with Dr. Hernandez Plan discussed with: Patient, Other (RN) Dietary Evaluation Review Comments: 1. Suggest TF w/ formula Pivot 1.5 @ 40 ml/hr (GOAL). Begin @ 10 ml/hr; advance by 10 ml Q4 hrs or as tolerated to 40 ml/hr x 24 hrs 2. Provide free water flushes of 30 ml Q6 hrs (120 ml total); adjust PRN 3. Monitor BMP/lytes and replete to WNL/PRN 4. Lantus, ss insulin for correction; adjust PRN to maintain BG <180 mg/dl TF Provision: TF at goal to provide 960 ml total volume, 1440 kcal, 90 gm pro, 7 gm fiber, 165 gm CHO, 729 ml H20 (meets 100% est. kcal needs, 100% est. pro needs) Expected Outcomes/Goals: Improved nutritional status, TF initiation within 24-48 hrs of intubation. Date of Service: August 29, 2024 Billing Provider: GERMAN HERNANDEZ MD Common Visit Codes: [id number] CARE 30-74 MIN NKECHI TRIVEDIRA RESIDENT August 29, 2024 19:25 GERMAN HERNANDEZ MD Sep 01, 2024 11:35
[2024-08-29] MEDS: CALCIUM ACETATE 667 MG CAP PO SCH (19:39)
[2024-08-30] MEDS ORDERED: predniSONE 20 MG TAB PO SCH (10:00)
== END 2024-08-29 20:50 | DRG 870 ==
LOC: ER 14:09 → EDBD 14:09 → OVERFLOW 21:31 → TELE-EAST 21:40 → EAST 07-31 06:10 → TELE-EAST 07-31 06:21 → CATH ICU 08-01 00:05 → ICU CENTRL 08-01 07:20 → DOU IN ICU 08-24 14:38
PROVIDERS: ADMIT Internal Medicine; ATTEND Internal Medicine
PROC: 5A09357 Assistance with Respiratory Ventilation, Less than 24 Consecutive Hours, Continuous Positive Airway Pressure (ICD-10-PCS; 2024-07-30)
PROC: 5A1955Z Respiratory Ventilation, Greater than 96 Consecutive Hours (ICD-10-PCS; principal; 2024-08-01)
PROC: 0BH17EZ Insertion of Endotracheal Airway into Trachea, Via Natural or Artificial Opening (ICD-10-PCS; 2024-08-01)
PROC: 02HV33Z Insertion of Infusion Device into Superior Vena Cava, Percutaneous Approach (ICD-10-PCS; 2024-08-01)
PROC: 02HV33Z Insertion of Infusion Device into Superior Vena Cava, Percutaneous Approach (ICD-10-PCS; 2024-08-08)
PROC: B548ZZA Ultrasonography of Superior Vena Cava, Guidance (ICD-10-PCS; 2024-08-08)
PROC: 5A09357 Assistance with Respiratory Ventilation, Less than 24 Consecutive Hours, Continuous Positive Airway Pressure (ICD-10-PCS; 2024-08-11)
PROC: 02HV33Z Insertion of Infusion Device into Superior Vena Cava, Percutaneous Approach (ICD-10-PCS; 2024-08-15)
PROC: B548ZZA Ultrasonography of Superior Vena Cava, Guidance (ICD-10-PCS; 2024-08-15)
PROC: 5A09357 Assistance with Respiratory Ventilation, Less than 24 Consecutive Hours, Continuous Positive Airway Pressure (ICD-10-PCS; 2024-08-15)
PROC: 5A1D70Z Performance of Urinary Filtration, Intermittent, Less than 6 Hours Per Day (ICD-10-PCS; 2024-08-15)
PROC: 5A09357 Assistance with Respiratory Ventilation, Less than 24 Consecutive Hours, Continuous Positive Airway Pressure (ICD-10-PCS; 2024-08-16)
PROC: 5A1D70Z Performance of Urinary Filtration, Intermittent, Less than 6 Hours Per Day (ICD-10-PCS; 2024-08-16)
PROC: 5A09357 Assistance with Respiratory Ventilation, Less than 24 Consecutive Hours, Continuous Positive Airway Pressure (ICD-10-PCS; 2024-08-17)
PROC: 5A09357 Assistance with Respiratory Ventilation, Less than 24 Consecutive Hours, Continuous Positive Airway Pressure (ICD-10-PCS; 2024-08-18)
PROC: 5A1D70Z Performance of Urinary Filtration, Intermittent, Less than 6 Hours Per Day (ICD-10-PCS; 2024-08-18)
PROC: 5A09357 Assistance with Respiratory Ventilation, Less than 24 Consecutive Hours, Continuous Positive Airway Pressure (ICD-10-PCS; 2024-08-19)
PROC: 5A09357 Assistance with Respiratory Ventilation, Less than 24 Consecutive Hours, Continuous Positive Airway Pressure (ICD-10-PCS; 2024-08-20)
PROC: 5A1D70Z Performance of Urinary Filtration, Intermittent, Less than 6 Hours Per Day (ICD-10-PCS; 2024-08-20)
PROC: 0JH63XZ Insertion of Tunneled Vascular Access Device into Chest Subcutaneous Tissue and Fascia, Percutaneous Approach (ICD-10-PCS; 2024-08-21)
PROC: 02H633Z Insertion of Infusion Device into Right Atrium, Percutaneous Approach (ICD-10-PCS; 2024-08-21)
PROC: B548ZZA Ultrasonography of Superior Vena Cava, Guidance (ICD-10-PCS; 2024-08-21)
PROC: B518YZA Fluoroscopy of Superior Vena Cava using Other Contrast, Guidance (ICD-10-PCS; 2024-08-21)
PROC: 30233N1 Transfusion of Nonautologous Red Blood Cells into Peripheral Vein, Percutaneous Approach (ICD-10-PCS; 2024-08-21)
PROC: 5A09357 Assistance with Respiratory Ventilation, Less than 24 Consecutive Hours, Continuous Positive Airway Pressure (ICD-10-PCS; 2024-08-21)
PROC: 5A1D70Z Performance of Urinary Filtration, Intermittent, Less than 6 Hours Per Day (ICD-10-PCS; 2024-08-21)
PROC: 5A09357 Assistance with Respiratory Ventilation, Less than 24 Consecutive Hours, Continuous Positive Airway Pressure (ICD-10-PCS; 2024-08-22)
PROC: 5A1D70Z Performance of Urinary Filtration, Intermittent, Less than 6 Hours Per Day (ICD-10-PCS; 2024-08-23)
PROC: 5A09357 Assistance with Respiratory Ventilation, Less than 24 Consecutive Hours, Continuous Positive Airway Pressure (ICD-10-PCS; 2024-08-24)
PROC: 5A09357 Assistance with Respiratory Ventilation, Less than 24 Consecutive Hours, Continuous Positive Airway Pressure (ICD-10-PCS; 2024-08-25)
PROC: 5A09357 Assistance with Respiratory Ventilation, Less than 24 Consecutive Hours, Continuous Positive Airway Pressure (ICD-10-PCS; 2024-08-26)
PROC: 5A09357 Assistance with Respiratory Ventilation, Less than 24 Consecutive Hours, Continuous Positive Airway Pressure (ICD-10-PCS; 2024-08-27)
PROC: 5A1D70Z Performance of Urinary Filtration, Intermittent, Less than 6 Hours Per Day (ICD-10-PCS; 2024-08-27)
PROC: 5A09357 Assistance with Respiratory Ventilation, Less than 24 Consecutive Hours, Continuous Positive Airway Pressure (ICD-10-PCS; 2024-08-28)
PROC: 5A1D70Z Performance of Urinary Filtration, Intermittent, Less than 6 Hours Per Day (ICD-10-PCS; 2024-08-29)
DX: A41.9 Sepsis, unspecified organism (principal); G93.41 Metabolic encephalopathy; J96.21 Acute and chronic respiratory failure with hypoxia; J96.22 Acute and chronic respiratory failure with hypercapnia; I50.23 Acute on chronic systolic (congestive) heart failure; N17.0 Acute kidney failure with tubular necrosis; R65.21 Severe sepsis with septic shock; J44.1 Chronic obstructive pulmonary disease with (acute) exacerbation; L03.116 Cellulitis of left lower limb; L03.115 Cellulitis of right lower limb; I48.21 Permanent atrial fibrillation; N30.01 Acute cystitis with hematuria; D68.69 Other thrombophilia; Z68.43 Body mass index [BMI] 50.0-59.9, adult; E87.4 Mixed disorder of acid-base balance; Z20.822 Contact with and (suspected) exposure to COVID-19; E11.65 Type 2 diabetes mellitus with hyperglycemia; I27.20 Pulmonary hypertension, unspecified; I48.0 Paroxysmal atrial fibrillation; D63.8 Anemia in other chronic diseases classified elsewhere; E66.01 Morbid (severe) obesity due to excess calories; T36.8X5A Adverse effect of other systemic antibiotics, initial encounter; E87.5 Hyperkalemia; E66.813 Obesity, class 3; I08.2 Rheumatic disorders of both aortic and tricuspid valves; G47.33 Obstructive sleep apnea (adult) (pediatric); I27.81 Cor pulmonale (chronic); Z79.01 Long term (current) use of anticoagulants; Z79.899 Other long term (current) drug therapy; Z87.891 Personal history of nicotine dependence; Y92.89 Other specified places as the place of occurrence of the external cause
CPT/HCPCS: 31720; 36415; 36430; 36556; 36558; 36569; 36600; 71045; 71046; 71275; 73501; 74018; 76775; 76937; 77001; 80048; 80053; 80061; 80202; 80307; 81001; 82270; 82306; 82565; 82570; 82607; 82728; 82746; 82805; 82962; 83036; 83540; 83550; 83605; 83735; 83880; 83970; 84100; 84156; 84300; 84443; 84478; 84484; 85007; 85014; 85018; 85025; 85027; 85610; 85730; 86704; 86706; 86708; 86803; 86850; 86900; 86901; 86920; 87040; 87070; 87076; 87077; 87081; 87186; 87205; 87340; 87426; 87804; 90935; 92507; 92610; 93005; 93306; 94002; 94003; 94640; 94660; 94667; 94668; 96365; 96375; 97110; 97163; 97530; 99152; 99291; C1894; G0378; J0692; J1100; J1642; J1815; J1885; J1956; J2470; J2704; J3480; J7131; P9047